=== PATIENT | female | born 1935 | race Caucasian/White ===

== ENCOUNTER 2016-12-09 10:52 | Emergency (ER) | payer MEDICARE, OTHER ==
[~2016-12-09] VITALS: Ht 157.5 cm; Wt 75.3 kg
[2016-12-09] MEDS ORDERED: ASPI81TA85 PO (11:13)
[2016-12-09] MEDS ORDERED: CINA30TA PO (11:13)
[2016-12-09] MEDS ORDERED: CHLO25TA PO (11:13)
[2016-12-09] MEDS ORDERED: INSULADS INJ (11:13)
[2016-12-09] MEDS ORDERED: AMLO10TA2 PO (11:13)
[2016-12-09] MEDS ORDERED: JANU100T PO (11:13)
[2016-12-09] MEDS ORDERED: METO25TAB PO (11:13)
[2016-12-09] MEDS ORDERED: GLIM4TAB PO (11:13)
[2016-12-09] MEDS ORDERED: PRIL20CA9 PO (11:13)
[2016-12-09 12:42] LABS: BASO # 0.1 K/mm3 (0.0-0.2); BASO % 1.2 % (0.0-1.0); EOS # 0.2 K/mm3 (0.0-0.50); EOS % 2.1 % (0.0-3.0); LARGE UNSTAINED CELL # 0.4 K/mm3 (0.0-0.4); LARGE UNSTAINED CELL % 3.5 % (0.0-4.0); LYMPH # 3.6 K/mm3 (1.5-4.5); LYMPH % 29.6 % (24.0-44.0); MEAN CORPUSCULAR HEMOGLOBIN 30.4 pg (27.0-33.0); MEAN CORPUSCULAR HGB CONC 32.2 g/dl (32.0-36.5); MEAN CORPUSCULAR VOLUME 94.5 fl (80.0-96.0); MONO # 0.8 K/mm3 (0.0-0.8); MONO % 7.2 % (0.0-5.0); NEUTROPHILS # 6.1 K/mm3 (1.8-7.7); NEUTROPHILS % 56.4 % (36.0-66.0); PLATELET COUNT, AUTOMATED 483 k/mm3 (150-450); RED CELL DISTRIBUTION WIDTH 13.7 % (11.5-14.5); WHITE BLOOD COUNT 10.9 K/mm3 (4.0-10.0)
[2016-12-09 12:57] LABS: ALBUMIN 3.6 GM/DL (3.2-5.2); ALBUMIN/GLOBULIN RATIO 0.8 (1.00-1.93); BILIRUBIN,DIRECT 0.1 MG/DL (0.0-0.2); BILIRUBIN,TOTAL 0.4 MG/DL (0.2-1.0); CALCIUM LEVEL 9.6 MG/DL (8.8-10.2); CREATININE FOR GFR 1.92 MG/DL (0.55-1.02); GLOMERULAR FILTRATION RATE 26.6 (>32); TOTAL PROTEIN 8.1 GM/DL (6.4-8.2)
[2016-12-09] MEDS ORDERED: NS 500 ML IV ONE ×2 (13:00→15:45)
--- NOTE | 2016-12-09 14:45 | REP ---
CT ABDOMEN AND PELVIS WITHOUT IV CONTRAST: 12/09/2016. Comparison: CT 01/09/2005. Clinical history: Right flank and hip pain. Radiating to the right lower quadrant. She has had prior appendectomy and hysterectomy. Prior uterine carcinoma. Technique: No oral or IV contrast with scanning through the abdomen and pelvis in both coronal and sagittal reconstructions. Findings:CT abdomen: Lung bases show minor dependent atelectatic change without infiltrate or effusion. No nodular mass. The heart shows dense calcification of the mitral annulus. Coronary calcifications are noted. There is diffuse atherosclerotic calcifications of the abdominal aorta. No definite hiatal hernia. There is no focal hepatic mass, biliary dilatation or adjacent ascites. No abnormal calcifications. Spleen is absent. Since the previous study, there are no surgical clips at the tail of the spleen with resection of the cystic mass seen on the 2004 exam without recurrence visible on this study. Small bowel loops and colon in the upper abdomen grossly intact. There is atherosclerotic calcifications of the aorta without aneurysm. No periaortic or other retroperitoneal pathologic sized lymphadenopathy. The gallbladder is without calcified stone or mass. There is no ascites or free air. Lung window review of all CT slice levels in the abdomen and pelvis show no perforation or free air. In the upper pole of both kidneys, there are a few small cysts which are exophytic, largest on the right is posterior at the apex about 17 mm on the left, medial at the apex at 17 mm. Other smaller subcentimeter exophytic cysts including one hyperdense cyst in the posterior lower pole of the right noted. No stones, hydronephrosis or hydroureter. CT pelvis: I do not see ureteral dilatation or stone with the ureters followed all the way to the bladder in the ureter on either side. No ureteral dilatation. No bladder stone, mass or wall thickening. There has been surgical repair of the abdominal wall hernia in the midline infraumbilical region since the previous CT. This has not recurred. Small bowel loops grossly intact. There are atherosclerotic calcifications of the iliac and femoral vessels. Bone windows show degenerative disc changes at lumbar spine particularly at L5-S1. There is facet arthritis with grade 1 anterolisthesis and severe degenerative disc change with vacuum phenomenon and near [id number] appearance at L5-S1. I cannot clearly define spondylolysis. Lesser degenerative changes elsewhere in the upper lumbar and lower thoracic spine. Visualized ribs intact. The hips and SI joints with minimal degenerative change but no fractures. Pelvic ring, iliac bones, hips and acetabuli unremarkable. Pelvic phleboliths are noted along with vascular calcifications in iliac and femoral vessels. Distal left colon and sigmoid without colitis or diverticulitis. There is stool and gas in the cecum and redundant sigmoid. Small bowel loops unremarkable. Impression: 1. There are multiple small exophytic renal cysts the largest 17 mm upper pole on each side without hydronephrosis, renal stone, hydroureter or ureteral stone. No bladder stone. 2. Atherosclerotic calcifications aorta without aneurysm. 3. Degenerative changes in the spine and prior surgical repair of ventral infraumbilical hernia which is maintained. There are other postsurgical changes in the left upper quadrant and the spleen is absent. No acute finding. Signed by Ranjeet Goodson MD 12/09/2016 07:34 P
[2016-12-09] MEDS ORDERED: ACETAMINOPHEN TAB 650MG DOSE (2X325MG) PO ONE (15:45)
[2016-12-09] MEDS ORDERED: ONDANSETRON 4MG/2ML VIAL (J2405) IV ONE (15:45)
[2016-12-09] MEDS ORDERED: NORCO 5/325MG TABLET (BULK FOR ED) PO ONE (17:00)
[2016-12-09 17:07] VITALS: BP 125/65
[2016-12-09] MEDS ORDERED: ZOFR4TAB3 PO (17:07)
--- NOTE | 2016-12-09 21:14 | ECGEPIP ---
Stationary ECG Study [facility] - ED Test Date: 2016-12-09 Pat Name: DAVI MITCHELL Department: Room: - Gender: F [employer]: JT : [id number] Requested By: DELFINA Encarnacion Order Number: [id number] Reading MD: Aisha Purcell Measurements Intervals [place] Rate: 63 P: 28 IN: 166 QRS: 17 QRSD: 102 T: 32 QT: 476 QTc: 487 Interpretive Statements SINUS RHYTHM NONSPECIFIC ST & T-WAVE ABNORMALITY PROLONGED QT INTERVAL NO PRIOR FOR COMPARISON Electronically Signed On 12-09-2016 21:14:20 EDT by Aisha Purcell
== END 2016-12-09 17:24 | disposition home or self-care (01) ==
LOC: M ED 12:32
DX: M54.9 Dorsalgia, unspecified (principal); R10.9 Unspecified abdominal pain; R06.02 Shortness of breath; K59.00 Constipation, unspecified; I10 Essential (primary) hypertension; E11.9 Type 2 diabetes mellitus without complications; R01.1 Cardiac murmur, unspecified; Z95.5 Presence of coronary angioplasty implant and graft
CPT/HCPCS: 36415; 74176; 80048; 80076; 81001; 83605; 83690; 85025; 87086; 93005; 93041; 96374; 99285; J2405

== ENCOUNTER 2018-08-13 11:10 | Inpatient (IN) | payer MEDICARE, OTHER ==
[2018-08-13 11:50] LABS: BASO # 0.1 10^3/uL (0.0-0.2); EOS # 0.2 10^3/uL (0.0-0.50); EOS % 2.9 % (0.0-3.0); HEMOGLOBIN 12.1 g/dl (12.0-15.5); IMMATURE GRANULOCYTE % 0.2 % (0-3.0); LYMPH # 2.3 10^3/uL (1.5-4.5); LYMPH % 28.8 % (24.0-44.0); MEAN CORPUSCULAR HEMOGLOBIN 28.5 pg (27.0-33.0); MEAN CORPUSCULAR HGB CONC 33.6 g/dl (32.0-36.5); MEAN CORPUSCULAR VOLUME 84.9 fl (80.0-96.0); MONO # 0.9 10^3/uL (0.0-0.8); MONO % 10.5 % (0.0-5.0); NEUTROPHILS # 4.6 10^3/uL (1.8-7.7); NEUTROPHILS % 56.6 % (36.0-66.0); PLATELET COUNT, AUTOMATED 400 10^3/uL (150-450); RED BLOOD COUNT 4.24 10^6/uL (4.00-5.40); RED CELL DISTRIBUTION WIDTH 16.2 % (11.5-14.5); WHITE BLOOD COUNT 8.1 10^3/uL (4.0-10.0)
[2018-08-13 12:09] LABS: INR 0.95; PARTIAL THROMBOPLASTIN TIME 27.3 SECONDS (25.4-37.6); PROTHROMBIN TIME 12.8 SECONDS (12.1-14.4)
[2018-08-13 12:36] LABS: ALBUMIN 3.4 GM/DL (3.2-5.2); ALBUMIN/GLOBULIN RATIO 0.72 (1.00-1.93); ALKALINE PHOSPHATASE 74 U/L (45-117); ALT/SGPT 23 U/L (12-78); ANION GAP 10 MEQ/L (8-16); AST/SGOT 17 U/L (7-37); BILIRUBIN,DIRECT < 0.1 MG/DL (0.0-0.2); BILIRUBIN,TOTAL 0.3 MG/DL (0.2-1.0); BLOOD UREA NITROGEN 76 MG/DL (7-18); CARBON DIOXIDE LEVEL 31 MEQ/L (21-32); CHLORIDE LEVEL 96 MEQ/L (98-107); CK-MB VALUE MASS < 1.0 NG/ML (<3.6); CPK CREATINE PHOSPHOKINASE 69 U/L (26-192); CREATININE FOR GFR 2.65 MG/DL (0.55-1.30); FREE T4 1.45 NG/DL (0.76-1.46); GLOMERULAR FILTRATION RATE 18.3 (>32); GLUCOSE, FASTING 187 MG/DL (70-100); MB/CK RELATIVE INDEX 1.45 (< OR =4); NT-PRO BNP 2294 PG/ML (<450); SODIUM LEVEL 137 MEQ/L (136-145); TOTAL PROTEIN 8.1 GM/DL (6.4-8.2); TROPONIN I 0.02 NG/ML (< 0.10)
[2018-08-13] MEDS ORDERED: GLUCOSE 4 GM CHEW TABLET PO (15:00)
[2018-08-13] MEDS ORDERED: DEXTROSE 50% 50 ML SYRINGE IV (15:00)
[2018-08-13] MEDS ORDERED: GLUCAGON FOR INJ 1 MG VIAL (J1610) SC (15:00)
[2018-08-13] MEDS ORDERED: POTASSIUM CHLORIDE 10 MEQ SR TABLET PO ×2 (15:00)
[2018-08-13 15:19] LABS: MAGNESIUM LEVEL 2.4 MG/DL (1.8-2.4)
[2018-08-13] MEDS: HEPARIN SOD (PORCINE) 5000 UNITS/ML VIAL SC ×2 (16:19→21:48)
[2018-08-13] MEDS: POTASSIUM CHLORIDE 10 MEQ SR TABLET PO (16:20)
[2018-08-13 16:28] LABS: ESTIMATED AVERAGE GLUCOSE 180 MG/DL (60-110); HEMOGLOBIN A1c 7.9 %
[2018-08-13 16:32] LABS: BEDSIDE GLUCOSE 123 MG/DL (83-110)
[2018-08-13] MEDS: HumaLOG INSULIN (NovoLOG) PER UNIT SC ×2 (18:03→21:00)
[2018-08-13 18:30] LABS: ANION GAP 9 MEQ/L (8-16); BLOOD UREA NITROGEN 69 MG/DL (7-18); CARBON DIOXIDE LEVEL 33 MEQ/L (21-32); CHLORIDE LEVEL 98 MEQ/L (98-107); CK-MB VALUE MASS < 1.0 NG/ML (<3.6); CPK CREATINE PHOSPHOKINASE 66 U/L (26-192); CREATININE FOR GFR 2.58 MG/DL (0.55-1.30); GLOMERULAR FILTRATION RATE 18.8 (>32); GLUCOSE, FASTING 128 MG/DL (70-100); MB/CK RELATIVE INDEX 1.52 (< OR =4); SODIUM LEVEL 140 MEQ/L (136-145); TROPONIN I 0.02 NG/ML (< 0.10)
[2018-08-13 20:00] LABS: BEDSIDE GLUCOSE 210 MG/DL (83-110)
[2018-08-13] MEDS: METOPROLOL TART 25 MG TABLET PO (20:45)
[2018-08-13] MEDS: ASPIRIN 81 MG ENTERIC TAB PO (20:45)
[2018-08-13] MEDS ORDERED: LEVEMIR (INSULIN DETEMIR) 1 UNITS/0.01ML SC (21:00)
[2018-08-14 02:52] LABS: CK-MB VALUE MASS < 1.0 NG/ML (<3.6); CPK CREATINE PHOSPHOKINASE 62 U/L (26-192); MB/CK RELATIVE INDEX 1.61 (< OR =4); TROPONIN I 0.03 NG/ML (< 0.10)
[2018-08-14] MEDS: HEPARIN SOD (PORCINE) 5000 UNITS/ML VIAL SC ×3 (05:14→21:35)
[2018-08-14 05:43] LABS: BASO # 0.1 10^3/uL (0.0-0.2); BASO % 1.1 % (0.0-1.0); EOS % 11.5 % (0.0-3.0); HEMATOCRIT 34.4 % (36.0-47.0); HEMOGLOBIN 11.2 g/dl (12.0-15.5); IMMATURE GRANULOCYTE % 0.2 % (0-3.0); LYMPH # 3.2 10^3/uL (1.5-4.5); LYMPH % 38.8 % (24.0-44.0); MEAN CORPUSCULAR HEMOGLOBIN 28.4 pg (27.0-33.0); MEAN CORPUSCULAR HGB CONC 32.6 g/dl (32.0-36.5); MEAN CORPUSCULAR VOLUME 87.3 fl (80.0-96.0); MONO # 1.1 10^3/uL (0.0-0.8); MONO % 13.4 % (0.0-5.0); NEUTROPHILS # 2.9 10^3/uL (1.8-7.7); PLATELET COUNT, AUTOMATED 380 10^3/uL (150-450); RED BLOOD COUNT 3.94 10^6/uL (4.00-5.40); RED CELL DISTRIBUTION WIDTH 16.4 % (11.5-14.5); WHITE BLOOD COUNT 8.2 10^3/uL (4.0-10.0)
[2018-08-14 06:08] LABS: ALBUMIN 3.1 GM/DL (3.2-5.2); ALBUMIN/GLOBULIN RATIO 0.72 (1.00-1.93); ALKALINE PHOSPHATASE 66 U/L (45-117); ALT/SGPT 24 U/L (12-78); ANION GAP 8 MEQ/L (8-16); AST/SGOT 14 U/L (7-37); BILIRUBIN,TOTAL 0.3 MG/DL (0.2-1.0); BLOOD UREA NITROGEN 72 MG/DL (7-18); CALCIUM LEVEL 8.7 MG/DL (8.8-10.2); CARBON DIOXIDE LEVEL 34 MEQ/L (21-32); CHLORIDE LEVEL 98 MEQ/L (98-107); CREATININE FOR GFR 2.87 MG/DL (0.55-1.30); GLOMERULAR FILTRATION RATE 16.7 (>32); GLUCOSE, FASTING 126 MG/DL (70-100); MAGNESIUM LEVEL 2.4 MG/DL (1.8-2.4); POTASSIUM SERUM 3.2 MEQ/L (3.5-5.1); SODIUM LEVEL 140 MEQ/L (136-145); TOTAL PROTEIN 7.4 GM/DL (6.4-8.2)
[2018-08-14] MEDS ORDERED: amLODIPine 5 MG TAB PO (09:00)
[2018-08-14] MEDS: METOPROLOL TART 25 MG TABLET PO ×2 (09:00→21:00)
[2018-08-14] MEDS: PANTOPRAZOLE 40MG TAB (PROTONIX) PO (09:05)
[2018-08-14] MEDS: POTASSIUM CHLORIDE 10 MEQ SR TABLET PO ×2 (09:05→13:30)
[2018-08-14] MEDS: VITAMIN D 1,000 INTERNATIONAL UNITS TABLET PO (09:05)
[2018-08-14] MEDS: CLOPIDOGREL 75 MG TAB PO (09:05)
[2018-08-14] MEDS: LEVEMIR (INSULIN DETEMIR) 1 UNITS/0.01ML SC (09:06)
[2018-08-14] MEDS: HumaLOG INSULIN (NovoLOG) PER UNIT SC ×4 (09:07→20:18)
[2018-08-14 10:47] LABS: CK-MB VALUE MASS < 1.0 NG/ML (<3.6); CPK CREATINE PHOSPHOKINASE 62 U/L (26-192); MB/CK RELATIVE INDEX 1.61 (< OR =4); TROPONIN I 0.02 NG/ML (< 0.10)
[2018-08-14 11:22] LABS: APPEARANCE, URINE CLEAR (CLEAR); BACTERIA, URINE AUTO 1+ (NEGATIVE); BILIRUBIN, URINE AUTO NEGATIVE (NEGATIVE); BLOOD, URINE BLOOD NEGATIVE (NEGATIVE); COLOR, URINE YELLOW (YELLOW); GLUCOSE, URINE (UA) AUTO NEGATIVE (NEGATIVE); KETONE, URINE AUTO NEGATIVE (NEGATIVE); LEUKOCYTE ESTERASE, URINE AUTO TRACE (NEGATIVE); NITRITE, URINE AUTO NEGATIVE (NEGATIVE); PROTEIN, URINE AUTO NEGATIVE (NEGATIVE); RBC, URINE AUTO 0 /HPF (0-3); SPECIFIC GRAVITY URINE AUTO 1.013 (1.002-1.035); SQUAMOUS EPITHELIAL CELL UR AU 1 /HPF (0-6); UROBILINOGEN, URINE AUTO 0.2 mg/dL (0.0-2.0); WBC, URINE AUTO 1 /HPF (0-3)
[2018-08-14 11:51] LABS: BEDSIDE GLUCOSE 144 MG/DL (83-110)
[2018-08-14 12:02] LABS: SODIUM,RANDOM URINE 43 MEQ/L
[2018-08-14 12:37] LABS: OSMOLALITY URINE 482 MOSM/KG (500-800)
[2018-08-14] MEDS: SODIUM BICARBONATE 75 MEQ in NS 0.45% 1,000 ML IV (14:57)
[2018-08-14 16:32] LABS: ALBUMIN 3.3 GM/DL (3.2-5.2); ANION GAP 9 MEQ/L (8-16); BLOOD UREA NITROGEN 68 MG/DL (7-18); CALCIUM LEVEL 8.8 MG/DL (8.8-10.2); CARBON DIOXIDE LEVEL 31 MEQ/L (21-32); CHLORIDE LEVEL 100 MEQ/L (98-107); CREATININE FOR GFR 2.85 MG/DL (0.55-1.30); GLOMERULAR FILTRATION RATE 16.8 (>32); GLUCOSE, FASTING 110 MG/DL (70-100); PHOSPHORUS LEVEL 3.3 MG/DL (2.5-4.9); POTASSIUM SERUM 3.8 MEQ/L (3.5-5.1); SODIUM LEVEL 140 MEQ/L (136-145)
[2018-08-14 16:34] LABS: BEDSIDE GLUCOSE 103 MG/DL (83-110)
[2018-08-14] MEDS: ASPIRIN 81 MG ENTERIC TAB PO (20:15)
[2018-08-14 20:16] LABS: BEDSIDE GLUCOSE 277 MG/DL (83-110)
[2018-08-15] MEDS: SODIUM BICARBONATE 75 MEQ in NS 0.45% 1,000 ML IV ×2 (04:08→18:22)
[2018-08-15 06:12] LABS: BASO # 0.1 10^3/uL (0.0-0.2); BASO % 1.4 % (0.0-1.0); EOS # 1.1 10^3/uL (0.0-0.50); EOS % 13.8 % (0.0-3.0); HEMATOCRIT 33.2 % (36.0-47.0); HEMOGLOBIN 10.7 g/dl (12.0-15.5); IMMATURE GRANULOCYTE % 0.1 % (0-3.0); LYMPH # 2.4 10^3/uL (1.5-4.5); LYMPH % 30.4 % (24.0-44.0); MEAN CORPUSCULAR HEMOGLOBIN 28.2 pg (27.0-33.0); MEAN CORPUSCULAR HGB CONC 32.2 g/dl (32.0-36.5); MEAN CORPUSCULAR VOLUME 87.6 fl (80.0-96.0); MONO % 12.8 % (0.0-5.0); NEUTROPHILS # 3.3 10^3/uL (1.8-7.7); NEUTROPHILS % 41.5 % (36.0-66.0); PLATELET COUNT, AUTOMATED 351 10^3/uL (150-450); RED BLOOD COUNT 3.79 10^6/uL (4.00-5.40); RED CELL DISTRIBUTION WIDTH 16.5 % (11.5-14.5)
[2018-08-15] MEDS: HEPARIN SOD (PORCINE) 5000 UNITS/ML VIAL SC ×3 (06:32→23:39)
[2018-08-15 06:39] LABS: ALBUMIN 2.9 GM/DL (3.2-5.2); ALBUMIN/GLOBULIN RATIO 0.76 (1.00-1.93); ALKALINE PHOSPHATASE 65 U/L (45-117); ALT/SGPT 22 U/L (12-78); ANION GAP 9 MEQ/L (8-16); AST/SGOT 17 U/L (7-37); BILIRUBIN,TOTAL 0.3 MG/DL (0.2-1.0); BLOOD UREA NITROGEN 66 MG/DL (7-18); CALCIUM LEVEL 8.8 MG/DL (8.8-10.2); CARBON DIOXIDE LEVEL 29 MEQ/L (21-32); CHLORIDE LEVEL 101 MEQ/L (98-107); CREATININE FOR GFR 2.42 MG/DL (0.55-1.30); GLOMERULAR FILTRATION RATE 20.3 (>32); GLUCOSE, FASTING 162 MG/DL (70-100); MAGNESIUM LEVEL 2.1 MG/DL (1.8-2.4); POTASSIUM SERUM 3.7 MEQ/L (3.5-5.1); SODIUM LEVEL 139 MEQ/L (136-145); TOTAL PROTEIN 6.7 GM/DL (6.4-8.2)
[2018-08-15] MEDS: CLOPIDOGREL 75 MG TAB PO (08:56)
[2018-08-15] MEDS: VITAMIN D 1,000 INTERNATIONAL UNITS TABLET PO (08:56)
[2018-08-15] MEDS: PANTOPRAZOLE 40MG TAB (PROTONIX) PO (08:58)
[2018-08-15] MEDS: METOPROLOL TART 25 MG TABLET PO ×2 (09:05→23:39)
[2018-08-15] MEDS: HumaLOG INSULIN (NovoLOG) PER UNIT SC ×4 (09:10→21:00)
[2018-08-15] MEDS: LEVEMIR (INSULIN DETEMIR) 1 UNITS/0.01ML SC (09:26)
[2018-08-15] MEDS ORDERED: ISOVUE-370 76% 100ML VIAL (Q9967) As Ordered (10:15)
[2018-08-15 12:01] LABS: BEDSIDE GLUCOSE 127 MG/DL (83-110)
[2018-08-15 17:31] LABS: BEDSIDE GLUCOSE 121 MG/DL (83-110)
[2018-08-15 20:14] LABS: BEDSIDE GLUCOSE 197 MG/DL (83-110)
[2018-08-15] MEDS: ASPIRIN 81 MG ENTERIC TAB PO (23:39)
[2018-08-16] MEDS: SODIUM BICARBONATE 75 MEQ in NS 0.45% 1,000 ML IV (05:12)
[2018-08-16] MEDS: HEPARIN SOD (PORCINE) 5000 UNITS/ML VIAL SC ×3 (05:20→21:29)
[2018-08-16 06:04] LABS: BASO # 0.1 10^3/uL (0.0-0.2); BASO % 1.1 % (0.0-1.0); EOS # 1.1 10^3/uL (0.0-0.50); EOS % 12.1 % (0.0-3.0); HEMATOCRIT 31.2 % (36.0-47.0); HEMOGLOBIN 10.2 g/dl (12.0-15.5); IMMATURE GRANULOCYTE % 0.3 % (0-3.0); LYMPH % 33.2 % (24.0-44.0); MEAN CORPUSCULAR HEMOGLOBIN 27.9 pg (27.0-33.0); MEAN CORPUSCULAR HGB CONC 32.7 g/dl (32.0-36.5); MEAN CORPUSCULAR VOLUME 85.5 fl (80.0-96.0); MONO % 11.3 % (0.0-5.0); NEUTROPHILS # 3.8 10^3/uL (1.8-7.7); PLATELET COUNT, AUTOMATED 360 10^3/uL (150-450); RED BLOOD COUNT 3.65 10^6/uL (4.00-5.40); RED CELL DISTRIBUTION WIDTH 16.6 % (11.5-14.5)
[2018-08-16 06:25] LABS: ALBUMIN 2.9 GM/DL (3.2-5.2); ALBUMIN/GLOBULIN RATIO 0.76 (1.00-1.93); ALKALINE PHOSPHATASE 62 U/L (45-117); ALT/SGPT 22 U/L (12-78); ANION GAP 7 MEQ/L (8-16); AST/SGOT 14 U/L (7-37); BILIRUBIN,TOTAL 0.3 MG/DL (0.2-1.0); BLOOD UREA NITROGEN 49 MG/DL (7-18); CALCIUM LEVEL 8.9 MG/DL (8.8-10.2); CARBON DIOXIDE LEVEL 32 MEQ/L (21-32); CHLORIDE LEVEL 99 MEQ/L (98-107); CREATININE FOR GFR 1.99 MG/DL (0.55-1.30); GLOMERULAR FILTRATION RATE 25.4 (>32); GLUCOSE, FASTING 161 MG/DL (70-100); POTASSIUM SERUM 3.5 MEQ/L (3.5-5.1); SODIUM LEVEL 138 MEQ/L (136-145); TOTAL PROTEIN 6.7 GM/DL (6.4-8.2)
[2018-08-16] MEDS: HumaLOG INSULIN (NovoLOG) PER UNIT SC ×4 (07:32→21:00)
[2018-08-16] MEDS: VITAMIN D 1,000 INTERNATIONAL UNITS TABLET PO (07:33)
[2018-08-16] MEDS: LEVEMIR (INSULIN DETEMIR) 1 UNITS/0.01ML SC (07:33)
[2018-08-16] MEDS: CLOPIDOGREL 75 MG TAB PO (07:34)
[2018-08-16] MEDS: PANTOPRAZOLE 40MG TAB (PROTONIX) PO (07:34)
[2018-08-16] MEDS: METOPROLOL TART 25 MG TABLET PO ×2 (07:34→21:29)
[2018-08-16] MEDS: POTASSIUM CHLORIDE 10 MEQ SR TABLET PO (10:19)
[2018-08-16 11:29] LABS: BEDSIDE GLUCOSE 115 MG/DL (83-110)
[2018-08-16 12:08] LABS: HEMATOCRIT 34.2 % (36.0-47.0); HEMOGLOBIN 11.2 g/dl (12.0-15.5); MEAN CORPUSCULAR HEMOGLOBIN 28.4 pg (27.0-33.0); MEAN CORPUSCULAR HGB CONC 32.7 g/dl (32.0-36.5); MEAN CORPUSCULAR VOLUME 86.8 fl (80.0-96.0); PLATELET COUNT, AUTOMATED 386 10^3/uL (150-450); RED BLOOD COUNT 3.94 10^6/uL (4.00-5.40); RED CELL DISTRIBUTION WIDTH 16.5 % (11.5-14.5); WHITE BLOOD COUNT 9.5 10^3/uL (4.0-10.0)
[2018-08-16 16:58] LABS: BEDSIDE GLUCOSE 210 MG/DL (83-110)
[2018-08-16 20:13] LABS: BEDSIDE GLUCOSE 167 MG/DL (83-110)
[2018-08-16] MEDS: ASPIRIN 81 MG ENTERIC TAB PO (21:28)
[2018-08-17] MEDS: HEPARIN SOD (PORCINE) 5000 UNITS/ML VIAL SC (05:27)
[2018-08-17 05:58] LABS: BASO # 0.1 10^3/uL (0.0-0.2); BASO % 1.2 % (0.0-1.0); EOS % 15.1 % (0.0-3.0); HEMATOCRIT 34.3 % (36.0-47.0); HEMOGLOBIN 10.9 g/dl (12.0-15.5); IMMATURE GRANULOCYTE % 0.3 % (0-3.0); LYMPH # 2.1 10^3/uL (1.5-4.5); LYMPH % 31.2 % (24.0-44.0); MEAN CORPUSCULAR HEMOGLOBIN 27.9 pg (27.0-33.0); MEAN CORPUSCULAR HGB CONC 31.8 g/dl (32.0-36.5); MEAN CORPUSCULAR VOLUME 87.7 fl (80.0-96.0); MONO # 0.8 10^3/uL (0.0-0.8); MONO % 12.1 % (0.0-5.0); NEUTROPHILS # 2.7 10^3/uL (1.8-7.7); NEUTROPHILS % 40.1 % (36.0-66.0); PLATELET COUNT, AUTOMATED 376 10^3/uL (150-450); RED BLOOD COUNT 3.91 10^6/uL (4.00-5.40); RED CELL DISTRIBUTION WIDTH 16.6 % (11.5-14.5); WHITE BLOOD COUNT 6.8 10^3/uL (4.0-10.0)
[2018-08-17 06:35] LABS: ALBUMIN 2.9 GM/DL (3.2-5.2); ALBUMIN/GLOBULIN RATIO 0.73 (1.00-1.93); ALKALINE PHOSPHATASE 65 U/L (45-117); ALT/SGPT 21 U/L (12-78); ANION GAP 9 MEQ/L (8-16); AST/SGOT 16 U/L (7-37); BILIRUBIN,TOTAL 0.4 MG/DL (0.2-1.0); BLOOD UREA NITROGEN 43 MG/DL (7-18); CALCIUM LEVEL 9.1 MG/DL (8.8-10.2); CARBON DIOXIDE LEVEL 27 MEQ/L (21-32); CHLORIDE LEVEL 103 MEQ/L (98-107); CREATININE FOR GFR 1.94 MG/DL (0.55-1.30); GLOMERULAR FILTRATION RATE 26.2 (>32); GLUCOSE, FASTING 206 MG/DL (70-100); MAGNESIUM LEVEL 1.8 MG/DL (1.8-2.4); POTASSIUM SERUM 3.7 MEQ/L (3.5-5.1); SODIUM LEVEL 139 MEQ/L (136-145); TOTAL PROTEIN 6.9 GM/DL (6.4-8.2)
[2018-08-17] MEDS: METOPROLOL TART 25 MG TABLET PO (07:30)
[2018-08-17] MEDS: CLOPIDOGREL 75 MG TAB PO (07:34)
[2018-08-17] MEDS: PANTOPRAZOLE 40MG TAB (PROTONIX) PO (07:34)
[2018-08-17] MEDS: VITAMIN D 1,000 INTERNATIONAL UNITS TABLET PO (07:35)
[2018-08-17] MEDS: HumaLOG INSULIN (NovoLOG) PER UNIT SC ×2 (07:35→11:54)
[2018-08-17] MEDS: LEVEMIR (INSULIN DETEMIR) 1 UNITS/0.01ML SC (07:36)
[2018-08-17 11:49] LABS: BEDSIDE GLUCOSE 134 MG/DL (83-110)
== END 2018-08-17 13:58 | disposition home or self-care (01) | DRG 436 ==
LOC: M ED 11:10 → M ED INP 14:51 → M MSPAV 16:07
PROVIDERS: Internal Medicine
DX: C25.9 Malignant neoplasm of pancreas, unspecified (principal); N17.9 Acute kidney failure, unspecified; N18.4 Chronic kidney disease, stage 4 (severe); I13.0 Hypertensive heart and chronic kidney disease with heart failure and stage 1 through stage 4 chronic kidney disease, or unspecified chronic kidney disease; R07.9 Chest pain, unspecified; I25.10 Atherosclerotic heart disease of native coronary artery without angina pectoris; I50.9 Heart failure, unspecified; I35.0 Nonrheumatic aortic (valve) stenosis; Z95.2 Presence of prosthetic heart valve; E78.49 Other hyperlipidemia; E11.9 Type 2 diabetes mellitus without complications; K21.9 Gastro-esophageal reflux disease without esophagitis; Z79.82 Long term (current) use of aspirin; Z79.899 Other long term (current) drug therapy; Z88.0 Allergy status to penicillin; Z88.8 Allergy status to other drugs, medicaments and biological substances; Z85.42 Personal history of malignant neoplasm of other parts of uterus; E87.6 Hypokalemia; R19.7 Diarrhea, unspecified

== ENCOUNTER 2020-10-24 13:20 | Emergency (ER) | payer MEDICARE, OTHER ==
[~2020-10-24] VITALS: Ht 154.9 cm; Wt 80.9 kg
[~2020-10-24 13:20] MED LIST: AMLO1TAB25 PO; ASPI81TA86 PO; CHLO25TA PO; CINA30TA4 PO; CLOP75TA2 PO; EZET10TA21 PO; FURO40TA2 PO; GLIM2TAB4 PO; GLIM4TAB5 PO; INSULADS INJ; JANU100T PO; MAGN400C2 PO; METO25TA4 PO; OMEP1CAP73 PO; PANT40TA29 PO; POTA10CA32 PO; PRIL20CA9 PO; SITA50TAB PO; VITA2000 PO; VITA500C24 PO; VITA50TA43 PO; ZOFR4TAB14 PO
--- OUTSIDE RECORDS SUMMARY | 2020-10-24 13:27 | CCD | Continuity of Care Document ---
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 Callie Hewitt DPM-pc Onset: 01/27/2020 Peripheral vascular disease NILESH DominiqueM-pc Onset: Tailor's bunion Callie Hewitt DPM-pc Onset: 06/22/2019 Hammer toe NILESH DominiqueM-pc Onset: 02/02/2019 Plantar callosity Callie Hewitt DPM-pc Onset: 02/03/2018 Peripheral circulatory disorder associated with diabet es mellitus Jf Dominique Onset: 02/03/2018 Pain in limb NILESH DominiqueM-pc Onset: 02/03/2018 Onychomycosis Callie Hewitt DPM-pc Onset: 02/03/2018 Social History Type Date Description Comments Sex Unknown ETOH Use Denies alcohol use Tobacco Use Start: Unknown End: Unknown Patient is a former smoker Smoking Status Reviewed: 05/11/20 Patient is a former smoker Allergies, Adverse Reactions, Alerts Active Allergies Reaction Severity Comments Date Penicillin Urticaria 02/03/2018 Cipro Nausea and Vomiting 02/04/20 18 Medications Active Medications SIG Qnty Indications Ordering Provide r Date Onetouch Verio Strips Use To Test Two Times A Day Unknown Onetouch Delica Lancets Extra Fine 33G Misc Use To Test Two Times A Day Unknown Sensipar 30mg Tablets Take One Tablet By Mouth Every Morning 5 Days A Week Unknown Lantus Solostar 100U nit/ML Solution Pen-Inject Unknown Furosemide 40mg Tablets Take One Tablet By Mouth Every Day Unknown Potassium Chloride ER 10Meq Capsul es ER Take One Capsule By Mouth Every Day Unknown Cinacalcet HCL 30mg Tablets Take One Tablet By Mouth Three Days A Week Unknown Amlodipine Besylate 10mg Tablets Take One Tablet By Mouth Every Day Unknown Febuxostat 40mg Tablets Take One Tablet By Mouth Every Day Unknown Ezetimibe 10mg Tablets Take One Tablet By Mouth Every Day Unknown Pantoprazole Sodium 40mg Tablets D R 1 by mouth every day Unknown Aspirin [address] 1 by mouth every day Unknown Magnesium 400mg Tablets 1 tabs by mouth every day Unknown Lutein 6mg Capsules Unknown Vitamin C 500mg Tablets Unknown Immunizations Description No Information Available Vital Signs Date Vital Result Comment 02/02/2019 1:25pm Weight 176.00 lb Weight 79.834 kg Height 63 inches 5'3" BMI (Body Mass Index) 31.2 kg/m2 BSA (Body Surface Area) 1.83 m2 02/03/2018 1:08pm Weight 173.00 lb Weight 78.473 kg Height 63 inches 5'3" BMI (Body Mass Index) 30.6 kg/m2 BSA (Body Surface Area) 1.82 m2 Results Description No Information Available Procedures Date Code Description Status 05/11/2020 86817 Debridement Nails Any Method 6 O r More Completed 05/11/2020 07494 Pare Hyperkeratotic Lesion, 2-4 Completed Medical Devices Description No Information Available Encounters Description No Information Available Assessments Date Code Description Provider 05/11/2020 E10.51 Type 1 diabetes mellitus with di abetic peripheral angiopathy Jf Dominique 05/11/2020 L84 Corns and callosities Jf Martin 05/11/2020 B35.1 Tinea unguium Jf Dominique 05/11/2020 M20.40 Other hammer toe(s) (acquired), unspecified foot Jf Dominique 05/11/2020 M21.629 Bunionette of unspecified foot D Jf Larson 05/11/2020 M79.671 Pain in right foot Jf Cheema Plan of Treatment Future Appointment(s):* 11/09/2020 11:00 am - Jf Dominique at [facility] Podiatry Functional Status Description No Information Available Mental Status Description No Information Available Referrals Description No Information Available
--- OUTSIDE RECORDS SUMMARY | 2020-10-24 13:30 | CCD ---
Author Author [facility] Organization [facility] Address Unknown Phone Unavailable Care Team Providers Care Rodent Exterminator Name Role Phone Amara Martinez PA Unavailable Unavailable Amara Martinez PA Unavailable Unavailable Amara Martineza PA Unavailable Unavailable Amara Martinez [place] PA Unavailable Unavailable Amara Martinez [place] PA Unavailable Unavailable Amara Martinez [place] PA Unavailable Unavailable Amara Martinez [place] PA Unavailable Unavailable Amara Martinez [place] PA Unavailable Unavailable Amara Martinez [place] PA Unavailable Unavailable Amara Martinez [place] PA Unavailable Unavailable Amara Martinez [place] PA Unavailable Unavailable Amara Martinez [place] PA Unavailable Unavailable Amara Martinez [place] PA Unavailable Unavailable Michelle, Amara Alexandria PA Unavailable Unavailable Michelle, Amara Alexandria PA Unavailable Unavailable Michelle, Amara Alexandria PA Unavailable Unavailable Michelle, Amara Alexandria PA Unavailable Unavailable Michelle, Amara Alexandria PA Unavailable Unavailable Michelle, Amara Alexandria PA Unavailable Unavailable Michelle, Amara Alexandria PA Unavailable Unavailable Michelle, Amara Alexandria PA Unavailable Unavailable Michelle, Amara Alexandria PA Unavailable Unavailable Michelle, Amara Alexandria PA Unavailable Unavailable Michelle, Amara Alexandria PA Unavailable Unavailable Michelle, Amara Alexandria PA Unavailable Unavailable Michelle, Amara Alexandria PA Unavailable Unavailable Michelle, Amara Alexandria PA Unavailable Unavailable Michelle, Amara Alexandria PA Unavailable Unavailable Michelle, Amara Alexandria PA Unavailable Unavailable Michelle, Amara Alexandria PA Unavailable Unavailable Michelle, Amara Alexandria PA Unavailable Unavailable Michelle, Amara Alexandria PA Unavailable Unavailable MARCELINA, J DORA [facility] Unavailable Unavailable MARCELINA, J [facility]A [facility] Unavailable Unavailable MARCELINA, J D[facility]A [facility] Unavailable Unavailable MARCELINA, J DORA [facility] Unavailable Unavailable MARCELINA, J DORA [facility] Unavailable Unavailable MARCELINA, J DORA [facility] Unavailable Unavailable MARCELINA, J DORA [facility] Unavailable Unavailable MARCELINA, J DOAR [facility] Unavailable Unavailable MARCELINA, J D[facility]A [facility] Unavailable Unavailable MARCELINA, J D[facility]A [facility] Unavailable Unavailable MARCELINA, J D[facility]A [facility] Unavailable Unavailable MARCELINA, J D[facility]A [facility] Unavailable Unavailable MARCELINA, J DORA [facility] Unavailable Unavailable MARCELINA, J DORA [facility] Unavailable Unavailable MARCELINA, J DORA [facility] Unavailable Unavailable MARCELINA, J DORA [facility] Unavailable Unavailable MARCELINA, J DORA [facility] Unavailable Unavailable MARCELINA, J DORA [facility] Unavailable Unavailable MARCELINA, J DORA [facility] Unavailable Unavailable MARCELINA, J D[facility]A [facility] Unavailable Unavailable MARCELINA, J DORA [facility] Unavailable Unavailable MARCELINA, J D[facility]A [facility] Unavailable Unavailable MARCELINA, J D[facility]A [facility] Unavailable Unavailable MARCELINA, J D[facility]A [facility] Unavailable Unavailable MARCELINA, J D[facility]A [facility] Unavailable Unavailable MARCELINA, J DORA [facility] Unavailable Unavailable PHYSICIAN, PHYSICIAN ER Unavailable Unavailable Clayton CALDERA MD Unavailable Unavailable Clayton CALDERA MD Unavailable Unavailable Clayton CALDERA MD Unavailable Unavailable Clayton CALDERA MD Unavailable Unavailable Clayton CALDERA MD Unavailable Unavailable Clayton CALDERA MD Unavailable Unavailable MANTA, D GONSALO MD Unavailable Unavailable MANTA, D GONSALO MD Unavailable Unavailable MANTA, D GONSALO MD Unavailable Unavailable MANTA, D GONSALO MD Unavailable Unavailable MANTA, D GONSALO MD Unavailable Unavailable MANTA, D GONSALO MD Unavailable Unavailable MANTA, D GONSALO MD Unavailable Unavailable MANTA, D GONSALO MD Unavailable Unavailable MANTA, D GONASLO MD Unavailable Unavailable MANTA, D GONSALO MD Unavailable Unavailable MANTA, D GONSALO MD Unavailable Unavailable MANTA, D GONSALO MD Unavailable Unavailable MANTA, D GONSALO MD Unavailable Unavailable Lilliam, P Khalid MD Unavailable Unavailable Lilliam, P Khalid MD Unavailable Unavailable Lilliam, P Khaliclayton MD Unavailable Unavailable Lilliam, P Khalid MD Unavailable Unavailable Lilliam, P Khaliclayton MD Unavailable Unavailable Lilliam, P Khalid MD Unavailable Unavailable Lilliam, P Philaliclayton MD Unavailable Unavailable Lilliam, P Philaliclayton MD Unavailable Unavailable Lilliam, P Khalid MD Unavailable Unavailable Lilliam, P Khaliclayton MD Unavailable Unavailable Lilliam, P Khalid MD Unavailable Unavailable Lilliam, P Khaliclayton MD Unavailable Unavailable Lilliam, P Khaliclayton MD Unavailable Unavailable Lilliam, P Khaliclayton MD Unavailable Unavailable Lilliam, P Khalid MD Unavailable Unavailable Lilliam, P Philaliclayton MD Unavailable Unavailable Lilliam, P Philaliclayton MD Unavailable Unavailable Lilliam, P Philaliclayton MD Unavailable Unavailable Lilliam, P Philaliclayton MD Unavailable Unavailable Lilliam, P Khaliclayton MD Unavailable Unavailable Lilliam, P Khalid MD Unavailable Unavailable Lilliam, P Khaliclayton MD Unavailable Unavailable Lilliam, P Khalid MD Unavailable Unavailable Lilliam, P Khaliclayton MD Unavailable Unavailable Lilliam, P Khaliclayton MD Unavailable Unavailable Lilliam, P Khaliclayton MD Unavailable Unavailable Lilliam, P Khalid MD Unavailable Unavailable Lilliam, P Khaliclayton MD Unavailable Unavailable Lilliam, P Khaliclayton MD Unavailable Unavailable Lilliam, P Khaliclayton MD Unavailable Unavailable Lilliam, P Khalid MD Unavailable Unavailable Lilliam, P Khaliclayton MD Unavailable Unavailable Lilliam, P Khalid MD Unavailable Unavailable Lilliam, P Khaliclayton MD Unavailable Unavailable Lilliam, P Khalid MD Unavailable Unavailable Lilliam, P Khalid MD Unavailable Unavailable Lilliam, Sarkis Ramirez MD Unavailable Unavailable Lilliam, P Ashley LONDON Unavailable Unavailable Lilliam, P Ashley LONDON Unavailable Unavailable Lilliam, P Ashley LONDON Unavailable Unavailable Lilliam, P Ashley LONDON Unavailable Unavailable Lilliam, P Ashley LONDON Unavailable Unavailable Lilliam, P Ashley LONDON Unavailable Unavailable Lilliam, P Ashley LONDON Unavailable Unavailable Lilliam, P Ashley LONDON Unavailable Unavailable Lilliam, P Ashley LONDON Unavailable Unavailable Lilliam, P Ashley LONDON Unavailable Unavailable Lilliam, P Ashley LONDON Unavailable Unavailable Lilliam, P Ashley LONDON Unavailable Unavailable Lilliam, P Ashley LONDON Unavailable Unavailable Lilliam, Sarkis Ramirez MD Unavailable Unavailable Oscar Rodriguez Jr Unavailable Unavailable Shambo, Marcos Peterson MD Unavailable Unavailable Shambo, Marcos Peterson MD Unavailable Unavailable Shambo, Marcos Peterson MD Unavailable Unavailable Shambo, Marcos Peterson MD Unavailable Unavailable Shambo, Marcos Peterson MD Unavailable Unavailable Shambo, Marcos Peterson MD Unavailable Unavailable Shambo, Marcos Peterson MD Unavailable Unavailable Shambo, Marcos Peterson MD Unavailable Unavailable Shambo, Marcos Peterson MD Unavailable Unavailable Shambo, Marcos Peterson MD Unavailable Unavailable Shambo, Marcos Peterson MD Unavailable Unavailable Shambo, Marcos Peetrson MD Unavailable Unavailable Shambo, Marcos Peterson MD Unavailable Unavailable Shambo, Marcos Peterson MD Unavailable Unavailable Shambo, Marcos Peterson MD Unavailable Unavailable Shambo, Marcos Peterson MD Unavailable Unavailable Shambo, Marcos Peterson MD Unavailable Unavailable Shambo, Marcos Peterson MD Unavailable Unavailable Shambo, Marcos Peterson MD Unavailable Unavailable Shambo, Marcos Peterson MD Unavailable Unavailable Shambo, Marcos Peterson MD Unavailable Unavailable Shambo, Marcos Peterson MD Unavailable Unavailable Shambo, Marcos Peterson MD Unavailable Unavailable Shambo, Marcos Peterson MD Unavailable Unavailable Shambo, Marcos Peterson MD Unavailable Unavailable Shambo, Marcos Peterson MD Unavailable Unavailable Shambo, Marcos Peterson MD Unavailable Unavailable Shambo, Marcos Peterson MD Unavailable Unavailable Shambo, Marcos Peterson MD Unavailable Unavailable Shambo, Marcos Peterson MD Unavailable Unavailable Shambo, Marcos Peterson MD Unavailable Unavailable Shambo, Marcos Peterson MD Unavailable Unavailable Shambo, Marcos Peterson MD Unavailable Unavailable Shambo, Marcos Peterson MD Unavailable Unavailable Shambo, Marcos Peterson MD Unavailable Unavailable Shambo, Marcos Peterson MD Unavailable Unavailable Shambo, Marcos Peterson MD Unavailable Unavailable Shambo, Marcso Peterson MD Unavailable Unavailable Shambo, Marcos Peterson MD Unavailable Unavailable Shambo, Marcos Peterson MD Unavailable Unavailable Shambo, Marcos Peterson MD Unavailable Unavailable Shambo, Marcos Peterson MD Unavailable Unavailable Shambo, Marcos Peterson MD Unavailable Unavailable Shambo, Marcos Peterson MD Unavailable Unavailable Shambo, Marcos Peterson MD Unavailable Unavailable Shambo, Marcos Peterson MD Unavailable Unavailable Shambo, Marcos Peterson MD Unavailable Unavailable Shambo, Marcos Peterson MD Unavailable Unavailable Shambo, Marcos Peterson MD Unavailable Unavailable Shambo, Marcos Peterson MD Unavailable Unavailable Shambo, Marcos Peterson MD Unavailable Unavailable Shambo, Marcos Peterson MD Unavailable Unavailable Shambo, Marcos Peterson MD Unavailable Unavailable Shambo, Marcos Peterson MD Unavailable Unavailable Shambo, Marcos Peterson MD Unavailable Unavailable Shambo, Marcos Peterson MD Unavailable Unavailable Shambo, Marcos Peterson MD Unavailable Unavailable Shambo, Marcos Peterson MD Unavailable Unavailable Shambo, Marcos Peterson MD Unavailable Unavailable Shambo, Marcos Peterson MD Unavailable Unavailable Shambo, Marcos Peterson MD Unavailable Unavailable Shambo, Marcos Peterson MD Unavailable Unavailable Shambo, Marcos Peterson MD Unavailable Unavailable Shambo, Marcos Peterson MD Unavailable Unavailable NOT, SPECIFIED Unavailable Unavailable Rylee Goldman MD Unavailable Unavailable JagdishRylee cloud MD Unavailable Unavailable JagdishRylee cloud MD Unavailable Unavailable JagdishRylee cloud MD Unavailable Unavailable JagdishRylee cloud MD Unavailable Unavailable JagdishRylee cloud MD Unavailable Unavailable JagdishRylee gonzalez MD Unavailable Unavailable JagdishRylee gonzalez MD Unavailable Unavailable JagdishRylee gonzalez MD Unavailable Unavailable JagdishRylee gonzalez MD Unavailable Unavailable JagdishRylee gonzalez MD Unavailable Unavailable JagdishRylee gonzalez MD Unavailable Unavailable JagdishRylee cloud MD Unavailable Unavailable JagdishRylee gonzalez MD Unavailable Unavailable JagdishRylee gonzalez MD Unavailable Unavailable JagdishRylee cloud MD Unavailable Unavailable JagdishRylee cloud MD Unavailable Unavailable JagdishRylee cloud MD Unavailable Unavailable Jagdish, Rylee Barber MD Unavailable Unavailable Jagdish, Rylee Barber MD Unavailable Unavailable Jagdish, Rylee Barber MD Unavailable Unavailable Jagdish, Rylee aBrber MD Unavailable Unavailable Jagdish, Rylee Barber MD Unavailable Unavailable Jagdish, Rylee Barber MD Unavailable Unavailable Jagdish, Rylee Barber MD Unavailable Unavailable Jagdish, Rylee Barber MD Unavailable Unavailable Jagdish, Rylee Barber MD Unavailable Unavailable Jagdish, Rylee Barber MD Unavailable Unavailable Jagdish, Rylee Barber MD Unavailable Unavailable Jagdish, Rylee Barber MD Unavailable Unavailable Jagdish, Rylee Barber MD Unavailable Unavailable Jagdish, Rylee Barber MD Unavailable Unavailable Jagdish, Rylee Barber MD Unavailable Unavailable Jagdish, Rylee Barber MD Unavailable Unavailable Jagdish, Rylee Barber MD Unavailable Unavailable Jagdish, Rylee Barber MD Unavailable Unavailable Jagdish, Rylee Barber MD Unavailable Unavailable Jagdish, Rylee Barber MD Unavailable Unavailable Jagdish, Rylee Barber MD Unavailable Unavailable Jagdish, Rylee Barber MD Unavailable Unavailable Jagdish, Rylee Barber MD Unavailable Unavailable Jagdish, Rylee Barber MD Unavailable Unavailable Jagdish, Rylee Barber MD Unavailable Unavailable Jagdish, Rylee Barber MD Unavailable Unavailable Jagdish, Rylee Barber MD Unavailable Unavailable Jagdish, Rylee Barber MD Unavailable Unavailable Jagdish, Rylee Barber MD Unavailable Unavailable Jagdish, Rylee Barber MD Unavailable Unavailable Jagdish, Rylee Barber MD Unavailable Unavailable Jagdish, Rylee Barber MD Unavailable Unavailable Jagdish, Rylee Barber MD Unavailable Unavailable Jagdish, Rylee Barber MD Unavailable Unavailable Jagdish, Rylee Barber MD Unavailable Unavailable Jagdish, Rylee Barber MD Unavailable Unavailable Jagdish, Rylee Barber MD Unavailable Unavailable Jagdish, Rylee Barber MD Unavailable Unavailable Jagdish, Rylee Barber MD Unavailable Unavailable Jagdish, Rylee Barber MD Unavailable Unavailable Jagdish, Rylee Barber MD Unavailable Unavailable Jagdish, Rylee Barber MD Unavailable Unavailable Jagdish, Rylee Barber MD Unavailable Unavailable Jagdish, Rylee Barber MD Unavailable Unavailable Jagdish, Rylee Barber MD Unavailable Unavailable Jagdish, Rylee Barber MD Unavailable Unavailable Jagdish, Rylee Barber MD Unavailable Unavailable Jagdish, Rylee Barber MD Unavailable Unavailable Jagdish, Rylee Barber MD Unavailable Unavailable Jagdish, Rylee Barber MD Unavailable Unavailable Jagdish, Rylee Barber MD Unavailable Unavailable Jagdish, Rylee Barber MD Unavailable Unavailable Jagdish, Rylee Barber MD Unavailable Unavailable Jagdish, Rylee Barber MD Unavailable Unavailable Jagdish, Rylee Barber MD Unavailable Unavailable Jagdish, Rylee Barber MD Unavailable Unavailable Jagdish, Rylee Barber MD Unavailable Unavailable Jagdish, Rylee Barber MD Unavailable Unavailable Jagdish, Rylee Barber MD Unavailable Unavailable Jagdish, Rylee Barber MD Unavailable Unavailable Jagdish, Rylee Barber MD Unavailable Unavailable Jagdish, Rylee Barber MD Unavailable Unavailable Jagdish, Rylee Barber MD Unavailable Unavailable Jagdish, Rylee Barber MD Unavailable Unavailable Jagdish, Rylee Barber MD Unavailable Unavailable Jagdish, Rylee Barber MD Unavailable Unavailable Jagdish, Rylee Barber MD Unavailable Unavailable Jagdish, Rylee Barber MD Unavailable Unavailable Jagdish, Rylee Barber MD Unavailable Unavailable Jagdish, Rylee Barber MD Unavailable Unavailable Jagdish, Rylee Barber MD Unavailable Unavailable Jagdish, Rylee Barber MD Unavailable Unavailable Jagdish, Rylee Barber MD Unavailable Unavailable Jagdish, Rylee Barber MD Unavailable Unavailable Jagdish, Rylee Barber MD Unavailable Unavailable Jagdish, Rylee Barber MD Unavailable Unavailable Jagdish, Rylee Barber MD Unavailable Unavailable Jagdish, Rylee Barber MD Unavailable Unavailable Jagdish, Rylee Barber MD Unavailable Unavailable Profetto, A Joey JOB CHANGE CREW MEMBER Unavailable Unavailable Profetto, A Joey JOB CHANGE CREW MEMBER Unavailable Unavailable Profetto, A Joey JOB CHANGE CREW MEMBER Unavailable Unavailable Profetto, A Joey JOB CHANGE CREW MEMBER Unavailable Unavailable Profetto, A Joey JOB CHANGE CREW MEMBER Unavailable Unavailable Profetto, A Joey JOB CHANGE CREW MEMBER Unavailable Unavailable Profetto, A Joey JOB CHANGE CREW MEMBER Unavailable Unavailable Profetto, A Joey JOB CHANGE CREW MEMBER Unavailable Unavailable Profetto, A Joey JOB CHANGE CREW MEMBER Unavailable Unavailable Profetto, A Joey JOB CHANGE CREW MEMBER Unavailable Unavailable Profetto, A Joey JOB CHANGE CREW MEMBER Unavailable Unavailable Profetto, A Joey JOB CHANGE CREW MEMBER Unavailable Unavailable Profetto, A Joey JOB CHANGE CREW MEMBER Unavailable Unavailable Profetto, A Joey JOB CHANGE CREW MEMBER Unavailable Unavailable Profetto, A Joey JOB CHANGE CREW MEMBER Unavailable Unavailable Profetto, A Joey JOB CHANGE CREW MEMBER Unavailable Unavailable Profetto, A Joey JOB CHANGE CREW MEMBER Unavailable Unavailable Profetto, A Joey JOB CHANGE CREW MEMBER Unavailable Unavailable Profetto, A Joey JOB CHANGE CREW MEMBER Unavailable Unavailable Profetto, A Joey JOB CHANGE CREW MEMBER Unavailable Unavailable Profetto, A Joey JOB CHANGE CREW MEMBER Unavailable Unavailable Profetto, A Joey JOB CHANGE CREW MEMBER Unavailable Unavailable Profetto, A Joey JOB CHANGE CREW MEMBER Unavailable Unavailable Profetto, A Joey JOB CHANGE CREW MEMBER Unavailable Unavailable Profetto, A Joey JOB CHANGE CREW MEMBER Unavailable Unavailable Profetto, A Joey JOB CHANGE CREW MEMBER Unavailable Unavailable Profetto, A Joey JOB CHANGE CREW MEMBER Unavailable Unavailable Profetto, A Joey JOB CHANGE CREW MEMBER Unavailable Unavailable Profetto, A Joey JOB CHANGE CREW MEMBER Unavailable Unavailable IVIS (INA), Berta POE MD Unavailable Unavailab le IVIS (INA), Berta POE MD Unavailable Unavailab le IVIS (INA), Berta POE MD Unavailable Unavailab le IVIS (INA), Berta POE MD Unavailable Unavailab le IVIS (INA), Berta POE MD Unavailable Unavailab le IVIS (INA), Berta POE MD Unavailable Unavailab le IVIS (INA), Berta POE MD Unavailable Unavailab le IVIS (INA), Berta POE MD Unavailable Unavailab le IVIS (INA), Berta POE MD Unavailable Unavailab le IVIS (INA), Berta POE MD Unavailable Unavailab le IVIS (INA), Berta POE MD Unavailable Unavailab le IVIS (INA), Berta POE MD Unavailable Unavailab le IVIS (INA), Berta POE MD Unavailable Unavailab le IVIS (INA), Berta POE MD Unavailable Unavailab le IVIS (INA), Berta POE MD Unavailable Unavailab le IVIS (INA), Berta POE MD Unavailable Unavailab le IVIS (INA), Berta POE MD Unavailable Unavailab le IVIS (INA), Berta POE MD Unavailable Unavailab le IVIS (INA), Berta POE MD Unavailable Unavailab le IVIS (INA), Berta POE MD Unavailable Unavailab le IVIS (INA), Berta POE MD Unavailable Unavailab le IVIS (INA), Berta POE MD Unavailable Unavailab le IVIS (INA), Berta POE MD Unavailable Unavailab le IVIS (INA), Berta POE MD Unavailable Unavailab le IVIS (INA), Berta POE MD Unavailable Unavailab le IVIS (INA), Berta POE MD Unavailable Unavailab le IVIS (INA), Berta POE MD Unavailable Unavailab le IVIS (INA), Berta POE MD Unavailable Unavailab le IVIS (INA), Berta POE MD Unavailable Unavailab le IVIS (INA), Berta POE MD Unavailable Unavailab le IVIS (INA), Berta POE MD Unavailable Unavailab le IVIS (INA), Berta POE MD Unavailable Unavailab le IVIS (INA), Berta POE MD Unavailable Unavailab le IVIS (INA), Berta POE MD Unavailable Unavailab le IVIS (INA), Berta POE MD Unavailable Unavailab le IVIS (INA), Berta POE MD Unavailable Unavailab le IVIS (INA), Berta POE MD Unavailable Unavailab le IVIS (INA), Berta POE MD Unavailable Unavailab le IVIS (INA), Berta POE MD Unavailable Unavailab le IVIS (INA), Berta POE MD Unavailable Unavailab le IVIS (INA), Berta POE MD Unavailable Unavailab le IVIS (INA), Berta POE MD Unavailable Unavailab le IVIS (INA), Berta POE MD Unavailable Unavailab le IVIS (INA), Berta POE MD Unavailable Unavailab le IVIS (INA), Berta POE MD Unavailable Unavailab le IVIS (INA), Berta POE MD Unavailable Unavailab le IVIS (INA), Berta POE MD Unavailable Unavailab le IVIS (INA), Berta POE MD Unavailable Unavailab le IVIS (INA), Berta POE MD Unavailable Unavailab le IVIS (INA), Berta POE MD Unavailable Unavailab le IVIS (INA), Berta POE MD Unavailable Unavailab le IVIS (INA), Berta POE MD Unavailable Unavailab le IVIS (INA), Berta POE MD Unavailable Unavailab le IVIS (INA), Berta POE MD Unavailable Unavailab le IVIS (INA), Berta POE MD Unavailable Unavailab le IVIS (INA), Berta POE MD Unavailable Unavailab le IVIS (INA), Berta POE MD Unavailable Unavailab le IVIS (INA), Berta POE MD Unavailable Unavailab le IVIS (INA), Berta POE MD Unavailable Unavailab le IVIS (INA), Berta POE MD Unavailable Unavailab le IVIS (INA), Berta POE MD Unavailable Unavailab le IVIS (INA), Berta POE MD Unavailable Unavailab le IVIS (INA), Berta POE MD Unavailable Unavailab le IVIS (INA), Berta POE MD Unavailable Unavailab le IVIS (INA), Berta POE MD Unavailable Unavailab le IVIS (INA), Berta POE MD Unavailable Unavailab le IVIS (INA), Berta POE MD Unavailable Unavailab le IVIS (INA), Berta POE MD Unavailable Unavailab le IVIS (INA), Berta POE MD Unavailable Unavailab le IVIS (INA), Berta POE MD Unavailable Unavailab le IVIS (INA), Berta POE MD Unavailable Unavailab le IVIS (INA), Berta POE MD Unavailable Unavailab le IVIS (INA), Berta POE MD Unavailable Unavailab le IVIS (INA), Berta POE MD Unavailable Unavailab le IVIS (INA), Berta POE MD Unavailable Unavailab le IVIS (INA), Berta POE MD Unavailable Unavailab le IVIS (INA), Berta POE MD Unavailable Unavailab le IVIS (INA), Berta POE MD Unavailable Unavailab le IVIS (INA), Berta POE MD Unavailable Unavailab le IVIS (INA), Berta POE MD Unavailable Unavailab le IVIS (INA), Berta POE MD Unavailable Unavailab le IVIS (INA), Betra POE MD Unavailable Unavailab le IVIS (INA), Berta POE MD Unavailable Unavailab le IVIS (INA), Berta POE MD Unavailable Unavailab le IVIS (INA), Berta POE MD Unavailable Unavailab le IVIS (INA), Berta POE MD Unavailable Unavailab le IVIS (INA), Berta POE MD Unavailable Unavailab le IVIS (INA), Berta POE MD Unavailable Unavailab le IVIS (INA), Berta POE MD Unavailable Unavailab le IVIS (INA), Berta POE MD Unavailable Unavailab le IVIS (INA), Berta POE MD Unavailable Unavailab le IVIS (INA), Berta POE MD Unavailable Unavailab le IVIS (INA), Berta POE MD Unavailable Unavailab jailene TRAVIS MD, JOCELIN Unavailable Unavailable Baranello, (Howard) Anabel LONDON Unavailable Unavailable JagdishRylee MD Unavailable Unavailable JagdishRylee MD Unavailable Unavailable JagdishRylee MD Unavailable Unavailable JagdishRylee MD Unavailable Unavailable JagdishRylee MD Unavailable Unavailable JagdishRylee MD Unavailable Unavailable JagdishRylee cloud MD Unavailable Unavailable JagdishRylee MD Unavailable Unavailable JagdishRylee MD Unavailable Unavailable JagdishRylee MD Unavailable Unavailable Jagdish, Rylee Barber MD Unavailable Unavailable Jagdish, Rylee Barber MD Unavailable Unavailable Jagdish, Rylee Barber MD Unavailable Unavailable Jagdish, Rylee Barber MD Unavailable Unavailable Jagdish, Rylee Barber MD Unavailable Unavailable Jagdish, Rylee Barber MD Unavailable Unavailable Jagdish, Rylee Barber MD Unavailable Unavailable Jagdish, Rylee Barber MD Unavailable Unavailable Jagdish, Rylee Barber MD Unavailable Unavailable Jagdish, Rylee Barber MD Unavailable Unavailable Jagdish, Rylee Barber MD Unavailable Unavailable Jagdish, Rylee Barber MD Unavailable Unavailable Jagdish, Rylee Barber MD Unavailable Unavailable Jagdish, Rlyee Barber MD Unavailable Unavailable Jagdish, Rylee Barber MD Unavailable Unavailable Jagdish, Rylee Barber MD Unavailable Unavailable Jagdish, Rylee Barber MD Unavailable Unavailable Jagdish, Rylee Barber MD Unavailable Unavailable Jagdish, Rylee Barber MD Unavailable Unavailable Jagdish, Rylee Barber MD Unavailable Unavailable Jagdish, Rylee Barber MD Unavailable Unavailable Jagdish, Rylee Barber MD Unavailable Unavailable Jagdish, Rylee Barber MD Unavailable Unavailable Jagdish, Rylee Barber MD Unavailable Unavailable Jagdish, Rylee Barber MD Unavailable Unavailable Jagdish, Rylee Barber MD Unavailable Unavailable Jagdish, Rylee Barber MD Unavailable Unavailable Jagdish, Rylee Barber MD Unavailable Unavailable Jagdish, Rylee Barber MD Unavailable Unavailable Jagdish, Rylee Barber MD Unavailable Unavailable Jagdish, Rylee Barber MD Unavailable Unavailable Jagdish, Rylee Barber MD Unavailable Unavailable Jagdish, Rylee Barber MD Unavailable Unavailable Jagdish, Rylee Barber MD Unavailable Unavailable Jagdish, Rylee Barber MD Unavailable Unavailable Jagdish, Rylee Barber MD Unavailable Unavailable Jagdish, Rylee Barber MD Unavailable Unavailable Jagdish, Rylee Barber MD Unavailable Unavailable Jagdish, Rylee Barber MD Unavailable Unavailable Jagdish, Rylee Barber MD Unavailable Unavailable Jagdish, yRlee Barber MD Unavailable Unavailable Jagdish, Rylee Barber MD Unavailable Unavailable Jagdish, Rylee Barber MD Unavailable Unavailable Jagdish, Rylee Barber MD Unavailable Unavailable Jagdish, Rylee Barber MD Unavailable Unavailable Jagdish, Rylee Barber MD Unavailable Unavailable Jagdish, Rylee Barber MD Unavailable Unavailable Jagdish, Rylee Barber MD Unavailable Unavailable Jagdish, Rylee Barber MD Unavailable Unavailable Jagdish, Rylee Barber MD Unavailable Unavailable Jagdish, Rylee Barber MD Unavailable Unavailable Jagdish, Rylee Barber MD Unavailable Unavailable Jagdish, Rylee Barber MD Unavailable Unavailable Jagdish, Rylee Barber MD Unavailable Unavailable Jagdish, Rylee Barber MD Unavailable Unavailable Jagdish, Rylee Barber MD Unavailable Unavailable Jagdish, Rylee Barber MD Unavailable Unavailable Jagdish, Rylee Barber MD Unavailable Unavailable Jagdish, Rylee Barber MD Unavailable Unavailable Jagdish, Rylee Barber MD Unavailable Unavailable Jagdish, Rylee Barber MD Unavailable Unavailable Jagdish, Rylee Barber MD Unavailable Unavailable Jagdish, Rylee Barber MD Unavailable Unavailable Jagdish, Rylee Barber MD Unavailable Unavailable Jagdish, Rylee Barber MD Unavailable Unavailable Jagdish, Rylee Barber MD Unavailable Unavailable Jagdish, Rylee Barber MD Unavailable Unavailable Jagdish, Rylee Barber MD Unavailable Unavailable Jagdish, Rylee Barber MD Unavailable Unavailable Jagdish, Rylee Barber MD Unavailable Unavailable Jagdish, Rylee Barber MD Unavailable Unavailable Jagdish, Rylee Barber MD Unavailable Unavailable Jagdish, Rylee Barber MD Unavailable Unavailable Jagdish, Rylee Barber MD Unavailable Unavailable Jagdish, Rylee Barber MD Unavailable Unavailable Jagdish, Rylee Barber MD Unavailable Unavailable Jagdish, Rylee Barber MD Unavailable Unavailable Jagdish, Rylee Barber MD Unavailable Unavailable Jagdish, Rylee Barber MD Unavailable Unavailable Jagdish, Rylee Barber MD Unavailable Unavailable Jagdish, Rylee Barber MD Unavailable Unavailable Jagdish, Rylee Barber MD Unavailable Unavailable Jagdish, Rylee Barber MD Unavailable Unavailable Jagdish, Rylee Barber MD Unavailable Unavailable Jagdish, Rylee Barber MD Unavailable Unavailable Jagdish, Rylee Barber MD Unavailable Unavailable Jagdish, Rylee Barber MD Unavailable Unavailable Jagdish, Rylee Barber MD Unavailable Unavailable Jagdish, Rylee Barber MD Unavailable Unavailable Jagdish, Rylee Barber MD Unavailable Unavailable Jagdish, Rylee Barber MD Unavailable Unavailable Jagdish, Rylee Barber MD Unavailable Unavailable Jagdish, Rylee Barber MD Unavailable Unavailable Jagdish, Rylee Barber MD Unavailable Unavailable Jagdish, Rylee Barber MD Unavailable Unavailable Jagdish, Rylee Barber MD Unavailable Unavailable Jagdish, Rylee Barber MD Unavailable Unavailable Jagdish, Rylee Barber MD Unavailable Unavailable Jagdish, Rylee Barber MD Unavailable Unavailable Jagdish, Rylee Barber MD Unavailable Unavailable Jagdish, Rylee Barber MD Unavailable Unavailable Jagdish, Rylee Barber MD Unavailable Unavailable Jagdish, Rylee Barber MD Unavailable Unavailable Jagdish, Rylee Barber MD Unavailable Unavailable Jagdish, Rylee Barber MD Unavailable Unavailable Jagdish, Rylee Barber MD Unavailable Unavailable Jagdish, Rylee Barber MD Unavailable Unavailable Jagdish, Rylee Barber MD Unavailable Unavailable Jagdish, Rylee Barber MD Unavailable Unavailable Jagdish, Rylee Barber MD Unavailable Unavailable Jagdish, Rylee Barber MD Unavailable Unavailable Jagidsh, Rylee Barber MD Unavailable Unavailable Jagdish, Rylee Barber MD Unavailable Unavailable Jagdish, Rylee Barber MD Unavailable Unavailable Jagdish, Rylee Barber MD Unavailable Unavailable Jagdish, Rylee Barber MD Unavailable Unavailable Jagdish, Rylee Barber MD Unavailable Unavailable Jagdish, Rylee Barber MD Unavailable Unavailable Jagdish, Rylee Barber MD Unavailable Unavailable Jagdish, Rylee Barber MD Unavailable Unavailable Jagdish, Rylee Barber MD Unavailable Unavailable Jagdish, Rylee Barber MD Unavailable Unavailable Jagdish, Rylee Barber MD Unavailable Unavailable Jagdish, Rylee Barber MD Unavailable Unavailable Jagdish, Rylee Barber MD Unavailable Unavailable Jagdish, Rylee Barber MD Unavailable Unavailable Jagdish, Rylee Barber MD Unavailable Unavailable Jagdish, Rylee Barber MD Unavailable Unavailable Jagdish, Rylee Barber MD Unavailable Unavailable Jagdish, Rylee Barber MD Unavailable Unavailable Jagdish, Rylee Barber MD Unavailable Unavailable Jagdish, Rylee Barber MD Unavailable Unavailable Jagdish, Rylee Barber MD Unavailable Unavailable Jagdish, Rylee Barber MD Unavailable Unavailable Jagdish, Rylee Barber MD Unavailable Unavailable Jagdish, Rylee Barber MD Unavailable Unavailable Jagdish, Rylee Barber MD Unavailable Unavailable Jagdish, Rylee Barber MD Unavailable Unavailable Jagdish, Rylee Barber MD Unavailable Unavailable Jagdish, Rylee Barber MD Unavailable Unavailable Jagdish, Rylee Barber MD Unavailable Unavailable Jagdish, Rylee Barber MD Unavailable Unavailable Jagdish, Rylee Barber MD Unavailable Unavailable Jagdish, yRlee Barber MD Unavailable Unavailable Jagdish, Rylee Barber MD Unavailable Unavailable Jagdish, Rylee Barber MD Unavailable Unavailable Jagdish, Rylee Barber MD Unavailable Unavailable Jagdish, Rylee Barber MD Unavailable Unavailable Jagdish, Rylee Barber MD Unavailable Unavailable Jagdish, Rylee Barber MD Unavailable Unavailable Jagdish, Rylee Barebr MD Unavailable Unavailable Jagdish, Rylee Barber MD Unavailable Unavailable Jagdish, Rylee Barber MD Unavailable Unavailable Jagdish, Rylee Barber MD Unavailable Unavailable Jagdish, Rylee Barber MD Unavailable Unavailable Jagdish, Rylee Barber MD Unavailable Unavailable Jagdish, Rylee Barber MD Unavailable Unavailable Jagdish, Rylee Barber MD Unavailable Unavailable Jagdish, Rylee Barber MD Unavailable Unavailable Jagdish, Rylee Barber MD Unavailable Unavailable Jagdish, Rylee Barber MD Unavailable Unavailable Jagdish, Rylee Barber MD Unavailable Unavailable Jagdish, Rylee Barber MD Unavailable Unavailable Jagdish, Rylee Barber MD Unavailable Unavailable Jagdish, Rylee Barber MD Unavailable Unavailable Jagdish, Rylee Barber MD Unavailable Unavailable Jagdish, Rylee Barber MD Unavailable Unavailable Jagdish, Rylee Barber MD Unavailable Unavailable Jagdish, Rylee Barber MD Unavailable Unavailable Jagdish, Rylee Barber MD Unavailable Unavailable Jagdish, Rylee Barber MD Unavailable Unavailable Jagdish, Rylee Barber MD Unavailable Unavailable Jagdish, Rylee Barber MD Unavailable Unavailable Jagdish, Rylee Barber MD Unavailable Unavailable Jagdish, Rylee Barber MD Unavailable Unavailable Jagdish, Rylee Barber MD Unavailable Unavailable Jagdish, Rylee Barber MD Unavailable Unavailable Jagdish, Rylee Barber MD Unavailable Unavailable Jagdish, Rylee Barber MD Unavailable Unavailable Jagdish, Rylee Barber MD Unavailable Unavailable Jagdish, Rylee Barber MD Unavailable Unavailable Jagdish, Rylee Barber MD Unavailable Unavailable Jagdish, Rylee Barber MD Unavailable Unavailable Jagdish, Rylee Barber MD Unavailable Unavailable BARRACO, JOCELIN Unavailable Unavailable BARRACO, JOCELIN Unavailable Unavailable DRE, A JAHANGIR Unavailable Unavailable DRE, A JAHANGIR Unavailable Unavailable DRE, A JAHANGIR Unavailable Unavailable DRE, A JAHANGIR Unavailable Unavailable DRE, A JAHANGIR Unavailable Unavailable DRE, A JAHANGIR Unavailable Unavailable DRE, A JAHANGIR Unavailable Unavailable DRE, A JAHANGIR Unavailable Unavailable DRE, A JAHANGIR Unavailable Unavailable DRE, A JAHANGIR Unavailable Unavailable DRE, A JAHANGIR Unavailable Unavailable DRE, A JAHANGIR Unavailable Unavailable DRE, A JAHANGIR Unavailable Unavailable DRE, A JAHANGIR Unavailable Unavailable DRE, A JAHANGIR Unavailable Unavailable DRE, A JAHANGIR Unavailable Unavailable DRE, A JAHANGIR Unavailable Unavailable DRE, A JAHANGIR Unavailable Unavailable DRE, A JAHANGIR Unavailable Unavailable DRE, A JAHANGIR Unavailable Unavailable DRE, A JAHANGIR Unavailable Unavailable DRE, A JAHANGIR Unavailable Unavailable DRE, A JAHANGIR Unavailable Unavailable DRE, A JAHANGIR Unavailable Unavailable DRE, A JAHANGIR Unavailable Unavailable DRE, A JAHANGIR Unavailable Unavailable DRE, A JAHANGIR Unavailable Unavailable DRE, A JAHANGIR Unavailable Unavailable DRE, A JAHANGIR Unavailable Unavailable DRE, A JAHANGIR Unavailable Unavailable Amber Costello MD Unavailable Unavailable Amber Costello MD Unavailable Unavailable SYSTEM, NOT IN PROVIDER Unavailable Unavailable MANTClayton Mccartney GONSALO Unavailable Unavailable MANTAClayton GONSALO MD Unavailable Unavailable MANTA D GONSALO MD Unavailable Unavailable MANTAClayton GONSALO MD Unavailable Unavailable MANTA D GONSALO MD Unavailable Unavailable MANTA D GONSALO MD Unavailable Unavailable MANTA, D GONSALO MD Unavailable Unavailable MANTA, D GONSALO MD Unavailable Unavailable MANTA, D GONSALO MD Unavailable Unavailable MANTA D GONSALO MD Unavailable Unavailable MANTA D GONSALO MD Unavailable Unavailable MANTA, D GONSALO MD Unavailable Unavailable MANTA, D GONSALO MD Unavailable Unavailable MANTA, D GONSALO MD Unavailable Unavailable MANTA, D GONSALO MD Unavailable Unavailable MANTA, D GONSALO MD Unavailable Unavailable MANTA, D GONSALO MD Unavailable Unavailable MANTA, D GONSALO MD Unavailable Unavailable MANTA, D GONSALO MD Unavailable Unavailable PHYSICIAN, ER Unavailable Unavailable Marcos Scanlon MD Unavailable Unavailable Marcos Scanlon MD Unavailable Unavailable Marcos Scanlon MD Unavailable Unavailable Marcos Scanlon MD Unavailable Unavailable Marcos Scanlon MD Unavailable Unavailable Marcos Scanlon MD Unavailable Unavailable Marcos Scanlon MD Unavailable Unavailable Marcos Scanlon MD Unavailable Unavailable Marcos Scanlon MD Unavailable Unavailable Marcos Scanlon MD Unavailable Unavailable Marcos Scanlon MD Unavailable Unavailable Shambo, Marcos Peterson MD Unavailable Unavailable Shambo, Marcos Peterson MD Unavailable Unavailable Shambo, Marcos Peterson MD Unavailable Unavailable Shambo, Marcos Peterson MD Unavailable Unavailable Shambo, Marcos Peterson MD Unavailable Unavailable Shambo, Marcos Peterson MD Unavailable Unavailable Shambo, Marcos Peterson MD Unavailable Unavailable Shambo, Marcos Peterson MD Unavailable Unavailable Shambo, Marcos Peterson MD Unavailable Unavailable Shambo, Marcos Peterson MD Unavailable Unavailable Shambo, Marcos Peterson MD Unavailable Unavailable Shambo, Marcos Peterson MD Unavailable Unavailable Shambo, Marcos Peterson MD Unavailable Unavailable Shambo, Marcos Peterson MD Unavailable Unavailable Shambo, Marcos Peterson MD Unavailable Unavailable Shambo, Marcos Peterson MD Unavailable Unavailable Shambo, Marcos Peterson MD Unavailable Unavailable Shambo, Marcos Peterson MD Unavailable Unavailable Shambo, Marcos Peterson MD Unavailable Unavailable Shambo, Marcos Peterson MD Unavailable Unavailable Shambo, Marcos Peterson MD Unavailable Unavailable Shambo, Marcos Peterson MD Unavailable Unavailable Shambo, Marcos Peterson MD Unavailable Unavailable Shambo, Marcos Peterson MD Unavailable Unavailable Shambo, Marcos Peterson MD Unavailable Unavailable Shambo, Marcos Peterson MD Unavailable Unavailable Shambo, Marcos Peterson MD Unavailable Unavailable Shambo, Marcos Peterson MD Unavailable Unavailable Shambo, Marcos Peterson MD Unavailable Unavailable Shambo, Marcos Peterson MD Unavailable Unavailable Shambo, Marcos Peterson MD Unavailable Unavailable Shambo, Marcos Peterson MD Unavailable Unavailable Shambo, Marcos Peterson MD Unavailable Unavailable Shambo, Marcos Peterson MD Unavailable Unavailable Shambo, Marcos Peterson MD Unavailable Unavailable Shambo, Marcos Peterson MD Unavailable Unavailable Shambo, Marcos Peterson MD Unavailable Unavailable Shambo, Marcos Peterson MD Unavailable Unavailable Shambo, Marcos Peterson MD Unavailable Unavailable Shambo, Marcos Peterson MD Unavailable Unavailable Shambo, Marocs Peterson MD Unavailable Unavailable Shambo, Marcos Peterson MD Unavailable Unavailable Shambo, Marcos Peterson MD Unavailable Unavailable Shambo, Marcos Peterson MD Unavailable Unavailable Shambo, Marcos Peterson MD Unavailable Unavailable Shambo, Marcos Peterson MD Unavailable Unavailable Shambo, Marcos Peterson MD Unavailable Unavailable Shambo, Marcos Peterson MD Unavailable Unavailable Shambo, Marcos Peterson MD Unavailable Unavailable Shambo, Marcos Peterson MD Unavailable Unavailable Shambo, Marcos Peterson MD Unavailable Unavailable Shambo, Marcos Peterson MD Unavailable Unavailable Shambo, Marcos Peterson MD Unavailable Unavailable Wells, Aisha JOB CHANGE CREW MEMBER Unavailable Unavailable Wells, Aisha JOB CHANGE CREW MEMBER Unavailable Unavailable Wells, Aisha JOB CHANGE CREW MEMBER Unavailable Unavailable Wells, Aisha JOB CHANGE CREW MEMBER Unavailable Unavailable Wells, Aisha JOB CHANGE CREW MEMBER Unavailable Unavailable Wells, Aisha JOB CHANGE CREW MEMBER Unavailable Unavailable Wells, Aisha JOB CHANGE CREW MEMBER Unavailable Unavailable Wells, Aisha JOB CHANGE CREW MEMBER Unavailable Unavailable Wells, Aisha JOB CHANGE CREW MEMBER Unavailable Unavailable Wells, Aisha JOB CHANGE CREW MEMBER Unavailable Unavailable Wells, Aisha JOB CHANGE CREW MEMBER Unavailable Unavailable Wells, Aisha JOB CHANGE CREW MEMBER Unavailable Unavailable Wells, Aisha JOB CHANGE CREW MEMBER Unavailable Unavailable Wells, Aisha JOB CHANGE CREW MEMBER Unavailable Unavailable Wells, Aisha JOB CHANGE CREW MEMBER Unavailable Unavailable Wells, Aisha JOB CHANGE CREW MEMBER Unavailable Unavailable Wells, Aisha JOB CHANGE CREW MEMBER Unavailable Unavailable Wells, Aisha JOB CHANGE CREW MEMBER Unavailable Unavailable PIETRZAK, Gino XIEE M.S.N, R.N., N.P Unavailable Unav ailable PIETRZAK, Gino BALLESTEROS M.S.N, R.N., N.P Unavailable Unav ailable PIETRZAK, Gino BALLESTEROS M.S.N, R.N., N.P Unavailable Unav ailable PIETRZAK, Gino BALLESTEROS M.S.N, R.N., N.P Unavailable Unav ailable PIETRZAK, Gino BALLESTEROS M.S.N, R.N., N.P Unavailable Unav ailable PIETRZAK, Gino BALLESTEROS M.S.N, R.N., N.P Unavailable Unav ailable PIETRZAK, Gino BALLESTEROS M.S.N, R.N., N.P Unavailable Unav ailable PIETRZAK, Gino BALLESTEROS M.S.N, R.N., N.P Unavailable Unav ailable PIETRZAK, Gino BALLESTEROS M.S.N, R.N., N.P Unavailable Unav ailable PIETRZAK, Gino BALLESTEROS M.S.N, R.N., N.P Unavailable Unav ailable PIETRZAK, Gino BALLESTEROS M.S.N, R.N., N.P Unavailable Unav ailable PIETRZAK, Gino BALLESTEROS M.S.N, R.N., N.P Unavailable Unav ailable PIETRZAK, E ELSLI M.S.N, R.N., N.P Unavailable Unav ailable PIETRZAK, E LESLI M.S.N, R.N., N.P Unavailable Unav ailable PIETRZAK, E LESLI M.S.N, R.N., N.P Unavailable Unav ailable PIETRZAK, E LESLI M.S.N, R.N., N.P Unavailable Unav ailable PIETRZAK, E LESLI M.S.N, R.N., N.P Unavailable Unav ailable PIETRZAK, E LESLI M.S.N, R.N., N.P Unavailable Unav ailable PIETRZAK, E LESLI M.S.N, R.N., N.P Unavailable Unav ailable PIETRZAK, E LESLI M.S.N, R.N., N.P Unavailable Unav ailable PIETRZAK, E LESLI M.S.N, R.N., N.P Unavailable Unav ailable PIETRZAK, E LESLI M.S.N, R.N., N.P Unavailable Unav ailable PIETRZAK, E LESLI M.S.N, R.N., N.P Unavailable Unav ailable PIETRZAK, E LESLI M.S.N, R.N., N.P Unavailable Unav ailable PIETRZAK, E LESLI M.S.N, R.N., N.P Unavailable Unav ailable PIETRZAK, E LESLI M.S.N, R.N., N.P Unavailable Unav ailable PIETRZAK, E LESLI M.S.N, R.N., N.P Unavailable Unav ailable PIETRZAK, E LESLI M.S.N, R.N., N.P Unavailable Unav ailable PIETRZAK, E LESLI M.S.N, R.N., N.P Unavailable Unav ailable PIETRZAK, E LESLI M.S.N, R.N., N.P Unavailable Unav ailable PIETRZAK, Gino EncarnacionS.N, R.N., N.P Unavailable Unav ailable PIETRZAK, Gino EncarnacionS.N, R.N., N.P Unavailable Unav ailable IVIS (INA), Berta POE MD Unavailable Unavailab le IVIS (INA), Berta POE MD Unavailable Unavailab le IVIS (INA), Berta POE MD Unavailable Unavailab le IVIS (INA), Berta POE MD Unavailable Unavailab le IVIS (INA), Berta POE MD Unavailable Unavailab le IVIS (INA), Berta POE MD Unavailable Unavailab le IVIS (INA), Berta POE MD Unavailable Unavailab le IVIS (INA), Berta POE MD Unavailable Unavailab le IVIS (INA), Berta POE MD Unavailable Unavailab le IVIS (INA), Berta POE MD Unavailable Unavailab le IVIS (INA), Berta POE MD Unavailable Unavailab le IVIS (INA), Berta POE MD Unavailable Unavailab le IVIS (INA), Berta POE MD Unavailable Unavailab le IVIS (INA), Berta POE MD Unavailable Unavailab le IVIS (INA), Berta POE MD Unavailable Unavailab le IVIS (INA), Berta POE MD Unavailable Unavailab le IVIS (INA), Berta POE MD Unavailable Unavailab le IVIS (INA), Berta POE MD Unavailable Unavailab le IVIS (INA), Berta POE MD Unavailable Unavailab le IVIS (INA), Berta POE MD Unavailable Unavailab le IVIS (INA), Berta POE MD Unavailable Unavailab le IVIS (INA), Berta POE MD Unavailable Unavailab le IVIS (INA), Berta POE MD Unavailable Unavailab le IVIS (INA), Berta POE MD Unavailable Unavailab le IVIS (INA), Berta POE MD Unavailable Unavailab le IVIS (INA), Berta POE MD Unavailable Unavailab le IVIS (INA), Berta POE MD Unavailable Unavailab le IVIS (INA), Berta POE MD Unavailable Unavailab le IVIS (INA), Berta POE MD Unavailable Unavailab le IVIS (INA), Berta POE MD Unavailable Unavailab le IVIS (INA), Berta POE MD Unavailable Unavailab le IVIS (INA), Berta POE MD Unavailable Unavailab le IVIS (INA), Berta POE MD Unavailable Unavailab le IVIS (INA), Berta POE MD Unavailable Unavailab le IVIS (INA), Berta POE MD Unavailable Unavailab le IVIS (INA), Berta POE MD Unavailable Unavailab le IVIS (INA), Berta POE MD Unavailable Unavailab le IVIS (INA), Berta POE MD Unavailable Unavailab le IVIS (INA), Berta POE MD Unavailable Unavailab le IVIS (INA), Berta POE MD Unavailable Unavailab le IVIS (INA), Berta POE MD Unavailable Unavailab le IVIS (INA), Berta POE MD Unavailable Unavailab le IVIS (INA), Berta POE MD Unavailable Unavailab le IVIS (INA), Berta POE MD Unavailable Unavailab le IVIS (INA), Berta POE MD Unavailable Unavailab le IVIS (INA), Berta POE MD Unavailable Unavailab le IVIS (INA), Berta POE MD Unavailable Unavailab le IVIS (INA), Berta POE MD Unavailable Unavailab le IVIS (INA), Berta POE MD Unavailable Unavailab le IVIS (INA), Berta POE MD Unavailable Unavailab le IVIS (INA), Berta POE MD Unavailable Unavailab le IVIS (INA), Berta POE MD Unavailable Unavailab le IVIS (INA), Berta POE MD Unavailable Unavailab le IVIS (INA), Berta POE MD Unavailable Unavailab le IVIS (INA), Berta POE MD Unavailable Unavailab le IVIS (INA), Berta POE MD Unavailable Unavailab le IVIS (INA), Berta POE MD Unavailable Unavailab le IVIS (INA), Berta POE MD Unavailable Unavailab le IVIS (INA), Breta POE MD Unavailable Unavailab le IVIS (INA), Berta POE MD Unavailable Unavailab le IVIS (INA), Berta POE MD Unavailable Unavailab le IVIS (INA), Berta POE MD Unavailable Unavailab le IVIS (INA), Berta POE MD Unavailable Unavailab le IVIS (INA), Berta POE MD Unavailable Unavailab le IVIS (INA), Berta POE MD Unavailable Unavailab le IVIS (INA), Berta POE MD Unavailable Unavailab le IVIS (INA), Berta POE MD Unavailable Unavailab le IVIS (INA), Berta POE MD Unavailable Unavailab le IVIS (INA), Berta POE MD Unavailable Unavailab le IVIS (INA), Berta POE MD Unavailable Unavailab le IVIS (INA), Berta POE MD Unavailable Unavailab le IVIS (INA), Berta POE MD Unavailable Unavailab le IVIS (INA), Berta PEO MD Unavailable Unavailab le IVIS (INA), Berta POE MD Unavailable Unavailab le IVIS (INA), Berta POE MD Unavailable Unavailab le IVIS (INA), Berta POE MD Unavailable Unavailab le IVIS (INA), Berta POE MD Unavailable Unavailab le IVIS (INA), Berta POE MD Unavailable Unavailab le IVIS (INA), Berta POE MD Unavailable Unavailab le IVIS (INA), Berta POE MD Unavailable Unavailab le IVIS (INA), Berta POE MD Unavailable Unavailab le IVIS (INA), Berta POE MD Unavailable Unavailab le IVIS (INA), Berta POE MD Unavailable Unavailab le IVIS (INA), Berta POE MD Unavailable Unavailab le IVIS (INA), Berta POE MD Unavailable Unavailab le IVIS (INA), Berta POE MD Unavailable Unavailab le IVIS (INA), Berta POE MD Unavailable Unavailab le IVIS (INA), Berta POE MD Unavailable Unavailab le IVIS (INA), Berta POE MD Unavailable Unavailab le IVIS (INA), Berta POE MD Unavailable Unavailab le IVIS (INA), Berta POE MD Unavailable Unavailab le IVIS (INA), Berta POE MD Unavailable Unavailab le IVIS (INA), Berta POE MD Unavailable Unavailab le Shambo, Marcos Peterson MD Unavailable Unavailable Shambo, Marcos Peterson MD Unavailable Unavailable Shambo, Marcos Peterson MD Unavailable Unavailable Shambo, Marcos Peterson MD Unavailable Unavailable Shambo, Marcos Peterson MD Unavailable Unavailable Shambo, Marcos Peterson MD Unavailable Unavailable Shambo, Marcos Peterson MD Unavailable Unavailable Shambo, Marcos Peterson MD Unavailable Unavailable Shambo, Marcos Peterson MD Unavailable Unavailable Shambo, Marcos Peterson MD Unavailable Unavailable Shambo, Marcos Peterson MD Unavailable Unavailable Shambo, Marcos Peterson MD Unavailable Unavailable Shambo, Marcso Peterson MD Unavailable Unavailable Shambo, Marcos Peterson MD Unavailable Unavailable Shambo, Marcos Peterson MD Unavailable Unavailable Shambo, Marcos Peterson MD Unavailable Unavailable Shambo, Marcos Peterson MD Unavailable Unavailable Shambo, Marcos Peterson MD Unavailable Unavailable Shambo, Marcos Peterson MD Unavailable Unavailable Shambo, Marcos Peterson MD Unavailable Unavailable Shambo, Marcos Peterson MD Unavailable Unavailable Shambo, Marcos Peterson MD Unavailable Unavailable Shambo, Marcos Peterson MD Unavailable Unavailable Shambo, Marcos Peterson MD Unavailable Unavailable Shambo, Marcos Peterson MD Unavailable Unavailable Shambo, Marcos Peterson MD Unavailable Unavailable Shambo, Marcos Peterson MD Unavailable Unavailable Shambo, Marcos Peterson MD Unavailable Unavailable Shambo, Marcos Peterson MD Unavailable Unavailable Shambo, Marcos Peterson MD Unavailable Unavailable Shambo, Marcos Peterson MD Unavailable Unavailable Shambo, Marcos Peterson MD Unavailable Unavailable Shambo, Marcos Peterson MD Unavailable Unavailable Shambo, Marcos Peterson MD Unavailable Unavailable Shambo, Marcos Peterson MD Unavailable Unavailable Shambo, Marcos Peterson MD Unavailable Unavailable Shambo, Marcos Peterson MD Unavailable Unavailable Shambo, Marcos Peterson MD Unavailable Unavailable Shambo, Marcos Peterson MD Unavailable Unavailable Shambo, Marcos Peterson MD Unavailable Unavailable Shambo, Marcos Peterson MD Unavailable Unavailable Shambo, Marcos Peterson MD Unavailable Unavailable Shambo, Marcos Peterson MD Unavailable Unavailable Shambo, Marcos Peterson MD Unavailable Unavailable Shambo, Marcos Peterson MD Unavailable Unavailable Shambo, Marcos Peterson MD Unavailable Unavailable Shambo, Marcos Peterson MD Unavailable Unavailable Shambo, Marcos Peterson MD Unavailable Unavailable Shambo, Marcos Peterson MD Unavailable Unavailable Shambo, Marcos Peterson MD Unavailable Unavailable Shambo, Marcos Peterson MD Unavailable Unavailable Shambo, Marcos Peterson MD Unavailable Unavailable Shambo, Marcos Peterson MD Unavailable Unavailable Shambo, Marcos Peterson MD Unavailable Unavailable Shambo, Marcos Peterson MD Unavailable Unavailable Shambo, Marcos Peterson MD Unavailable Unavailable Shambo, Marcos Peterson MD Unavailable Unavailable Shambo, Marcos Peterson MD Unavailable Unavailable Shambo, Marcos Peterson MD Unavailable Unavailable Shambo, Marcos Peterson MD Unavailable Unavailable Shambo, Marcos Peterson MD Unavailable Unavailable Shambo, Marcos Peterson MD Unavailable Unavailable Shambo, Marcos Peterson MD Unavailable Unavailable Shambo, Marcos Peterson MD Unavailable Unavailable VAVALA, A LETI PA-C Unavailable Unavailable VAVALA, A LETI PA-C Unavailable Unavailable VAVALA, A LETI PA-C Unavailable Unavailable VAVALA, A LETI PA-C Unavailable Unavailable VAVALA, A LETI PA-C Unavailable Unavailable VAVALA, A LETI PA-C Unavailable Unavailable VAVALA, A LETI PA-C Unavailable Unavailable VAVALA, A LETI PA-C Unavailable Unavailable VAVALA, A LETI PA-C Unavailable Unavailable VAVALA, A LETI PA-C Unavailable Unavailable VAVALA, A LETI PA-C Unavailable Unavailable VAVALA, A LETI PA-C Unavailable Unavailable VAVALA, A LETI PA-C Unavailable Unavailable VAVALA, A LETI PA-C Unavailable Unavailable VAVALA, A LETI PA-C Unavailable Unavailable VAVALA, A LETI PA-C Unavailable Unavailable VAVALA, A LETI PA-C Unavailable Unavailable VAVALA, A LETI PA-C Unavailable Unavailable VAVALA, A LETI PA-C Unavailable Unavailable VAVALA, A LETI PA-C Unavailable Unavailable VAVALA, A LETI PA-C Unavailable Unavailable VAVALA, A LETI PA-C Unavailable Unavailable VAVALA, A LETI PA-C Unavailable Unavailable VAVALA, A LETI PA-C Unavailable Unavailable VAVALA, A LETI PA-C Unavailable Unavailable VAVALA, A LETI PA-C Unavailable Unavailable VAVALA, A LETI PA-C Unavailable Unavailable Re-disclosure Warning The records that you are about to access may contain information from federally-assisted alcohol or drug abuse programs. If such information is present, then the following federally mandated warning applies: This information has been disclosed to you from records protected by federal confidentiality rules (42 CFR part 2). The federal rules prohibit you from making any further disclosure of this information unless further disclosure is expressly permitted by the written consent of the person to whom it pertains or as otherwise permitted by 42 CFR part 2. A general authorization for the release of medical or other information is NOT sufficient for this purpose. The Federal rules restrict any use of the information to criminally investigate or prosecute any alcohol or drug abuse patient.The records that you are about to access may contain highly sensitive health information, the redisclosure of which is protected by Article 27-F of the [place] Public Health law. If you continue you may have access to information: Regarding HIV / AIDS; Provided by facilities licensed or operated by the [facility] Office of Mental Health; or Provided by the [facility] Office for People With Developmental Disabilities. If such information is present, then the following [facility] mandated warning applies: This information has been disclosed to you from confidential records which are protected by state law. State law prohibits you from making any further disclosure of this information without the specific written consent of the person to whom it pertains, or as otherwise permitted by law. Any unauthorized further disclosure in violation of state law may result in a fine or custodial sentence or both. A general authorization for the release of medical or other information is NOT sufficient authorization for further disc losure. Allergies and Adverse Reactions Type Description Substance Reaction Status Data Source(s ) Drug allergy gabapentin gabapentin confusion [facility] Drug allergy ciprofloxacin Ciprofloxacin Diarrhea [facility] Drug allergy sulfamethoxazole Sulfamethoxazole Anaphylaxis SV [facility] Drug allergy Penicillins Penicillin PASSED OUT AND WENT BLIND [facility] Encounters Encounter Providers Location Date Indications Data Source(s ) Outpatient Attender: DORA HEWITT DPM PCConsultant: SPECHui BECKHAM NOT 08/10/2020 10:59:00 AM [facility] - 08/10/2020 10:59:00 AM [facility] Outpatient Attender: ZOË ERICKSON 07/11/2020 12:44:00 PM EST N18.4 [facility] N18.4 Outpatient Attender: Nicholas Scanlon MDReferrer: Nicholas Scanlon MD 07/11/2020 11:00:00 AM EST - 07/11/2020 11:33:00 AM EST [facility] Outpatient Attender: LESLI Schafer, R.N., N .P CMP [facility] [place] 05/24/2020 03:00:00 PM EDT [facility] ([facility]) Outpatient Attender: DORA HEWITT DPM PC 05/11/2020 10:57:00 AM EDT - 05/11/2020 10:57:00 AM EDT [facility] Outpatient Attender: Aisha Rodriguez FNPAttender: Oscar Rodriguez Jr 05/05/2020 09:23:00 AM EDT ACUTE PANCREATITIS [facility] l ACUTE PANCREATITIS Outpatient Attender: Aisha Michael [employer] 04/29/2020 08:57:00 A M EDT K85.90 [facility] K85.90 Attender: LUI BROTHERS) MDReferrer: Anirudh Goldman MD 04/26/2020 08:20:08 PM EDT [facility] Attender: LUI BROTHERS) MDReferrer: Anirudh Goldman MD 04/26/2020 08:20:08 PM EDT [facility] Attender: LUI BROTHERS) MDReferrer: Anirudh Goldman MD 04/26/2020 08:20:08 PM EDT [facility] Attender: LUI LANGSTON ([place]) MDReferrer: Anirudh Goldman MD 04/26/2020 08:20:08 PM EDT [facility] Attender: LUI LANGSTON ([place]) MDReferrer: Anirudh Goldman MD 04/26/2020 08:20:08 PM EDT [facility] Attender: LUI LANGSTON ([place]) MDReferrer: Anirudh Goldman MD 02/19/2020 08:20:06 PM EDT [facility] Attender: LUI LANGSTON ([place]) MDReferrer: Anirudh Goldman MD 02/18/2020 08:20:06 PM EDT [facility] Attender: LUI LANGSTON ([place]) MDReferrer: Anirudh Goldman MD 02/18/2020 08:20:06 PM EDT [facility] Attender: LUI LANGSTON ([place]) MDReferrer: Anirudh Goldman MD 02/18/2020 08:20:06 PM EDT [facility] Attender: LUI BROTHERS) MDReferrer: Anirudh Goldman MD 02/18/2020 08:20:06 PM EDT [facility] Attender: LUI BROTHERS) MDReferrer: Anirudh Goldman MD 02/18/2020 08:20:06 PM EDT [facility] Attender: LUI LANGSTON ([place]) MDReferrer: Anirudh Goldman MD 02/18/2020 08:20:06 PM EDT [facility] Outpatient Referrer: LUI LANGSTON MD ([place]) 0 01:33:33 PM EDT [facility] ( in Healthcare facility) Attender: GAGAN TRAVISAttender: GONSALO CALDERA MDAdmitter: GONSALO CALDERA MDConsultant: Nicholas Scanlon MD 02/07/2020 02:39:00 PM EDT [facility] Inpatient Attender: GONSALO CALDERA MD 02/07/2020 02:39:00 PM EDT [facility] Inpatient Attender: JOCELIN TRAVIS MD Attender: GONSALO CALDERA MDAttender: ER PHYSICIANAdmitter: GONSALO CALDERA MD 02/07/2020 10:30:53 AM EDT [facility] Inpatient Attender: JOCELIN Mehta jethro: GONSALO CALDERA MDAttender: ER PHYSICIANAdmitter: GONSALO CALDERA MD 02/07/2020 09:11:00 A M EDT - 02/15/2020 03:25:00 PM EDT ACUTE KIDNEY INJURY [facility] ACUTE KIDNEY INJURY Patient discharged. Outpatient Referrer: PROVIDER SYSTEM [id number] 02/07/2020 02:5 1:00 AM EDT pancreatic mass, pancreatitis, chest pain [facility] pancreatic mass, pancreatitis, chest rachele n Emergency Attender: Anabel Robles MD 02/05 08:49:00 PM EDT - 02/07/2020 07:39:00 AM EDT CHEST PAIN, STOMACH PAIN [facility] l CHEST PAIN, STOMACH PAIN Patient discharged. Outpatient Attender: Nicholas Scanlon MDReferrer: Nicholas Scanlon MD 02/05/2020 10:53:00 AM EDT - 02/05/2020 11:18:00 AM EDT [facility] Outpatient Attender: Ashley Vyas MD 02/05/2020 12: 00:00 AM EDT N17.9,E11.22,M1A.30X0,N18.4,I50.32,N25.81,I15.0 [facility] N17.9,E11.22,M1A.30X0,N18.4,I50.32,N25.8 1,I15.0 Outpatient Attender: Nicholas Scanlon MD 02/02/2020 01:20:00 P M EDT SHOULDER PAIN [facility] SHOULDER PAIN Outpatient Attender: DORA HEWITT DPM PC 01/27/2020 10:41:00 AM EDT - 01/27/2020 10:41:00 AM EDT [facility] Outpatient Attender: Nicholas BANERJEEeferrer: Nicholas Scanlon MD 01/11/2020 10:39:00 AM EDT - 01/11/2020 11:26:00 AM EDT [facility] Outpatient Attender: Sunil Goldman MD 01/05/2020 08:00:00 AM EDT PT HAS THE ORDER [facility] PT HAS THE ORDER Outpatient Attender: Alexandria Loganerrcaridad: Nicholas lopez MD 11/02/2019 12:20:25 PM EST [facility] Outpatient Attender: Nicholas Turnererrcaridad: Nicholas Scanlon MD 10/12/2019 02:49:00 PM EST - 10/12/2019 03:55:00 PM EST [facility] Recurring Patient Attender: Joey Lopez FNPReferrer: Desean mckenzie MD 09/21/2019 12:43:52 PM EST [facility] Recurring Patient Attender: Joey Lopez FNPReferrer: Desean mckenzie MD 09/21/2019 12:43:37 PM EST [facility] Outpatient Attender: Sunil Goldman MD CMP Internal Med [facility] [place] 09/18/2019 09:15:00 AM EST [facility] Rec[facility]ring Patient Attender: Joey Lopez FNPReferrer: Desean mckenzie MD 2019 08:39:40 AM EST [facility] Outpatient Attender: LETI HAMMOND PA-CReferrer: Nicholas lopez MD 09/16/2019 04:09:11 PM EST [facility] Outpatient Attender: DORA HEWITT DPM PC 08/31/2019 08:56:00 AM EST - 08/31/2019 08:56:00 AM EST [facility] Medications Medication Brand Name Start Date Product Form Dose Route Admi nistrative Instructions Pharmacy Instructions Status Indications Reaction Description Data Source(s) BLOOD SUGAR DIAGNOSTIC 08/12/2020 12:00:00 AM EST strip 200 USE TO TEST TWICE A DAY USE TO TEST TWICE A DAY SOLD: 08/13/2020 [facility] Amlodipine 10 MG Oral Tablet Amlodipine 06/23/2020 07:56:50 AM EDT 10 MG active [facility] 10 mg 06/23/2020 12:00:00 AM EDT tablet 30 TAKE ONE TABLET BY MOUTH EVERY DAY TAKE ONE TABLET BY MOUTH EVERY DAY SOLD: 06/24/2020 [facility] 2.5 mg 06/08/2020 12:00:00 AM EDT tablet extended release 24hr 14 TAKE ONE TABLET BY MOUTH EVERY DAY TAKE ONE TABLET BY MOUTH EVERY DAY SOLD: 06/09/2020 [facility] 24 HR Glipizide 2.5 MG Extended Release Oral Tablet Glipizid e 06/07/2020 11:30:05 AM EDT 2.[address] [facility] 24 HR Glipizide 2.5 MG Extended Release Oral Tablet Glipizid e 06/07/2020 11:29:24 AM EDT 2.5 MG completed [facility] Metoprolol Tartrate 25 MG Oral Tablet Metoprolol Tartrate 09:51:37 AM EDT 25 MG active [facility] Metoprolol Tartrate 25 MG Oral Tablet Metoprolol Tartrate 09:51:01 AM EDT 25 MG completed [facility] 25 mg 05/26/2020 12:00:00 AM EDT tablet 20 TAKE ONE TABLET BY MOUTH TWO TIMES A DAY TAKE ONE TABLET BY MOUTH TWO TIMES A DAY SOLD: 05/26/2020 [facility] 40 mg 04/04/2020 12:00:00 AM EDT tablet 14 TAKE ONE TABLET BY MOUTH EVERY DAY TAKE ONE TABLET BY MOUTH EVERY DAY SOLD: 04/06/2020 [facility] 10 mEq 04/04/2020 12:00:00 AM EDT capsule, extended relea se 14 TAKE ONE CAPSULE BY MOUTH EVERY DAY TAKE ONE CAPSULE BY MOUTH EVERY DAY SOLD: 04/06/2020 [facility] Pen Needle, Diabetic (Droplet Pen Needle) 31 gauge x 5/16" n eedle 03/14/2020 10:43:48 AM EDT 1 00 active [facility] 24 HR Glipizide 2.5 MG Extended Release Oral Tablet Glipizid e 03/08/2020 01:25:08 PM EDT 2.[address] [facility] Blood Sugar Diagnostic (Assay[employer] Verio Test Strips) strip 02/29/2020 12:39:56 PM EDT 1 EACH active [facility] Febuxostat 02/18/2020 03:16:42 PM EDT 40 MG active [facility] ezetimibe 10 MG Oral Tablet Ezetimibe (Zetia) 10 mg ta blet Ezetimibe (Zetia) 10 mg tablet 02/18/2020 03:16:24 PM EDT 10 MG [facility] Amlodipine 10 MG Oral Tablet Amlodipine 02/18/2020 03:16:09 PM EDT 10 MG [facility] ezetimibe 10 MG Oral Tablet Ezetimibe (Zetia) 10 mg ta blet Ezetimibe (Zetia) 10 mg tablet 02/18/2020 03:15:26 PM EDT [address] [facility] Febuxostat 02/18/2020 03:15:05 PM EDT 40 MG comple [facility] Amlodipine 10 MG Oral Tablet Amlodipine 02/18/2020 03:14:53 PM EDT 10 MG [facility] Potassium Chloride 10 MEQ Extended Release Oral Capsule Pota ssium Chloride 02/02/2020 12:20:16 PM EDT 10 MEQ active [facility] Potassium Chloride 10 MEQ Extended Release Oral Capsule Pota ssium Chloride 02/02/2020 12:20:16 PM EDT 10 MEQ active [facility] Potassium Chloride 10 MEQ Extended Release Oral Capsule Pota ssium Chloride 02/02/2020 12:20:16 PM EDT 10 MEQ [facility] sitagliptin 50 MG Oral Tablet Sitagliptin Sitagliptin 02/02/2020 12:19:38 PM EDT 50 MG active [facility] sitagliptin 50 MG Oral Tablet Sitagliptin Sitagliptin 02/02/2020 12:19:38 PM EDT 50 MG active [facility] sitagliptin 50 MG Oral Tablet Sitagliptin Sitagliptin 02/02/2020 12:19:38 PM EDT 50 MG active [facility] Prednisone 20 MG Oral Tablet Prednisone 02/02/2020 12:15:58 PM EDT 20 MG active [facility] Prednisone 20 MG Oral Tablet Prednisone 02/02/2020 12:15:58 PM EDT 20 MG active [facility] Prednisone 20 MG Oral Tablet Prednisone 02/02/2020 12:15:58 PM EDT 20 MG active [facility] 20 mg 02/02/2020 12:00:00 AM EDT tablet 10 TAKE ONE TABLET BY MOUTH EVERY DAY TAKE ONE TABLET BY MOUTH EVERY DAY SOLD: 02/02/2020 [facility] Potassium Chloride 10 MEQ Extended Release Oral Capsule Pota ssium Chloride 01/11/2020 11:19:28 AM EDT [address] [facility] Potassium Chloride 10 MEQ Extended Release Oral Capsule Pota ssium Chloride 01/11/2020 11:19:28 AM EDT [address] [facility] Potassium Chloride 10 MEQ Extended Release Oral Capsule Pota ssium Chloride 01/11/2020 11:19:28 AM EDT 10 MEQ active [facility] Potassium Chloride 10 MEQ Extended Release Oral Capsule Pota ssium Chloride 01/11/2020 11:19:28 AM EDT [address] [facility] Potassium Chloride 10 MEQ Extended Release Oral Capsule Pota ssium Chloride 01/11/2020 11:19:28 AM EDT 10 MEQ active [facility] sitagliptin 50 MG Oral Tablet Sitagliptin Sitagliptin 01/11/2020 11:18:20 AM EDT 50 MG completed [facility] sitagliptin 50 MG Oral Tablet Sitagliptin Sitagliptin 01/11/2020 11:18:20 AM EDT 50 MG completed [facility] sitagliptin 50 MG Oral Tablet Sitagliptin Sitagliptin 01/11/2020 11:18:20 AM EDT 50 MG completed [facility] sitagliptin 50 MG Oral Tablet Sitagliptin Sitagliptin 01/11/2020 11:18:20 AM EDT 50 MG active [facility] sitagliptin 50 MG Oral Tablet Sitagliptin Sitagliptin 01/11/2020 11:18:20 AM EDT 50 MG active [facility] glimepiride 1 MG Oral Tablet Glimepiride Glimepiride 11:17:48 AM EDT 1 MG active [facility] glimepiride 1 MG Oral Tablet Glimepiride Glimepiride 11:17:48 AM EDT 1 MG completed [facility] glimepiride 1 MG Oral Tablet Glimepiride Glimepiride 11:17:48 AM EDT 1 MG active [facility] glimepiride 1 MG Oral Tablet Glimepiride Glimepiride 11:17:48 AM EDT 1 MG active [facility] glimepiride 1 MG Oral Tablet Glimepiride Glimepiride 11:17:48 AM EDT 1 MG active [facility] gabapentin 300 MG Oral Capsule Gabapentin Gabapentin 2019 11:16:59 AM EDT 300 MG completed [facility] gabapentin 300 MG Oral Capsule Gabapentin Gabapentin 2019 11:16:59 AM EDT 300 MG completed [facility] gabapentin 300 MG Oral Capsule Gabapentin Gabapentin 2019 11:16:59 AM EDT 300 MG active [facility] gabapentin 300 MG Oral Capsule Gabapentin Gabapentin 2019 11:16:59 AM EDT 300 MG completed [facility] gabapentin 300 MG Oral Capsule Gabapentin Gabapentin 2019 11:16:59 AM EDT 300 MG completed [facility] sitagliptin 50 MG Oral Tablet Sitagliptin Sitagliptin 12/30/2019 02:26:00 PM EDT 50 MG completed [facility] sitagliptin 50 MG Oral Tablet Sitagliptin Sitagliptin 12/30/2019 02:26:00 PM EDT 50 MG completed [facility] sitagliptin 50 MG Oral Tablet Sitagliptin Sitagliptin 12/30/2019 02:26:00 PM EDT 50 MG completed [facility] sitagliptin 50 MG Oral Tablet Sitagliptin Sitagliptin 12/30/2019 02:26:00 PM EDT 50 MG completed [facility] sitagliptin 50 MG Oral Tablet Sitagliptin Sitagliptin 12/30/2019 02:26:00 PM EDT 50 MG completed [facility] Blood Sugar Diagnostic 12/30/2019 02:25:23 PM EDT 1 EACH active [facility] Blood Sugar Diagnostic ([employer] Verio) strip 12/30/19 02:25:23 PM EDT 1 EACH completed [facility] Blood Sugar Diagnostic 12/30/2019 02:25:23 PM EDT 1 EACH active [facility] Blood Sugar Diagnostic 12/30/2019 02:25:23 PM EDT 1 EACH active [facility] Blood Sugar Diagnostic 12/30/2019 02:25:23 PM EDT 1 EACH active [facility] BLOOD SUGAR DIAGNOSTIC 12/30/2019 12:00:00 AM EDT strip 100 USE TO TEST TWO TIMES A DAY USE TO TEST TWO TIMES A DAY SOLD: 12/30/2019 [facility] 25 mg 12/25/2019 12:00:00 AM EDT tablet 60 TAKE ONE TABLET BY MOUTH TWICE A DAY TAKE ONE TABLET BY MOUTH TWICE A DAY SOLD: 12/25/2019 [facility] 10 mg 12/25/2019 12:00:00 AM EDT tablet 30 TAKE ONE TABLET BY MOUTH EVERY DAY TAKE ONE TABLET BY MOUTH EVERY DAY SOLD: 12/25/2019 [facility] sitagliptin 50 MG Oral Tablet Sitagliptin Sitagliptin 12/21/2019 12:06:07 PM EDT 50 MG completed [facility] sitagliptin 50 MG Oral Tablet Sitagliptin Sitagliptin 12/21/2019 12:06:07 PM EDT 50 MG completed [facility] sitagliptin 50 MG Oral Tablet Sitagliptin Sitagliptin 12/21/2019 12:06:07 PM EDT 50 MG completed [facility] sitagliptin 50 MG Oral Tablet Sitagliptin Sitagliptin 12/21/2019 12:06:07 PM EDT 50 MG completed [facility] sitagliptin 50 MG Oral Tablet Sitagliptin Sitagliptin 12/21/2019 12:06:07 PM EDT 50 MG completed [facility] 3 ML Insulin Glargine 100 UNT/ML Pen Injector Insulin Glargi ne 10/12/2019 03:44:45 PM EST 10 UNIT active [facility] 3 ML Insulin Glargine 100 UNT/ML Pen Injector Insulin Glargi ne 10/12/2019 03:44:45 PM EST 10 UNIT active [facility] 3 ML Insulin Glargine 100 UNT/ML Pen Injector Insulin Glargi ne 10/12/2019 03:44:45 PM EST 10 UNIT active [facility] 3 ML Insulin Glargine 100 UNT/ML Pen Inj chriss Insulin Glargine (Lantus Solostar U-100 Insulin) 100 unit/mL (3 mL) insulin pen Insulin Glargine (Lantus Solostar U-100 Insulin) 100 unit/mL (3 mL) insulin pen 10/12/2019 03:44:45 PM EST 10 UNIT active [facility] 3 ML Insulin Glargine 100 UNT/ML Pen Injector Insulin Glargi ne 10/12/2019 03:44:45 PM EST 10 UNIT active [facility] 3 ML Insulin Glargine 100 UNT/ML Pen Injector Insulin Glargi ne 10/12/2019 03:44:45 PM EST 10 UNIT active [facility] glimepiride 1 MG Oral Tablet Glimepiride Glimepiride 01:00:22 PM EST 1 MG completed [facility] glimepiride 1 MG Oral Tablet Glimepiride Glimepiride 01:00:22 PM EST 1 MG completed [facility] glimepiride 1 MG Oral Tablet Glimepiride Glimepiride 01:00:22 PM EST 1 MG completed [facility] glimepiride 1 MG Oral Tablet Glimepiride Glimepiride 01:00:22 PM EST 1 MG completed [facility] glimepiride 1 MG Oral Tablet Glimepiride Glimepiride 01:00:22 PM EST 1 MG active [facility] glimepiride 1 MG Oral Tablet Glimepiride Glimepiride 01:00:22 PM EST 1 MG completed [facility] glimepiride 1 MG Oral Tablet Glimepiride Glimepiride 12:59:22 PM EST 1 MG completed [facility] glimepiride 1 MG Oral Tablet Glimepiride Glimepiride 12:59:22 PM EST 1 MG completed [facility] glimepiride 1 MG Oral Tablet Glimepiride Glimepiride 12:59:22 PM EST 1 MG completed [facility] glimepiride 1 MG Oral Tablet Glimepiride Glimepiride 12:59:22 PM EST 1 MG completed [facility] glimepiride 1 MG Oral Tablet Glimepiride Glimepiride 12:59:22 PM EST 1 MG completed [facility] glimepiride 1 MG Oral Tablet Glimepiride Glimepiride 12:59:22 PM EST 1 MG completed [facility] glimepiride 1 MG Oral Tablet GLIMEPIRIDE 09/29/2019 12:00:00 AM EST ta blet 30 TAKE ONE TABLET BY MOUTH EVERY MORNING WITH BREAKFAST TAKE ONE TABLET BY MOUTH EVERY MORNING WITH BREAKFAST SOLD: 10/01/2019 [facility] sitagliptin 50 MG Oral Tablet Sitagliptin Sitagliptin 09/14/2019 08:29:14 AM EST 50 MG active [facility] sitagliptin 50 MG Oral Tablet Sitagliptin Sitagliptin 09/14/2019 08:29:14 AM EST 50 MG completed [facility] sitagliptin 50 MG Oral Tablet Sitagliptin Sitagliptin 09/14/2019 08:29:14 AM EST 50 MG completed [facility] sitagliptin 50 MG Oral Tablet Sitagliptin Sitagliptin 09/14/2019 08:29:14 AM EST 50 MG completed [facility] sitagliptin 50 MG Oral Tablet Sitagliptin Sitagliptin 09/14/2019 08:29:14 AM EST 50 MG completed [facility] sitagliptin 50 MG Oral Tablet Sitagliptin Sitagliptin 09/14/2019 08:29:14 AM EST 50 MG completed [facility] Pen Needle, Diabetic (Droplet Pen Needle) 31 gauge x 5/16" n eedle 06/08/2019 10:30:41 AM EDT 1 00 completed [facility] Insulin Glargine 100 UNT/ML Injectable Solution [Lantus] Ins ulin Glargine 06/08/2019 10:29:43 AM EDT 10 UNIT completed [facility] Insulin Glargine 100 UNT/ML Injectable S olution [Lantus] Insulin Glargine (Lantus U-100 Insulin) 100 unit/mL solution Insulin Glargine (Lantus U-100 Insulin) 100 unit/mL solution 06/08/2019 10:29:43 AM EDT 10 UNIT completed [facility] Insulin Glargine 100 UNT/ML Injectable Solution [Lantus] Ins ulin Glargine 06/08/2019 10:29:43 AM EDT 10 UNIT completed [facility] Insulin Glargine 100 UNT/ML Injectable Solution [Lantus] Ins ulin Glargine 06/08/2019 10:29:43 AM EDT 10 UNIT completed [facility] Insulin Glargine 100 UNT/ML Injectable Solution [Lantus] Ins ulin Glargine 06/08/2019 10:29:43 AM EDT 10 UNIT completed [facility] Insulin Glargine 100 UNT/ML Injectable Solution [Lantus] Ins ulin Glargine 06/08/2019 10:29:43 AM EDT 10 UNIT completed [facility] Febuxostat 05/21/2019 05:11:38 PM EDT 40 MG comple [facility] sitagliptin 50 MG Oral Tablet Sitagliptin Sitagliptin 05/21/2019 05:10:20 PM EDT 50 MG completed [facility] sitagliptin 50 MG Oral Tablet Sitagliptin Sitagliptin 05/21/2019 05:10:20 PM EDT 50 MG completed [facility] sitagliptin 50 MG Oral Tablet Sitagliptin Sitagliptin 05/21/2019 05:10:20 PM EDT 50 MG completed [facility] sitagliptin 50 MG Oral Tablet Sitagliptin Sitagliptin 05/21/2019 05:10:20 PM EDT 50 MG completed [facility] sitagliptin 50 MG Oral Tablet Sitagliptin Sitagliptin 05/21/2019 05:10:20 PM EDT 50 MG completed [facility] sitagliptin 50 MG Oral Tablet Sitagliptin Sitagliptin 05/21/2019 05:10:20 PM EDT 50 MG completed [facility] Amlodipine 10 MG Oral Tablet Amlodipine 02/20/2019 08:23:22 AM EDT 10 MG completed [facility] glimepiride 4 MG Oral Tablet Glimepiride Glimepiride 019 10:28:15 AM EDT 1 MG completed [facility] glimepiride 4 MG Oral Tablet Glimepiride Glimepiride 019 10:28:15 AM EDT 1 MG completed [facility] glimepiride 4 MG Oral Tablet Glimepiride Glimepiride 10:28:15 AM EDT 1 MG completed [facility] glimepiride 4 MG Oral Tablet Glimepiride Glimepiride 10:28:15 AM EDT 1 MG completed [facility] glimepiride 4 MG Oral Tablet Glimepiride Glimepiride 10:28:15 AM EDT 1 MG completed [facility] glimepiride 4 MG Oral Tablet Glimepiride Glimepiride 10:28:15 AM EDT [address] [facility] Metoprolol Tartrate 25 MG Oral Tablet Metoprolol Tartrate 11:01:00 AM EDT 25 MG completed [facility] Potassium Chloride 10 MEQ Extended Release Oral Capsule Pota ssium Chloride 12/29/2018 11:01:00 AM EDT [address] [facility] Potassium Chloride 10 MEQ Extended Release Oral Capsule Pota ssium Chloride 12/29/2018 11:01:00 AM EDT 10 MEQ completed [facility] Potassium Chloride 10 MEQ Extended Release Oral Capsule Pota ssium Chloride 12/29/2018 11:01:00 AM EDT 10 MEQ completed [facility] Potassium Chloride 10 MEQ Extended Release Oral Capsule Pota ssium Chloride 12/29/2018 11:01:00 AM EDT 10 MEQ completed [facility] Potassium Chloride 10 MEQ Extended Release Oral Capsule Pota ssium Chloride 12/29/2018 11:01:00 AM EDT [address] [facility] ezetimibe 10 MG Oral Tablet Ezetimibe (Zetia) 10 MG ta blet Ezetimibe (Zetia) 10 MG tablet 11/21/2018 10:12:00 AM EDT 10 MG completed [facility] Blood Sugar Diagnostic 10/10/2018 12:11:00 PM EST 1 EACH completed [facility] Blood Sugar Diagnostic 10/10/2018 12:11:00 PM EST 1 EACH completed [facility] l Blood Sugar Diagnostic (Onetouch Verio) 1 EACH strip 10/10/2018 12:11:00 PM EST 1 EACH completed [facility] Blood Sugar Diagnostic 10/10/2018 12:11:00 PM EST 1 EACH completed [facility] l Blood Sugar Diagnostic 10/10/2018 12:11:00 PM EST 1 EACH completed [facility] l BLOOD SUGAR DIAGNOSTIC 10/10/2018 12:00:00 AM EST strip 100 USE TO TEST TWO TIMES A DAY USE TO TEST TWO TIMES A DAY SOLD: 09/24/2019 [employer] Insurance Providers Payer name Policy type / Coverage type Policy ID Covered republican ID Covered republican's relationship to hill Policy [place] Plan Information MEDICARE [id number] SP [id number] [facility] SA[facility] [id number] SP [id number] MEDICARE PART A [facility] [id number] 18 [id number] [facility] [id number] [facility] [id number] Medicare Part B [facility] [id number] MEDICARE [facility] [id number] S [id number] J07 MEDICARE [facility] [id number] S [id number] J07 [facility] [id number] S [id number] Medicare C [id number] SELF [id number] J07 DME Jurisdiction A [facility] C [id number] SELF [id number] [facility] [id number] SELF [id number] MEDICARE [id number] Evonne [id number] J07 [facility] [phone] Evonne [id number] [facility] Other 0 Se lf 0 Medicare Part B of [facility] Other 0 Se lf 0 MEDICARE [id number] SP [id number] D Medicare Part B of [facility] Other 0 Se lf 0 MEDICARE PI PI Medicare Part B of [facility] Other 0 Se lf 0 Medicare Part B of [facility] Other 0 Se lf 0 Medicare Part B of [facility] Other 0 Se lf 0 [id number] Evonne [id number] MEDICARE [id number] Evonne [id number] J07 [facility] [id number] 0 [id number] Medicare Part B [facility] [id number] UNAVAILABLE [place]NA[place]A BLE MEDICARE MCA [id number] S [id number] D MEDICARE MCA [id number] S [id number] D Medicare C [id number] SELF [id number] D PI PI MEDICARE [id number] Evonne [id number] D MEDICARE PART A [facility] [id number] 18 [id number] Medicare Part B of [facility] Other 0 Se lf 0 Medicare Part B of [facility] 0 Se lf 0 Medigap Part B [id number] Self [id number] Medicare Medicare Primary [id number] Self [id number] Medicare Part B of [facility] 0 Se lf 0 Medicare Part B of [facility] 0 Se lf 0 Medicare Part B of [facility] 0 Se lf 0 Medicare Part B of [facility] 0 Se lf 0 MEDICARE [id number] Evonne [id number] D CENTER-O/P [id number] MEDICARE -O/P [id number] 18 [id number] UNAVAILABLE Evonne UNAVAILA BLE Problems, Conditions, and Diagnoses Code Display Name Description Problem Type Effective Dates Data Source(s) 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 complication 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 Problem 01/27/2020 12:00:00 AM EDT [facility] ([facility]) [id number] Peripheral vascular disease Peripheral vascular diseas e Problem 08/31/2019 12:00:00 AM EST [facility] ([facility]) [id number] Bunionette of right foot Bunionette of right foot Diag nosis 08/10/2020 10:59:00 AM EST [facility] M2040 Other hammer toe(s) (acquired), unspecif ied foot Other hammer toe(s) (acquired), unspecified foot Diagnosis 08/10/2020 10:59:00 AM [facility] B351 Tinea unguium Tinea unguium Diagnosis 08/10/2020 10:59:00 AM [facility] L84 Corns and callosities Corns and callosities Diagnosis 08/10/2020 10:59:00 AM [facility] E1051 Type 1 diabetes mellitus wit h diabetic peripheral angiopathy without gangrene Type 1 diabetes mellitus with diabetic p eripheral angiopathy without gangrene Diagnosis 08/10/2020 10:59:00 AM [facility] pancreatic mass, pancreatitis, chest rachele n pancreatic mass, pancreatitis, chest pain Diagnosis 02/07/2020 02:51:00 AM EDT [facility] O58100 Bunionette of unspecified foot Bunionette of unspecifi ed foot Diagnosis 01/27/2020 10:41:00 AM EDT [facility] C72995 Pain in right foot Pain in right foot Diagnosis 10:41:00 AM EDT [facility] I739 Peripheral vascular disease, unspecified Peripheral vascular disease, unspecified Diagnosis 08/31/2019 08:56:00 AM [facility] Surgeries/Procedures Procedure Description Date Indications Data Source(s) ECG Monitor/Recording W/Visual Superimposition Scanning 07/13/2020 12:00:00 AM EST [facility]) Doppler Echocardiography Color Flow Velocity Mapping 07/13/2020 12:00:00 AM EST [facility]) Pare Hyperkeratotic Lesion, 2-4 05/11/2020 12:00:00 AM EDT [facility] ([facility]) Debridement Nails Any Method 6 Or More 05/11/2020 12:0 0:00 AM EDT [facility] ([facility]) MRI Abdomen without contrast 05/05/2020 10:18:00 AM ED T [facility] CT Abd/pel w/o contrast 02/07/2020 01:02:00 AM EDT [facility] CT Abd/pel w/o contrast 02/07/2020 01:02:00 AM EDT [facility] Electrocardiogram Interpretation & Report Only 020 12:00:00 AM EDT [facility] ([facility]) Plain chest X-ray (procedure) 02/06/2020 09:18:00 PM E [facility] Plain chest X-ray (procedure) 02/06/2020 09:18:00 PM E [facility] Xray Shoulder complete RT 02/02/2020 01:41:00 PM EDT [facility] Xray Shoulder complete RT 02/02/2020 01:41:00 PM EDT [facility] Xray Shoulder complete RT 02/02/2020 01:41:00 PM EDT [facility] Pare Hyperkeratotic Lesion, 2-4 01/27/2020 12:00:00 AM EDT [facility] ([facility]) Debridement Nails Any Method 6 Or More 01/27/2020 12:0 0:00 AM EDT [facility] ([facility]) Electrocardiogram Complete 09/18/2019 12:00:00 AM EST [facility] ([facility]) Echocardiography, Tranthoracic Real-Time Image Documentation 09/18/2019 12:00:00 AM EST [facility]) Pare Hyperkeratotic Lesion, 2-4 08/31/2019 12:00:00 AM EST [facility] ([facility]) Debridement Nails Any Method 6 Or More 08/31/2019 12:0 0:00 AM EST [facility] ([facility]) Results ID Date Data Source [id number] 07/13/2020 04:19:00 PM EST [facility] ([facility]) Name Value Range Interpretation Code Description Data Yumkio rce(s) Supporting Document(s) Holter Monitor Application 24 hours Laboratory test result [facility] ([facility]) ID Date Data Source [id number] 07/11/2020 01:26:00 PM [facility] Method of Collection:: Voided Name Value Range Interpretation Code Description Data Yumiko rce(s) Supporting Document(s) Color of Urine [facility] Appearance of Urine CLEAR [facility] pH of Urine by Test strip 5.5 5-8 [facility] Specific gravity of Urine by Refractometry 1.009 1.005-1.030 [facility] Leukocyte esterase [Presence] in Urine by Test strip NEGAT LJ [facility] Nitrite [Presence] in Urine by Test strip NEGATIVE [facility] Protein [Presence] in Urine by Test strip NEGATIVE [facility] Glucose [Mass/volume] in Urine by Automated test strip NEGATIVE NEG ATIVE [facility] Ketones [Presence] in Urine by Test strip NEGATIVE [facility] Urobilinogen [Presence] in Urine 0.2-1 EU/dl [facility] Bilirubin.total [Presence] in Urine by Automated test strip NEGATIVE [facility] Erythrocytes [#/volume] in Urine by Test strip NEGATIVE NEGATIVE [facility] URINE MICROSCOPIC ADDED NO [facility] ID Date Data Source [id number] 07/11/2020 01:08:00 PM EST [facility] Method of Collection:: Voided Name Value Range Interpretation Code Description Data Yumiko rce(s) Supporting Document(s) Leukocytes [#/volume] in Blood by Automated count 7.4 10*3/uL 4.45-10 .71 N [facility] Erythrocytes [#/volume] in Blood by Automated count 4.07 10*6/uL 4.20-5.40 Below low normal [facility] Hemoglobin [Moles/volume] in Blood 12.8 g/dL 10.7-15.4 N [facility] Hematocrit [Volume Fraction] of Blood by Automated count 39.8 % 3 7-47 N [facility] Erythrocyte mean corpuscular volume [Ent itic volume] in Cord blood by Automated count 97.8 fL 80-96 Above high normal [facility] Erythrocyte mean corpuscular hemoglobin [Entitic mass] by Automated count 31.4 pg 27-31 Above high normal [facility] spital Erythrocyte mean corpuscular hemoglobin concentration [Mass/volume] in Cord blood 32.2 g/dL 33-37 Below low normal [facility] Erythrocyte distribution width [Entitic volume] by Automated count 14 % 11-15 N [facility] Platelets [#/volume] in Blood by Automated count 293 10*3/uL 130-472 N [facility] Platelet mean volume [Entitic volume] in Blood 11.7 fL 9.1-13.1 [facility] Neutrophils/100 leukocytes in Blood by Automated count 35.0 % 41-77 Below low normal [facility] Neutrophils [#/volume] in Blood by Automated count 2.6 U 1.7-7.6 N [facility] Lymphocytes/100 leukocytes in Blood by Automated count 46.1 % 14-46 Above high normal [facility] Lymphocytes [#/volume] in Blood by Automated count 3.4 U 0.6-4.6 N [facility] Monocytes/100 leukocytes in Blood by Automated count 10.3 % 4-12 N [facility] Monocytes [#/volume] in Blood by Automated count 0.8 U 0.2-1.2 N [facility] Eosinophils/100 leukocytes in Blood by Automated count 6.6 % 0-7 N [facility] Eosinophils [#/volume] in Blood by Automated count 0.5 U 0.0-0.5 N [facility] Basophils/100 leukocytes in Blood by Automated count 1.9 % 0.4-1.3 Above high normal [facility] Basophils [#/volume] in Blood by Automated count 0.1 U 0.0-0.2 N [facility] NUCLEATED RED BLOOD CELL 0 % [facility] NUCLEATED RED BLOOD CELL# 0 U [facility] Immature granulocytes [Presence] in Blood by Automated count 0-2 N [facility] Immature granulocytes [#/volume] in Blood by Automated count 0.0 U 0-0.1 N [facility] Manual Differential panel - Blood NO [facility] ID Date Data Source [id number] 07/11/2020 02:01:00 PM EST [facility] Method of Collection:: Voided Name Value Range Interpretation Code Description Data Yumiko rce(s) Supporting Document(s) Urea nitrogen [Mass/volume] in Serum or Plasma 58 mg/dL 9-23 Above high normal [facility] Sodium [Moles/volume] in Serum or Plasma 141 mmol/L 132-146 N [facility] Potassium [Moles/volume] in Serum or Plasma 5.1 mmol/L 3.5-5.5 N [facility] Chloride [Moles/volume] in Serum or Plasma 105 mmol/L 99-109 N [facility] Carbon dioxide, total [Moles/volume] in Serum or Plasma 30 mmol/L 20 -31 N [facility] Anion gap in Serum or Plasma 11 mmol/L 8-16 N [facility] Glucose [Mass/volume] in Serum or Plasma 96 mg/dL 74-106 N [facility] Creatinine 2.2 mg/dL 0.5-1.1 Above high normal [facility] Glomerular filtration rate/1.73 sq M.pre dicted [Volume Rate/Area] in Serum or Plasma 21 ml/min ABOVE 60 [facility] ital Calcium [Mass/volume] in Serum or Plasma 9.6 mg/dL 8.5-10.1 [facility] Albumin [Mass/volume] in Serum or Plasma by Bromocresol purple (BCP) dye binding method 3.8 g/dL 3.2-4.8 N [facility] ital Phosphate [Mass/volume] in Serum or Plasma 3.8 mg/dL 2.4-5.1 [facility] ID Date Data Source [id number] 07/12/2020 10:36:00 AM [facility] Method of Collection:: Voided Name Value Range Interpretation Code Description Data Yumiko rce(s) Supporting Document(s) Parathyrin.intact [Mass/volume] in Serum or Plasma 75 pg/mL 14-64 Above high normal [facility] Interpretive Guide Intact PTH Calcium -------Normal Parathyroid Normal NormalHypoparathyroidism Low or Low Normal LowHyperparathyroidism Primary Normal or High High Secondary High Normal or Low Tertiary High HighNon- Parathyroid Hypercalcemia Low or Low Normal HighTHIS TEST WAS PERFORMED AT:[address] [id number] MERATI,MD ID Date Data Source [id number] 07/11/2020 02:01:00 PM [facility] Method of Collection:: Voided Name Value Range Interpretation Code Description Data Yumiko rce(s) Supporting Document(s) Urate [Mass/volume] in Serum or Plasma 3.7 mg/dL 3.3-8.8 [facility] ID Date Data Source [id number] 07/11/2020 10:56:00 AM [facility] Patient Name: TISHA SESAY DO B: 1935 Sex: F Pt Unit #: [id number] Location:[facility] Provider: Visit Date/Time: 07/11/20 Primary Insurance: MEDICARE [employer] Secondary Insurance: Intake Vital Signs 07/11/20 10:57 Current Weight 174 lb 4 oz BP 164/80 Blood Pressure Location Lt brachial Position Sitting Respiration 20 Pulse 57 L Pulse Strength Normal Pulse Source Pulse Oximeter Pulse Oximetry (%) 99 Oxygen Delivery Method room air Intake Visit Reasons: diabetes Nurse Note: 84 year old here today for her Diabetes. She was offered a flu vaccine and declined. She stated she has had it 3 times and got sick every time she got it. She stated that she thinks her medications are causing problems. She stated that she will be sitting in a chair, her eyes don't focus and her heart will do flip flops. This has been happening since she started her new diabetes medication she stated it was generic. She was prescribed this post hospital visit. No other concerns for today. Is patient in pain?: No Allergies sulfamethoxazole [From Bactrim] Allergy (Severe, Verified 02/06/20 21:52) Anaphylaxis gabapentin Allergy (Verified 02/06/20 21:52) confusion ciprofloxacin [From Cipro] Adverse Reaction (Intermediate, Verified 02/06/20 21:52) Diarrhea Penicillins Adverse Reaction (Intermediate, Verified 02/06/20 21:52) PASSED OUT AND WENT BLIND Fall Risk History of falls: No Ambulatory Aid:: Crutches Cane or Walker Gait/Transferring:: Impaired HIV Testing Offer - ages 13-64 Requirement for HIV testing offer been met?: Not in age range SBIRT Annual Questionnaire Are you currently in recovery for alcohol or substance use?: No How many times in the past year have you had 4 or more drinks in a day?: None How many times in the past year have you used a recreational drug or used a prescription medication for nonmedical reasons?: None Coronavirus Screening Screening Have you traveled outside of [facility] or [facility] in the last 14 days.: No Has patient experienced coronavirus symptoms: No [facility] Medical History Asplenia Chronic low back pain Coronary artery disease Diabetes mellitus Elevated uric acid in blood Essential (primary) hypertension Gastroesophageal reflux disease History of gastric ulcer Mixed hyperlipidemia Osteoarthritis involving multiple joints on both sides of body Pancreatic cancer Surgical History (Updated 07/11/20 @ 11:29 by Nicholas Scanlon M.D.) Aortic valve replaced Social History Does the Patient have a Healthcare Proxy: Yes Does Patient have a DNR?: Yes Does Patient have a Living Will?: Yes Does the Patient have a MOLST?: No Advance Directives on File or in chart?: No Hx Recent Travel (where): No Smoking Status: Former smoker HPI Addit ional HPI HPI Details: as above. the bottle she has with her today is glipizide ER. i am not aware that that preparation was what she took before her recent hospitalization. her fbs has been 90-115 every day. Review of Systems Const Denies excessive sweating and Denies fatigue Card Reports palpitations Endo Denies excessive sweating, Denies fatigue, Denies flushing, Denies polyphagia, Denies polydipsia, Denies polyuria and Reports palpitations Exam Const General: cooperative, no acute distress and well groomed Orientation: alert, awake and oriented x3 Neck Neck: normal visual inspection, no lymphadenopathy, supple and no JVD present Neck mass: No Thyroid: thyroid normal Chest Chest: normal inspection of the chest Resp Effort Inspection: normal respiratory effort Auscultation: clear to auscultation bilaterally Cardio Jugular venous pressure: no JVD Rate: regular rate Rhythm: regular rhythm Heart Sounds: S1 normal, S2 normal, no click, no gallops and no murmurs Extrem General: no pedal edema Assessment Plan Assessment Plan (1) Palpitations: Status: Acute Code(s): R00.2 - Palpitations SNOMED Code(s): 42615906 Category: Medical Plan - Nicholas Scanlon M.D.: stop the glipizide, return next week for recheck. Orders Other Medications: Discontinued: glipizide ER Discontinued Reason: Order 2.5 mg PO QDAY 14 tabs 0RF <Electronically signed by Nicholas Scanlon MD> 07/11/20 1134 Name Value Range Interpretation Code Description Data Yumiko rce(s) Supporting Document(s) ID Date Data Source [id number] 05/05/2020 11:02:00 AM EDT [facility] [address] [place] [address] [phone] NAME SEX PT STATUS ACCOUNT NUMBER TISHA SESAY REG REF [id number] ORDERING PHYSICIAN LOCATION MEDICAL RECORD NO. Oscar Rodriguez Jr MRI [id number] ATTENDING PHYSICIAN DATE OF DATE OF EXAM/TIME Nicholas Scanlon MD 1935 05/05/201017 TYPE / EXAM MRI Abdomen without contrast REASON FOR EXAM ACUTE PANCREATITIS Clinical History/Indication for Exam: ACUTE PANCREATITISno contrast due to renal insufficiency-gfr 22.jdf MR ABDOMEN WITHOUT INTRAVENOUS CONTRAST INDICATION: ACUTE PANCREATITISno contrast due to renal insufficiency- gfr 22.jdf TECHNIQUE: Multiplanar magnetic resonance images of the abdomen without intravenous contrast. COMPARISON: CT abdomen pelvis dated February 07, 2020. FINDINGS: Lung bases: Unremarkable. No mass. No consolidation. Liver: Unremarkable. Gallbladder and bile ducts: Unremarkable. No calcified stones. No ductal dilation. Pancreas: Multiloculated 2.6 x 1.5 cm lesion is present in the region of the uncinate process of the pancreas with cystic signal characteristics. No distention of the pancreatic duct. Spleen: The spleen is absent. Adrenals: Unremarkable. No mass. Kidneys and ureters: Cystic lesions are seen in the RIGHT kidney measuring up to 2 cm in the superior pole. 1.5 cm hypodense lesion present in the interpolar posterior aspect of the RIGHT kidney is most likely complex cyst containing hemorrhagic material or proteinaceous material. Correlation with ultrasound is recommended. The LEFT kidney demonstrates multiple cystic lesions measuring up to 2 cm in the superior pole. No hydronephrosis. Stomach and bowel: Unremarkable. No obstruction. Intraperitoneal space: Unremarkable. No significant fluid collection. Soft tissues: Unremarkable. Vasculature: Unremarkable. No abdominal aortic aneurysm. Lymph nodes: Unremarkable. No enlarged lymph nodes. IMPRESSION: 1. Multiloculated 2.6 x 1.5 cm lesion is present in the region of the uncinate process of the pancreas with cystic signal characteristics. No distention of the pancreatic duct. Recommend further evaluation with pancreas-dedicated MRI with MRCP. 2. No convincing MRI evidence of acute pancreatitis is demonstrated. 3. Simple cysts are seen in both kidneys. 4. 1.5 cm hypodense lesion present in the interpolar posterior aspect of the RIGHT kidney is most likely complex cyst containing hemorrhagic material or proteinaceous material. Correlation with ultrasound is recommended. 5. The spleen is absent. REPORT SIGNATURE ON FILE 05/05/2020 (11:02 Eastern Time ) Signed by: Josie Cole M.D. Reported By Josie Cole MD on 05/05/201101 Signed By Josie Cole MD on 05/05/201101 Date Time CC: Nicholas Scanlon M.D.; Josie Cole MD Techn: ANTONI Trans Dt/Tm: Trans by: DT Prt Dt/Tm: 1: Total DLP = 0.00 mGy-cm : Total Radiation Dose = 0.0000 mSv Lifetime Dose: 9.1500 mSv Name Value Range Interpretation Code Description Data Yumiko rce(s) Supporting Document(s) ID Date Data Source [id number] 04/29/2020 10:28:00 AM EDT [facility] Name Value Range Interpretation Code Description Data Yumiko rce(s) Supporting Document(s) Urea nitrogen [Mass/volume] in Serum or Plasma 45 mg/dL 9-23 Above high normal [facility] Sodium [Moles/volume] in Serum or Plasma 141 mmol/L 132-146 [facility] Potassium [Moles/volume] in Serum or Plasma 4.6 mmol/L 3.5-5.5 [facility] Chloride [Moles/volume] in Serum or Plasma 106 mmol/L 99-109 N [facility] Carbon dioxide, total [Moles/volume] in Serum or Plasma 28 mmol/L 20 -31 N [facility] Anion gap in Serum or Plasma 12 mmol/L 8-16 N [facility] Glucose [Mass/volume] in Serum or Plasma 103 mg/dL 74-106 N [facility] Creatinine 2.1 mg/dL 0.5-1.1 Above high normal [facility] Glomerular filtration rate/1.73 sq M.pre dicted [Volume Rate/Area] in Serum or Plasma 22 ml/min ABOVE 60 [facility] ital Alanine aminotransferase [Enzymatic acti vity/volume] in Serum or Plasma by With P-5'-P 19 U/L 10-49 N [facility] ital Aspartate aminotransferase [Enzymatic ac tivity/volume] in Serum or Plasma by With P-5'-P 13 U/L 0-33 N [facility] Alkaline phosphatase [Enzymatic activity/volume] in Serum or Plasma 79 U/L 45-129 N [facility] Calcium [Mass/volume] in Serum or Plasma 9.6 mg/dL 8.5-10. 1 No range defined, or normal ranges don't apply [facility] Repeated by: China Monk 04/29/20 102 8.Result Confirmation: 9.4 mg/dL Bilirubin.total [Mass/volume] in Serum or Plasma 0.4 mg/dL 0.3-1.2 N [facility] Albumin [Mass/volume] in Serum or Plasma by Bromocresol purple (BCP) dye binding method 3.5 g/dL 3.2-4.8 N [facility] ital Protein [Mass/volume] in Serum or Plasma 6.9 g/dL 5.7-8.2 N [facility] ID Date Data Source [id number] 04/29/2020 10:28:00 AM EDT [facility] Name Value Range Interpretation Code Description Data Yumiko rce(s) Supporting Document(s) Lipase [Enzymatic activity/volume] in Serum or Plasma 178 U/L 73-3 93 N [facility] ID Date Data Source [id number] 04/26/2020 08:00:00 AM EDT [facility] Name Value Range Interpretation Code Description Data Yumiko rce(s) Supporting Document(s) Follow Up [facility] SRLPSg1dUsCMHtYwRTKkJvnFFShbIMjiWDEaW9M3ZJkpDx0FYMuuzvOsXGXvZu8+ASDfSI0ftz9jCEHo gMy [file] mBQhwW62RH2RHPFTqKyycfcYkf7A+demurrage clerk/d+vCtnlEdk8jpBwlZBsxo623ACGnzIRqjHCBAXSGk1w7c3t [file] CpHbfCC5FCOPJrtkLk7054+5C45rfQfmi5aDlbzNOfT/q6gqAp4jOazMniOrgB1QBUAZc4DBEAwn/Luis Alberto [file] 3n/gfN3X/qCya60m4PebvRBYbpNlgdG9Mlo7Xt+[place] mduazKnbU1Av2hZTVi+kYCP/QOGLOZFsqhxvLLUbUh6mkIvZLbtkDABPDC8vN7mpvPmSJUtvaUT/5K5L lukNzuBlpVBdA2KHKmowL9aCs5qgackOgANzQ09ZXeoBfZz8A1R5fMio+e6nt6k9Uc7inIfvxKRKBH/g ubwMqIXXNJMlGu70AKBKJCqUFWe49p/Ep4cITGOQqU [file] Shift Supervisor [employer]+lFKznQrmWpEmppQH76Bd1dPpa3hB4FHAVpKGhEg [file] JDmY8oCyFJX5p7RctVwwojLuBFXNFF1HcwDawHJZ19TPRBzi0zHY78N9pSCg+SwPbHyvUhDddUjq/Da Silva fBYUuXL+Dgh7OucCFBM3UgP5ztBrNOz+vrXbtuOFZL9ZtjNYTvYGAgTMgUv8deDnu13heFPy/tiDsWaV N18tTKL7EGI64IzO+GuT+jJ2O/QIJDg6PjuyR2AMSY ZXXwWDgIl1sOr1Ezjol4wT7Weon0JvnWj+/6v9VNA7UTPO6wnWtv9+rffAwHYx2dELkHd01YXF6QeU9G sCeWqeIfa2QFE5Csoq9QvYsEegDAE0n85KeHPTM2054eo0pc2GXcKO9Fdt6Maj+bxGEXEKtaVTW8KfJ1 xXE5crneqgdYHXwO5p1hAaD45ONrCqJakxIEDFm8/9 fEJ1gYi6FtUItNfzQ14tkHidoazb1srR0w5+lIVNWOYVKSqqZVaFcXjaq96Xw4cr8SWHzGJUMiA+ 4iFKL+qTBBchINyeAWwbq8jIV5qKA2eX/i9ulpHnOZ01zT/ej7T4b1NrbeWrmZKZ0nidpvzviAMvFb+k j7HjtxJATc7LhwWTVsWNmwb3+sG6b0FH8iUBhEz8M8 r2MpYfdwUq2zaRqSaQqO0GhQ1ymcMiV4Mdp8PrYGVT2unFm/Xd9Hh1Cw61Eyxeh8B6n3eraCDe7Y4gd0 i4SToeh5ftoZjtnp9Ncn6JP413nsCeAyzq+j94vuaRGE4ydG+SCylE4x2Gtuze7ro3QYj+M1H+ki9GyT pzRLgYy6HaMVcdOf24tPeG9Dk+juXep506+T85Lp+t c8K/JEpEkcCCtChzMOxkvVxkOsUnDgVoVpkq905DddinCwEQ7aCbDiqatBbsULGnpPIVbbO+hFgfVI29 /etFbPag59bYLA0z+Ifgv/vt7TpReXBSNkDS4snGG0VPjaLRaZHHOyttszdIpmmCm+J1GdsItRL9/Refugio [file] WY66LYYX4v+RNa1bAvX/PXOlzGkDz9mYxr/KJW+Elena rrY8vzMmDw4yI+FO0XJXhNTiVmW7kIYVM8z3JfqHnim4bMpmK9uZZD2jfvBfVW835wAvF+j8ELmSwsA2 49VocfPVVAV2Kie5kDb5cwbGVKCgHVvMznMZRoU6/6C9ZtW22SN3VawglHm2bPueBNAu8rHQChTfR/8a gzeD2R7iDobLhH6fdGR3924Nl3Hkj8qN/mA5dGqqNH +zSZWJEw/cywbC4+LIulmF1AW87khyc7A41P1JLgw6z9LQlPpA61xTGfNtIwQAWOuSCmUjQeoWMfVg28 CcNMJTauz8NXBTqQphPbVtEQSlSCVJfGmzXitRGFF/miiK3VYv4YVpEEihjh9wXcu++ZLhFH7jUFB0Ry /HgKNcOb64OjjapmQvNNE5STLpMYH5KhglTBh1fhEc 2KdGTG7kU3dEM2uNP/BYXBuOz9p+marketing co op/E6ANP5fxOOqupiyn5/kyj2M6OODqeQEYd/yMCCuoqFY+XXDZ [file] vjFFHFsvHmIzxq0m5BSLlqXEbzdrcyOAWYjwINmI26khvJp8775rKNl8ygk9MXTDID26PMnDrcGs/demurrage clerk [file] [facility]WbDAfknx8D0c30BeWyAp1h4d5pE/W5zO0B4PC+Fl5uC1eDOv/gaAagC720txE4VVz8UuzWo [file] r7kRQ6G1/VEGETABLE I FARMWORKER++se1wD9t+yHhwxdZc2bqscEcL+AyPH [file] Maria Teresa+uKi3w4rsFdDQd2eLG9S3P218fG5TdpLdTSNcF6wsrY/3dCFJTIFRp4HOlgMyGTyeqICQ/B+awfl/ [file] 1Emih28ojOjACk+Verónica+N5sjZDEvhu5uzqBSEx7AJBh2MEWRfPoCwoZ4gcz2Eha5nxql+wqNxb/uWg7XI [file] [employer] strategic partnerships+awwxDdQCbRahYLsOpXQOLm3hI7LngobS38O0pPO [file] 6TIpiT1f/hK+LJ/private mortgage banker safe+pX4+ZqONZf+fKD5/6WNLLO/ [file] 1LSQMYWm2sAc43u/l+ultrasound sonographer+clHvmZ0EtBLPUpq0wox4ZSVYr7sYxNX0SBRF75zPZPhachcY21PnUHR4gnx [file] CFd49cmIaLoUYTCMcvRH6rSSiMLWusFZ8W8l97p+Telecommunication Operator 0LIDZSJ4K/v+xm/D/5onEiC5EvIcZyDQ6d7LrzEOsvb7jlL3/RKVva89btbj/DYtx/V/J2Of3SL5zV+S 3PcDBtLsYTjcO+vH8lFdeuMF2unjWjfLdI2vxHsVGJzS5RIGglZI2Pa1vzudxzGo/sG3h/rIzrQuAh1l 9vF9dU3HOk9/ReCfKi99M63B17gFwXd4fsOu6HLBmH K48DRIa2hOtuY9X6COMSr178/ETXG2B4rnJBOx95dkXGY08PZuDZfZC8S4S0s3clNK2LdvowKIh8pLfI Ag/ZSICsQkz3R6ZtCFkYgo5mN3mzdS6T7Jg8QB8s5OFdD3gx+5N7EX+jRUgnO3XxGv0Ikw56Sp+LOSts s6Cw/tq+1C//cV2ffNcpekrQ0uV61O39q+j0xI28zm ZXCf6Ut3vp02E9ON79HIdDeNNzr91D7jl7Anafi9bE66LZo37XRIUwUrsqB2kH2/kqm9AmXvUPdMERa4 OjDfrjwqW4HqN3kpVVpfCf5K2v6lvCN1J727Ehd2tsjPyI0h8CcwyPa8MeN72WdFBOny7flm3itT9kdZ K4tQjQ9iLnOtAkPCEia4Dkz5jTK0oO3tDd17ebkiWq 7NmWP6IXVEMSbknMCvLyOCjIGKgmtlheAtKkdHnGvb8kLUgAfGNghTsUeg9s+y7DZkVUBPoWpc0sqWmx LZztJUyewUqAdYLjuhJScwGzsgsb08OH888JnQP74ku2vYMn5LhJLoxpc4LVokyW7w6rxMzMHP5SWsr+ Tony+nMlN5HPCw6RhqGAvAA5qEJTfwtFZ0WH/vNawPjm [file] 8em1DNucbcOgeFAmKB1AQbJgVB3sdk5MPhY8BFQ0hBNmVw5IHUYhAzClVh1RWTXMC3I= ID Date Data Source [id number] 03/24/2020 10:34:20 PM EDT [facility] Name Value Range Interpretation Code Description Data Yumiko rce(s) Supporting Document(s) HEMOGLOBIN A1C @ 7.0 % (4.0-6.0) H [facility] - CORE Performed using Siemens Rincon immunoassa y.Care must be taken when interpreting BcZ8qffggotz in patients with a hemoglobin variantor decreased erythrocyte lifespan. Values 5.7 - 6.4% suggest prediabetes.Values >=6.5% are diagnostic for diabetes.REFERENCE: DIABETES CARE 2018: 41(S13-S27). EST AVERAGE GLUCOSE 154 mg/dL [facility] ID Date Data Source [id number] 03/24/2020 05:43:23 PM EDT [facility] Name Value Range Interpretation Code Description Data Yumiko rce(s) Supporting Document(s) WBC 9.5 10*3/uL (4.1-11.0) [facility] RBC 3.78 10*6/uL (4.00-5.40) L [facility] HGB 12.1 g/dL (12.0-16.0) [facility] HCT 37.2 % (36.0-47.0) [facility] MCV 98.3 fL (80.0-95.0) H [facility] MCH 32.1 pg (27.0-32.0) H [facility] MCHC 32.6 g/dL (32.0-36.0) [facility] RDW 15.6 % (10.5-14.5) H [facility] PLT 280 10*3/uL (150-450) [facility] MPV 11.5 fL (7.1-10.7) H [facility] NEUT % 30.6 % (35.0-75.0) L [facility] LYMPH % 48.0 % (16.0-52.0) [facility] MONO % 11.1 % (0.0-8.0) H [facility] EOS % 9.0 % (0.0-5.0) H [facility] BASO % 1.3 % (0.0-4.0) [facility] NEUT # 2.9 10*3/uL (1.8-7.7) [facility] LYMPH # 4.5 10*3/uL (1.2-4.8) [facility] MONO # 1.0 10*3/uL (0.0-0.8) H [facility] Eosinophils [#/volume] in Blood by Automated count 0.9 10*3/uL (0.0-0 .5) H [facility] BASO # 0.1 10*3/uL (0.0-0.2) [facility] ID Date Data Source [id number] 03/24/2020 06:10:32 PM EDT [facility] Name Value Range Interpretation Code Description Data Yumiko rce(s) Supporting Document(s) PTH, INTACT @ 164.7 pg/mL (18.5-88.0) H [facility] ID Date Data Source [id number] 03/24/2020 06:20:42 PM EDT [facility] Name Value Range Interpretation Code Description Data Yumiko rce(s) Supporting Document(s) COLOR [facility] APPEARANCE [facility] SPEC GRAV URINE 1.024 (1.003-1.030) [facility] PH URINE 5.0 (5.0-7.5) [facility] LEUK ESTERASE (NEG) [facility] NITRITE URINE (NEG) [facility] PROTEIN URINE 1+ (NEG) A [facility] GLUCOSE URINE (NEG) [facility] KETONE URINE (NEG) [facility] UROBILINOGEN 0.2 mg/dL (0-1.0) [facility] BILIRUBIN URINE (NEG) [facility] BLOOD/HGB URINE (NEG) [facility] ID Date Data Source [id number] 03/24/2020 06:39:10 PM EDT [facility] Name Value Range Interpretation Code Description Data Yumiko rce(s) Supporting Document(s) URINE WBC (0-5) [facility] URINE RBC (0-2) [facility] EPITHELIAL CELLS 4+ [HPF] [facility] BACTERIA 2+ [HPF] [facility] HYALINE CASTS [facility] ID Date Data Source [id number] 03/24/2020 07:55:33 PM EDT [facility] Name Value Range Interpretation Code Description Data Yumiko rce(s) Supporting Document(s) MAGNESIUM 1.8 mg/dL (1.7-2.4) [facility] ID Date Data Source [id number] 03/24/2020 07:55:33 PM EDT [facility] Name Value Range Interpretation Code Description Data Yumiko rce(s) Supporting Document(s) SODIUM 141 mmol/L (136-145) [facility] POTASSIUM 4.6 mmol/L (3.6-5.2) [facility] CHLORIDE 105 mmol/L (100-108) [facility] CO2 27 mmol/L (22-31) [facility] ANION GAP 9 mmol/L (7-16) [facility] UREA NITROGEN 35 mg/dL (7-24) H [facility] CREATININE 1.81 mg/dL (0.60-1.00) H [facility] BUN/CREAT RATIO 19.3 RATIO (10.0-20.0) [facility] GLUCOSE 186 mg/dL (70-99) H [facility] CALCIUM 9.3 mg/dL (8.4-10.2) [facility] PHOSPHORUS 3.6 mg/dL (2.5-4.5) [facility] ALBUMIN 3.4 g/dL (3.2-4.5) [facility] GFR 27 ml/min/1.73m2 (>59) L [facility] GFR ( AMER) 32 ml/min/1.73m2 (>59) L [facility] GFR INTERPRETATION [facility] --NORMAL KIDNEY FUNCTION OR MILD DISEASE - GFR >OR= 60CHRONIC KIDNEY DISEASE - GFR 15 - 59RENAL FAILURE - GFR <15 Est. GFR calculation based on the MDRDstudy equation, which assumes a steadystate for creatinine. Est. GFR should notbe used for medication dosing. ID Date Data Source [id number] 03/24/2020 07:55:33 PM EDT [facility] Name Value Range Interpretation Code Description Data Yumiko rce(s) Supporting Document(s) URIC ACID 2.5 mg/dL (2.6-6.0) L [facility] ID Date Data Source [id number] 02/18/2020 01:00:00 PM EDT [facility] Name Value Range Interpretation Code Description Data Yumiko rce(s) Supporting Document(s) Follow Up [facility] KJWOQi7pWzSSTjMjBPFbDrzGENzcIEawOSPbV8R6HYqmDo5DQAkepyWbUNXuKz7+YXHmAN4hmo0cIRHq y 3aJXDpSnxvS3CrNTSqq68AXPHcWWrJNvXjPiIgFbL5QWI6ZlYpZYI5HtNcItlvAM5vLVI5IZHhVYytUD GwOHQqFOZpFITwXS9qJNzbOGzbHo5MKV3wk5RkUCRgKDZwAxbXNKyoMMniFAZiOMPoWCAwO836ezMlZU 8OoDJmKFb8GZIjElG3CSUjRgT3DBPjZaXwWrOmXJFg K7Dsq785zdScsmO9XN9IQ4CwSFW5IWc3I2ovYoJfIYYuNIPbAD4wNdU5CZHfNd7ThShwNIEaZPHpRs1J dDs8BEL1SCRaQh9+Pj4+Ll8szcCjWnaDYAFhYU1gpz20JH6OiSYlWO2TQDjcW87iXSuzBk34VRnaGUMp AnLsRJz1Ap3mXtWnt6LlJ2LqFDx9L4tJSyofJ6JrYJ kgZI9zXRQ1DTXvRp2+Dv7cVKZmZS86WJPpANKWZ9HkakGjjaPsPPb9CUFaKb7+Po1rxiNaGtdNVHRcOW 8crn29EA7HFG9uzIybWbH5MRTiF06fdFUzL0tqXiNlT4JerOpyRIFkNQ9yB8KoDLreVBGsWN2firWtwL 4YpGv1IUVpYn2MvXL0STFaU55iDCWcSEBSPHUrq6Ig HM4Ri6kxjwIgNRVhWG3FMVQcT3TCD9NwF7ydwXdmJLJwZV7MQGayyFTdZEq6RX3AuGHxVQHbC97zpY3r VN05VSo+KnQ4mqTxyZ0HhDjwz5NFED216a7F1+QcBz3GnUzYNHAXWBfnAFJP6Q9GdRaCIFBDy3Cxq9iw 7gwafAYd/OS/5456yV1dfxu0av4wgem28i8L20ep48 [file] aB60H56LhIf2uo/bq57PHHN7vxTYI1z+VEGETABLE I FARMWORKER/mcUWP8Ykwdk22p+kTNqR1l4BDIPxbSF9Pcb82qmXx1FCm [file] vTpK40WBxHp5C15GC2ltM5xi89Ca/+pk/uHOl+LA JOLLA+ [file] cgc2mIecxmi/human relations professor+KrwWbools1JJTd1ldSrqjdPaEEqKhswv7xtPY1UlJEJpBmZbf0oy5sZaSo+sO+oj ayxUHp1mJInu6hGQr6JDBsJ6sb8WNUNehWIJ6Mvo5F dmzLyQDDHsnMvKYW92PhBlJjipk79PnlTRphL1eLXl9nOZsI11sExTjNa7+Sa9TnAYuygXxZjqaIVkiU 7HOzfRPZVRuCIL/EZDj8AZdoFagvZONkux6XXm1OlKcG1mWrybuFqmh50bTNbsnn50FYBkjQNC+Hiral+E [file] VRWdZnC9ibhHYbcGYG+Isacc+pqw/Huq4OfsRT03f2rwRfrsyIBIXa1pzMOqBavM2ev9lOz43QNKpIipR9 uFuBEdUtF9swH++KF5Paoq8xQ7NxEykd3Z1CDjdJg+0FYUBZ0dvne7afsZ1tZko59GWnuo0Yvik+XkYE Yz2b9jFsG+CkTwHaLxrLgJ2eVOMQhz9HZEByvAEjIA BxnS924G6wwQX38IyZOD+E39uAxY6Ls2WePY4/2OIa23C0rB0KBW0dFSLG16vDpN5zQl/q22f6aEQbYT S2dzH7wQi4D3tqrZ2T0i8JvfRqR0emm/LPQ/+L1uDYVQYn5Ss17s5KqwsS+4Fj6PbqJVvDJiNmv72rGj 6dDfNwE6d8S+uLdiLwGBqdobrIO8Ka+KcTSGiMs1w3 ysMDuaiQ5JQnckFY2OstApVq1CN/uLJvSh39kbbWgI6zjL8gZ8Jg+YzadHAeqrZ7ae5UypYMeDI6qhkl z+2jNlIYCIHlFOZ6IuahNK3pPSQnI7HjM7+Khadijah/3jKhyax4ba7fAw8M2aoaChSZo4y1Mf9t43Ibf6Xfh XqLKc7e9wbX3T7WC6CrZx6B806e6wH+zZ1UiyAVvoo LP8A0VEMUaoqVWzcACrYpbMM/ED+FDA461BvllD5imevGbuNgz1KFQcMi3vzpDn4lRiOgogILqM/s2bo /w1S65k8AnOREYh90ih3HCEobg27f3Rc7C4BH61D6RjUK5RBk1wcca91vpoR7lCraTpA1byJKSmX1AsB JEcWThTvi+R7YIIsTNJPaTTdwx1TlgpwA2+woMGk/G 2l8Y6TKGI1KZHRT5pVhenLOEM5FUSTeUZ4KPp6kHFu0ahcENVMKWvRdkzIJFoxnaR2eFc0dju/uPSRKU Yv+//zlPn/b3Bh7g5AadMinabgbtg4Op9DSYo52aArJ6X4tOkVvnbETEYJb1eImbmr50RP4AcaBjzYIG +6yfOlHObuFUlB9qaLyuPvr8xXRpK1zBpQijAlJqsN 8PSRgvVe8upQCgOPa3GxKuJo5h5K0xfjmeIQdusduhiSXUg8JAn0V6zkdf9YdoiBQG+afsxPsVlz3GV5 0kKOfyz1ag4m4aH2qTkTlYJvAEQhnXcwb040OHA38sZcey/r8IBt0dL5b7qHbX3pzPqM8/2Xq1Qq2x55 I7CvIdQmpvtGGxOg/LuMW4ZhLLm9kBYVcPgH8xR/vp strategic partnerships [file] Qg98UbU/E2Iib7bUYCVSIWEky9gT0R7ZgblsFXs+Telecommunication Operator [file] q/nqq3E/vp strategic partnerships+wUPF1Z3pRqSGK7BaNlTWU4N0smhQgKk [file] VEGETABLE I FARMWORKER+g1S/MXH4xVmo6DtlhPA6CjJ3juOtADGoEHD+PJ5 [file] ultrasound sonographer/3oiwA//c0YB9YLynB7ypBWzlr91MNr4KLDELkJH [file] 7O07XEgNG9LLTcydpRyv6Amcf5eAFVISeX2qej0+6XRLijfULq7sRQzubJvUBKyTtUA7y/i6Lf95/LUIS M [file] 14cyOtTHTuODYDOuXVQjsd4P3iW0+4u4ZQICR/+5z7X8oqGVqTJsDSSTeCR9VuUSuLp9mAHphHdj/harp regulator [file] cr+ovyNGt+[place]/HyQqGFnhWFw1+PectcZai8y2dn6RUe0o+xevLVv854i/Or0KUXwoe7+sbk1zHizvX4 [file] TING/zXhaTDEO1glbZ8obRyeCc9hJyhVii5A9Vfw6aIp9GH+DCN20XSdpUaXIgp302veBjzyHDMX6smTl I+P3xmzRNIWtVLYV62gKC5rodeL4OL383QglXqf9WoE95MWKO9Fv92dfyTmbkj1X5t9HVWH3j0o6h75H N4cfxM0ljRGkOc799nzgwnUi4iIHZPUg58lVQtde4A director systems/tatLR2pbQGtrdufu4tYdrJv07v6vbqgMGxozngV9YuTynzVAYKxuBdwc0cwnWzOHx89+bnoE+BY/ V1+bmAyzE27s0CjMCJkRBFOGocH8aBWR1yjMAC6QUCV4BpV2DZ/Er+GviHvCNLXpZf1rKjrszFvvh+OE RM3e5+hWVWDAaPko/PjYwmRahdXik0+nadIKyo9co4 d1OpGc6hBkgG9w+EUlvPVdBqFUDkZeoL3VgwesDJpXftFPtlTBEGwVm/t8qLQWaJDZeFOV9VafbdwI3V NzIUHnolJ7iTeW3JgXu+uRgLqiAwnP7+Z0sUiFSJtTK2YS/AGam/oqH33bXXRT/ahkEp2CireyDLXxq4 BkDv7iqx/baRSg5pz4I1RQwyazy7z9KIBz9dbcBbdK tprNMWA0BntmSsdIoEYe8BeG8KG0/KA2U2opkX/9wMg+PZmay5arjTFuKPlYgJZ+EGSXNgdQG1fuPHAN AWek8KI9y2heSK811aPqgQg+HbSnuriWw2eZ/SQq9c/CARDENAS+F5rnuw31CTJa0ZSg6v/WbUU8QyUcI2ZLAj [file] WPgvS1K9YUHTcqWrnk+lGQQ9B2BV38xSZhHFG2ccKIeFy/PATIENT SERVICE [file] uvTJMKW1hp4eizFB0ArEZ4DLJY8guoY1h2/GHoLw+4io/rf+00AghCkjOB6eKsFchqEMwRotJeqb/Mary Ann [file] HJsxywCv5kmxl5T4yL/jE7prxf7siywuyb40zAvO0K 1VWcM0tew8GmoOtDzuKTLo2WPaVp0P9ID7AxQMK/Tilzj69uzF1dVmZaUEa9hjh3HR0guhmTlNiKQZG/ t3qzolM8Jx97XG18GCsF0v6WeaJ7ab9drOcGUPTNPo8oaV48jIHXCg9aytgYGU91qMhNmBf3+mi3670Q Vnmc3J2EKP/r9Z2DcIKfveHJSBIps0hrmFude+1IZP rHIy7XNgUMFMd05rrHqO9dJXv983Z3n7On37KTp/c2sdeMD3FqAihSBXyRYPFStLT9uXzdX4l2WvDMI+ jzLwQoU8TfPtf7x1P/fY90/cAWdCexRvAZgFEftwWcQVXBHVL1/FAJm6ePS1Dd3CZRR1IsDZjsqprwlg Y0QuojLpz7JyEWuBuCZf4+m7+tMe31wwxSjgGJ1SQP HfworlOkYapOpEIat1bh5K9ZnHTLHNGHTznQn+U3mg+UJ0MY/RmZKIofZodMgaCWa17PFflH/H6DuLvs szRDESHp3DfGjjwkJwXjX+oPeSaPtC5lJonlHxUR7AJVCBEs4p5dxwuFmbDrB/aeESLtGYD/RUcnd1sd qh/hrG4wXzsjc2J0N+W501HUVT1pt/NNR7TFmHjmrL ROQ5PPslEKEneVS/VoOqjo9kqjGoyBNORhQ2k9ODD9zWrqJUO9gIJOG3vyIsque+7fTyAdoC2jJV7yMe uDy1N1QWXFMz3OFBgsdnq98pj3+8CDgNvXyHn8szHXAAYJCgy5ewCX6XZbtUBRj3jx/lvEz8frOLvX/d JOSE CARLOS/GxokQ2Rt47r4fv4EKJ3vhN1ih2nq7xQVqAEsGU /M+CV5ekiDFUpGQpI34wYRflLgQdSpNelQmElPPwxDr2iZg5nzeF141JScais5HGyNnLxYkbqqWhE9vI VngASwk4L49OMvdZdAZHW1EjKhqM0UBbiJqotQG5iFLT79TUNZVNZiQZkzAoIQ/Bi1jBColIXSkO69UJ xRt/Gx4qNCPGn12ScqWLnKFlhTApFtZ6DoA2sJ02lR zBT9ruagd/cSN8ki8ZgqrbwYjRnIEqxfoAWkFAnMHmMjroZWQ6IlN33xDs5Q3/Tiffani//UHEeeCfbknCpy [file] 9on35cU0/kll7kHziPaYcFclL+pack room operator++HmlXLzf8Qpg1plrPR+rmv5IH+q36mxo6UeyyaoqyijQ0X4WWp [file] G6LdPPabWU3HVdgDfzlmQpJ61p+Tl9JMKfg5xFKZxLB+RbIM3tC9I9qRthxn2XRL2yHdCS+cH36AN/ultrasound sonographer [file] [employer]/rKhwpH/p9P8Ot+EpvqV8g09TFBhfOrxFLsi3aCAnTLTgmI4d9fpH9cyHsJEusBvO/mF3EjJMxRes9 [file] t5wyozXgyce24yh6xE+l0ArRlhbkQwVRS5qqixkko9 9WWq198+t29D4nfpd8K+eujzq5iiBLCe1qV7RKKhz5G+zmcTv68c5U/0gsPfJKIbHruqCOxiR7aHlhwx UGo9DHW+UKdSZb+w1uUyuJ7xaiUS+Nyr9FUhoE1cXDn06EoidqMjH1+2fAXtDAu+Vsp5ne4fiykk81Ot TWrpL/M7AWDjYlZFMT67lwiOjqrSDg8HYRrhg5KWpe fBzxM571duaTsVZkgRQxvC7qELzluH9Gxdw9GyPLvNI2LmDJl1FaOIIUeowG4YPWs7um1eYWE9+d4hP2 iYcpg7MQ6y08+ymlNm31knSN9ghazyN5DEL7bHWESavKPZP4RZJ+s1axmzs4YRHGEy9cLSJh4f84JuZZ rY6iBiXPK/BYfiY1CChlpY0OtON91eDByy+2bBsxLP 7Su5OwNjJrn8nN3oVpivcDu8Fx33DNNssMed2QHLSO7rTI9IcRhw9ikRBQHdw62nizgIIQqgPG4R0FXL 3Z1NiYzxFWlS54QLdHKqsc79AVTlxcv+9pkyPC82g3NJeqAL5YPoZofAEdd7rCZpCX3gwpuDVos0QYuR /kcLeQdjDFYD0iIuH4jJZY4q+xFLWc+8X0+PVXSt8Z tgRdSYlSxTkQmuIWa5lyr1vrP87pSCkBBNr7yv0yhHm0NrIbMndyMfdHgmOMY0Q9RvWE95mrFl7jWtn+ n7X/yL/6GDZGI9NuA6Y+PATIENT SERVICE SPECIALIST/k7DXrBE1Wda/LfdBj8SVM851taSLRDVCLc8J0a5Gj+PktZ6/3dkV4mjPA [file] hqtF3aPTbSt6rLStp3DMzqpT6v5nQ2qFOUQK5tiyp5sD7mEAzPZNkne7Cl84tkTY7OiknDBt9+Shift Supervisor [employer]/FVx [file] ERkhioBsCpgRQAqgkUKwaPdtBWHUBeAfRoE7THaXMsAsDL6J ID Date Data Source [id number] 02/15/2020 01:41:01 PM EDT [facility] Name Value Range Interpretation Code Description Data Yumiko rce(s) Supporting Document(s) POC GLUCOSE 265 mg/dL (70-99) H [facility] NOTIFIED NURSEPERFORMED BY CLINICAL S TAFF ID Date Data Source [id number] 02/15/2020 11:26:41 AM EDT [facility] Name Value Range Interpretation Code Description Data Yumiko rce(s) Supporting Document(s) POC GLUCOSE 322 mg/dL (70-99) H [facility] NOTIFIED NURSEPERFORMED BY CLINICAL S TAFF ID Date Data Source [id number] 02/15/2020 07:25:11 AM EDT [facility] Name Value Range Interpretation Code Description Data Yumiko rce(s) Supporting Document(s) POC GLUCOSE 150 mg/dL (70-99) H [facility] NOTIFIED NURSEPERFORMED BY CLINICAL S TAFF ID Date Data Source [id number] 02/15/2020 08:56:22 AM EDT [facility] Name Value Range Interpretation Code Description Data Yumiko rce(s) Supporting Document(s) SODIUM 135 mmol/L (136-145) L [facility] POTASSIUM 4.2 mmol/L (3.6-5.2) [facility] CHLORIDE 101 mmol/L (100-108) [facility] CO2 26 mmol/L (22-31) [facility] ANION GAP 8 mmol/L (7-16) [facility] UREA NITROGEN 25 mg/dL (7-24) H [facility] CREATININE 1.51 mg/dL (0.60-1.00) H [facility] BUN/CREAT RATIO 16.6 RATIO (10.0-20.0) [facility] GLUCOSE 133 mg/dL (70-99) H [facility] CALCIUM 8.6 mg/dL (8.4-10.2) [facility] GFR 33 ml/min/1.73m2 (>59) L [facility] GFR ( AMER) 40 ml/min/1.73m2 (>59) L [facility] GFR INTERPRETATION [facility] --NORMAL KIDNEY FUNCTION OR MILD DISEASE - GFR >OR= 60CHRONIC KIDNEY DISEASE - GFR 15 - 59RENAL FAILURE - GFR <15 Est. GFR calculation based on the MDRDstudy equation, which assumes a steadystate for creatinine. Est. GFR should notbe used for medication dosing. ID Date Data Source [id number] 02/15/2020 03:10:09 AM EDT [facility] Name Value Range Interpretation Code Description Data Yumiko rce(s) Supporting Document(s) POC GLUCOSE 159 mg/dL (70-99) H [facility] NOTIFIED NURSEPERFORMED BY CLINICAL S TAFF ID Date Data Source [id number] 02/14/2020 09:11:38 PM EDT [facility] Name Value Range Interpretation Code Description Data Yumiko rce(s) Supporting Document(s) POC GLUCOSE 188 mg/dL (70-99) H [facility] NOTIFIED NURSEPERFORMED BY CLINICAL S TAFF ID Date Data Source [id number] 02/14/2020 04:55:56 PM EDT [facility] Name Value Range Interpretation Code Description Data Yumiko rce(s) Supporting Document(s) POC GLUCOSE 121 mg/dL (70-99) H [facility] NOTIFIED NURSEPERFORMED BY CLINICAL S TAFF ID Date Data Source [id number] 02/14/2020 12:48:01 PM EDT [facility] Name Value Range Interpretation Code Description Data Yumiko rce(s) Supporting Document(s) POC GLUCOSE 218 mg/dL (70-99) H [facility] NOTIFIED NURSEPERFORMED BY CLINICAL S TAFF ID Date Data Source [id number] 02/14/2020 12:02:59 PM EDT [facility] Name Value Range Interpretation Code Description Data Yumiko rce(s) Supporting Document(s) POC GLUCOSE 218 mg/dL (70-99) H [facility] PERFORMED BY CLINICAL STAFF ID Date Data Source [id number] 02/14/2020 08:54:27 AM EDT [facility] Name Value Range Interpretation Code Description Data Yumiko rce(s) Supporting Document(s) POC GLUCOSE 148 mg/dL (70-99) H [facility] NOTIFIED NURSEPERFORMED BY CLINICAL S TAFF ID Date Data Source [id number] 02/14/2020 06:47:45 AM EDT [facility] Name Value Range Interpretation Code Description Data Yumiko rce(s) Supporting Document(s) SODIUM 134 mmol/L (136-145) L [facility] POTASSIUM 3.8 mmol/L (3.6-5.2) [facility] CHLORIDE 98 mmol/L (100-108) L [facility] CO2 32 mmol/L (22-31) H [facility] ANION GAP 4 mmol/L (7-16) L [facility] UREA NITROGEN 26 mg/dL (7-24) H [facility] CREATININE 1.51 mg/dL (0.60-1.00) H [facility] BUN/CREAT RATIO 17.2 RATIO (10.0-20.0) [facility] GLUCOSE 133 mg/dL (70-99) H [facility] CALCIUM 8.3 mg/dL (8.4-10.2) L [facility] GFR 33 ml/min/1.73m2 (>59) L [facility] GFR ( AMER) 40 ml/min/1.73m2 (>59) L [facility] GFR INTERPRETATION [facility] --NORMAL KIDNEY FUNCTION OR MILD DISEASE - GFR >OR= 60CHRONIC KIDNEY DISEASE - GFR 15 - 59RENAL FAILURE - GFR <15 Est. GFR calculation based on the MDRDstudy equation, which assumes a steadystate for creatinine. Est. GFR should notbe used for medication dosing. ID Date Data Source [id number] 02/14/2020 03:15:32 AM EDT [facility] Name Value Range Interpretation Code Description Data Yumiko rce(s) Supporting Document(s) POC GLUCOSE 114 mg/dL (70-99) H [facility] NOTIFIED NURSEPERFORMED BY CLINICAL S TAFF ID Date Data Source [id number] 02/13/2020 10:24:23 PM EDT [facility] Name Value Range Interpretation Code Description Data Yumiko rce(s) Supporting Document(s) POC GLUCOSE 252 mg/dL (70-99) H [facility] NOTIFIED NURSEPERFORMED BY CLINICAL S TAFF ID Date Data Source [id number] 02/13/2020 06:59:51 PM EDT [facility] Name Value Range Interpretation Code Description Data Yumiko rce(s) Supporting Document(s) POC GLUCOSE 303 mg/dL (70-99) H [facility] NOTIFIED NURSEPERFORMED BY CLINICAL S TAFF ID Date Data Source [id number] 02/13/2020 04:32:58 PM EDT [facility] Name Value Range Interpretation Code Description Data Yumiko rce(s) Supporting Document(s) POC GLUCOSE 111 mg/dL (70-99) H [facility] NOTIFIED NURSEPERFORMED BY CLINICAL S TAFF ID Date Data Source [id number] 02/13/2020 04:03:54 PM EDT [facility] Name Value Range Interpretation Code Description Data Yumiko rce(s) Supporting Document(s) POC GLUCOSE 86 mg/dL (70-99) [facility] NOTIFIED NURSEPERFORMED BY CLINICAL S TAFF ID Date Data Source [id number] 02/13/2020 03:56:53 PM EDT [facility] Name Value Range Interpretation Code Description Data Yumiko rce(s) Supporting Document(s) POC GLUCOSE 50 mg/dL (70-99) L [facility] NOTIFIED NURSEPERFORMED BY CLINICAL S TAFF ID Date Data Source [id number] 02/13/2020 11:58:54 AM EDT [facility] Name Value Range Interpretation Code Description Data Yumiko rce(s) Supporting Document(s) POC GLUCOSE 229 mg/dL (70-99) H [facility] NOTIFIED NURSEPERFORMED BY CLINICAL S TAFF ID Date Data Source [id number] 02/13/2020 08:53:27 AM EDT [facility] Name Value Range Interpretation Code Description Data Yumiko rce(s) Supporting Document(s) POC GLUCOSE 155 mg/dL (70-99) H [facility] NOTIFIED NURSEPERFORMED BY CLINICAL S TAFF ID Date Data Source [id number] 02/13/2020 07:30:24 AM EDT [facility] Name Value Range Interpretation Code Description Data Yumiko rce(s) Supporting Document(s) LIPASE 412 U/L (65-230) H [facility] ID Date Data Source [id number] 02/13/2020 07:30:24 AM EDT [facility] Name Value Range Interpretation Code Description Data Yumiko rce(s) Supporting Document(s) SODIUM 134 mmol/L (136-145) L [facility] POTASSIUM 3.7 mmol/L (3.6-5.2) [facility] CHLORIDE 97 mmol/L (100-108) L [facility] CO2 31 mmol/L (22-31) [facility] ANION GAP 6 mmol/L (7-16) L [facility] UREA NITROGEN 24 mg/dL (7-24) [facility] CREATININE 1.32 mg/dL (0.60-1.00) H [facility] BUN/CREAT RATIO 18.2 RATIO (10.0-20.0) [facility] GLUCOSE 152 mg/dL (70-99) H [facility] CALCIUM 8.4 mg/dL (8.4-10.2) [facility] TOTAL PROTEIN 5.3 g/dL (6.4-8.2) L [facility] ALBUMIN 2.0 g/dL (3.2-4.5) L [facility] GLOBULIN 3.3 g/dL (2.7-4.3) [facility] ALB/GLOB RATIO 0.6 RATIO [facility] ALKALINE PHOSPHATASE 72 U/L (45-117) [facility] BILIRUBIN,TOTAL 0.5 mg/dL (0.0-1.0) [facility] PLEASE NOTE:Total bilirubin results may be falselyelevated in patients taking Eltrombopag. AST (SGOT) 18 U/L (11-39) [facility] ALT (SGPT) 22 U/L (12-78) [facility] GFR 38 ml/min/1.73m2 (>59) L [facility] GFR ( AMER) 46 ml/min/1.73m2 (>59) L [facility] GFR INTERPRETATION [facility] --NORMAL KIDNEY FUNCTION OR MILD DISEASE - GFR >OR= 60CHRONIC KIDNEY DISEASE - GFR 15 - 59RENAL FAILURE - GFR <15 Est. GFR calculation based on the MDRDstudy equation, which assumes a steadystate for creatinine. Est. GFR should notbe used for medication dosing. ID Date Data Source [id number] 02/13/2020 06:57:41 AM EDT [facility] Name Value Range Interpretation Code Description Data Yumiko rce(s) Supporting Document(s) WBC 13.5 10*3/uL (4.1-11.0) H [facility] RBC 3.91 10*6/uL (4.00-5.40) L [facility] HGB 12.2 g/dL (12.0-16.0) [facility] HCT 37.4 % (36.0-47.0) [facility] MCV 95.6 fL (80.0-95.0) H [facility] MCH 31.2 pg (27.0-32.0) [facility] MCHC 32.6 g/dL (32.0-36.0) [facility] RDW 13.9 % (10.5-14.5) [facility] PLT 292 10*3/uL (150-450) [facility] MPV 11.3 fL (7.1-10.7) [facility] NEUT % 62.6 % (35.0-75.0) [facility] LYMPH % 21.7 % (16.0-52.0) [facility] MONO % 10.6 % (0.0-8.0) H [facility] EOS % 4.1 % (0.0-5.0) [facility] BASO % 1.0 % (0.0-4.0) [facility] NEUT # 8.4 10*3/uL (1.8-7.7) H [facility] LYMPH # 2.9 10*3/uL (1.2-4.8) [facility] MONO # 1.4 10*3/uL (0.0-0.8) H [facility] Eosinophils [#/volume] in Blood by Automated count 0.5 10*3/uL (0.0-0 .5) [facility] BASO # 0.1 10*3/uL (0.0-0.2) [facility] ID Date Data Source [id number] 02/13/2020 02:54:59 AM EDT [facility] Name Value Range Interpretation Code Description Data Yumiko rce(s) Supporting Document(s) POC GLUCOSE 152 mg/dL (70-99) H [facility] NOTIFIED NURSEPERFORMED BY CLINICAL S TAFF ID Date Data Source [id number] 02/12/2020 09:43:18 PM EDT [facility] Name Value Range Interpretation Code Description Data Yumiko rce(s) Supporting Document(s) POC GLUCOSE 276 mg/dL (70-99) H [facility] PERFORMED BY CLINICAL STAFF ID Date Data Source [id number] 02/14/2020 08:54:00 AM EDT [facility] [place] [address]POCCQDY NAME: CSEAR SESAY OF : 4REPORT: DISCHARGE SUMMARYPATIENT NUMBER: [id number] STATUS: OF ADMISSION:DATE OF DISCHARGE:ROOM:INTERIM DISCHARGE SUMMARY1. Acute pancreatitis. The patient came reporting that she was diagnosed with pancreatic cancer in 08/2018 in [place] at [facility]. She decided against any biopsy or treatment. Upon admission, she had severe left upper quadrant epigastric abdominal pain, nausea and vomiting. Her lipase was elevated. Clearly, had acute pancreatitis on the CT scan that was done at [facility] and the MRCP that was done here. Her CA19-9 though is only 19 in the settings of acute pancreatitis. The MRCP done here and the CT scan that was done at [facility] did not show mass, but did show acute pancreatitis. There is significant inflammati on in the pancreatic head and no discernible mass. The patient does have a GI doctor, Dr. Lui Langston. She will follow up with the patient and do an MRCP in 3 months once the inflammation resolves. I tried to advance her diet; however, she developed recurrent abdominal pain with low-fat diet. Her lipase also trended up. I put her back on full liquids. She feels better. The patient also had a paralytic ileus that probably contributed to her discomfort which is also improving.2. Type 2 diabetes mellitus. The patient is on Lantus and sliding scale insulin.3. Elevated troponin secondary to demand ischemia. She does not have any significant chest pain.4. Acute kidney injury on stage IV chronic kidney disease that improved with IV fluids.5. Hypokalemia on admission secondary to poor oral intake, vomiting and also chlorthalidone. We replaced it and I took her off chlorthalidone.6. Paralytic ileus. The patient was started on Colace and Eve Lax with good response.Upon discharge the patient will go to her daughter's, [facility]ela[facility], [facility].DICTATED BY: HESHAM Coteictated: 02/12/2020 19:35DT: 02/12/2020 19:46Job #: [id number]: MD Lui Timmons MdNOTE: [facility] computer generated reports are notconfirmed or authenticated unless they are signed by the providerElectronically Authenticated and Edited by:GONSALO CALDERA MD On 02/14/2020 08:54 AM EDT Name Value Range Interpretation Code Description Data Yumiko rce(s) Supporting Document(s) ID Date Data Source [id number] 02/12/2020 06:01:28 PM EDT [facility] Name Value Range Interpretation Code Description Data Yumiko rce(s) Supporting Document(s) POC GLUCOSE 159 mg/dL (70-99) H [facility] PERFORMED BY CLINICAL STAFF ID Date Data Source [id number] 02/12/2020 12:19:50 PM EDT [facility] Name Value Range Interpretation Code Description Data Yumiko rce(s) Supporting Document(s) POC GLUCOSE 299 mg/dL (70-99) H [facility] NOTIFIED NURSEPERFORMED BY CLINICAL S TAFF ID Date Data Source [id number] 02/12/2020 09:19:00 AM EDT [facility] Name Value Range Interpretation Code Description Data Yumiko rce(s) Supporting Document(s) POC GLUCOSE 144 mg/dL (70-99) H [facility] NOTIFIED NURSEPERFORMED BY CLINICAL S TAFF ID Date Data Source [id number] 02/12/2020 08:08:53 AM EDT [facility] Name Value Range Interpretation Code Description Data Yumiko rce(s) Supporting Document(s) LIPASE 199 U/L (65-230) [facility] ID Date Data Source [id number] 02/12/2020 08:08:53 AM EDT [facility] Name Value Range Interpretation Code Description Data Yumiko rce(s) Supporting Document(s) SODIUM 136 mmol/L (136-145) [facility] POTASSIUM 4.1 mmol/L (3.6-5.2) [facility] CHLORIDE 98 mmol/L (100-108) L [facility] CO2 32 mmol/L (22-31) H [facility] ANION GAP 6 mmol/L (7-16) L [facility] UREA NITROGEN 24 mg/dL (7-24) [facility] CREATININE 1.21 mg/dL (0.60-1.00) H [facility] BUN/CREAT RATIO 19.8 RATIO (10.0-20.0) [facility] GLUCOSE 124 mg/dL (70-99) H [facility] CALCIUM 8.7 mg/dL (8.4-10.2) [facility] TOTAL PROTEIN 5.5 g/dL (6.4-8.2) L [facility] ALBUMIN 2.1 g/dL (3.2-4.5) L [facility] GLOBULIN 3.4 g/dL (2.7-4.3) [facility] ALB/GLOB RATIO 0.6 RATIO [facility] ALKALINE PHOSPHATASE 72 U/L (45-117) [facility] BILIRUBIN,TOTAL 0.5 mg/dL (0.0-1.0) [facility] PLEASE NOTE:Total bilirubin results may be falselyelevated in patients taking Eltrombopag. AST (SGOT) 23 U/L (11-39) [facility] ALT (SGPT) 20 U/L (12-78) [facility] GFR 42 ml/min/1.73m2 (>59) L [facility] GFR ( AMER) 51 ml/min/1.73m2 (>59) L [facility] GFR INTERPRETATION [facility] --NORMAL KIDNEY FUNCTION OR MILD DISEASE - GFR >OR= 60CHRONIC KIDNEY DISEASE - GFR 15 - 59RENAL FAILURE - GFR <15 Est. GFR calculation based on the MDRDstudy equation, which assumes a steadystate for creatinine. Est. GFR should notbe used for medication dosing. ID Date Data Source [id number] 02/12/2020 07:24:45 AM EDT [facility] Name Value Range Interpretation Code Description Data Yumiko rce(s) Supporting Document(s) WBC 13.7 10*3/uL (4.1-11.0) H [facility] RBC 3.97 10*6/uL (4.00-5.40) L [facility] HGB 12.7 g/dL (12.0-16.0) [facility] HCT 38.3 % (36.0-47.0) [facility] MCV 96.5 fL (80.0-95.0) H [facility] MCH 32.0 pg (27.0-32.0) [facility] MCHC 33.1 g/dL (32.0-36.0) [facility] RDW 13.9 % (10.5-14.5) [facility] PLT 272 10*3/uL (150-450) [facility] MPV 11.3 fL (7.1-10.7) H [facility] NEUT % 74.1 % (35.0-75.0) [facility] LYMPH % 14.0 % (16.0-52.0) L [facility] MONO % 8.9 % (0.0-8.0) H [facility] EOS % 2.4 % (0.0-5.0) [facility] BASO % 0.6 % (0.0-4.0) [facility] NEUT # 10.2 10*3/uL (1.8-7.7) [facility] [place] LYMPH # 1.9 10*3/uL (1.2-4.8) [facility] MONO # 1.2 10*3/uL (0.0-0.8) H [facility] Eosinophils [#/volume] in Blood by Automated count 0.3 10*3/uL (0.0-0 .5) [facility] BASO # 0.1 10*3/uL (0.0-0.2) [facility] ID Date Data Source [id number] 02/12/2020 03:18:18 AM EDT [facility] Name Value Range Interpretation Code Description Data Yumiko rce(s) Supporting Document(s) POC GLUCOSE 140 mg/dL (70-99) H [facility] PERFORMED BY CLINICAL STAFF ID Date Data Source [id number] 02/11/2020 10:05:45 PM EDT [facility] Name Value Range Interpretation Code Description Data Yumiko rce(s) Supporting Document(s) POC GLUCOSE 211 mg/dL (70-99) H [facility] NOTIFIED NURSEPERFORMED BY CLINICAL S TAFF ID Date Data Source [id number] 02/12/2020 12:21:00 AM EDT [facility] DATE OF EXAM: 02/11/2020Abdomen 2V INDIC ATION: EVALUATE FOR ILEUS COMPARISON: None TECHNIQUE: AP supine and upright views of the abdomen. FINDINGS: Moderate stool burden. A few air fluid levels are present in the mid jejunum and measure up to 4.0 cm and suggests a mild ileus. Air is present in the large bowel. IMPRESSION: Mild bowel distention of the small bowel. Air is present in the large bowel. Consistent with ileus. No free air. Professional interpretation performed at [facility] .End of diagnostic report for accession: [id number] Interpreted: Chasidy Kelly MD Transcribed: 02/12/2020 12:19 AMSigned: 02/12/2020 12:21 AM Chasidy Kelly MD [facility] # [id number] BILL # [id number] Name Value Range Interpretation Code Description Data Yumiko rce(s) Supporting Document(s) ID Date Data Source [id number] 02/11/2020 05:07:13 PM EDT [facility] Name Value Range Interpretation Code Description Data Yumiko rce(s) Supporting Document(s) POC GLUCOSE 222 mg/dL (70-99) H [facility] NOTIFIED NURSEPERFORMED BY CLINICAL S TAFF ID Date Data Source [id number] 02/11/2020 12:32:35 PM EDT [facility] Name Value Range Interpretation Code Description Data Yumiko rce(s) Supporting Document(s) POC GLUCOSE 142 mg/dL (70-99) H [facility] PERFORMED BY CLINICAL STAFF ID Date Data Source [id number] 02/11/2020 09:12:08 AM EDT [facility] Name Value Range Interpretation Code Description Data Yumiko rce(s) Supporting Document(s) POC GLUCOSE 78 mg/dL (70-99) [facility] NOTIFIED NURSEPERFORMED BY CLINICAL S TAFF ID Date Data Source [id number] 02/11/2020 07:31:12 AM EDT [facility] Name Value Range Interpretation Code Description Data Yumiko rce(s) Supporting Document(s) TRIGLYCERIDE 120 mg/dL (30-200) [facility] [place] ID Date Data Source [id number] 02/11/2020 07:31:12 AM EDT [facility] Name Value Range Interpretation Code Description Data Yumiko rce(s) Supporting Document(s) LIPASE 262 U/L (65-230) H [facility] ID Date Data Source [id number] 02/11/2020 07:31:12 AM EDT [facility] Name Value Range Interpretation Code Description Data Yumiko rce(s) Supporting Document(s) TROPONIN I 0.18 ng/mL (<0.05) H [facility] Less than 0.05: Myocardial injury unlike lyGreater than or equal to 0.05: Highly suggestive of myocardial injuryCorrelation with rise and/or fall ofserial troponins, clinical symptomsand ECG changes is necessary. ID Date Data Source [id number] 02/11/2020 07:31:12 AM EDT [facility] Name Value Range Interpretation Code Description Data Yumiko rce(s) Supporting Document(s) SODIUM 137 mmol/L (136-145) [facility] POTASSIUM 2.9 mmol/L (3.6-5.2) LL [facility] RESULT(S) CALLED TO AND READ BACK BYJEN 4S ON 02/11/20 [place] 0730 [place] [id number] CHLORIDE 97 mmol/L (100-108) L [facility] CO2 31 mmol/L (22-31) [facility] ANION GAP 9 mmol/L (7-16) [facility] UREA NITROGEN 33 mg/dL (7-24) H [facility] CREATININE 1.35 mg/dL (0.60-1.00) H [facility] BUN/CREAT RATIO 24.4 RATIO (10.0-20.0) H [facility] GLUCOSE 82 mg/dL (70-99) [facility] CALCIUM 8.3 mg/dL (8.4-10.2) L [facility] TOTAL PROTEIN 5.4 g/dL (6.4-8.2) L [facility] ALBUMIN 2.2 g/dL (3.2-4.5) L [facility] GLOBULIN 3.2 g/dL (2.7-4.3) [facility] ALB/GLOB RATIO 0.7 RATIO [facility] ALKALINE PHOSPHATASE 69 U/L (45-117) [facility] BILIRUBIN,TOTAL 0.6 mg/dL (0.0-1.0) [facility] PLEASE NOTE:Total bilirubin results may be falselyelevated in patients taking Eltrombopag. AST (SGOT) 20 U/L (11-39) [facility] ALT (SGPT) 17 U/L (12-78) [facility] GFR 37 ml/min/1.73m2 (>59) L [facility] GFR ( AMER) 45 ml/min/1.73m2 (>59) L [facility] GFR INTERPRETATION [facility] --NORMAL KIDNEY FUNCTION OR MILD DISEASE - GFR >OR= 60CHRONIC KIDNEY DISEASE - GFR 15 - 59RENAL FAILURE - GFR <15 Est. GFR calculation based on the MDRDstudy equation, which assumes a steadystate for creatinine. Est. GFR should notbe used for medication dosing. ID Date Data Source [id number] 02/11/2020 06:56:07 AM EDT [facility] Name Value Range Interpretation Code Description Data Yumiko rce(s) Supporting Document(s) WBC 12.6 10*3/uL (4.1-11.0) H [facility] RBC 4.17 10*6/uL (4.00-5.40) [facility] HGB 13.4 g/dL (12.0-16.0) [facility] HCT 39.6 % (36.0-47.0) [facility] MCV 95.1 fL (80.0-95.0) H [facility] MCH 32.1 pg (27.0-32.0) H [facility] MCHC 33.7 g/dL (32.0-36.0) [facility] RDW 13.5 % (10.5-14.5) [facility] PLT 318 10*3/uL (150-450) [facility] MPV 11.0 fL (7.1-10.7) H [facility] NEUT % 70.6 % (35.0-75.0) [facility] LYMPH % 17.3 % (16.0-52.0) [facility] MONO % 9.9 % (0.0-8.0) H [facility] EOS % 1.6 % (0.0-5.0) [facility] BASO % 0.6 % (0.0-4.0) [facility] NEUT # 8.9 10*3/uL (1.8-7.7) H [facility] LYMPH # 2.2 10*3/uL (1.2-4.8) [facility] MONO # 1.2 10*3/uL (0.0-0.8) H [facility] Eosinophils [#/volume] in Blood by Automated count 0.2 10*3/uL (0.0-0 .5) [facility] BASO # 0.1 10*3/uL (0.0-0.2) [facility] ID Date Data Source [id number] 02/10/2020 09:49:41 PM EDT [facility] Name Value Range Interpretation Code Description Data Yumiko rce(s) Supporting Document(s) POC GLUCOSE 99 mg/dL (70-99) [facility] NOTIFIED NURSEPERFORMED BY CLINICAL S TAFF ID Date Data Source [id number] 02/10/2020 05:51:44 PM EDT [facility] Name Value Range Interpretation Code Description Data Yumiko rce(s) Supporting Document(s) POC GLUCOSE 122 mg/dL (70-99) H [facility] NOTIFIED NURSEPERFORMED BY CLINICAL S TAFF ID Date Data Source [id number] 02/10/2020 04:48:48 PM EDT [facility] Name Value Range Interpretation Code Description Data Yumiko rce(s) Supporting Document(s) POC GLUCOSE 147 mg/dL (70-99) H [facility] NOTIFIED NURSEPERFORMED BY CLINICAL S TAFF ID Date Data Source [id number] 02/10/2020 11:50:02 AM EDT [facility] Name Value Range Interpretation Code Description Data Yumiko rce(s) Supporting Document(s) POC GLUCOSE 234 mg/dL (70-99) H [facility] NOTIFIED NURSEPERFORMED BY CLINICAL S TAFF ID Date Data Source [id number] 02/10/2020 08:45:18 AM EDT [facility] Name Value Range Interpretation Code Description Data Yumiko rce(s) Supporting Document(s) POC GLUCOSE 136 mg/dL (70-99) H [facility] NOTIFIED NURSEPERFORMED BY CLINICAL S TAFF ID Date Data Source [id number] 02/10/2020 07:53:26 AM EDT [facility] Name Value Range Interpretation Code Description Data Yumiko rce(s) Supporting Document(s) SODIUM 136 mmol/L (136-145) [facility] POTASSIUM 3.9 mmol/L (3.6-5.2) [facility] SLIGHT HEMOLYSIS CHLORIDE 99 mmol/L (100-108) L [facility] CO2 29 mmol/L (22-31) [facility] ANION GAP 8 mmol/L (7-16) [facility] UREA NITROGEN 34 mg/dL (7-24) H [facility] CREATININE 1.47 mg/dL (0.60-1.00) H [facility] BUN/CREAT RATIO 23.1 RATIO (10.0-20.0) H [facility] GLUCOSE 145 mg/dL (70-99) H [facility] CALCIUM 8.5 mg/dL (8.4-10.2) [facility] TOTAL PROTEIN 5.9 g/dL (6.4-8.2) L [facility] ALBUMIN 2.2 g/dL (3.2-4.5) L [facility] GLOBULIN 3.7 g/dL (2.7-4.3) [facility] ALB/GLOB RATIO 0.6 RATIO [facility] ALKALINE PHOSPHATASE 76 U/L (45-117) [facility] BILIRUBIN,TOTAL 0.7 mg/dL (0.0-1.0) [facility] PLEASE NOTE:Total bilirubin results may be falselyelevated in patients taking Eltrombopag. AST (SGOT) 38 U/L (11-39) [facility] ALT (SGPT) 23 U/L (12-78) [facility] GFR 34 ml/min/1.73m2 (>59) L [facility] GFR ( AMER) 41 ml/min/1.73m2 (>59) L [facility] GFR INTERPRETATION [facility] --NORMAL KIDNEY FUNCTION OR MILD DISEASE - GFR >OR= 60CHRONIC KIDNEY DISEASE - GFR 15 - 59RENAL FAILURE - GFR <15 Est. GFR calculation based on the MDRDstudy equation, which assumes a steadystate for creatinine. Est. GFR should notbe used for medication dosing. ID Date Data Source [id number] 02/10/2020 07:52:06 AM EDT [facility] Name Value Range Interpretation Code Description Data Yumiko rce(s) Supporting Document(s) LIPASE 124 U/L (65-230) [facility] ID Date Data Source [id number] 02/10/2020 07:27:47 AM EDT [facility] Name Value Range Interpretation Code Description Data Yumiko rce(s) Supporting Document(s) WBC 12.0 10*3/uL (4.1-11.0) H [facility] RBC 4.32 10*6/uL (4.00-5.40) [facility] HGB 13.8 g/dL (12.0-16.0) [facility] HCT 41.5 % (36.0-47.0) [facility] MCV 96.0 fL (80.0-95.0) H [facility] MCH 31.9 pg (27.0-32.0) [facility] MCHC 33.2 g/dL (32.0-36.0) [facility] RDW 14.3 % (10.5-14.5) [facility] PLT 261 10*3/uL (150-450) [facility] MPV 11.5 fL (7.1-10.7) H [facility] NEUT % 81.3 % (35.0-75.0) H [facility] DIFFERENTIAL CONFIRMED MANUALLY LYMPH % 10.2 % (16.0-52.0) L [facility] MONO % 7.5 % (0.0-8.0) [facility] EOS % 0.5 % (0.0-5.0) [facility] BASO % 0.5 % (0.0-4.0) [facility] NEUT # 9.8 10*3/uL (1.8-7.7) H [facility] Corrected on 02/09 AT 0727: Previously r eported as 9.7 LYMPH # 1.2 10*3/uL (1.2-4.8) [facility] MONO # 0.9 10*3/uL (0.0-0.8) H [facility] Eosinophils [#/volume] in Blood by Automated count 0.1 10*3/uL (0.0-0 .5) [facility] BASO # 0.1 10*3/uL (0.0-0.2) [facility] HJ BODIES 1+ [facility] LARGE PLT 1+ [facility] ID Date Data Source [id number] 02/10/2020 05:26:31 AM EDT [facility] Name Value Range Interpretation Code Description Data Yumiko rce(s) Supporting Document(s) POC GLUCOSE 162 mg/dL (70-99) H [facility] NOTIFIED NURSEPERFORMED BY CLINICAL S TAFF ID Date Data Source [id number] 02/09/2020 09:53:01 PM EDT [facility] Name Value Range Interpretation Code Description Data Yumiko rce(s) Supporting Document(s) POC GLUCOSE 250 mg/dL (70-99) H [facility] NOTIFIED NURSEPERFORMED BY CLINICAL S TAFF ID Date Data Source [id number] 02/09/2020 05:51:20 PM EDT [facility] Name Value Range Interpretation Code Description Data Yumiko rce(s) Supporting Document(s) POC GLUCOSE 355 mg/dL (70-99) H [facility] PERFORMED BY CLINICAL STAFF ID Date Data Source [id number] 02/09/2020 12:00:57 PM EDT [facility] Name Value Range Interpretation Code Description Data Yumiko rce(s) Supporting Document(s) POC GLUCOSE 168 mg/dL (70-99) H [facility] NOTIFIED NURSEPERFORMED BY CLINICAL S TAFF ID Date Data Source [id number] 02/09/2020 07:56:34 AM EDT [facility] Name Value Range Interpretation Code Description Data Yumiko rce(s) Supporting Document(s) POC GLUCOSE 172 mg/dL (70-99) H [facility] NOTIFIED NURSEPERFORMED BY CLINICAL S TAFF ID Date Data Source [id number] 02/10/2020 06:09:44 PM EDT [facility] Name Value Range Interpretation Code Description Data Yumiko rce(s) Supporting Document(s) CANCER AG GI 19 9 19 [facility] Reference range: 0 to 37Unit: U/mL INTER PRETIVE INFORMATION: Cancer Antigen-GI (CA 19-9) This test uses [place] CA 19-9 electrochemiluminescent immunoassay. Results obtained with different test methods or kits cannot be used interchangeably. CA 19-9 value is useful in monitoring pancreatic, hepatobiliary, gastric, hepatocellular, and colorectal cancer. CA 19-9 value, regardless of level, should not be interpreted as absolute evidence of the presence or absence of malignant disease. Performed by [employer], [address] [place] [id number] [email or web address], Michael Yang MD, Lab. Director ID Date Data Source [id number] 02/09/2020 08:57:03 AM EDT [facility] Name Value Range Interpretation Code Description Data Yumiko rce(s) Supporting Document(s) WBC 17.9 10*3/uL (4.1-11.0) H [facility] RBC 4.48 10*6/uL (4.00-5.40) [facility] HGB 14.4 g/dL (12.0-16.0) [facility] HCT 43.4 % (36.0-47.0) [facility] MCV 96.9 fL (80.0-95.0) H [facility] MCH 32.1 pg (27.0-32.0) H [facility] MCHC 33.1 g/dL (32.0-36.0) [facility] RDW 14.6 % (10.5-14.5) H [facility] PLT 313 10*3/uL (150-450) [facility] PLATELET COUNT VERIFIED BY TECH MPV 11.4 fL (7.1-10.7) H [facility] NEUT % 83.0 % (35.0-75.0) H [facility] LYMPH % 8.0 % (16.0-52.0) L [facility] MONO % 8.0 % (0.0-8.0) [facility] BASO % 1.0 % (0.0-4.0) [facility] NEUT # 14.9 10*3/uL (1.8-7.7) H [facility] [place] LYMPH # 1.4 10*3/uL (1.2-4.8) [facility] MONO # 1.4 10*3/uL (0.0-0.8) H [facility] BASO # 0.2 10*3/uL (0.0-0.2) [facility] POIK 2+ [facility] POLY 1+ [facility] TARGET 1+ [facility] OVALO 1+ [facility] ACANTHO 1+ [facility] DEVIKA 1+ [facility] LARGE PLT 1+ [facility] GIANT PLT 1+ [facility] DIFF COMMENT [facility] [place] ARCE[place] BODY ID Date Data Source [id number] 02/09/2020 08:19:38 AM EDT [facility] Name Value Range Interpretation Code Description Data Yumiko rce(s) Supporting Document(s) SODIUM 139 mmol/L (136-145) [facility] POTASSIUM 3.5 mmol/L (3.6-5.2) L [facility] CHLORIDE 99 mmol/L (100-108) L [facility] CO2 30 mmol/L (22-31) [facility] ANION GAP 10 mmol/L (7-16) [facility] UREA NITROGEN 48 mg/dL (7-24) H [facility] CREATININE 1.70 mg/dL (0.60-1.00) [facility] BUN/CREAT RATIO 28.2 RATIO (10.0-20.0) [facility] GLUCOSE 148 mg/dL (70-99) [facility] CALCIUM 9.0 mg/dL (8.4-10.2) [facility] TOTAL PROTEIN 6.4 g/dL (6.4-8.2) [facility] ALBUMIN 2.6 g/dL (3.2-4.5) L [facility] GLOBULIN 3.8 g/dL (2.7-4.3) [facility] ALB/GLOB RATIO 0.7 RATIO [facility] ALKALINE PHOSPHATASE 80 U/L (45-117) [facility] BILIRUBIN,TOTAL 0.6 mg/dL (0.0-1.0) [facility] PLEASE NOTE:Total bilirubin results may be falselyelevated in patients taking Eltrombopag. AST (SGOT) 20 U/L (11-39) [facility] ALT (SGPT) 20 U/L (12-78) [facility] GFR 28 ml/min/1.73m2 (>59) L [facility] GFR ( AMER) 34 ml/min/1.73m2 (>59) L [facility] GFR INTERPRETATION [facility] --NORMAL KIDNEY FUNCTION OR MILD DISEASE - GFR >OR= 60CHRONIC KIDNEY DISEASE - GFR 15 - 59RENAL FAILURE - GFR <15 Est. GFR calculation based on the MDRDstudy equation, which assumes a steadystate for creatinine. Est. GFR should notbe used for medication dosing. ID Date Data Source [id number] 02/09/2020 08:19:38 AM EDT [facility] Name Value Range Interpretation Code Description Data Yumiko rce(s) Supporting Document(s) MAGNESIUM 2.2 mg/dL (1.7-2.4) [facility] ID Date Data Source [id number] 02/09/2020 08:19:38 AM EDT [facility] Name Value Range Interpretation Code Description Data Yumiko rce(s) Supporting Document(s) LIPASE 178 U/L (65-230) [facility] ID Date Data Source [id number] 02/09/2020 02:59:27 AM EDT [facility] Name Value Range Interpretation Code Description Data Yumiko rce(s) Supporting Document(s) POC GLUCOSE 130 mg/dL (70-99) H [facility] A[facility]choa NOTIFIED NURSEPERFORMED BY PAO S TAFF ID Date Data Source [id number] 02/08/2020 09:32:53 PM EDT [facility] Name Value Range Interpretation Code Description Data Uymiko rce(s) Supporting Document(s) POC GLUCOSE 143 mg/dL (70-99) H [facility] NOTIFIED NURSEPERFORMED BY CLINICAL S TAFF ID Date Data Source [id number] 02/08/2020 05:42:59 PM EDT [facility] RANDOLPH Name Value Range Interpretation Code Description Data Yumiko rce(s) Supporting Document(s) POC GLUCOSE 252 mg/dL (70-99) [facility] Ammy Ochoa NOTIFIED NURSEPERFORMED BY CLINICAL S TAFF ID Date Data Source [id number] 02/08/2020 03:16:00 PM EDT [facility] DATE OF EXAM: 02/08/2020 MRI ABDOMEN WIT HOUT IV CONTRAST/MRCP CLINICAL HISTORY: PANCREATIC CANCER COMPARISON: CT dated 02/11/2020. TECHNIQUE: Multisequence, multiplanar MRI images were obtained of the abdomen without contrast. T2- weighted 3D images of the biliary tree were made. Intravenous contrast was not administered due to impaired renal function. FINDINGS: Lung bases: Grossly clear. There are trace bilateral pleural effusions. Liver: Grossly unremarkable. There is a small amount of perihepatic free fluid. Bile ducts: There is no biliary ductal dilatation. There is smooth narrowed tapering of the common bile duct at the level of the pancreatic head. No filling defect is visualized within the common bile duct. Gallbladder: No gallstones are seen. 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 There is edema of the remaining pancreatic tissue with peripancreatic edema. There is diffuse prominence of the main pancreatic duct measuring up to 5 mm. A discrete transition point is not seen. A focal pancreatic lesion is not seen, though evaluation is limited due to noncontrast technique and the presence of pancreatic edema. Adrenals: There are bilateral adrenal nodules that do not definitely demonstrate loss of signal intensity on out of phase imaging. The right adrenal nodule measures 1.6 cm. The left adrenal nodule measures 1.4 cm. Kidneys/ureters: Bilateral renal cystic lesions. Some of these demonstrate increased T1 signal intensity and decreased T2 signal intensity, likely representing hemorrhagic or proteinaceous cysts. There is no hydronephrosis. Bowel: There are no dilated loops of bowel. There is a duodenal diverticulum projecting medially off the second portion of the duodenum. There is mesenteric edema and a small amount of intra-abdominal ascites. Vessels: The aorta is normal in caliber. Bones: There are multilevel degenerative changes. IMPRESSION: 1.The patient is status post distal pancreatectomy and splenect trev. There is diffuse pancreatic edema, compatible with acute pancreatitis. There is mild diffuse pancreatic ductal dilatation without a transition point. A definite pancreatic lesion is not seen, though evaluation is limited due to lack of intravenous contrast and diffuse pancreatic edema. Continued follow-up is recommended. Repeat MRI is recommended after disease resolution.2.Mild intra-abdominal ascites. Trace bilateral pleural effusions.3.Bilateral adrenal nodules do not definitely meet criteria for adenomas. Continued follow-up is recommended. Professional interpretation performed at [facility] .End of diagnostic report for accession: [id number] Interpreted: Anirudh Martinezscribed: 02/08/2020 03:01 PMSigned: 02/08/2020 03:16 PM Anirudh Martinez DO [facility] # [id number] BILL # [id number] Name Value Range Interpretation Code Description Data Yumiko rce(s) Supporting Document(s) ID Date Data Source [id number] 02/08/2020 12:47:18 PM EDT [facility] isabel RANDOLPH Name Value Range Interpretation Code Description Data Yumiko rce(s) Supporting Document(s) POC GLUCOSE 194 mg/dL (70-99) [facility] BRODIE Ochoa PERFORMED BY CLINICAL STAFF ID Date Data Source [id number] 02/08/2020 08:51:04 AM EDT [facility] isabel RANDOLPH Name Value Range Interpretation Code Description Data Yumiko rce(s) Supporting Document(s) POC GLUCOSE 255 mg/dL (70-99) [facility] BRODIE Ochoa NOTIFIED NURSEPERFORMED BY CLINICAL S TAFF ID Date Data Source [id number] 02/08/2020 08:41:46 AM EDT [facility] isabel RANDOLPH Name Value Range Interpretation Code Description Data Yumiko rce(s) Supporting Document(s) HEMOGLOBIN A1C @ 7.2 % (4.0-6.0) [facility] Performed using Siemens Rincon immunoassa y.Care must be taken when interpreting [id number] in patients with a hemoglobin variantor decreased erythrocyte lifespan. Values 5.7 - 6.4% suggest prediabetes.Values >=6.5% are diagnostic for diabetes.REFERENCE: DIABETES CARE 2018: 41(S13-S27).PERFORMED AT [address] [facility] [address] EST [place] GLUCOSE 160 mg/dL [facility] ID Date Data Source [id number] 02/08/2020 07:24:29 AM EDT [facility] Name Value Range Interpretation Code Description Data Yumiko rce(s) Supporting Document(s) PHOSPHORUS 3.2 mg/dL (2.5-4.5) [facility] ID Date Data Source [id number] 02/08/2020 07:24:29 AM EDT [facility] Name Value Range Interpretation Code Description Data Yumiko rce(s) Supporting Document(s) LIPASE 1415 U/L (65-230) [facility] ID Date Data Source [id number] 02/08/2020 07:24:29 AM EDT [facility] Name Value Range Interpretation Code Description Data Yumiko rce(s) Supporting Document(s) SODIUM 140 mmol/L (136-145) [facility] POTASSIUM 3.2 mmol/L (3.6-5.2) L [facility] CHLORIDE 101 mmol/L (100-108) [facility] CO2 31 mmol/L (22-31) [facility] ANION GAP 8 mmol/L (7-16) [facility] UREA NITROGEN 68 mg/dL (7-24) [facility] CREATININE 2.09 mg/dL (0.60-1.00) [facility] BUN/CREAT RATIO 32.5 RATIO (10.0-20.0) [facility] GLUCOSE 219 mg/dL (70-99) [facility] CALCIUM 8.3 mg/dL (8.4-10.2) [facility] TOTAL PROTEIN 6.6 g/dL (6.4-8.2) [facility] ALBUMIN 2.9 g/dL (3.2-4.5) L [facility] GLOBULIN 3.7 g/dL (2.7-4.3) [facility] ALB/GLOB RATIO 0.8 RATIO [facility] ALKALINE PHOSPHATASE 72 U/L (45-117) [facility] BILIRUBIN,TOTAL 0.6 mg/dL (0.0-1.0) [facility] PLEASE NOTE:Total bilirubin results may be falselyelevated in patients taking Eltrombopag. AST (SGOT) 17 U/L (11-39) [facility] ALT (SGPT) 21 U/L (12-78) [facility] GFR 22 ml/min/1.73m2 (>59) L [facility] GFR ( AMER) 27 ml/min/1.73m2 (>59) [facility] GFR INTERPRETATION [facility] --NORMAL KIDNEY FUNCTION OR MILD DISEASE - GFR >OR= 60CHRONIC KIDNEY DISEASE - GFR 15 - 59RENAL FAILURE - GFR <15 Est. GFR calculation based on the MDRDstudy equation, which assumes a steadystate for creatinine. Est. GFR should notbe used for medication dosing. ID Date Data Source [id number] 02/08/2020 07:24:29 AM EDT [facility] [place] Name Value Range Interpretation Code Description Data Yumiko rce(s) Supporting Document(s) TROPONIN I 0.22 ng/mL (<0.05) [facility] Less than 0.05: Myocardial injury unlike lyGreater than or equal to 0.05: Highly suggestive of myocardial injuryCorrelation with rise and/or fall ofserial troponins, clinical symptomsand ECG changes is necessary. ID Date Data Source [id number] 02/08/2020 06:31:05 AM EDT [facility] [place] Name Value Range Interpretation Code Description Data Yumiko rce(s) Supporting Document(s) WBC 18.2 10*3/uL (4.1-11.0) [facility] RBC 4.50 10*6/uL (4.00-5.40) [facility] HGB 14.5 g/dL (12.0-16.0) [facility] HCT 43.2 % (36.0-47.0) [facility] MCV 96.2 fL (80.0-95.0) [facility] MCH 32.2 pg (27.0-32.0) [facility] MCHC 33.5 g/dL (32.0-36.0) [facility] RDW 14.4 % (10.5-14.5) [facility] PLT 311 10*3/uL (150-450) [facility] MPV 10.9 fL (7.1-10.7) [facility] ID Date Data Source [id number] 02/08/2020 01:37:23 AM EDT [facility] Name Value Range Interpretation Code Description Data Yumiko rce(s) Supporting Document(s) POC GLUCOSE 173 mg/dL (70-99) [facility] NOTIFIED NURSEPERFORMED BY CLINICAL S TAFF ID Date Data Source [id number] 02/07/2020 09:25:48 PM EDT [facility] Name Value Range Interpretation Code Description Data Yumiko rce(s) Supporting Document(s) POC GLUCOSE 275 mg/dL (70-99) [facility] NOTIFIED NURSEPERFORMED BY CLINICAL S TAFF ID Date Data Source [id number] 02/07/2020 06:46:38 PM EDT [facility] Name Value Range Interpretation Code Description Data Yumiko rce(s) Supporting Document(s) POC GLUCOSE 427 mg/dL (70-99) [facility] NOTIFIED NURSEPERFORMED BY CLINICAL S TAFF ID Date Data Source [id number] 02/07/2020 05:17:31 PM EDT [facility] Name Value Range Interpretation Code Description Data Yumiko rce(s) Supporting Document(s) POC GLUCOSE 480 mg/dL (70-99) [facility] PERFORMED BY CLINICAL STAFF ID Date Data Source [id number] 02/07/2020 05:29:42 PM EDT [facility] Name Value Range Interpretation Code Description Data Yumiko rce(s) Supporting Document(s) RANDOM URINE SODIUM 60 mmol/L [facility] ID Date Data Source [id number] 02/07/2020 05:26:32 PM EDT [facility] Name Value Range Interpretation Code Description Data Yumiko rce(s) Supporting Document(s) RANDOM URINE CREAT 27.10 mg/dL [facility] ID Date Data Source [id number] 02/07/2020 05:25:37 PM EDT [facility] Name Value Range Interpretation Code Description Data Yumiko rce(s) Supporting Document(s) COLOR [facility] APPEARANCE [facility] SPEC GRAV URINE 1.015 (1.003-1.030) [facility] PH URINE 6.0 (5.0-7.5) [facility] LEUK ESTERASE (NEG) [facility] NITRITE URINE (NEG) [facility] PROTEIN URINE 1+ (NEG) A [facility] GLUCOSE URINE 3+ (NEG) [facility] KETONE URINE (NEG) [facility] [place] UROBILINOGEN 0.2 mg/dL (0-1.0) [facility] [place] BILIRUBIN URINE (NEG) [facility] BLOOD/HGB URINE (NEG) [facility] URINE WBC (0-5) [facility] URINE RBC (0-2) [facility] EPITHELIAL CELLS 1+ [HPF] [facility] ID Date Data Source [id number] 02/07/2020 05:18:00 PM EDT [facility] [place] [id number] NAME: CESAR SESAY OF : 4REPORT: ADMISSION NOTEPATIENT NUMBER: [id number] STATUS: ERMEDICAL RECORD NUMBER: [id number] OF ADMISSION: 02/07/2020ROOM: 01CHIEF COMPLAINT: Nausea, vomiting, severe abdominal pain.HISTORY OF PRESENT ILLNESS: Patient is an 84 years old lady whowas diagnosed with pancreatic cancer 1 year ago. Around year 1999, patienthad a pancreatic tail lesion for which she had a partial pancreatectomy andalso splenectomy. She was told at that time she did not have cancer. Oneyear ago, when she went to [facility] for a transcutaneous aortic valvereplacement for severe aortic stenosis, she was also found to have apancreatic mass, likely cancer. She never had a biopsy since she optedagainst having any treatment.She did reasonably well; quite functional at home; taking care of herhousehold until yesterday when she started having nausea, vomiting, andsevere epigastric pain. Prior to that, she would have intermittentsymptoms but yesterday the symptoms were severe and she could not keepanything down. She is passing gas, her last bowel movement was yesterdayand it was normal. She feels incredibly bad and that made her to go [facility] emergency room and from there, [facility].Patient still does not want to have any treatment or biopsy for herpancreatic cancer.She does have multiple comorbidities also. Her functional status is quitegood for her age and comorbidities.MEDICAL HISTORY:1. Pancreatic cancer, probable since she never had biopsy.2. 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 Type 2 diabetes mellitus, insulin dependent.4. Coronary artery disease. Dr. Goldman placed a stent on LAD in 2018.5. Hyperlipidemia.6. Hypertension.7. Rheumatoid arthritis, on no treatment.8. Osteoarthritis.PAST SURGICAL HISTORY:1. Appendectomy and hysterectomy.2. Colonoscopy and EGD.3. Hernia repair on the left side.4. She had her spleen removed and the pancreatic tail removed in 1999 for a pancreatic mass that was not cancer and she also had a transcutaneous aortic valve replacement at [facility] in 09/2018.ALLERGIES: Penicillin, sulfa, Cipro, and gabapentin.MEDICATIONS: She is currently on,1. Lasix 20 mg daily.2. Amlodipine 10 mg daily.3. Vitamin C 500 mg daily.4. Aspirin 81 mg daily.5. Chlorthalidone 25 mg daily.6. Vitamin D3 2000 units daily.7. Sensipar 30 mg Saturday, Saturday, and Saturday.8. Zetia 10 mg daily.9. Uloric 40 mg daily.10. Iron sulfate 325 mg daily.11. Amaryl 1 mg daily.12. Lantus 10 units at bedtime.13. Lutein 6 mg daily.14. Metoprolol 25 mg p.o. b.i.d.15. Protonix 40 mg daily.16. Potassium chloride 10 mEq daily.17. Januvia 50 mg daily.18. Vitamin B complex 1 tablet daily.SOCIAL HISTORY: She lives alone. Her daughter lives in [place]. Shelives in [place], [place]. She quit smoking a long time ago. No alcohol.No drugs.FAMILY HISTORY: Positive for coronary artery disease, diabetes.REVIEW OF SYSTEMS: No fever, no chills. No change in her vision, nochange in her hearing. She did have a retrosternal chest pain, likelyreflux better with antacids. No palpitations. No shortness of breath orcough. She did have nausea, vomiting, epigastric discomfort. No change inbowel habits. No skin cancers, skin rashes or unusual moles. She hashistory of pancreatic cancer. No hematology malignancies. No anemia. Noseizures, no strokes in the past. No depression or any other majorpsychiatric disturbances. The rest of the review of systems is negative.PHYSICAL EXAMINATION: On physical examination, her temperature is 37,heart rate 77, blood pressure 160/70, respiratory rate 18, pulse ox is 94percent on 2 liters. Patient is lying in bed, definitely miserable,complaining of constant nausea. ENT Exam: Dry mucosa. No oral ulcer. Nothroat erythema. Eyes: Her pupils are reactive to light. No scleralicterus. No conjunctival erythema. Neck is supple. No JVD, nothyromegaly. No carotid bruits. Heart: Regular rhythm. I could notappreciate any gallop. Lungs: Poor inspiratory efforts. I could notappreciate any adventitious sounds. Abdomen: Patient does have left upperquadrant epigastric tenderness. No peritoneal signs. I could notappreciate any organomegaly. Extremities: No clubbing or cyanosis. Traceankle edema. Peripheral pulses are palpable. No pain on back palpation.No CV angle tenderness. Neurologic Exam: Patient is alert, oriented x3.No focal neurologic deficit.DIAGNOSTIC DATA: Her white count is 15,000 with left shift, hemoglobin 14,platelets 313,000. LFTs are normal. Creatinine is 2.5, potassium is 2.9,sodium is 134, glucose is 435.ASSESSMENT AND PLAN:1. Pancreatic cancer with possible acute pancreatitis, severe epigastric pain, nausea, and vomiting. I did order an MRI of the abdomen for tomorrow morning to hopefully get more information about her pancreatic pathology. I ordered another lipase tomorrow and patient will be on bowel rest, IV fluids, morphine for pain, Zofran for nausea, and we will closely monitor her symptoms.2. Acute kidney injury on stage III chronic kidney disease. Patient will be on IV fluids and we will monitor her creatinine. If it does not get any better, we will get a renal ultrasound. On the CAT scan, she had [facility], she did not have any hydronephrosis. I will also check the urinalysis with microscopy and the fractional excretion of sodium. She definitely looks dry.3. Hypokalemia secondary to dehydration, nausea, vomiting, chlorthalidone and Lasix. We will gradually replace the potassium and recheck her electrolytes.4. History of coronary artery disease. She has a stent on LAD placed in 2018. Dr. Goldman is her mortuary beautician. Her troponin is mildly elevated, can be definitely supply demand mismatch. We will recheck another one tomorrow, but my suspicion for acute coronary event is fairly low.5. Diabetes mellitus, insulin dependent with severe hyperglycemia. We will give her Lantus and sliding scale and monitor her blood sugars.6. Leukocytosis, definitely her baseline would probably be higher since she is status post splenectomy. I do not see any acute infection or need for antibiotics at this point. We will rule out a UTI and monitor her white blood cell count. Patient likely has pancreatic cancer plus/minus acute pancreatitis with significant symptoms. I consulted Palliative Care for goals of care since she does not want any treatment. Her symptoms might get worse and comfort care would make sense. Patient is agreeable with that. Her code status is DNR/DNI and that has been discussed at [facility] and I also confirmed this with the patient. She is very high risk for DVT. She will be on subcu heparin for DVT prophylaxis. Her overall prognosis remains poor.DICTATED BY: HESHAM Coteictated: 02/07/2020 14:57DT: 02/07/2020 15:02Job #: [id number]: MD Howard NunezNOTE: [facility] computer generated reports are notconfirmed or authenticated unless they are signed by the providerElectronically Authenticated and Edited by:GONSALO CALDERA MD On 02/07/2020 05:18 PM EDT Name Value Range Interpretation Code Description Data Yumiko rce(s) Supporting Document(s) ID Date Data Source [id number] 02/07/2020 02:21:53 PM EDT [facility] Name Value Range Interpretation Code Description Data Yumiko rce(s) Supporting Document(s) POC GLUCOSE 469 mg/dL (70-99) [facility] NOTIFIED NURSEPERFORMED BY CLINICAL S TAFF ID Date Data Source [id number] 02/07/2020 01:57:14 PM EDT [facility] Name Value Range Interpretation Code Description Data Yumiko rce(s) Supporting Document(s) URINE WBC (0-5) [facility] URINE RBC (0-2) [facility] EPITHELIAL CELLS 1+ [HPF] [facility] BACTERIA 1+ [HPF] [facility] ID Date Data Source [id number] 02/07/2020 12:50:54 PM EDT [facility] Name Value Range Interpretation Code Description Data Yumiko rce(s) Supporting Document(s) COLOR [facility] PERFORMED AT [address] [facility] [place] [address] APPEARANCE [facility] SPEC GRAV URINE 1.014 (1.003-1.030) [facility] PH URINE 6.0 (5.0-7.5) [facility] LEUK ESTERASE (NEG) [facility] CRITERIA FOR CULTURE NOT MET.CULTURE CAN BE ADDED WITHIN 36 HOURS OFCOLLECTION. NITRITE URINE (NEG) [facility] PROTEIN URINE (NEG) A [facility] GLUCOSE URINE 3+ (NEG) A [facility] KETONE URINE (NEG) A [facility] [place] UROBILINOGEN 0.2 mg/dL (0-1.0) [facility] [place] BILIRUBIN URINE (NEG) [facility] BLOOD/HGB URINE (NEG) A [facility] ID Date Data Source [id number] 02/07/2020 10:53:07 AM EDT [facility] Name Value Range Interpretation Code Description Data Yumiko rce(s) Supporting Document(s) SODIUM 134 mmol/L (136-145) L [facility] POTASSIUM 2.9 mmol/L (3.6-5.2) LL [facility] RESULT(S) CALLED TO AND READ BACK BYMAGE N IN ER AT 1051 ON 02/07/20.08545 CHLORIDE 96 mmol/L (100-108) L [facility] CO2 30 mmol/L (22-31) [facility] ANION GAP 8 mmol/L (7-16) [facility] UREA NITROGEN 87 mg/dL (7-24) [facility] RESULT(S) CALLED TO AND READ BACK BYMAGE N IN ER AT 1051 ON 02/07/20.13674 CREATININE 2.53 mg/dL (0.60-1.00) H [facility] BUN/CREAT RATIO 34.4 RATIO (10.0-20.0) H [facility] GLUCOSE 435 mg/dL (70-99) [facility] RESULT(S) CALLED TO AND READ BACK BYMAGE N IN ER AT 1051 ON 02/07/20.19254 CALCIUM 8.0 mg/dL (8.4-10.2) L [facility] GFR 18 ml/min/1.73m2 (>59) L [facility] GFR ( AMER) 22 ml/min/1.73m2 (>59) L [facility] GFR INTERPRETATION [facility] --NORMAL KIDNEY FUNCTION OR MILD DISEASE - GFR >OR= 60CHRONIC KIDNEY DISEASE - GFR 15 - 59RENAL FAILURE - GFR <15 Est. GFR calculation based on the MDRDstudy equation, which assumes a steadystate for creatinine. Est. GFR should notbe used for medication dosing. ID Date Data Source [id number] 02/07/2020 10:53:07 AM EDT [facility] Name Value Range Interpretation Code Description Data Yumiko rce(s) Supporting Document(s) TROPONIN I 0.10 ng/mL (<0.05) [facility] Less than 0.05: Myocardial injury unlike lyGreater than or equal to 0.05: Highly suggestive of myocardial injuryCorrelation with rise and/or fall ofserial troponins, clinical symptomsand ECG changes is necessary. ID Date Data Source [id number] 02/07/2020 10:53:07 AM EDT [facility] Name Value Range Interpretation Code Description Data Yumiko rce(s) Supporting Document(s) LIPASE 8918 U/L (65-230) H [facility] ID Date Data Source [id number] 02/07/2020 10:53:07 AM EDT [facility] Name Value Range Interpretation Code Description Data Yumiko rce(s) Supporting Document(s) TOTAL PROTEIN 8.1 g/dL (6.4-8.2) [facility] ALBUMIN 3.4 g/dL (3.2-4.5) [facility] GLOBULIN 4.7 g/dL (2.7-4.3) H [facility] ALB/GLOB RATIO 0.7 RATIO [facility] BILIRUBIN,TOTAL 0.5 mg/dL (0.0-1.0) [facility] PLEASE NOTE:Total bilirubin results may be falselyelevated in patients taking Eltrombopag. BILIRUBIN,CONJUGATED 0.2 mg/dL (0.0-0.3) [facility] BILIRUBIN,UNCONJ. 0.3 mg/dL (0.0-0.7) [facility] ALKALINE PHOSPHATASE 71 U/L (45-117) [facility] AST (SGOT) 19 U/L (11-39) [facility] ALT (SGPT) 32 U/L (12-78) [facility] ID Date Data Source [id number] 02/07/2020 10:53:07 AM EDT [facility] Name Value Range Interpretation Code Description Data Yumiko rce(s) Supporting Document(s) MAGNESIUM 2.2 mg/dL (1.7-2.4) [facility] ID Date Data Source [id number] 02/07/2020 10:49:41 AM EDT [facility] Name Value Range Interpretation Code Description Data Yumiko rce(s) Supporting Document(s) PT 10.6 s (9.2-11.9) [facility] PERFORMED AT [address] [facility] [address] INR 1.01 [facility] SUGGESTED THERAPEUTIC RANGES USING INR F ORSTABILIZED ANTICOAGULATED PATIENTS:STANDARD DOSE THERAPY INR 2.0-3.0 DVT, PE, PREVENT DVT OR EMBOLISMHIGH DOSE THERAPY INR 2.5-3.5 PREVENT EMBOLISM FROM MECHANICAL HEART VALVE ID Date Data Source [id number] 02/07/2020 10:42:11 AM EDT [facility] Name Value Range Interpretation Code Description Data Yumiko rce(s) Supporting Document(s) WBC 14.6 10*3/uL (4.1-11.0) H [facility] RBC 4.24 10*6/uL (4.00-5.40) [facility] HGB 13.6 g/dL (12.0-16.0) [facility] HCT 40.5 % (36.0-47.0) [facility] MCV 95.4 fL (80.0-95.0) H [facility] MCH 32.0 pg (27.0-32.0) [facility] MCHC 33.5 g/dL (32.0-36.0) [facility] RDW 14.0 % (10.5-14.5) [facility] PLT 313 10*3/uL (150-450) [facility] MPV 11.1 fL (7.1-10.7) H [facility] NEUT % 85.1 % (35.0-75.0) [facility] LYMPH % 8.6 % (16.0-52.0) L [facility] MONO % 5.9 % (0.0-8.0) [facility] EOS % 0.1 % (0.0-5.0) [facility] BASO % 0.3 % (0.0-4.0) [facility] NEUT # 12.4 10*3/uL (1.8-7.7) [facility] [place] LYMPH # 1.3 10*3/uL (1.2-4.8) [facility] MONO # 0.9 10*3/uL (0.0-0.8) [facility] Eosinophils [#/volume] in Blood by Automated count 0.0 10*3/uL (0.0-0 .5) [facility] BASO # 0.0 10*3/uL (0.0-0.2) [facility] ID Date Data Source [id number] 02/07/2020 10:30:53 AM EDT [facility] Name Value Range Interpretation Code Description Data Yumiko rce(s) Supporting Document(s) SOURCE [facility] FIO2 [facility] VENOUS PH 7.38 (7.33-7.43) [facility] VENOUS PCO2 48 mm[Hg] (38-50) [facility] VENOUS PO2 134 mm[Hg] (30-50) H [facility] VENOUS O2 SAT 98.2 % (60-85) H [facility] GULSHAN BASE EXCESS 1.9 mmol/L (0.0-2.0) [facility] VENOUS HCO3 27.7 mmol/L (23-27) H [facility] VENOUS TOTAL CO2 29.1 mmol/L (24-28) [facility] BODY TEMPERATURE 98.6 [degF] [facility] ID Date Data Source [id number] 02/07/2020 10:12:39 AM EDT [facility] Name Value Range Interpretation Code Description Data Yumiko rce(s) Supporting Document(s) MUSE EKG PDF encoded [facility] spital DGMVWu0eCiAYYuVll3HcLwNcYDSjKF4btfv2K7K7kUAlM4ZwyMRoi1maW0RvR7PvJEEfZUWDIX3HhURc jb2 [file] i32fGtbhE69UY+OA1FDM0PQ+xek456wOV132DY9g56 1zM6/XnPX0UOikKvihs5I09kd6ZnMtYRPv/q0zeteaJ6BrZP+T75vyQKV7J43q2or4Vgm0j8f3/jytv/ yz2ebknNpPp2e0u7+vnj31yvLupPP8SPerI/yP6iUpfxsZdSR06Yl/zct219JpS4M5h6M6Z2TK3KkXsx X5u7A+L6xXq/zOjb03A97B7/kuB+6RF4dW40NlLioS F8w5nRo2B5c/MNMCHPPX+/07vd+/0/v9O3N/MOd17g/etPVvFn6/tEsoEm9T0O2g3d+shl7iugkala4W 49vz77VxtsnabpdTV6+Ju6ws68ZdCws01ugOyD8J/fpuZ/t2y2UhfzX396c/9rqV4+HBo6KGTl+9bnr+ /qUT0mi92fjDxvFxZ9HxNIjldrV6dgooTZd/HDzbtf H73fm8+tMCT4a0a+Nuua9+tSwSf+2TXr9/5PGcSub885hNoX0WqA2e2Zlyqg34mu707CH0+tXIth/9Si kHI64Sj/r26Fdq+fv3+b6L65s+8/eUHX12sPnNTqxo2jAt/a5mSaGt46f5T74B+4OG/UGDfmVPv3/t6f FsT+cT2cB1oRX+ivvBzD3fauj9c89608zqS5MkhGol aEtj906zkLP/4/rEWT44xfT9OWUbd8kmM6hz2r+XkhrA6FjKiV0ujF4R7Tk3TA/r69DOyh/amMjfgBvw LSyQQ1dEAx/gAXwDb/ukYX/VlO2s1S280X+rBIIOpdJM8yk6d9ly/sH+rZW1WgsF6Dybhy/KMSNtrzPs Z0w3hcWBp5p4Gv3iR/1hsuWR9LU4MDqyRmcKKuvpMM 6J9K1bwRezNe9L9s4f7e8Boq5+He66cCm/j2z2+1xvB2nQk/mvIpgXZ6JOYdJJ6YmltM/gC7gDb/3KoF 0Y6RmBmuRO56S9qTZz0pqx7MqT5SjpXT5kBo9cCl5wZs8iSx7tSa5dHz0bUz9gEuoHdahu+4cUwC2qtR /NxM/6fNPAN/IfiFvJJf46OQ/ABbgAT/ivhzAko8xr /UoSP+1xaLZ61Rl2Qw46UAur01m7brO5Cyjf7GeJnayjjiyoiH/gA/gFugnqiS6yw4ufnK+Cbnu7KpHG 8BFh2BYkfrawBelt0Wb79K4dQac3G7bwRzz+U7/uvoXuya3wCl882X9eHXJZwuLN+AQ+tRxbH237IqTk rlt/Y0w0AP80eRyuzEr5vgUsB+e1tYgjFAKShTCU9o 17m9O6W+1kmY5Eu6zsYjk9ua17U2pxMTaRd+M7s8NwPr/MQnGpb8xO5knsq+xLC/De/048g4Zr/mrBfr Erp2oiJz9QnpnmOpp2rqP42ZE1eeU+tWC/WrU/wEwvKw6bbQ+dd9lK/arSA/f30d1t0nmvFz0HIjuWZu EbcAO+gC/gDtyBB/BA/Tfq3/pZYGgq2plQ8Phwnw2a QwtboaJ6Ep//Lml7+5L+3l/S+7Gl1Ig5LSiQ2+/9Jb2/hEIC04Z2kseswhe1p/EIqwbwBLx1KE/ABbh0 v8F+tVSBT+DDdPNa79YraZ5xeM9ssVY48ZNi6WR+jyEmvcauI2ae90R6+7zZmr0+q5tn75yHcH7wCYw/ KiJMm1RO+gP0rxQTdc0ZVMmr2zvxhd+27js82j67NY JUTl2c6bt6i/r7aFl/Nhnc62ViLyvSl4h9g4TBE6+30gbcgC/gC7gDd+MjGWeZx498d29p0vaUZxgauw /QoMYTA7IpMAtq9iglnCd/Orch50t942Z33hWecPD/mey++v27Vu+AzaK9fGUM6MS5N+/37/KYF0u4wp LlvR+6Sr/K37R+taBfLehXq/SrTE/bU4154EB5fxlV tX6rWD8lSbpt72lM9A3jS69egJAyL/l9aQZRmCOM+hwCXIDj+ITWt5JznYDY8g/4Ajg3M6uj/Rt4/wbe p1waYEwfBTxbQQvb41h8t/f379r9/bo9GSf6n+P9uxW/7/4Zsgz9e50M4by4Uq9wpE1ORrA5o1O5S9c/ 6clen15gDnv/5U2YedfBmyTfVZ/71mv3DU/2s85LL2 wc2983R/K117kk/trr1pO/f+97ZOg65a6Fklx3Q4/5rmFs9175Gtp4+nyuzdBf/arOK/tsZ5Zs5F/96v fSzt+18hf4qw93DrxQ3+3IX/5c8deBG/6dV/RXvypbor/91T9yJw7bcZYkyY1dE1cX33Tut20EsgEuaZ 6vH/4qPPTI1v678l4+Jaf//tzTaG8Sh02UtlAD+4PZ szZyJ2e2/CNB8mp3wU4mc/wEyTF9IIk+oI9+//if6myzVcFc+vHshwBUVHx5iWdokk74BkSc81HGsqMx MhnfGj93wfC+5Wm/qrQBN+ALeNvrXNpe5+HSJ9qY37TrKeim9eamF+DPxDftKUXbYDeN5IZATqE5PWIX HO3VPk/o8S496G128roi+4OO/UHH/pJf148g8P792f eVHsDxfLE/6LU/mLg+FNZTgvagD2RdkeHQ2AF/p1pnzg6R+aAxYG7Wq88V+oaXfpXp/b6vjU24m0n8X+ drbwzKZXSv83Tei3/c+tgZgz9wdGD+PdtAvr9CpgQ+t1t/L7gF8t+oT38v+Fo71draR/7IaR397OvSWp 40Nr1Q4bE2Qe/QV5/P8dX7+051tg91anxgx/TV9g1f vZ/iq+83ucm8fr++D+upX83y+UHocG36o46w4/N71i9n70Hx1c/2afIJr9OmK664d3clkp/IZyH/hfo4 yYdbfOL5Zj21/2V0q89ThxO6Q32AIIDQwRV1WFeUAaOjxII0Gdri3umw13k6uPs8OoV/7ZXEo9+Dab+6 2n908uZBdtyfIRi1fhF216+m6juaI6zOd/ru/X3f/T 6ryJ480RjH+2VZwhV1Lav34d7mjKecYL9wGK6282K1ji+L5wE+qIl9bru5fGHjz7gpeW+Wg8smAK651+ ziniX2atE42c9jc2Z+C/u6ooAFy87/A/4ZAvcHA/yugI3zGF+Y3awLIX8/H7g/GLg/GLg/GLg/GDh/Fa PPI8Xo+84x+ns/xgK+lGkaI976naV+gfd+Skjv/0bq Z4e93Y5Rmn0M3l+WuT7ASkdDNx7mrB9I2FaKZz2z1I8P8X+H7A2VgB7qTtLlC+V1nT6hRFVvgCX38ltR PF/g604k9ezQROWE6b8A6dxX+4OB/Dorie/nIsoxNwDsyAZtc92T91sIchyMgdAywpiolM+4Mxe38/Zp83 iwqALC5vGikLUgxnGpy5AvX2h6N5ikL+AKa0K5ep07 /A/Dorie/mBMzF/SkdQ5I2X2jLxb/mDg/mAYnq+1/HuBw0iKdICubIdhZ10CTF1rZYrbXP/C70EOPjwDdd Xi7izrDbtyC/2eGeo87S8S1qw5/lGs/i9DRYJxnJC+gC/gDtyBB/DWnyPPX+Mwplqcts3s2odPGneXbj 7qfEdHnr+PwL58Xq5TUagKL+AT+ET+aZ+a4UdDKv73 v4/CMX9x/ioczzfPX+Lbwnlh1Baqx4qdL1NdZt23D/YHI/D+rd9nRrM0ysr0z9EUR+XVhLMoe95Y9+si +v5ChKM+/g4R7F0S2ju5FOc/bn1JQR0mG+Z5S46bKA2p8me9x3U4CvrwV901U001X612F844V736h9qj 3RjPG+F2EfczNH7Vz/15P/09uJ8H+AA+aBe0vA34y/ [employer]+1F22awNDZ51Y3eQmL19FK/f/Nq5P+iJ+zfuej6KXr77hw74FBm/+xsn++sRgOkmi52r9s/vH1BLX7 9wvrgY2vn5ErjRexHweK8Zz65A5ihocM1m/k1lt1IREY/432LS006+iLE80Mo/EcIv223HdpH1nw9h3o frs/vtkecJM/9znnDlbwK/D+SzT/7Zxtdel+Nzv/rV RqcM6k09Osxs/erW/7Wh6d9ek/Uj84eDeBrkb7okr2+UfGCYp7MmQaGYumZ5jxbAr5Fzh/h52aoFzbmO YHq8r0gA6hSusE0n7F/c0vtlW/R9aL1qsTkYNq+2Yb/aqV/l+NS+/7u17/9uFeAK/VrzSQUoP3B9Pe/K YBn42C7OC3KileH/xekn8xW/1lzur3V0+m11G7nW+9 ZthF3R69qa/uJ8+00UrlEpmw4+4fzp4Im/7X1f/idt/aisvkevT4UDljweugfV+cOqM9oC46W513txCD 6Dc3gP7/1b6e7/1K+yb1O/ynYZnm/dW0i4r2qB+zC22rIO3tXJ/rvdjkF9Fd5h0ek0FtyNt87u31K64N jDgHOwG8cmr+iP1JrD05MktPRvcepciTvp9aeuEhkX b/glTb4bsmw+IbkKGvP38AGEyo/zk9v7+8piaGp7/a6F5j9O9iF9Ru/vhV3+bwNnyI8IsctXG/rV9oV6 LhLH4aD39Ogx6ybpL/KsEs2gW8//bvi/2rg/uKP9m+1hkmE8WEozK8xF+/s7+i2gzq3sdtVp5Nj8pz5d F7yL42998I3RJJU2iX/gbZ/cu/9C9X7MQ2GG3JNSjb /XPk+7p13g6MxAR+1b25363l/qR3gMhb1ub09maA7u104tmoX+fE9g2w23c8743khPS6/Olh1v4b24VL [file] Rg== ID Date Data Source [id number] 02/07/2020 04:13:00 AM EDT [facility] Name Value Range Interpretation Code Description Data Yumiko rce(s) Supporting Document(s) Troponin I.cardiac [Mass/volume] in Serum or Plasma 0.056 ng/mL 0.00- 0.09 N [facility] Less than 0.09 NG/ML Negative0.10 - 0.77 NG/ML High Risk0.78 NG/ML or Greater PositiveThe WHO defined the cutoff (definition for diagnosis of [place])for this method as 0.78 ng/ml. ID Date Data Source [id number] 02/07/2020 03:01:48 AM EDT [facility] Name Value Range Interpretation Code Description Data Yumiko rce(s) Supporting Document(s) Progress Note [facility] YWGACs8eYkXPSkVk14/SNLmcFNPgp3MwDQtiKEy5TRfdTJGwT1XzMQO4zQ4gTKY9JZsPFwHeZoRnPbE1 lbm [file] NDM+OM1eFTh+Oh3Ru0FzceL8pgWrIOp5DYCeMGioEQSFUm5W ID Date Data Source [id number] 02/07/2020 02:02:00 AM EDT [facility] [address] [id number] [phone] NAME SEX PT STATUS ACCOUNT NUMBER TISHA SESAY [facility] [id number] ORDERING PHYSICIAN LOCATION MEDICAL RECORD NO. Howardbari Robles MD ER [id number] ATTENDING PHYSICIAN DATE OF DATE OF EXAM/TIME Nicholas Scanlon MD 1935 02/07/20101 TYPE / EXAM CT Abd/pel w/o contrast REASON FOR EXAM chest + epigastric pain. PMH pancreatic cancer. TISHA SESAY [id number] 1935 ADDENDUM Clinical History/Indication for Exam: chest + epigastric pain. PMH pancreatic cancer. Patient is unable to have IV contrast due to poor lab values. Addendum: CT Abdomen and Pelvis without Contrast HISTORY: Chest + epigastric pain. PMH pancreatic cancer. Patient is unable to have IV contrast due to poor lab values. TECHNIQUE: Helical axial images were obtained from the domes of the diaphragm to the level of the pubic symphysis without the use of intravenous contrast. Sagittal and coronal reformatted images were submitted for review. Automatic exposure control was used as a dose lowering technique. No prior study is available for comparison. FINDINGS: The evaluation of the lung bases reveals bibasilar atelectasis. Mitral annular calcifications are noted. The liver is unremarkable. There is a 1.3 cm right adrenal nodule. There is a 1.4 cm left adrenal nodule. Poorly defined pancreas and adjacent inflammatory changes or fatty infiltration. The spleen is absent. Both kidneys demonstrate no evidence of hydronephrosis or calculi. Bilateral renal hypodense lesions which are not fully characterized. Dense calcifications are seen of the aorta and its branches. The aorta is normal in caliber. The inferior vena cava is unremarkable. There is no evidence of bowel obstruction or free air. The appendix is not visualized. There is no evidence of diverticulitis. The urinary bladder is unremarkable. There are multiple pelvic calcifications likely phleboliths. The patient is status post hysterectomy. The visualized osseous structures demonstrate degenerative changes with multilevel vacuum disc phenomena and grade 1 anterolisthesis of L5 and S1. IMPRESSION: Evaluation of the pancreas is limited secondary to the lack of intravenous contrast. Poorly defined pancreas and adjacent inflammatory changes or fatty infiltration. Diagnostic considerations include pancreatic cancer and pancreatitis. Correlate clinically and with the prior studies. Bilateral adrenal nodules, indeterminate. No evidence of hydronephrosis or calculi. Automatic exposure control was used as a dose lowering technique. REPORT SIGNATURE ON FILE 02/07/2020 (02:02 Eastern Time ) Signed by: Aubree Ferrera M.D. Addendum Reported By Aubree Ferrera MD on 02/07/20201 Signed By Aubree Ferrera MD on 02/07/20201 Trans Dt/Tm: Trans by: MEDQ [p pg] Clinical History/Indication for Exam: chest + epigastric pain. PMH pancreatic cancer. Patient is unable to have IV contrast due to poor lab values. CT Abdomen and Pelvis without Contrast HISTORY: Chest + epigastric pain. PMH pancreatic cancer. Patient is unable to have IV contrast due to poor lab values. TECHNIQUE: Helical axial images were obtained from the domes of the diaphragm to the level of the pubic symphysis without the use of intravenous contrast. Sagittal and coronal reformatted images were submitted for review. Automatic exposure control was used as a dose lowering technique. No prior study is available for comparison. FINDINGS: The evaluation of the lung bases reveals bibasilar atelectasis. Mitral annular calcifications are noted. The liver is unremarkable. There is a 1.3 cm right adrenal nodule. There is a 1.4 cm left adrenal nodule. Poorly defined pancreas and adjacent inflammatory changes or fatty infiltration. The spleen is absent. Both kidneys demonstrate no evidence of hydronephrosis or calculi. Bilateral renal hypodense lesions which are not fully characterized. Dense calcifications are seen of the aorta and its branches. The aorta is normal in caliber. The inferior vena cava is unremarkable. There is no evidence of bowel obstruction or free air. The appendix is not visualized. There is no evidence of diverticulitis. The urinary bladder is unremarkable. There are multiple pelvic calcifications likely phleboliths. The patient is status post hyster ectomy. The visualized osseous structures demonstrate degenerative changes with multilevel vacuum disc phenomena and grade 1 anterolisthesis of L4 and L5. IMPRESSION: Evaluation of the pancreas is limited secondary to the lack of intravenous contrast. Poorly defined pancreas and adjacent inflammatory changes or fatty infiltration. Diagnostic considerations include pancreatic cancer and pancreatitis. Correlate clinically and with the prior studies. Bilateral adrenal nodules, indeterminate. No evidence of hydronephrosis or calculi. Automatic exposure control was used as a dose lowering technique. REPORT SIGNATURE ON FILE 02/07/2020 (02:02 Eastern Time ) Signed by: Aubree Ferrera M.D. Reported By Aubree Ferrera MD on 02/07/20201 Signed By Aubree Ferrera MD on 02/07/20201 Date Time CC: Nicholas Scanlon M.D.; Aubree Ferrera MD Techn: EBEBR Trans Dt/Tm: Trans by: DT Prt Dt/Tm: : Total DLP = 610.00 mGy-cm : Total Radiation Dose = 9.1500 mSv Lifetime Dose: 9.1500 mSv Name Value Range Interpretation Code Description Data Yumiko rce(s) Supporting Document(s) ID Date Data Source [id number] 02/06/2020 10:54:00 PM EDT [facility] @02/06/20 2234: MANUAL DIFF added. RFLXG = DIFF. @02/06/202233: MANUAL DIFF added. RFLXG = DIFF. Name Value Range Interpretation Code Description Data Yumiko rce(s) Supporting Document(s) Leukocytes [#/volume] in Blood by Automated count 15.2 10*3/uL 4.45-10.71 Above high normal [facility] Erythrocytes [#/volume] in Blood by Automated count 4.36 10*6/uL 4.20 -5.40 [facility] Hemoglobin [Moles/volume] in Blood 13.9 g/dL 10.7-15.4 [facility] Hematocrit [Volume Fraction] of Blood by Automated count 42.9 % 3 7-47 [facility] Erythrocyte mean corpuscular volume [Ent itic volume] in Cord blood by Automated count 98.4 fL 80-96 Above high normal [facility] Erythrocyte mean corpuscular hemoglobin [Entitic mass] by Automated count 31.9 pg 27-31 Above high normal [facility] spital Erythrocyte mean corpuscular hemoglobin concentration [Mass/volume] in Cord blood 32.4 g/dL 33-37 Below low normal [facility] Erythrocyte distribution width [Entitic volume] by Automated count 14 % 11-15 N [facility] Platelets [#/volume] in Blood by Automated count 331 10*3/uL 130-472 [facility] Platelet mean volume [Entitic volume] in Blood 12.2 fL 9.1-13.1 [facility] Neutrophils/100 leukocytes in Blood by Automated count 79.1 % 41-77 Above high normal [facility] Neutrophils [#/volume] in Blood by Automated count 12.1 U 1.7-7.6 Above high normal [facility] Lymphocytes/100 leukocytes in Blood by Automated count 14.1 % 14- 46 N [facility] Lymphocytes [#/volume] in Blood by Automated count 2.1 U 0.6-4.6 N [facility] Monocytes/100 leukocytes in Blood by Automated count 6.0 % 4-12 N [facility] Monocytes [#/volume] in Blood by Automated count 0.9 U 0.2-1.2 N [facility] Eosinophils/100 leukocytes in Blood by Automated count 0.1 % 0-7 N [facility] Eosinophils [#/volume] in Blood by Automated count 0.0 U 0.0-0.5 N [facility] Basophils/100 leukocytes in Blood by Automated count 0.1 % 0.4-1.3 Below low normal [facility] Basophils [#/volume] in Blood by Automated count 0.0 U 0.0-0.2 N [facility] NUCLEATED RED BLOOD CELL 0 % [facility] NUCLEATED RED BLOOD CELL# 0 U [facility] Immature granulocytes [Presence] in Blood by Automated count 0-2 N [facility] Immature granulocytes [#/volume] in Blood by Automated count 0.1 U 0-0.1 N [facility] Manual Differential panel - Blood Manual Diff Added [facility] ID Date Data Source [id number] 02/06/2020 11:37:00 PM EDT [facility] @02/06/20 2234: MANUAL DIFF added. RFLXG = DIFF. @02/06/20 2234: MANUAL DIFF added. RFLXG = DIFF. Name Value Range Interpretation Code Description Data Yumiko rce(s) Supporting Document(s) Urea nitrogen [Mass/volume] in Serum or Plasma 108 mg/dL No range defined, or normal ranges don't apply [facility] @Review test & document. PREV RESULT ON 02/04 101Called to KI @ 5184 by Shannon Davila. Results read back. Sodium [Moles/volume] in Serum or Plasma 133 mmol/L 132-146 [facility] Potassium [Moles/volume] in Serum or Plasma 4.3 mmol/L 3.5-5.5 N [facility] Chloride [Moles/volume] in Serum or Plasma 96 mmol/L 99-109 Belo w low normal [facility] Carbon dioxide, total [Moles/volume] in Serum or Plasma 23 mmol/ L 20-31 No range defined, or normal ranges don't apply [facility] Anion gap in Serum or Plasma 18 mmol/L 8-16 Above high normal [facility] Glucose [Mass/volume] in Serum or Plasma 357 mg/dL 74-106 Above high normal [facility] Creatinine 2.9 mg/dL 0.5-1.1 Above high normal [facility] Glomerular filtration rate/1.73 sq M.pre dicted [Volume Rate/Area] in Serum or Plasma 15 ml/min ABOVE 60 [facility] ital Alanine aminotransferase [Enzymatic acti vity/volume] in Serum or Plasma by With P-5'-P 28 U/L 10-49 N [facility] ital Aspartate aminotransferase [Enzymatic ac tivity/volume] in Serum or Plasma by With P-5'-P 38 U/L 0-33 Above high normal [facility] Alkaline phosphatase [Enzymatic activity/volume] in Serum or Plasma 69 U/L 45-129 N [facility] Calcium [Mass/volume] in Serum or Plasma 8.1 mg/dL 8.5-10.1 DL [facility] Repeated by: Shannon Davila 02/06/202326.Re elyssat Confirmation: 8.1mg/dL Bilirubin.total [Mass/volume] in Serum or Plasma 0.4 mg/dL 0.3-1.2 N [facility] Albumin [Mass/volume] in Serum or Plasma by Bromocresol purple (BCP) dye binding method 3.3 g/dL 3.2-4.8 N [facility] ital Protein [Mass/volume] in Serum or Plasma 7.4 g/dL 5.7-8.2 N [facility] ID Date Data Source [id number] 02/06/2020 10:54:00 PM EDT [facility] @02/06/20 223: MANUAL DIFF added. RFLXG = DIFF. @02/06/202233: MANUAL DIFF added. RFLXG = DIFF. Name Value Range Interpretation Code Description Data Yumiko rce(s) Supporting Document(s) Cells counted [#] 100 [facility] Neutrophils [#/volume] in Blood by Manual count 80 % 41-77 Above high normal [facility] Band form neutrophils [#/volume] in Blood by Manual count 1 % 0-5 N [facility] Lymphocytes [#/volume] in Blood by Manual count 14 % 14-46 N [facility] Monocytes [#/volume] in Blood by Manual count 5 % 4-12 N [facility] Platelets [#/volume] in Blood by Estimate APPEARS NORMAL NORMAL [facility] Morphology [Interpretation] in Blood Narrative APPEARS NORMAL NORMAL [facility] ID Date Data Source [id number] 02/06/2020 11:37:00 PM EDT [facility] @02/06/20 2234: MANUAL DIFF added. RFLXG = DIFF. @02/06/202233: MANUAL DIFF added. RFLXG = DIFF. Name Value Range Interpretation Code Description Data Yumiko rce(s) Supporting Document(s) Amylase [Enzymatic activity/volume] in Serum or Plasma 2545 U/L 30-118 Above high normal [facility] @> linearity. Manually dilute and rerun. @Review and document.Result obtained by DILUTING X4 DilutionCalled to KI @ 2324 by Shannon Davila. Results read back. ID Date Data Source [id number] 02/06/2020 11:37:00 PM EDT [facility] @02/06/202233: MANUAL DIFF added. RFLXG = DIFF. @02/06/202233: MANUAL DIFF added. RFLXG = DIFF. Name Value Range Interpretation Code Description Data Yumiko rce(s) Supporting Document(s) Lipase [Enzymatic activity/volume] in Serum or Plasma Greater Th an 6000 73-393 Above high normal [facility] @Instrument will autodilute RAN DILUTE x8 STILL NO ENDPOINT@review test & document. (F5 - H,I,D,E) ID Date Data Source [id number] 02/06/2020 11:37:00 PM EDT [facility] @02/06/202233: MANUAL DIFF added. RFLXG = DIFF. @02/06/202233: MANUAL DIFF added. RFLXG = DIFF. Name Value Range Interpretation Code Description Data Yumiko rce(s) Supporting Document(s) Troponin I.cardiac [Mass/volume] in Serum or Plasma 0.046 ng/mL 0.00- 0.09 N [facility] Less than 0.09 NG/ML Negative0.10 - 0.77 NG/ML High Risk0.78 NG/ML or Greater PositiveThe WHO defined the cutoff (definition for diagnosis of [place])for this method as 0.78 ng/ml. ID Date Data Source [id number] 02/06/2020 10:01:00 PM EDT [facility] [address] [place] [address] [phone] NAME SEX PT STATUS ACCOUNT NUMBER TISHA SESAY REG ER [id number] ORDERING PHYSICIAN LOCATION MEDICAL RECORD NO. Howard Robles MD ER [id number] ATTENDING PHYSICIAN DATE OF DATE OF EXAM/TIME Nicholas Scanlon MD 1935 02/06/202117 TYPE / EXAM Xray Chest One View REASON FOR EXAM pain ant chest Clinical History/Indication for Exam: pain ant chest RADIOGRAPH OF THE CHEST 1 VIEW INDICATION: Pain anterior chest. COMPARISON: 02/04/2018 FINDINGS: Lungs: The lungs are clear. No focal consolidation or atelectasis seen. Pleural space: No pleural effusions. No pneumothorax. Heart: Aortic valve stent graft procedure performed. Stable cardiac contour allowing for differences in technique and positioning compared with the prior study. Mediastinum: Stable mediastinal contours compared with the prior examination. Bones/joints: Stable appearance of the bony thorax compared with the prior study. Vasculature: Vascular calcifications of the aorta. IMPRESSION: No evidence of consolidation or significant congestion. No significant changes compared with the prior study. REPORT SIGNATURE ON FILE 02/06/2020 (22:01 Eastern Time ) Signed by: Bernard Coleman M.D. Reported By Benrard Coleman MD on 02/06/202200 Signed By Bernard Coleman MD on 02/06/202200 Date Time CC: Nicholas Scanlon M.D.; Bernard Coleman MD Techn: EBEBR Trans Dt/Tm: Trans by: DT Prt Dt/Tm: 7748-6870: Total DLP = 0.00 mGy-cm Fluoroscopy Time (in secs): Name Value Range Interpretation Code Description Data Yumiko rce(s) Supporting Document(s) ID Date Data Source [id number] 02/06/2020 09:24:00 PM EDT [facility] ED Physician Documentation NAME: TISHA SESAY : 1935 AGE: 84 MR#: [id number] SERVICE DATE: 02/06/[address]: Hwoard Robles MD PRIMARY CARE DR: Nicholas Scanlon M.D. ROOM#: [facility] (Adult, General) General Chief Complaint: Cardiovascular Stated Complaint: CHEST PAIN, STOMACH PAIN Time Seen by Provider: 02/06/20 21:01 History of Present Illness Narrative: 9:00PM: C : Chest pain x 1 day. Patient is an 84-year-old female w H pancreatic cancer (2019) for which patient has elected to receive no treatment. Patient states 02/05/2020 she developed insidious onset of mild chest "burning". She slept well last night. Today during the course of the morning she developed pain in the anterior chest and epigastric region. Today she vomited once. She then took unk OTC antacid med without relief. EMS was called and patient was transported ED by ambulance. En route Rx ASA. Allergies/Home Meds Allergies Allergy/AdvReac Type Severity Reaction Status Date / Time sulfamethoxazole Allergy Severe Anaphylaxis Verified 02/06/20 21:52 [From Bactrim] gabapentin Allergy confusion Verified 02/06/20 21:52 ciprofloxacin [From Cipro] AdvReac Intermediate Diarrhea Verified 02/06/20 21:52 Penicillins AdvReac Intermediate PASSED OUT Verified 02/06/20 21:52 AND WENT BLIND Home Medications Medication Instructions Recorded Confirmed Last Taken Type aspirin [Aspirin Low-Strength] 81 mg PO DAILY 06/16/15 04/19/19 04/19/19 History cinacalcet [Sensipar] 30 mg PO WEEKLY 06/16/15 04/19/19 04/19/19 History chlorthalidone 25 mg PO DAILY 10/16/16 04/19/19 04/19/19 History ascorbic acid (vitamin C) [Vitamin 1,000 mg PO 1XW tab 11/21/18 04/19/19 04/19/19 History C] cholecalciferol (vitamin D3) 2,000 unit PO DAILY 11/21/18 04/19/19 04/19/19 History [Vitamin D3] ezetimibe [Zetia] 10 mg PO DAILY #30 tab 11/21/18 04/19/19 04/19/19 History furosemide 20 mg PO DAILY #30 tab 11/21/18 04/19/19 04/19/19 History lutein 6 mg PO DAILY 11/21/18 04/19/19 04/19/19 History pantoprazole 1 tab PO DAILY #30 tab 11/21/18 04/19/19 04/19/19 History vitamin B complex 1 ea PO DAILY 11/21/18 04/19/19 04/19/19 History metoprolol tartrate 25 mg PO BID #180 tab 12/29/18 04/19/19 04/19/19 Rx amlodipine 10 mg tablet 10 mg PO DAILY #90 tab 02/20/19 04/19/19 04/19/19 Rx febuxostat 40 mg tablet 40 mg PO DAILY #90 tab 05/21/19 05/21/19 Unknown Rx lancets 33 gauge #100 each 05/21/19 05/21/19 Unknown Rx pen needle, diabetic 31 gauge x #90 00 06/08/19 06/08/19 Unknown Rx /" insulin glargine 100 unit/mL (3 10 unit SQ QDAY #9 ml 10/12/19 10/12/19 Unknown Rx mL) subcutaneous pen blood sugar diagnostic #120 00 12/30/19 Unknown Rx glimepiride 1 mg tablet 1 mg PO QAM #90 tab 01/11/20 01/11/20 Unknown Rx potassium chloride 10 mEq 10 meq PO QDAY #90 cap 02/02/20 02/02/20 Unknown Rx capsule,extended release prednisone 20 mg tablet 20 mg PO QDAY #10 tab 02/02/20 02/02/20 Unknown Rx sitagliptin 50 mg tablet 50 mg PO QDAY #90 tab 02/02/20 02/02/20 Unknown Rx PMH (from Triage) Patient Medical History PMH Reviewed/Updated as Needed: Yes Pertinent Medical HX: DIABETIC, HIGH CHOLESTEROL, RHEUMATOID ARTHRITIS, OSTEOARTHRITIS. HTN, GERD, CAD Pertinent Surgical HX: CARDIAC STENT, BOTH KNEES REPLACED, APPENDectomy, HYSTERECTOMY, PART OF THE PANCREAS removed, SPLEEN REMOVED, hernia repair left side. COLONOSCOPY, UPPER GI SCOPE Hx Drug Resistant Infections Hx MRSA: (Methicillin-resistant Staphylococcus aureus): No Hx VRE (Vancomycin-resistant enterococci): No Hx C.Diff: No Hx CRKP: No Hx Other Resistant Infection?: No Isolation: Standard precautions Hx Recent Tr tressa Out of the country within 10 days (where): No Hx Fever: No Hx Fever with a rash?: No Social History Does patient have suicidal/homicidal thoughts or ideation?: No Are you in a relationship with/Does anyone hit you, yell/swear at you, steal from you?: No Substance Use Hx Alcohol Use: No Hx Substance Use: No Hx Substance Use Treatment: No Second Hand Smoke Exposure: No Smoking Status: Never smoker Tobacco Use Years smoked:: 7 Vaccination History Hx/Date of Influenza Vaccination: No Hx/Date of Pneumococcal Vaccination: Yes ROS Review of Systems Constitutional: Reports malaise; Denies fever, chills and weakness Eyes: Denies vision change, eye discharge/drng, redness and eye pain ENT: Denies nasal pain, nasal discharge, nasal congestion, post nasal drip, epistaxis and throat pain Respiratory: Denies cough and SOB Cardiovascular: Reports chest pain; Denies hypertension, light headedness, dyspnea on exertion and syncope Gastrointestinal: Reports nausea, vomiting and abdominal pain; Denies diarrhea, constipation, black tarry stools and hematochezia Genitourinary-Female: Denies dysuria and hematuria Musculoskeletal: Reports shoulder pain (+ R shoulder pain Rx prednisone; pt states she thinks chest pain may be secondary to prednisone. ) and joint pain (PMH osteoarthritis and rheumatoid arthritis.) Neurologic: Denies weakness, headache, incoordination, change in speech, confusion, dizziness, vertigo, lightheadedness and loss of consciousness Endocrine: Denies Polydipsia and Polyuria Physical Exam General General appearance: other (WDWN elderly white female c/o "medium" intensity pain ant chest. Chest pain >epigastric pain. No pallor, cyanosis, icterus, or diaphoresis. Alert. Oriented x3.) Head Head exam: Present atraumatic and normocephalic Eye Eye exam: Absent scleral icterus and conjunctival injection ENT ENT exam: Present normal orophraynx Neck Neck exam: Present supple; Absent tenderness, meningismus, lymphadenopathy and thyromegaly Respiratory Respiratory exam: Present normal lung sounds bilaterally; Absent respiratory distress, wheezes, rales and rhonchi Cardiovascular Cardiovascular Exam: Present regular rate and other (There is a 1/6 systolic murmur 2nd ICS RSB. ); Absent rubs, gallop and JVD GI/Abdominal GI/Abdominal exam: Present Abd soft, bowel sounds present all quadrents and other (Flat. Old scars. There is mild epigastric tenderness.); Absent rebound, organomegaly and mass Extremities Exam Extremities exam: Present other (DJD DIPs, PIP, knees); Absent tenderness and pedal edema Back Exam Back exam: Absent CVA tenderness (R), CVA tenderness (L), paraspinal tenderness and vertebral tenderness Neurological Exam Neurological exam: Present alert and oriented X3 Vital Signs Vital Signs: Vital Signs 02/06/20 20:50 02/06/20 22:46 02/07/20 02:42 Temperature 98 F Pulse Rate 59 L Respiratory Rate 20 16 16 Blood Pressure 146/75 O2 Sat by Pulse Oximetry 98 98 98 02/07/20 03:47 Temperature Pulse Rate Respiratory Rate 16 Blood Pressure O2 Sat by Pulse Oximetry 98 MDM (comprehensive) Lab Data Result diagrams: 02/06/20 22:15 02/06/20 22:15 Lab Results 02/06/20 02/06/20 Range/Units 22:15 22:15 WBC 15.2 H (4.45-10.71) 10e3/uL RBC 4.36 (4.20- 5.40) 10e6/uL Hgb 13.9 (10.7-15.4) g/dL Hct 42.9 (37-47) % MCV 98.4 H (80-96) fl MCH 31.9 H (27-31) pg MCHC 32.4 L (33-3 7) g/dl RDW 14 (11-15) % Plt Count 331 (130-472) 10e3/ul MPV 12.2 (9.1-13.1) fl Immature Gran % (Auto) 0.6 (0-2) % Neut % (Auto) 79.1 H (41-77) % Lymph % (Auto) 14.1 (14-46) % [place] % (Auto) 6.0 (4-12) % Eos % (Auto) 0.1 (0-7) % Baso % (Auto) 0.1 L (0.4-1.3) % Lymph # (Auto) 2.1 (0.6-4.6) # Abs Immat Gran (auto) 0.1 (0-0.1) # Add Manual Diff Manual diff added Total Counted 100 Neutrophils (Manual) 80 H (41-77) % Absolute Neutrophils 12.1 H (1.7-7.6) # Band Neutrophils 1 (0-5) % Lymphocytes (Manual) 14 (14-46) % Monocytes (Manual) 5 (4-12) % Monocytes # 0.9 (0.2-1.2) # Absolute Eosinophils 0.0 (0.0-0.5) # Absolute Basophils 0.0 (0.0-0.2) # Platelet Estimate Appears normal (NORMAL) RBC Morphology Appears normal (NORMAL) Sodium 133 (132-146) mmol/L Potassium 4.3 (3.5-5.5) mmol/L Chloride 96 L (9 9-109) mmol/l Carbon Dioxide 23 D (20-31) mmol/l Anion Gap 18 H (8-16) mmol/l BUN 108 H* (9-23) mg/dL Creatinine 2.9 H (0.5- 1.1) mg/dL GFR Calculation 15 (ABOVE 60) ml/min Glucose 357 H (74-106) mg/dL Calcium 8.1 L D (8.5-10.1) mg/dL Total Bilirubin 0.4 (0.3-1.2) mg/dL AST 38 H (0-33) U/L ALT 28 (10-49) U/L Alkaline Phosphatase 69 (45-129) U/L Troponin I 0.046 (0.00-0.09) ng/mL Serum Total Protein 7.4 (5.7-8.2) g/dL Albumin 3.3 (3.2- 4.8) g/dL Amylase 2545 H (30-118) U/L Lipase Greater than 6000 H (73-393) U/L Medical Decision Making 9:25 PM: EKG: Sinus rhythm. Cannot exclude old septal [place]. Initial ED management consisted of gentle IV hydration. Morphine 2 mg IV. Pepcid 20 mg IV. Pantoprazole 40 mg IV. 12:38 AM: Sodium 133. Potassium 4.3. Chloride 96. CO2 23. BUN 108. Creatinine 2.9. eGFR= 15. Glucose 357. Calcium 8.1. AST 38. ALT 28. Bilirubin 1.4. CTnI= 0.046. Amylase 2545(normal 30-118). Lipase >6000 (normal 73-393). WBC 15,200. Hemoglobin 13.9. Chest x-ray (radiologist): Compared with 02/04/2018, no significant change. Lungs clear. Aortic valve stent graft. My working diagnosis: Chest pain. Pancreatic cancer. Rx: Pt c/o chest pain > epigastric pain. Diff dx: Most likely pancreatitis superimposed on pancreatic cancer. Diff dx also includes acute coronary syndrome/acute myocardial ischemia, esophagitis, gastritis, PUD. 12:50 AM: Above notes, further options, risk, benefits, alternatives discussed with patient. Patient wants to discuss options, alternatives with family members and then will decide what she wants to do. CT abd pelvis without IV contrast. 2:12 AM: Noncontrast CT abdomen and pelvis (radiologist): Evaluation of pancreas is limited secondary to lack of IV contrast. Poorly defined pancreas and adjacent inflammatory changes or fatty infiltration. Diagnostic considerations include pancreatic cancer and pancreatitis. 2:15 AM: At patient's request, I discussed with patient, son, and [id number] options, risk, benefits, and alternatives. Options include admission to [facility] for pain control and IV fluids. Options include transfer to higher level of care such as [facility] to consider additional diagnostic studies, palliative treatment for pancreatic cancer, palliative treatments not available @ [facility]. Going home from this ED visit is a poor option because patient will be in a lot of pain she will suffer, and this pain and suffering is best treated initially in the hospital. Patient understands. Patient requested DNR and DNI. Patient understands. Patient requests transfer to higher level of care f or consideration of additional treatment, palliative treatment pancreatic cancer. Patient requests additional analgesia for chest, epigastric pain. Patient request med for nausea. Rx: Increase IV to 150 mL/h. Morphine 2 mg IV. Ondansetron 4 mg IV. 2:30 AM: I phoned [facility] Transfer Center spoke savage Vo who will get back to us. 2:48 AM: Received phone call from Gilda who states no inpatient bed available. 2:50 AM: I phoned [facility] Transfer Center and spoke with Monalisa who will get back to us. 3:44 AM: Recd phone call from Monalisa who put me in phone contact w Dr Haywood ([place] ED MD) who accepts transfer to [facility] in [place]. My transfer diagnosis: Chest pain. Pancreatic cancer. Renal failure. Diabetes mellitus. Rx: While in ED patient was given additional morphine IV. Patient was given Dilaudid IV. Patient was given ondansetron IV without relief from nausea; pt was then given Phenergan 6.25 mg IV. IV was increased to 500 mL NS over 1 hour. Condition: Serious. Stable for transfer. Discharge Plan Admission/Discharge Dx Primary DC Diagnosis: Chest pain. ED Provider: Anabel Robles ED Status: Physician Time Seen by Provider: 02/06/20 21:01 Triaged At: 02/06/20 20:50 Discharge Detail Disposition: Transfer - [facility] Med Rec New Prescriptions: No Action febuxostat 40 mg tablet 40 mg PO DAILY Qty: 90 RF: 0 (DME) lancets [OneTouch Delica Lancets] 33 gauge misc See Dose Instructions .ROUTE .MEDSUPPLY Qty: 100 RF: 3 (DME) pen needle, diabetic [Droplet Pen Needle] 31 gauge x 5/16" needle 1 00 miscellaneous DAILY Qty: 90 RF: 3 Lantus Solostar U-100 Insulin 100 unit/mL (3 mL) insulin pen 10 unit SQ QDAY Qty: 9 RF: 3 glimepiride 1 mg tablet 1 mg PO QAM Qty: 90 RF: 3 prednisone 20 mg tablet 20 mg PO QDAY Qty: 10 RF: 0 sitagliptin 50 mg tablet 50 mg PO QDAY Qty: 90 RF: 3 potassium chloride 10 mEq capsule, extended release 10 meq PO QDAY Qty: 90 RF: 3 aspirin [Aspirin Low-Strength] 81 MG tablet,chewable 81 mg PO DAILY RF: 0 cinacalcet [Sensipar] 30 MG tablet 30 mg PO WEEKLY RF: 0 chlorthalidone 25 MG tablet 25 mg PO DAILY RF: 0 ascorbic acid (vitamin C) [Vitamin C] 1,000 MG tablet 1,000 mg PO 1XW RF: 0 lutein 6 MG capsule 6 mg PO DAILY RF: 0 pantoprazole 40 MG tablet,delayed release (DR/EC) 1 tab PO DAILY Q ty: 30 RF: 11 furosemide 20 MG tablet 20 mg PO DAILY Qty: 30 RF: 11 ezetimibe [Zetia] 10 MG tablet 10 mg PO DAILY Qty: 30 RF: 11 cholecalciferol (vitamin D3) [Vitamin D3] 2,000 UNIT capsule 2,000 unit PO DAILY RF: 0 vitamin B complex 1 EACH capsule 1 ea PO DAILY RF: 0 metoprolol tartrate 25 MG tablet 25 mg PO BID Qty: 180 RF: 3 amlodipine 10 mg tablet 10 mg PO DAILY Qty: 90 RF: 3 (DME) blood sugar diagnostic [OneTouch Verio test strips] Strip 1 ea miscellaneous BID 90 Days Qty: 120 RF: 9 Discharge Problem: Pancreatic cancer, Diabetes mellitus, Renal failure Interventions Interventions: ED Cardiac Assessment Last Done: 02/06/20 21:20 Report Signers: <Electronically signed by Anabel Robles MD> Anabel Robles MD 02/07/20 0402 Anabel Robles MD SIGNATURE DA Report Cosigners: D: MOLLY 02/06/202123 T: MOLLY 02/06/202123 CC: Nicholas Scanlon M.D. Name Value Range Interpretation Code Description Data [facility](s) Supporting Document(s) ID Date Data Source [id number] 02/05/2020 05:41:00 PM EDT [facility] @02/05/20 1749: UA W/ MICRO added. RFLXG = UMIC.Method of Collection:: Voided @02/05/20 1749: UA W/ MICRO added. RFLXG = UMIC.Method of Collection:: Voided Name Value Range Interpretation Code Description Data [facility]) Leukocytes [#/volume] in Blood by Automated count 9.4 10*3/uL 4.45-10 .71 N [facility] Erythrocytes [#/volume] in Blood by Automated count 4.22 10*6/uL 4.20 -5.40 N [facility] Hemoglobin [Moles/volume] in Blood 13.4 g/dL 10.7-15.4 N [facility] Hematocrit [Volume Fraction] of Blood by Automated count 40.1 % 3 7-47 N [facility] Erythrocyte mean corpuscular volume [Ent itic volume] in Cord blood by Automated count 95.0 fL 80-96 N [facility] ital Erythrocyte mean corpuscular hemoglobin [Entitic mass] by Automated count 31.8 pg 27-31 Above high normal [facility] spital Erythrocyte mean corpuscular hemoglobin concentration [Mass/volume] in Cord blood 33.4 g/dL 33-37 N [facility] ital Erythrocyte distribution width [Entitic volume] by Automated count 14 % 11-15 N [facility] Platelets [#/volume] in Blood by Automated count 341 10*3/uL 130-472 N [facility] Platelet mean volume [Entitic volume] in Blood 12.4 fL 9.1-13.1 N [facility] Neutrophils/100 leukocytes in Blood by Automated count 57.8 % 41- 77 N [facility] Neutrophils [#/volume] in Blood by Automated count 5.4 U 1.7-7.6 N [facility] Lymphocytes/100 leukocytes in Blood by Automated count 29.0 % 14- 46 N [facility] Lymphocytes [#/volume] in Blood by Automated count 2.7 U 0.6-4.6 N [facility] Monocytes/100 leukocytes in Blood by Automated count 9.3 % 4-12 N [facility] Monocytes [#/volume] in Blood by Automated count 0.9 U 0.2-1.2 N [facility] Eosinophils/100 leukocytes in Blood by Automated count 2.7 % 0-7 N [facility] Eosinophils [#/volume] in Blood by Automated count 0.3 U 0.0-0.5 N [facility] Basophils/100 leukocytes in Blood by Automated count 0.9 % 0.4-1 .3 N [facility] Basophils [#/volume] in Blood by Automated count 0.1 U 0.0-0.2 N [facility] NUCLEATED RED BLOOD CELL 0 % [facility] NUCLEATED RED BLOOD CELL# 0 U [facility] Immature granulocytes [Presence] in Blood by Automated count 0-2 N [facility] Immature granulocytes [#/volume] in Blood by Automated count 0.0 U 0-0.1 N [facility] Manual Differential panel - Blood NO [facility] ID Date Data Source [id number] 02/05/2020 06:02:00 PM EDT [facility] @02/05/20 1749: UA W/ MICRO added. RFLXG = UMIC.Method of Collection:: Voided @02/05/20 1749: UA W/ MICRO added. RFLXG = UMIC.Method of Collection:: Voided Name Value Range Interpretation Code Description Data [facility](s) Supporting Document(s) Urea nitrogen [Mass/volume] in Serum or Plasma 101 mg/dL 9 -23 No range defined, or normal ranges don't apply [facility] @A repeat was not needed due to historic al results.@Reviewtest & document. []Called to DR. RAMIREZ @ 2150 by Jazzy Lindsay. Results readback. Sodium [Moles/volume] in Serum or Plasma 139 mmol/L 132-146 N [facility] Potassium [Moles/volume] in Serum or Plasma 3.4 mmol/L 3.5-5.5 Below low normal [facility] Chloride [Moles/volume] in Serum or Plasma 94 mmol/L 99-109 Belo w low normal [facility] Carbon dioxide, total [Moles/volume] in Serum or Plasma 33 mmol/ L 20-31 Above high normal [facility] Anion gap in Serum or Plasma 15 mmol[facility]L 8-16 [facility] Glucose [Mass/volume] in Serum or Plasma 84 mg/dL 74-106 N [facility] Creatinine 2.9 mg/dL 0.5-1.1 Above high normal [facility] Glomerular filtration rate/1.73 sq M.pre dicted [Volume Rate/Area] in Serum or Plasma 15 ml/min ABOVE 60 [facility] ital Calcium [Mass/volume] in Serum or Plasma 9.5 mg/dL 8.5-10.1 N [facility] Albumin [Mass/volume] in Serum or Plasma by Bromocresol purple (BCP) dye binding method 3.8 g/dL 3.2-4.8 N [facility] ital Phosphate [Mass/volume] in Serum or Plasma 4.5 mg/dL 2.4-5.1 N [facility] ID Date Data Source [id number] 02/05/2020 06:12:00 PM EDT [facility] @02/05/20 1749: UA W/ MICRO added. RFLXG = UMIC.Method of Collection:: Voided @02/05/20 174: UA W/ MICRO added. RFLXG = UMIC.Method of Collection:: Voided Name Value Range Interpretation Code Description Data [facility](s) Supporting Document(s) Color of Urine [facility] Appearance of Urine CLEAR [facility] pH of Urine by Test strip 5.5 5-8 [facility] Specific gravity of Urine by Refractometry 1.009 1.005-1.030 [facility] Leukocyte esterase [Presence] in Urine by Test strip NEGATIVE Above high normal [facility] @DO MICRO!!!! Nitrite [Presence] in Urine by Test strip NEGATIVE [facility] Protein [Presence] in Urine by Test strip NEGATIVE [facility] Glucose [Mass/volume] in Urine by Automated test strip NEGATIVE NEG ATIVE [facility] Ketones [Presence] in Urine by Test strip NEGATIVE [facility] Urobilinogen [Presence] in Urine 0.2-1 EU/dl [facility] Bilirubin.total [Presence] in Urine by Automated test strip NEGATIVE [facility] Erythrocytes [#/volume] in Urine by Test strip NEGATIVE NEGATIVE [facility] URINE MICROSCOPIC ADDED Microscopic Added [facility] ID Date Data Source [id number] 02/05/2020 06:16:00 PM EDT [facility] @02/05/20 1749: UA W/ MICRO added. RFLXG = UMIC.Method of Collection:: Voided @02/05/20 174: UA W/ MICRO added. RFLXG = UMIC.Method of Collection:: Voided Name Value Range Interpretation Code Description Data [facility](s) Supporting Document(s) Hemoglobin A1c % 7.6 % 4.0-6.0 Above high normal [facility] The following ranges may be u sed for interpretation of results: HGBA1C degree of glucose control: Greater than 8%: Action Suggested * Less than 7%: Goal of Diabetic Therapy Less than 6%: NormalFactors such as duration of diabetes, adherence to therapyand the age of the patient should also be considered inassessing the degree of blood glucose control.* High risk of developing long term care pharmacist complications such asretinopathy, nephropathy, neuropathy, cardiopathy, etc. Some danger of hypoglycemic reaction in Type I diabetics.Some glucose intolerant individuals and "Sub Clinical"diabetics may demonstrate HGBA1C levels in this area. Glucose mean value [Moles/volume] in Blood Estimated f rom glycated hemoglobin 171 mg/dL [facility] l An A1C of 7% - the goal of diabetic ther apy - is equivalentto an EAG of 154 mg/dl. ID Date Data Source [id number] 02/06/2020 02:08:00 PM EDT [facility] @02/05/20 174: UA W/ MICRO added. RFLXG = UMIC.Method of Collection:: Voided @02/05/201748: UA W/ MICRO added. RFLXG = UMIC.Method of Collection:: Voided Name Value Range Interpretation Code Description Data [facility](s) Supporting Document(s) Parathyrin.intact [Mass/volume] in Serum or Plasma 83 pg/mL 15-65 Above high normal [facility] Performed at: RN - [facility] [place] [id number] Director: Joan Bahena MD, Phone: [phone] ID Date Data Source [id number] 02/05/2020 06:02:00 PM EDT [facility] @02/05/20 1749: UA W/ MICRO added. RFLXG = UMIC.Method of Collection:: Voided @02/05/20 174: UA W/ MICRO added. RFLXG = UMIC.Method of Collection:: Voided Name Value Range Interpretation Code Description Data [facility](s) Supporting Document(s) Urate [Mass/volume] in Serum or Plasma 6.5 mg/dL 3.3-8.8 N [facility] ID Date Data Source [id number] 02/05/2020 06:12:00 PM EDT [facility] @02/05/20 1749: UA W/ MICRO added. RFLXG = UMIC.Method of Collection:: Voided @02/05/20 1749: UA W/ MICRO added. RFLXG = UMIC.Method of Collection:: Voided Name Value Range Interpretation Code Description Data [facility](s) Supporting Document(s) Leukocytes [#/volume] in Urine by Manual count 1-2 /hpf 0-5 [facility] Cells [Type] in Urine sediment by Light microscopy [facility] Bacteria [Presence] in Urine sediment by Light microscopy NEGATIVE Above high normal [facility] Fungi.yeastlike [Presence] in Urine sediment by Light microscopy [facility] ID Date Data Source [id number] 02/05/2020 06:02:00 PM EDT [facility] @02/05/20 1749: UA W/ MICRO added. RFLXG = UMIC.Method of Collection:: Voided @02/05/20 1749: UA W/ MICRO added. RFLXG = UMIC.Method of Collection:: Voided Name Value Range Interpretation Code Description Data [facility] rce(s) Supporting Document(s) Magnesium [Mass/volume] in Serum or Plasma 2.5 mg/dL 1.3-2.7 N [facility] ID Date Data Source [id number] 02/05/2020 10:59:00 AM EDT [facility] Patient Name: TISHA SESAY : 1935 Sex: F Pt Unit #: [id number] Location:[facility] Provider: Visit Date/Time: 02/05/20 Primary Insurance: MEDICARE [employer] Secondary Insurance: Intake Vital Signs 02/05/20 11:02 BP 138/52 Blood Pressure Location Lt brachial Position Sitting Respiration 18 Pulse 51 L Pulse Strength Normal Temp 97.5 F L Temp Source Tympanic Pulse Oximetry (%) 95 Oxygen Delivery Method room air Intake Visit Reasons: Shoulder pain/injury Nurse Note: Here today to go over labs and shoulder x-ray Allergies sulfamethoxazole [From Bactrim] Allergy (Severe, Verified 04/19/19 20:55) Anaphylaxis gabapentin Allergy (Unverified 02/02/20 11:57) confusion ciprofloxacin [From Cipro] Adverse Reaction (Intermediate, Verified 04/19/19 20:55) Diarrhea Penicillins Adverse Reaction (Intermediate, Unverified 10/12/19 15:30) PASSED OUT AND WENT BLIND HIV Testing Offer - ages 13-64 Requirement for HIV testing offer been met?: Not in age range [facility] Surgical History (Updated 06/08/19 @ 12:44 by Nicholas Scanlon M.D.) Aortic valve replaced (Acute) Social History Does the Patient have a Healthcare Proxy: Yes Does Patient have a DNR?: Yes Does Patient have a Living Will?: Yes Does the Patient have a MOLST?: No Advance Directives on File or in chart?: No Hx Recent Travel (where): No HPI Additional HPI HPI Details: as above. she states that the pain has decreased markedly and her range of motion has increased some. Exam Const General: cooperative, no acute distress and well groomed Orientation: alert, awake and oriented x3 Musc Other: she can abduct the right shoulder to 110 degrees and touch her other shoulder Assessment Plan Assessment Plan (1) Shoulder pain: Status: Acute Comment: calcific tendonitis of supraspinatus, 2019 Code(s): M25.519 - Pain in unspecified shoulder SNOMED Code(s): 52291970 Category: Medical Plan - Nicholas Scanlon M.D.: xray showed calcific supraspinatus tendonitis. as long as the prednisone is helping, will continue it. she will call with an update in 4 days. will refer to ortho if it does not resolve. Electronically Signed By: <Electronically signed by Nicholas Scanlon MD> Date/Time Signed: 02/05/20 1123 Name Value Range Interpretation Code Description Data [facility] r[facility](s) Supporting Document(s) ID Date Data Source [id number] 02/02/2020 01:49:00 PM EDT [facility] [address] [place] [address] [phone] NAME SEX PT STATUS ACCOUNT NUMBER TISHA SESAY REG REF [id number] ORDERING PHYSICIAN LOCATION MEDICAL RECORD NO. Nicholas Scanlon M.D. RAD [id number] ATTENDING PHYSICIAN DATE OF DATE OF EXAM/TIME Nicholas Scanlon MD 1935 02/02/20 / 1341 TYPE / EXAM Xray Shoulder complete RT REASON FOR EXAM shoulder pain COMPARISON: None FINDINGS: There is no fracture or dislocation. The glenohumeral interface and the acromioclavicular joint aredemonstrated normally. However, note is made of calcification in the expected location of the supraspinatus tendon. IMPRESSION: Calcific tendinitis. No fracture or dislocation. Reported By Chris Harvey MD on 02/02/201348 Signed By Chris Harvey MD on 02/02/20 1352 Date Time CC: Nicholas Scanlon M.D.; Chris Harvey MD Techn: BAKLE Trans Dt/Tm: Trans by: DT Prt Dt/Tm: 8084-2022: Total DLP = 0.00 mGy-cm Fluoroscopy Time (in secs): Name Value Range Interpretation Code Description Data [facility] r[facility](s) Supporting Document(s) ID Date Data Source [id number] 02/02/2020 02:47:00 PM EDT [facility] Name Value Range Interpretation Code Description Data [facility] r[facility](s) Supporting Document(s) Leukocytes [#/volume] in Blood by Automated count 9.2 10*3/uL 4.45-10 .71 N [facility] Erythrocytes [#/volume] in Blood by Automated count 4.28 10*6/uL 4.20 -5.40 N [facility] Hemoglobin [Moles/volume] in Blood 13.5 g/dL 10.7-15.4 N [facility] Hematocrit [Volume Fraction] of Blood by Automated count 40.8 % 3 7-47 N [facility] Erythrocyte mean corpuscular volume [Ent itic volume] in Cord blood by Automated count 95.3 fL 80-96 N [facility] ital Erythrocyte mean corpuscular hemoglobin [Entitic mass] by Automated count 31.5 pg 27-31 Above high normal [facility] spital Erythrocyte mean corpuscular hemoglobin concentration [Mass/volume] in Cord blood 33.1 g/dL 33-37 N [facility] ital Erythrocyte distribution width [Entitic volume] by Automated count 14 % 11-15 N [facility] Platelets [#/volume] in Blood by Automated count 354 10*3/uL 130-472 N [facility] Platelet mean volume [Entitic volume] in Blood 12.2 fL 9.1-13.1 N [facility] Neutrophils/100 leukocytes in Blood by Automated count 46.5 % 41- 77 N [facility] Neutrophils [#/volume] in Blood by Automated count 4.3 U 1.7-7.6 N [facility] Lymphocytes/100 leukocytes in Blood by Automated count 36.0 % 14- 46 N [facility] Lymphocytes [#/volume] in Blood by Automated count 3.3 U 0.6-4.6 N [facility] Monocytes/100 leukocytes in Blood by Automated count 10.9 % 4-12 N [facility] Monocytes [#/volume] in Blood by Automated count 1.0 U 0.2-1.2 N [facility] Eosinophils/100 leukocytes in Blood by Automated count 5.1 % 0-7 N [facility] Eosinophils [#/volume] in Blood by Automated count 0.5 U 0.0-0.5 N [facility] Basophils/100 leukocytes in Blood by Automated count 1.3 % 0.4-1 .3 N [facility] Basophils [#/volume] in Blood by Automated count 0.1 U 0.0-0.2 N [facility] NUCLEATED RED BLOOD CELL 0 % [facility] NUCLEATED RED BLOOD CELL# 0 U [facility] Immature granulocytes [Presence] in Blood by Automated count 0-2 N [facility] Immature granulocytes [#/volume] in Blood by Automated count 0.0 U 0-0.1 N [facility] Manual Differential panel - Blood NO [facility] ID Date Data Source [id number] 02/02/2020 03:20:00 PM EDT [facility] Name Value Range Interpretation Code Description Data Yumiko rce(s) Supporting Document(s) Hemoglobin A1c % 7.5 % 4.0-6.0 Above high normal [facility] The following ranges may be u sed for interpretation of results: HGBA1C degree of glucose control: Greater than 8%: Action Suggested * Less than 7%: Goal of Diabetic Therapy Less than 6%: NormalFactors such as duration of diabetes, adherence to therapyand the age of the patient should also be considered inassessing the degree of blood glucose control.* High risk of developing residential complications such asretinopathy, nephropathy, neuropathy, cardiopathy, etc. Some danger of hypoglycemic reaction in Type I diabetics.Some glucose intolerant individuals and "Sub Clinical"diabetics may demonstrate HGBA1C levels in this area. Glucose mean value [Moles/volume] in Blood Estimated f rom glycated hemoglobin 169 mg/dL [facility] l An A1C of 7% - the goal of diabetic ther apy - is equivalentto an EAG of 154 mg/dl. ID Date Data Source [id number] 02/02/2020 03:23:00 PM EDT [facility] Name Value Range Interpretation Code Description Data Yumiko rce(s) Supporting Document(s) Urea nitrogen [Mass/volume] in Serum or Plasma 82 mg/dL 9 No range defined, or normal ranges don't apply [facility] @Review test & document. []Called to [facility] @ [phone] by Starr Villeda. Results read back.Repeated by: Starr Villeda 02/02/20 [id number].Result Confirmation: 82 mg/dL Sodium [Moles/volume] in Serum or Plasma 137 mmol/L 132-146 N [facility] Potassium [Moles/volume] in Serum or Plasma 3.7 mmol/L 3.5-5.5 N [facility] Chloride [Moles/volume] in Serum or Plasma 95 mmol/L 99-109 Belo w low normal [facility] Carbon dioxide, total [Moles/volume] in Serum or Plasma 34 mmol/ L 20-31 Above high normal [facility] Anion gap in Serum or Plasma 12 mmol/L 8-16 N [facility] Glucose [Mass/volume] in Serum or Plasma 141 mg/dL 74-106 Above high normal [facility] Creatinine 2.7 mg/dL 0.5-1.1 Above high normal [facility] Glomerular filtration rate/1.73 sq M.pre dicted [Volume Rate/Area] in Serum or Plasma 17 ml/min ABOVE 60 [facility] Calcium [Mass/volume] in Serum or Plasma 8.9 mg/dL 8.5-10.1 N [facility] ID Date Data Source [id number] 02/02/2020 03:23:00 PM EDT [facility] Name Value Range Interpretation Code Description Data Yumiko rce(s) Supporting Document(s) Thyrotropin [Units/volume] in Serum or Plasma by Detec tion limit <= 0.005 mIU/L 3.38 u[iU]/mL 0.35[facility]5.50 [facility] Data Source [id number] 01/11/2020 10:52:00 AM EDT [facility] Patient Name: TISHA SESAY : 1935 Sex: F Pt Unit #: [id number] Location:[facility] Provider: Visit Date/Time: 01/11/20 Primary Insurance: MEDICARE [employer] Secondary Insurance: [facility] Intake Vital Signs 01/11/20 10:59 BP 134/62 Blood Pressure Location Lt brachial Position Sitting Respiration 16 Pulse 62 Pulse Strength Normal Temp 96.7 F L Temp Source Tympanic Pulse Oximetry (%) 96 Oxygen Delivery Method room air Intake Visit Reasons: Office visit Nurse Note: Her for recheck on DM . Does check BS at home has her logs with her today ranging 80-110. Last vision exam was in September and has another coming up in January. Asking for RF on PotassiumChloride 10 MEQ , Glimepiride 1mg and sitagliptin 50mg sent to [facility]. Front Office Director Required: No Accompanied by: self Allergies sulfamethoxazole [From Bactrim] Allergy (Severe, Verified 04/19/19 20:55) Anaphylaxis ciprofloxacin [From Cipro] Adverse Reaction (Intermediate, Verified 04/19/19 20:55) Diarrhea Penicillins Adverse Reaction (Intermediate, Unverified 10/12/19 15:30) PASSED OUT AND WENT BLIND HIV Testing Offer - ages 13-64 Requirement for HIV testing offer been met?: Not in age range [facility] Surgical History (Updated 06/08/19 @ 12:44 by Nicholas Scanlon M.D.) Aortic valve replaced (Acute) Social History Does the Patient have a Healthcare Proxy: Yes Does Patient have a DNR?: Yes Does Patient have a Living Will?: Yes Does the Patient have a MOLST?: No Advance Directives on File or in chart?: No Hx Recent Travel (where): No HPI Additional HPI HPI Details: as above. she wonders about something that might help her hs neuropathy pain. she has been getting weaker and wonders if it may be her cancer. she still refuses any treatment for it. Review of Systems Card Denies chest pain, Denies pedal edema, Reports irregular heart rhythm (intermittent), Denies lightheadedness, Denies palpitations and Denies dyspnea Resp Denies dyspnea Neuro Reports paresthesias (feet, hs) Endo Denies palpitations Exam Const General: cooperative, healthy appearing, no acute distress and well groomed Nutritional Appearance: obese Orientation: alert, awake and oriented x3 Neck Neck: normal visual inspection, no lymphadenopathy, supple and no JVD present Neck mass: No Thyroid: thyroid normal Chest Chest: normal inspection of the chest Resp Effort Inspection: normal respiratory effort Auscultation: clear to auscultation bilaterally Cardio Jugular venous pressure: no JVD Rate: regular rate Rhythm: regular rhythm Heart Sounds: S1 normal, S2 normal, no click, no gallops and no murmurs Extrem General: no pedal edema Other: strong dorsalis pedis pulses, healthy skin Assessment Plan Assessment Plan (1) 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 will add a1c to upcoming labs. discussed adding gabapentin for neuropathy and she would like to try it. will start with 300 mg and recheck in one month. Orders: Orders: HGBA1C + EAG Today Orders Other Medications: New: gabape ntin 300 mg PO HS 90 caps 0RF potassium chloride ER 10 mEq PO QDAY 90 caps 3RF Refilled: glimepiride administer with breakfast 1 mg PO QAM 90 tabs 3RF sitagliptin 50 mg PO QDAY 90 tabs 3RF Discontinued: [Potassium Chloride] Discontinued Reason: None 10 mEq PO DAILY 90 caps 3RF Electronically Signed By: <Electronically signed by Nicholas Scanlon MD> Date/Time Signed: 01/11/20 8746 Name Value Range Interpretation Code Description Data Yumiko rce(s) Supporting Document(s) ID Date Data Source [id number] [facility] Value Range Interpretation Code Description Data Yumiko rce(s) Supporting Document(s) Alanine aminotransferase [Enzymatic acti vity/volume] in Serum or Plasma by With P-5'-P 29 U/L 10-49 N [facility] ital Aspartate aminotransferase [Enzymatic ac tivity/volume] in Serum or Plasma by With P-5'-P 16 U/L 0-33 N [facility] Alkaline phosphatase [Enzymatic activity/volume] in Serum or Plasma 78 U/L 45-129 N [facility] Bilirubin.total [Mass/volume] in Serum or Plasma 0.4 mg/dL 0.3-1.2 N [facility] Bilirubin.direct [Mass/volume] in Serum or Plasma 0.1 mg/dL 0.0-0.2 N [facility] Albumin [Mass/volume] in Serum or Plasma by Bromocresol purple (BCP) dye binding method 3.7 g/dL 3.2-4.8 N [facility] ital Protein [Mass/volume] in Serum or Plasma 7.3 g/dL 5.7-8.2 N [facility] ID Date Data Source [id number] 01/05/2020 09:33:00 AM [facility] Name Value Range Interpretation Code Description Data Yumiko rce(s) Supporting Document(s) Lactate dehydrogenase [Enzymatic activity/volume] in Serum o r Plasma 234 U/L 120-246 N [facility] ID Date Data Source [id number] 01/05/2020 09:33:00 AM [facility] Name Value Range Interpretation Code Description Data Yumiko rce(s) Supporting Document(s) Triglycerides 116 mg/dL 0-150 N [facility] Cholesterol 244 mg/dL 120-200 Above high normal [facility] HDL Cholesterol 66 mg/dL [facility] HDL Less than 40 mg/dL: Major risk for CHDHDL Greater than 59 mg/dL: Low risk for CHD LDL Cholesterol, Calc 155 mg/dL 0-100 Above high normal [facility] ID Date Data Source [id number] 01/05/2020 08:16:00 AM EDT [facility] ([facility]) Name Value Range Interpretation Code Description Data Yumiko rce(s) Supporting Document(s) Cholesterol [Mass/volume] in Serum or Plasma 244 mg/dL 120 -200 Above high normal [facility] ([facility]) PT HAS THE ORDER Triglyceride [Mass/volume] in Serum or Plasma 116 mg/dL 0- 150 Normal (applies to non-numeric results) [facility] ([facility]) PT HAS THE ORDER Cholesterol in LDL [Mass/volume] in Serum or Plasma by calcu lation 155 mg/dL 0-100 Above high normal [facility] PT HAS THE ORDER Cholesterol in HDL [Mass/volume] in Serum or Plasma 66 mg/dL [facility] ([facility]) PT HAS THE ORDER ID Date Data Source [id number] 01/05/2020 08:16:00 AM EDT [facility] ([facility]) Name Value Range Interpretation Code Description Data Yumiko rce(s) Supporting Document(s) Lactate dehydrogenase [Enzymatic activit y/volume] in Serum or Plasma by Lactate to pyruvate reaction 234 U/L 120-246 Normal (applies to non-numeric re sults) [facility] ([facility]) PT HAS THE ORDER ID Date Data Source [id number] 01/05/2020 08:16:00 AM EDT [facility] ([facility]) Name Value Range Interpretation Code Description Data Yumiko rce(s) Supporting Document(s) Aspartate aminotransferase [Enzymatic ac tivity/volume] in Serum or Plasma by With P-5'-P 16 U/L 0-33 Normal (applies to non-numeric results) [facility] ([facility]) PT HAS THE ORDER Alanine aminotransferase [Enzymatic acti vity/volume] in Serum or Plasma by With P-5'-P 29 U/L 10-49 Normal (applies to non-numeric results) [facility] ([facility]) PT HAS THE ORDER Alkaline phosphatase [Enzymatic activity/volume] in Serum or Plasma 78 U/L 45-129 Normal (applies to non-numeric results) [facility] ([facility]) PT HAS THE ORDER Bilirubin.direct [Mass/volume] in Serum or Plasma 0.1 mg/dL 0.0-0.2 Normal (applies to non-numeric results) [facility] ([facility]) PT HAS THE ORDER Albumin [Mass/volume] in Serum or Plasma by Bromocresol purple (BCP) dye binding method 3.7 g/dL 3.2-4.8 Normal (applies to non-numeric results) [facility]) PT HAS THE ORDER Bilirubin.total [Mass/volume] in Serum or Plasma 0.4 mg/dL 0.3-1.2 Normal (applies to non-numeric results) [facility] ([facility]) PT HAS THE ORDER Protein [Mass/volume] in Serum or Plasma 7.3 g/dL 5.7-8.2 Normal (applies to non-numeric results) [facility] ([facility]) PT HAS THE ORDER ID Date Data Source [id number] 11/02/2019 12:20:25 PM [facility], PCName: Ana SesayDOB: 4Provider: Chuy Martinez: 11/02/2019 Chief ComplaintChronic low back pain Chief Complaint 2NYSW VAS PAIN 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 Patient was asked and denies being seen by any Physicians since their last visit. 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 The patient is being seen for a follow-up > 6 mths (last appt date: 09/16/2019) Pain Quality: none. Timing: constant Palliation: exercises and non-opioid analgesics Exacerbating: position Pain Score: a current pain level of 4/10, a minimum pain level of 2/10 and a maximum pain level of 8/10. Condition type: The patient is being seen for a chronic condition. PAIN LOCATION: the pain is located in the low back and and there is no radiation. REVIEW OF PAST DIAGNOSTICS: have included: diagnostic selective nerve block. PAST TREATMENT has included: MANIPULATION/CHIROPRACTIC treatment (effective). INTERVAL EVENTS: include . Patient tells me that about a few weeks ago she had an exacerbation of pain in her low back. She says it was terrible to walk and try to get up out of a chair. She tells me that there was no injury, she just woke up one morning and it was there. She was taking Tylenol and using heat, and it has improved a great deal. She is nervous that it will happen again. The pain is worse in the morning. ASSOCIATED SYMPTOMS: include not radiating, no fecal incontinence and no urinary incontinence. FUNCTIONAL LIMITATIONS: The patient's functional status is limited as follows: ability to ambulate without assisted devices (use of ) walker. Review of SystemsROS was reviewed with patient; documented on established patient questionnaire dated 11/02/2019. I feel the ROS to be negative/normal other than back and joint pain. Patient maintains at today's visit there has been no change in his/her hematologic history. Active Problems 1. Chronic pain (338.29) (G89.29) 2. Low back pain (724.2) (M54.5) 3. Lumbar radiculopathy (724.4) (M54.16) 4. Lumbar spondylosis (721.3) (M47.816) 5. 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 dr goldman Cod Liver Oil CAPS;Therapy: (Recorded:19Dec2016) to Recorded Glimepiride TABS;Therapy: (Recorded:19Dec2016) to Recorded Januvia 50 MG Oral Tablet;Therapy: (Recorded:19Dec2016) to Recorded Lantus SOLN;Therapy: (Recorded:19Dec2016) to Recorded Magnesium TABS;Therapy: (Recorded:19Dec2016) to Recorded Metoprolol Tartrate TABS;Therapy: (Recorded:19Dec2016) to Recorded Pantoprazole Sodium TBEC;Therapy: (Recorded:20Jun2018) to Recorded Potassium TBCR;Therapy: (Recorded:20Jun2018) to Recorded Sensipar 30 MG Oral Tablet;Therapy: (Recorded:21Nci9926) to Recorded Vitamin B Complex TABS;Therapy: (Recorded:19Dec2016) to Recorded Vitamin C TABS;Therapy: (Recorded:19Dec2016) to Recorded Vitamin D CAPS;Therapy: (Recorded:19Dec2016) to Recorded Zetia 10 MG Oral Tablet;Therapy: (Recorded:20Jun2018) to Recorded Past Medical History History of anticoagulant therapy (V87.49) (Z92.29) History of arthritis (V13.4) (Z87.39) Denied: History of blood coagulation disorder History of cardiac murmur (V12.59) (Z86.79) History of diabetes mellitus (V12.29) (Z86.39) History of esophageal reflux (V12.79) (Z87.19) History of hypertension (V12.59) (Z86.79) History of kidney disease (V13.09) (Z87.448) only has 23% kidney function 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 History of Not currently (V49.89) (Z78.9) Surgical History History of Appendectomy History of Cath Placement Of Stent 05/2018 History of Hernia Repair History Of Prior Surgery tail of pancreas/ spleen removed History of Hysterectomy Denied: History of Implantable Cardioverter-Defibrillator History of Knee Replacement History of Neuroplasty Decompression Median Nerve At Carpal Tunnel History of Oophorectomy Denied: History of Pacemaker Placement Family History Family history of arthritis (V17.7) (Z82.61) Family history of malignant neoplasm (V16.9) (Z80.9) Family history of cardiac disorder (V17.49) (Z82.49) Family history of diabetes mellitus (V18.0) (Z83.3) Family history of hypertension (V17.49) (Z82.49) Social History Current non-drinker of alcohol (V49.89) (Z78.9) Denied: History of Drug use Former smoker (V15.82) (Z87.891) 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 Eyes: Lids are atraumatic, no lesions, sclerae are anicteric. Ears, Nose, Mouth, Throat: external ears and nose without trauma. Gait and Station: Gait was antalgic. Respiratory: Normal chest expansion and respiratory effort. Skin: Warm, dry, acyanotic. Psychological: Alert and oriented to person, place and time. Mood and affect are pleasant and appropriate. Judgement intact. Insight normal without delusions or hallucinations. Denies suicidal/homicidal ideation. Assessment 1. Low back pain (724.2) (M54.5) 2. Lumbar spondylosis (721.3) (M47.816) Plan 1. Follow-up in 1 month Follow Up Follow-up Status: Hold For - Scheduling Requested for: [id number] Appointment for 15 or 30 minutes : Schedule 15 minute appointment In my opinion based on subjective and objective findings from today's visit the patient is status quo. Medication:. The patient does not receive any medication prescriptions from this office. Treatment includes: PROCEDURE(S): the patient defers blocks/procedures at this time FOLLOW UP: The patient should have a follow up visit in 1 month. CONTINUE TREATMENT: Tisha will continue with the following: Chiropractic. - FALL PRECAUTIONS: Tisha is encouraged to use necessary assistive devices including walker. - TYPIST: The patient was counseled on the following: treatment plan. Discussion/SummaryPatient here today with her daughter for chronic low back pain follow up. She is doing fine right now, but had a recent exacerbation of pain. We discussed a diagnostic lumbar facet trial, as I feel she is a good candidate for this. She would like to try going back to the chiropractor first. We will follow up in 1 month to reassess. Signatures Electronically signed by : KRISTY Huston; Nov 02 2019 9:19AM EST (Author) Electronically signed by : Ruben Perez MD; Nov 02 2019 12:20PM EST Name Value Range Interpretation Code Description Data Yumiko rce(s) Supporting Document(s) ID Date Data Source [id number] 10/12/2019 03:09:00 PM EST [facility] Patient Name: TISHA SESAY : 1935 Sex: F Pt Unit #: [id number] Location:[facility] Provider: Visit Date/Time: 10/12/19 Primary Insurance: MEDICARE [employer] Secondary Insurance: [facility] ADDENDUM Office Procedure Documentation entered by Vicki Gonzalez 10/12/19 16:14: Results Urinalysis (DipStick) Urine Specific [place] 1.010 Last Edit by Vicki Gonzalez on 10/12/19 16:14 Urine PH 5 Last Edit by Vicki Gonzalez on 10/12/19 16:14 Urine Leukocytes TRACE Last Edit by Vicki Gonzalez on 10/12/19 16:14 Urine Nitrates NEGATIVE Last Edit by Vicki Gonzalez on 10/12/19 16:14 Urine Protein NEGATIVE Last Edit by iVcki Gonzalez on 10/12/19 16:14 Urine Ketones NEG mg/dl Last Edit by Vicki Gonzalez on 10/12/19 16:14 Urine Urobilinogen NORMAL Last Edit by Vicki Gonzalez on 10/12/19 16:14 Urine Blood NEGATIVE Last Edit by Vicki Gonzalez on 10/12/19 16:14 Urine Hemoglobin NEGATIVE Last Edit by Vicki Gonzalez on 10/12/19 16:14 Urine Glucose NORMAL Last Edit by Vicki Gonzalez on 10/12/19 16:14 Urine Bilirubin NORMAL Last Edit by Vicki Gonzalez on 10/12/19 16:14 <Electronically signed by Vicki Gonzalez > Addendum Signed By: Date/Time: 10/12/19 1614 Intake Vital Signs 10/12/19 15:18 Current Weight 177 lb BP 140/68 Blood Pressure Location Lt brachial Position Sitting Respiration 16 Pulse 59 L Pulse Strength Normal Temp 98.0 F Pulse Oximetry (%) 96 Oxygen Delivery Method room air Intake Visit Reasons: Back pain Nurse Note: 84 year old female here today c/o right side back pain x 6 days . Unaware of any injuryto this area. Pt asking for RF on Lantus , Febuxostat, Furosemide, and Ezetimibe Front Office Director Required: No Accompanied by: self Is patient in pain?: Yes (right side back pain ) Pain scale (1-10): 5 Allergies sulfamethoxazole [From Bactrim] Allergy (Severe, Verified 04/19/19 20:55) Anaphylaxis ciprofloxacin [From Cipro] Adverse Reaction (Intermediate, Verified 04/19/19 20:55) Diarrhea Penicillins Adverse Reaction (Intermediate, Unverified 10/12/19 15:30) PASSED OUT AND WENT BLIND HIV Testing Offer - ages 13- 64 Requirement for HIV testing offer been met?: Not in age range [facility] Medical History Asplenia Chronic low back pain (Acute) Coronary artery disease (Acute) Diabetes mellitus Elevated uric acid in blood (Acute) Essential (primary) hypertension (Acute) Gastroesophageal reflux disease History of gastric ulcer (Acute) Mixed hyperlipidemia (Acute) Osteoarthritis involving multiple joints on both sides of body (Acute) Pancreatic cancer Surgical History (Updated 06/08/19 @ 12:44 by Nicholas Scanlon M.D.) Aortic valve replaced (Acute) Social History Does the Patient have a Healthcare Proxy: Yes Does Patient have a DNR?: Yes Does Patient have a Living Will?: Yes Does the Patient have a MOLST?: No Advance Directives on File or in chart?: No Hx Recent Travel (where): No HPI Additional HPI HPI Details: as above. the pain is achy and intense at times, worse with motion. it has gotten a lot better over the past 24 hours. she has no prior history of similar pain, though has had left lower back pain in the past requiring treatment at the [facility]. Back Pain Associated symptoms: Denies abdominal pain, dysuria, nausea or vomiting Review of Systems GI Denies abdominal pain, Denies diarrhea, Denies nausea and Denies vomiting Denies hematuria, Denies urinary frequency, Denies difficulty v oiding, Denies nocturia, Denies dysuria and Denies urinary urgency Exam Const General: cooperative, no acute distress and well groomed Nutritional Appearance: well nourished Orientation: alert, awake and oriented x3 Musc Other: ambulates with a walker, there is no deformity, skin changes or tenderness in the lower back or posterior pelvis Assessment Plan Assessment Plan (1) Acute low back pain: Status: Acute Code(s): M54.5 - Low back pain SNOMED Code(s): 356071143 Category: Medical Plan - Nicholas Scnalon M.D.: ua dip is negative. since the pain radiated to the right inguinal area, ureteral colic was considered. since it is a lot better today, we elected to hold off on any further testing unless thepain returns. if so, she will call and we will arrange a kidney stone ct. as to her requested refills, we spent considerable time discussing my opinion that specialists who prescribe medications, should also refill them. unfortunately, her previous physician refilled everything. i explained that i will fill the lantus today and will never let her run out of meds, but want her to make the request first the the original prescriber. recheck prn and in december. Orders Other Medications: New: insulin glargine (Lantus Solostar U-100 Insulin) 10 units (0.1 mL) subcut QDAY 9 mL 3RF Discontinued: insulin glargine (Lantus U-100 Insulin) Discontinued Reason: Order 10 units (0.1 mL) subcut HS 3 mL 3RF Electronically Signed By: <Electronically signed by Nicholas Scanlon MD> Date/Time Signed: 10/12/19 1554 Name Value Range Interpretation Code Description Data Yumiko rce(s) Supporting Document(s) ID Date Data Source [id number] 09/16/2019 04:09:11 PM EST [facility], PCName: Ana guajardo HawkB: 4Provider: Stephany Melchor: 09/16/2019 Chief ComplaintPatient is here with chronic low back pain Chief Complaint 2NYSW VAS PAIN Established: MA completing section: Amber Yeboah CNA History of Present IllnessRecent test/procedures: Patient was asked and denies having any tests since their last visit. Patient was asked and denies being seen by any Physicians since their last visit. At today's visit patient presents with their Daughter Patient is retired. The patient is being seen for a follow-up. Pain Quality: (Nociceptive) aching Timing: intermittent. Palliation: No relieving factors are noted Exacerbating: No exacerbating factors are noted Pain Score: a current pain level of 0/10. Condition type: The patient is being seen for a chronic condition. PAIN LOCATION: the pain is located in the low back and and there is no radiation. REVIEW OF PAST DIAGNOSTICS: have included: MRI and diagnostic selective nerve block. PAST TREATMENT has included: MANIPULATION/CHIROPRACTIC treatment (effective). INTERVAL EVENTS: include . Patient comes in with her daughter today. She states her low back can become uncomfortable at times but is not bad enough to do any nerve blocks. She does take Tylenol 325 mg once a day a few times a week and that does seem to help. If her legs feel like they are in a give out she does sit down on her Rollator and once that passes she is able to get back up. ASSOCIATED SYMPTOMS: include not radiating, no fecal incontinence and no urinary incontinence. FUNCTIONAL LIMITATIONS: The patient's functional status is limited as follows: ability to ambulate without assisted devices (use of ) walker. Review of SystemsROS was reviewed with patient; documented on established patient questionnaire dated 09/16/2019. I feel the ROS to be negative/normal. Patient maintains at today's visit there has been no change in his/her hematologic history. Active Problems 1. Chronic pain (338.29) (G89.29) 2. Low back pain (724.2) (M54.5) 3. Lumbar radiculopathy (724.4) (M54.16) 4. Lumbar spondylosis (721.3) (M47.816) 5. 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 dr goldman Cod Liver Oil CAPS;Therapy: (Recorded:19Dec2016) to Recorded Glimepiride TABS;Therapy: (Recorded:19Dec2016) to Recorded Januvia 50 MG Oral Tablet;Therapy: (Recorded:61Jeo1395) to Recorded Lantus SOLN;Therapy: (Recorded:14Bun3017) to Recorded Magnesium TABS;Therapy: (Recorded:78Mei9418) to Recorded Metoprolol Tartrate TABS;Therapy: (Recorded:13Fie7546) to Recorded Pantoprazole Sodium TBEC;Therapy: (Recorded:57Yqq2914) to Recorded Potassium TBCR;Therapy: (Recorded:30Wvf0317) to Recorded Sensipar 30 MG Oral Tablet;Therapy: (Recorded:75Jie4656) to Recorded Vitamin B Complex TABS;Therapy: (Recorded:28Hyr8317) to Recorded Vitamin C TABS;Therapy: (Recorded:17Kfv4079) to Recorded Vitamin D CAPS;Therapy: (Recorded:04Fqz8692) to Recorded Zetia 10 MG Oral Tablet;Therapy: (Recorded:26Mjq4996) to Recorded Past Medical History History of anticoagulant therapy (V87.49) (Z92.29) History of arthritis (V13.4) (Z87.39) Denied: History of blood coagulation disorder History of cardiac murmur (V12.59) (Z86.79) History of diabetes mellitus (V12.29) (Z86.39) History of esophageal reflux (V12.79) (Z87.19) History of hypertension (V12.59) (Z86.79) History of kidney disease (V13.09) (Z87.448) only has 23% kidney function 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 History of Not currently (V49.89) (Z78.9) Surgical History History of Appendectomy History of Cath Placement Of Stent 1 05/2018 History of Hernia Repair History Of Prior Surgery tail of pancreas/ spleen removed History of Hysterectomy Denied: History of Implantable Cardioverter-Defibrillator History of Knee Replacement History of Neuroplasty Decompression Median Nerve At Carpal Tunnel History of Oophorectomy Denied: History of Pacemaker Placement Family History Family history of arthritis (V17.7) (Z82.61) Family history of malignant neoplasm (V16.9) (Z80.9) Family history of cardiac disorder (V17.49) (Z82.49) Family history of diabetes mellitus (V18.0) (Z83.3) Family history of hypertension (V17.49) (Z82.49) Social History Current non-drinker of alcohol (V49.89) (Z78.9) Denied: History of Drug use Former smoker (V15.82) (Z87.891) 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 Eyes: Lids are atraumatic, no lesions, sclerae are anicteric. currently wearing eyeglasses. Ears, Nose, Mouth, Throat: external ears and nose without trauma. Gait and Station: Gait was antalgic. The patient can get on/off the table without assistance. Respiratory: Normal chest expansion and respiratory effort. Lumbosacral Spine: Spinal alignment exhibits a loss of normal lordosis. - Palpation/Tenderness: Tenderness on palpation of the LEFT: negative left paraspinal, negative left sciatic notch and negative left sacroiliac joint. - Palpation/Tenderness: Tenderness on palpation of the RIGHT: negative right paraspinal, negative right sciatic notch and negative right sacroiliac joint. Palpatory Findings include no bilateral muscle spasms and no trigger points were noted. - ROM Flexion: was not restricted, was painless. - ROM Extension: was not restricted, was painless.Right Lower Extremity Motor:Left Lower Extremity Motor:Neurological:. Skin: Warm, dry, acyanotic. Psychological: Alert and oriented to person, place and time. Mood and affect are pleasant and appropriate. Judgement intact. Insight normal without delusions or hallucinations. Assessment 1. Chronic pain (338.29) (G89.29) 2. Low back pain (724.2) (M54.5) 3. Lumbar spondylosis (721.3) (M47.816) Plan 1. Follow-up in 6 months Follow Up Follow-up Status: Hold For - Scheduling Requested for: [id number] 6 month as a FUP for: : FUP for 15 minutes In my opinion based on subjective and objective findings from today's visit the patient is status quo. Medication:. The patient does not receive any medication prescriptions from this office. Treatment includes: PROCEDURE(S): the patient defers blocks/procedures at this time FOLLOW UP: The patient should have a follow up visit in 6 months. - FALL PRECAUTIONS: Tisha is encouraged to use necessary assistive devices including walker. - TYPIST: The patient was counseled on the following: treatment plan. Discussion/SummaryPatient comes in with her daughter today. She states her low back can become uncomfortable at times but is not bad enough to do any nerve blocks. She does take Tylenol 325 mg once a day a few times a week and that does seem to help. If her legs feel like they are in a give out she does sit down on her Rollator and once that passes she is able to get back up. No medications prescribed. Patient understands that she can take up to 3000 mg of Tylenol in a 24-hour period. She will follow-up back in 6 months or sooner if needed. Patient and her daughter are in agreement with treatment plan. Vilma DisclaimerNYSWC ishBowl Disclaimer: This document was dictated and electronically signed using trend.ly software. A reasonable attempt at proof reading has been made to minimize errors. Please call with any questions. Signatures Electronically signed by : Leti Hammond PA-C; Sep 16 2019 1:47PM EST (Author) Electronically signed by : Amalia Markham MD; Sep 16 2019 4:09PM EST Name Value Range Interpretation Code Description Data Yumiko rce(s) Supporting Document(s) Procedure Social History Code Duration Value Status Description Data Source(s ) 07/11/2020 11:28:00 AM EST Former smoker completed Former smoker [facility] Smoking 07/11/2020 11:28:00 AM EST Former smoker completed Former smoker [facility] Smoking 05/24/2020 12:00:00 AM EDT Patient is a former smoker completed Patient is a former smoker [facility] Smoking 05/11/2020 12:00:00 AM EDT Patient is a former smoker completed Patient is a former smoker [facility] ([facility]) Smoking 02/11/2020 01:20:00 PM EDT Former Smoker completed Former Smoker [facility] 02/06/2020 09:35:00 PM EDT No completed No [facility] 02/06/2020 09:35:00 PM EDT No completed No [facility] 02/06/2020 09:35:00 PM EDT No completed No [facility] 02/06/2020 09:35:00 PM EDT No completed No [facility] 02/06/2020 09:35:00 PM EDT Never smoker completed Never s [facility] Smoking 02/06/2020 09:35:00 PM EDT Never smoker completed Never s [facility] 02/02/2020 09:18:00 AM EDT 32 years ago completed 32 year s ago [facility] 02/02/2020 09:18:00 AM EDT No completed No [facility] 02/02/2020 09:18:00 AM EDT 32 years ago completed 32 year s ago [facility] 02/02/2020 09:18:00 AM EDT No completed No [facility] 02/02/2020 09:18:00 AM EDT 32 years ago completed 32 year s ago [facility] 02/02/2020 09:18:00 AM EDT No completed No [facility] 02/02/2020 09:18:00 AM EDT No completed No [facility] 02/02/2020 09:18:00 AM EDT No completed No [facility] 02/02/2020 09:18:00 AM EDT 32 years ago completed 32 year s ago [facility] 02/02/2020 09:18:00 AM EDT No completed No [facility] 02/02/2020 09:18:00 AM EDT No completed No [facility] 02/02/2020 09:18:00 AM EDT No completed No [facility] 01/11/2020 11:18:00 AM EDT 32 years ago completed 32 year s ago [facility] 01/11/2020 11:18:00 AM EDT No completed No [facility] 01/11/2020 11:18:00 AM EDT No completed No [facility] 01/11/2020 11:18:00 AM EDT No completed No [facility] Vital Signs ID Date Data Source UNK Name Value Range Interpretation Code Description Data Source(s) Oxygen saturation in Arterial blood by Pulse oximetry 96 % 96 % [facility] ([facility]) Room Air Heart rate 59 /min 59 /min [facility] ([facility]) Regular Diastolic blood pressure 66 mm[Hg] 66 mm[Hg] [facility] ([facility]) Right Arm, Sitting, Manual Systolic blood pressure 128 mm[Hg] 128 mm[Hg] [facility] Right Arm, Sitting, Manual Body mass index (BMI) [Ratio] 31.2 kg/m2 31.2 k g/m2 [facility] ([facility]) Body weight 176.00 [lb_av] 176.00 [lb_av] [facility] ([facility]) Body height 63 [in_i] 63 [in_i] [facility]) 5'3" Body temperature 36.7 choco Normal (applies to non-numeric results) 36.7 choco [facility] Respiratory rate 18 min Normal (applies to non-numeric results) 18 min [facility] Heart rate 77 min Normal (applies to non-numeric resul ts) 77 min [facility] Diastolic blood pressure 80 mm[Hg] Normal (applies to non-numeric results) 80 mm[Hg] [facility] Systolic blood pressure 151 mm[Hg] Normal (applies t o non-numeric results) 151 mm[Hg] [facility] Deprecated Oxygen saturation in Capillary blood by Oximetry 97 % Normal (applies to non-numeric results) 97 % [facility] Body height 159.7152 cm Normal (applies to non-numeric res ults) 159.7152 cm [facility] Body weight Measured 167 [lb_av] Normal (applies to n on-numeric results) 167 [lb_av] [facility] Body mass index (BMI) [Ratio] 29.58 kg/m2 No rmal (applies to non-numeric results) 29.58 kg/m2 [facility] Heart rate 54 /min 54 /min [facility] ([facility]) Reg Diastolic blood pressure 70 mm[Hg] 70 mm[Hg] [facility] ([facility]) Systolic blood pressure 130 mm[Hg] 130 mm[Hg] M [facility] ([facility]) Body mass index (BMI) [Ratio] 32.2 kg/m2 32.2 k g/m2 [facility] ([facility]) Body weight 182.00 [lb_av] 182.00 [lb_av] [facility] ([facility]) Heart rate 54 /min 54 /min [facility] ([facility]) Reg Diastolic blood pressure 70 mm[Hg] 70 mm[Hg] [facility] ([facility]) Systolic blood pressure 130 mm[Hg] 130 mm[Hg] M [facility] ([facility]) Body mass index (BMI) [Ratio] 32.2 kg/m2 32.2 k g/m2 [facility] ([facility]) Body weight 182.00 [lb_av] 182.00 [lb_av] [facility] ([facility]) Body height 63 [in_i] 63 [in_i] [facility] ([facility]) 5'3"
--- NOTE | 2020-10-24 13:53 | REP ---
INDICATION: CHEST PAIN. COMPARISON: Comparison chest x-ray August 13, 2018. TECHNIQUE: Portable upright AP chest radiograph. FINDINGS: In the interval since the previous study, the patient has undergone aortic valve replacement. Heart is mildly enlarged unchanged. There is no evidence of pleural effusion. Pulmonary vasculature is cephalized. No focal infiltrate is seen. Mild linear fibrosis is seen along the left heart border.. IMPRESSION: Cardiomegaly status post aortic valve replacement. Linear fibrosis left base. Vascular cephalization. No pleural effusion or pulmonary edema seen.. <Electronically signed by Viet Villasenor > 10/24/20 4521
[2020-10-24] MEDS ORDERED: ASPIRIN 81 MG CHEW TABLET PO ONE (14:00)
[2020-10-24 14:26] LABS: BASO # 0.2 10^3/uL (0.0-0.2); EOS # 0.4 10^3/uL (0.0-0.5); EOS % 4.6 % (0.0-3.0); HEMATOCRIT 38.2 % (36.0-47.0); HEMOGLOBIN 12.7 g/dl (12.0-15.5); LYMPH % 32.1 % (24.0-44.0); MEAN CORPUSCULAR HEMOGLOBIN 31.5 pg (27.0-33.0); MEAN CORPUSCULAR HGB CONC 33.2 g/dl (32.0-36.5); MEAN CORPUSCULAR VOLUME 94.8 fl (80.0-96.0); MONO # 1.1 10^3/uL (0.0-0.8); MONO % 11.7 % (2.0-8.0); NEUTROPHILS # 4.6 10^3/uL (1.5-8.5); NEUTROPHILS % 49.3 % (36.0-66.0); PLATELET COUNT, AUTOMATED 266 10^3/uL (150-450); RED BLOOD COUNT 4.03 10^6/uL (4.00-5.40); WHITE BLOOD COUNT 9.4 10^3/uL (4.0-10.0)
--- OUTSIDE RECORDS SUMMARY | 2020-10-24 14:31 | CCD ---
Author Author [facility] Organization [facility] Address Unknown Phone Unavailable Care Team Providers Care Field Handyman Name Role Phone Amara Martinez PA Unavailable [...] Jagdish, Rylee Barber MD Unavailable Unavailable Jagdish, Ryele Barber MD Unavailable Unavailable Jagdish, Rylee Barber [...] Barber MD Unavailable Unavailable Profetto, A Joey LACE PINNER Unavailable Unavailable Profetto, A Joey LACE PINNER Unavailable Unavailable Profetto, A Joey LACE PINNER Unavailable Unavailable Profetto, A Joey LACE PINNER Unavailable Unavailable Profetto, A Joey LACE PINNER Unavailable Unavailable Profetto, A Joey LACE PINNER Unavailable Unavailable Profetto, A Joey LACE PINNER Unavailable Unavailable Profetto, A Joey LACE PINNER Unavailable Unavailable Profetto, A Joey LACE PINNER Unavailable Unavailable Profetto, A Joey LACE PINNER Unavailable Unavailable Profetto, A Joey LACE PINNER Unavailable Unavailable Profetto, A Joey LACE PINNER Unavailable Unavailable Profetto, A Joey LACE PINNER Unavailable Unavailable Profetto, A Joey LACE PINNER Unavailable Unavailable Profetto, A Joey LACE PINNER Unavailable Unavailable Profetto, A Joey LACE PINNER Unavailable Unavailable Profetto, A Joey LACE PINNER Unavailable Unavailable Profetto, A Joey LACE PINNER Unavailable Unavailable Profetto, A Joey LACE PINNER Unavailable Unavailable Profetto, A Joey LACE PINNER Unavailable Unavailable Profetto, A Joey LACE PINNER Unavailable Unavailable Profetto, A Joey LACE PINNER Unavailable Unavailable Profetto, A Joey LACE PINNER Unavailable Unavailable Profetto, A Joey LACE PINNER Unavailable Unavailable Profetto, A Joey LACE PINNER Unavailable Unavailable Profetto, A Joey LACE PINNER Unavailable Unavailable Profetto, A Joey LACE PINNER Unavailable Unavailable Profetto, A Joey LACE PINNER Unavailable Unavailable Profetto, A Joey LACE PINNER Unavailable Unavailable IVIS (INA), Berta POE MD [...] MD Unavailable Unavailab le IVIS (INA), Berta OPE MD Unavailable Unavailab le IVIS (INA), Berta POE MD Unavailable Unavailab le IVIS (INA), Breta POE MD Unavailable Unavailab le IVSI (INA), Berta POE MD Unavailable Unavailab le [...] Rylee Barber MD Unavailable Unavailable Jagdish, Rylee Babrer MD Unavailable Unavailable Jagdish, Rylee Barber MD [...] Marcos Peterson MD Unavailable Unavailable Shambo, Marcos ePterson MD Unavailable Unavailable Shambo, Marcos Peterson MD [...] Marcos Peterson MD Unavailable Unavailable Wells, Aisha LACE PINNER Unavailable Unavailable Wells, Aisha LACE PINNER Unavailable Unavailable Wells, Aisha LACE PINNER Unavailable Unavailable Wells, Aisha LACE PINNER Unavailable Unavailable Wells, Aisha LACE PINNER Unavailable Unavailable Wells, Aisha LACE PINNER Unavailable Unavailable Wells, Aisha LACE PINNER Unavailable Unavailable Wells, Aisha LACE PINNER Unavailable Unavailable Wells, Aisha LACE PINNER Unavailable Unavailable Wells, Aisha LACE PINNER Unavailable Unavailable Wells, Aisha LACE PINNER Unavailable Unavailable Wells, Aisha LACE PINNER Unavailable Unavailable Wells, Aisha LACE PINNER Unavailable Unavailable Wells, Aisha LACE PINNER Unavailable Unavailable Wells, Aisha LACE PINNER Unavailable Unavailable Wells, Aisha LACE PINNER Unavailable Unavailable Wells, Aisha LACE PINNER Unavailable Unavailable Wells, Aisha LACE PINNER Unavailable Unavailable PIETRZAK, Gino XIEE M.S.N, R.N., [...] Shambo, Marcos Peterson MD Unavailable Unavailable Shambo, aMrcos Peterson MD Unavailable Unavailable Shambo, Marcos Peterson [...] Marcos Peterson MD Unavailable Unavailable Shambo, Marcos Peterosn MD Unavailable Unavailable Shambo, Marcos Peterson MD [...] is protected by Article 27-F of the [place] Public Health law. If you continue you may have access to information: Regarding HIV / AIDS; Provided by facilities licensed or operated by the [facility] Office of Mental Health; or Provided by the [facility] Office for People With Developmental Disabilities. If such information is present, then the following [facility] mandated warning applies: This information has [...] law may result in a fine or half-way sentence or both. A general authorization for the release of medical or other information is NOT sufficient authorization for further disc losure. Allergies and Adverse Reactions Type Description Substance Reaction Status Data Source(s ) Drug allergy gabapentin gabapentin confusion [facility] Drug allergy ciprofloxacin Ciprofloxacin Diarrhea [facility] Drug allergy sulfamethoxazole Sulfamethoxazole Anaphylaxis SV [facility] Drug allergy Penicillins Penicillin PASSED OUT AND WENT BLIND [facility] Encounters Encounter Providers Location Date Indications Data Source(s ) Outpatient Attender: DORA HEWITT DPM PCConsultant: SPECHui BECKHAM NOT 08/10/2020 10:59:00 AM [facility] - 08/10/2020 10:59:00 AM [facility] Outpatient Attender: ZOË ERICKSON 07/11/2020 12:44:00 PM EST N18.4 [facility] N18.4 Outpatient Attender: Nicholas Scanlon MDReferrer: iNcholas Scanlon MD 07/11/2020 11:00:00 AM EST - 07/11/2020 11:33:00 AM EST [facility] Outpatient Attender: LESLI Schafer, R.N., N .P CMP [facility] [place] 05/24/2020 03:00:00 PM EDT [facility] ([facility]) Outpatient Attender: DORA HEWITT DPM [facility] 05/11/2020 10:57:00 AM EDT - 05/11/2020 10:57:00 AM EDT [facility] Outpatient Attender: Aisha Rodriguez FNPAttender: Oscar Rodriguez Jr 05/05/2020 09:23:00 AM EDT ACUTE PANCREATITIS [facility] ACUTE PANCREATITIS Outpatient Attender: Aisha Michael LACE PINNER 04/29/2020 08:57:00 A M EDT K85.90 [facility] K85.90 Attender: LUI BROTHERS) MDReferrer: Anirudh Goldman [...] [facility] Attender: ULI LANGSTON ([place]) MDReferrer: Anirudh Goldman MD 02/18/2020 08:20:06 PM EDT [facility] Outpatient Referrer: LUI LANGSTON MD ([place]) 0 01:33:33 PM EDT [facility] ( in Healthcare facility) Attender: GAGAN TRAVISAttender: GONSALO CALDERA MDAdmitter: GONSALO CALDERA MDConsultant: Nicholas Scanlon MD 02/07/2020 02:39:00 PM EDT [facility] Inpatient Attender: GONSALO CALDERA MD 02/07/2020 02:39:00 PM EDT [facility] Inpatient Attender: JOCELIN TRAVIS MD Attender: GONSALO CALDERA MDAttender: ER PHYSICIANAdmitter: GONSALO CALDERA MD 02/07/2020 10:30:53 AM EDT [facility] Inpatient Attender: JOCELIN Mehta jethro: GONSALO CALDERA MDAttender: ER PHYSICIANAdmitter: GONSALO CALDERA MD 02/07/2020 09:11:00 A M EDT - 02/15/2020 03:25:00 PM EDT ACUTE KIDNEY INJURY [facility] ACUTE KIDNEY INJURY Patient discharged. Outpatient Referrer: PROVIDER SYSTEM [id number] 02/07/2020 02:5 1:00 AM EDT pancreatic mass, pancreatitis, chest pain [facility] pancreatic mass, pancreatitis, chest rachele n Emergency Attender: Anabel Robles MD 02/05 08:49:00 PM EDT - 02/07/2020 07:39:00 AM EDT CHEST PAIN, STOMACH PAIN [facility] CHEST PAIN, STOMACH PAIN Patient discharged. Outpatient Attender: Nicholas Scanlon MDReferrer: Nicholas Scanlon MD 02/05/2020 10:53:00 AM EDT - 02/05/2020 11:18:00 AM EDT [facility] Outpatient Attender: Ashley Vyas MD 02/05/2020 12: 00:00 AM EDT N17.9,E11.22,M1A.30X0,N18.4,I50.32,N25.81,I15.0 [facility] N17.9,E11.22,M1A.30X0,N18.4,I50.32,N25.8 1,I15.0 Outpatient Attender: Nicholas Scanlon MD 02/02/2020 01:20:00 P M EDT SHOULDER PAIN [facility] SHOULDER PAIN Outpatient Attender: DORA HEWITT DPM PC 01/27/2020 10:41:00 AM EDT - 01/27/2020 10:41:00 AM EDT [facility] Outpatient Attender: Nicholas BANERJEEeferrer: Nicholas Scanlon MD 01/11/2020 10:39:00 AM EDT - 01/11/2020 11:26:00 AM EDT [facility] Outpatient Attender: Sunil Goldman MD 01/05/2020 08:00:00 AM EDT PT HAS THE ORDER [facility] PT HAS THE ORDER Outpatient Attender: Alexandria Loganerrcaridad: Nicholas lopez MD 11/02/2019 12:20:25 PM EST [facility] Outpatient Attender: Nicholas Turnererrcaridad: Nicholas Scanlon MD 10/12/2019 02:49:00 PM EST - 10/12/2019 03:55:00 PM EST [facility] Recurring Patient Attender: Joey Lopez FNPReferrer: Desean mckenzie MD 09/21/2019 12:43:52 PM EST [facility] Recurring Patient Attender: Joey Lopez FNPReferrer: Desean mckenzie MD 09/21/2019 12:43:37 PM EST [facility] Outpatient Attender: Sunil Goldman MD CMP Internal Med [facility] [place] 09/18/2019 09:15:00 AM EST [facility] Recurring Patient Attender: Joey Lopez FNPReferrer: Desean mckenzie MD 2019 08:39:40 AM EST [facility] Outpatient Attender: LETI HAMMOND PA-CReferrer: Nicholas lopez MD 09/16/2019 04:09:11 PM EST [facility] Outpatient Attender: DORA HEWITT DPM PC 08/31/2019 08:56:00 AM EST - 08/31/2019 08:56:00 AM EST [facility] Medications Medication Brand Name Start Date Product Form Dose Route Admi nistrative Instructions Pharmacy Instructions Status Indications Reaction Description Data Source(s) BLOOD SUGAR DIAGNOSTIC 08/12/2020 12:00:00 AM EST strip 200 USE TO TEST TWICE A DAY USE TO TEST TWICE A DAY SOLD: 08/13/2020 [facility] Amlodipine 10 MG Oral Tablet Amlodipine 06/23/2020 07:56:50 AM EDT 10 MG active [facility] 10 mg 06/23/2020 12:00:00 AM EDT [...] e 06/07/2020 11:30:05 AM EDT 2.5 MG [facility] 24 HR Glipizide 2.5 MG Extended Release Oral Tablet Glipizid e 06/07/2020 11:29:24 AM EDT 2.5 MG completed [facility] Metoprolol Tartrate 25 MG Oral Tablet Metoprolol Tartrate 09:51:37 AM EDT 25 MG active [facility] Metoprolol Tartrate 25 MG Oral Tablet Metoprolol Tartrate 09:51:01 AM EDT 25 MG completed [facility] 25 mg 05/26/2020 12:00:00 AM EDT tablet [...] 03/14/2020 10:43:48 AM EDT 1 00 active [facility] 24 HR Glipizide 2.5 MG Extended Release Oral Tablet Glipizid e 03/08/2020 01:25:08 PM EDT 2.5 MG [facility] Blood Sugar Diagnostic (RethinkDBuch Verio Test Strips) strip 02/29/2020 12:39:56 PM EDT 1 EACH active [facility] Febuxostat 02/18/2020 03:16:42 PM EDT 40 MG active [facility] ezetimibe 10 MG Oral Tablet Ezetimibe (Zetia) 10 mg ta blet Ezetimibe (Zetia) 10 mg tablet 02/18/2020 03:16:24 PM EDT 10 MG [facility] Amlodipine 10 MG Oral Tablet Amlodipine 02/18/2020 03:16:09 PM EDT 10 MG [facility] ezetimibe 10 MG Oral Tablet Ezetimibe (Zetia) 10 mg ta blet Ezetimibe (Zetia) 10 mg tablet 02/18/2020 03:15:26 PM EDT 10 MG [facility] Febuxostat 02/18/2020 03:15:05 PM EDT 40 MG comple [facility] Amlodipine 10 MG Oral Tablet Amlodipine 02/18/2020 03:14:53 PM EDT 10 MG [facility] Potassium Chloride 10 MEQ Extended Release Oral Capsule Pota ssium Chloride 02/02/2020 12:20:16 PM EDT 10 MEQ active [facility] Potassium Chloride 10 MEQ Extended Release Oral Capsule Pota ssium Chloride 02/02/2020 12:20:16 PM EDT 10 MEQ active [facility] Potassium Chloride 10 MEQ Extended Release Oral Capsule Pota ssium Chloride 02/02/2020 12:20:16 PM EDT 10 MEQ [facility] sitagliptin 50 MG Oral Tablet Sitagliptin Sitagliptin 02/02/2020 12:19:38 PM EDT 50 MG active [facility] sitagliptin 50 MG Oral Tablet Sitagliptin Sitagliptin 02/02/2020 12:19:38 PM EDT 50 MG active [facility] sitagliptin 50 MG Oral Tablet Sitagliptin Sitagliptin 02/02/2020 12:19:38 PM EDT 50 MG active [facility] Prednisone 20 MG Oral Tablet Prednisone 02/02/2020 12:15:58 PM EDT 20 MG active [facility] Prednisone 20 MG Oral Tablet Prednisone 02/02/2020 12:15:58 PM EDT 20 MG active [facility] Prednisone 20 MG Oral Tablet Prednisone 02/02/2020 12:15:58 PM EDT 20 MG active [facility] 20 mg 02/02/2020 12:00:00 AM EDT tablet 10 TAKE ONE TABLET BY MOUTH EVERY DAY TAKE ONE TABLET BY MOUTH EVERY DAY SOLD: 02/02/2020 [facility] Potassium Chloride 10 MEQ Extended Release Oral Capsule Pota ssium Chloride 01/11/2020 11:19:28 AM EDT 10 MEQ [facility] Potassium Chloride 10 MEQ Extended Release Oral Capsule Pota ssium Chloride 01/11/2020 11:19:28 AM EDT 10 MEQ [facility] Potassium Chloride 10 MEQ Extended Release Oral Capsule Pota ssium Chloride 01/11/2020 11:19:28 AM EDT 10 MEQ active [facility] Potassium Chloride 10 MEQ Extended Release Oral Capsule Pota ssium Chloride 01/11/2020 11:19:28 AM EDT 10 MEQ [facility] Potassium Chloride 10 MEQ Extended Release Oral Capsule Pota ssium Chloride 01/11/2020 11:19:28 AM EDT 10 MEQ active [facility] sitagliptin 50 MG Oral Tablet Sitagliptin Sitagliptin 01/11/2020 11:18:20 AM EDT 50 MG completed [facility] sitagliptin 50 MG Oral Tablet Sitagliptin Sitagliptin 01/11/2020 11:18:20 AM EDT 50 MG completed [facility] sitagliptin 50 MG Oral Tablet Sitagliptin Sitagliptin 01/11/2020 11:18:20 AM EDT 50 MG completed [facility] sitagliptin 50 MG Oral Tablet Sitagliptin Sitagliptin 01/11/2020 11:18:20 AM EDT 50 MG active [facility] sitagliptin 50 MG Oral Tablet Sitagliptin Sitagliptin 01/11/2020 11:18:20 AM EDT 50 MG active [facility] glimepiride 1 MG Oral Tablet Glimepiride Glimepiride 11:17:48 AM EDT 1 MG active [facility] glimepiride 1 MG Oral Tablet Glimepiride Glimepiride 11:17:48 AM EDT 1 MG completed [facility] glimepiride 1 MG Oral Tablet Glimepiride Glimepiride 11:17:48 AM EDT 1 MG active [facility] glimepiride 1 MG Oral Tablet Glimepiride Glimepiride 11:17:48 AM EDT 1 MG active [facility] glimepiride 1 MG Oral Tablet Glimepiride Glimepiride 11:17:48 AM EDT 1 MG active [facility] gabapentin 300 MG Oral Capsule Gabapentin Gabapentin 2019 11:16:59 AM EDT 300 MG completed [facility] gabapentin 300 MG Oral Capsule Gabapentin Gabapentin 2019 11:16:59 AM EDT 300 MG completed [facility] gabapentin 300 MG Oral Capsule Gabapentin Gabapentin 2019 11:16:59 AM EDT 300 MG active [facility] gabapentin 300 MG Oral Capsule Gabapentin Gabapentin 2019 11:16:59 AM EDT 300 MG completed [facility] gabapentin 300 MG Oral Capsule Gabapentin Gabapentin 2019 11:16:59 AM EDT 300 MG completed [facility] sitagliptin 50 MG Oral Tablet Sitagliptin Sitagliptin 12/30/2019 02:26:00 PM EDT 50 MG completed [facility] sitagliptin 50 MG Oral Tablet Sitagliptin Sitagliptin 12/30/2019 02:26:00 PM EDT 50 MG completed [facility] sitagliptin 50 MG Oral Tablet Sitagliptin Sitagliptin 12/30/2019 02:26:00 PM EDT 50 MG completed [facility] sitagliptin 50 MG Oral Tablet Sitagliptin Sitagliptin 12/30/2019 02:26:00 PM EDT 50 MG completed [facility] sitagliptin 50 MG Oral Tablet Sitagliptin Sitagliptin 12/30/2019 02:26:00 PM EDT 50 MG completed [facility] Blood Sugar Diagnostic 12/30/2019 02:25:23 PM EDT 1 EACH active [facility] Blood Sugar Diagnostic (Fabianatouch Verio) strip 12/30/19 02:25:23 PM EDT [address] [facility] Blood Sugar Diagnostic 12/30/2019 02:25:23 PM EDT 1 EACH active [facility] Blood Sugar Diagnostic 12/30/2019 02:25:23 PM EDT 1 EACH active [facility] Blood Sugar Diagnostic 12/30/2019 02:25:23 PM EDT 1 EACH active [facility] BLOOD SUGAR DIAGNOSTIC 12/30/2019 12:00:00 AM EDT [...] 12/21/2019 12:06:07 PM EDT 50 MG completed [facility] sitagliptin 50 MG Oral Tablet Sitagliptin Sitagliptin 12/21/2019 12:06:07 PM EDT 50 MG completed [facility] sitagliptin 50 MG Oral Tablet Sitagliptin Sitagliptin 12/21/2019 12:06:07 PM EDT 50 MG completed [facility] sitagliptin 50 MG Oral Tablet Sitagliptin Sitagliptin 12/21/2019 12:06:07 PM EDT 50 MG completed [facility] sitagliptin 50 MG Oral Tablet Sitagliptin Sitagliptin 12/21/2019 12:06:07 PM EDT 50 MG completed [facility] 3 ML Insulin Glargine 100 UNT/ML Pen Injector Insulin Glargi ne 10/12/2019 03:44:45 PM EST 10 UNIT active [facility] 3 ML Insulin Glargine 100 UNT/ML Pen Injector Insulin Glargi ne 10/12/2019 03:44:45 PM EST 10 UNIT active [facility] 3 ML Insulin Glargine 100 UNT/ML Pen Injector Insulin Glargi ne 10/12/2019 03:44:45 PM EST 10 UNIT active [facility] 3 ML Insulin Glargine 100 UNT/ML Pen Inj chriss Insulin Glargine (Lantus Solostar U-100 Insulin) 100 unit/mL (3 mL) insulin pen Insulin Glargine (Lantus Solostar U-100 Insulin) 100 unit/mL (3 mL) insulin pen 10/12/2019 03:44:45 PM EST 10 UNIT active [facility] 3 ML Insulin Glargine 100 UNT/ML Pen Injector Insulin Glargi ne 10/12/2019 03:44:45 PM EST 10 UNIT active [facility] 3 ML Insulin Glargine 100 UNT/ML Pen Injector Insulin Glargi ne 10/12/2019 03:44:45 PM EST 10 UNIT active [facility] glimepiride 1 MG Oral Tablet Glimepiride Glimepiride 01:00:22 PM EST 1 MG completed [facility] glimepiride 1 MG Oral Tablet Glimepiride Glimepiride 01:00:22 PM EST 1 MG completed [facility] glimepiride 1 MG Oral Tablet Glimepiride Glimepiride 01:00:22 PM EST 1 MG completed [facility] glimepiride 1 MG Oral Tablet Glimepiride Glimepiride 01:00:22 PM EST 1 MG completed [facility] glimepiride 1 MG Oral Tablet Glimepiride Glimepiride 01:00:22 PM EST 1 MG active [facility] glimepiride 1 MG Oral Tablet Glimepiride Glimepiride 01:00:22 PM EST 1 MG completed [facility] glimepiride 1 MG Oral Tablet Glimepiride Glimepiride 12:59:22 PM EST 1 MG completed [facility] glimepiride 1 MG Oral Tablet Glimepiride Glimepiride 12:59:22 PM EST 1 MG completed [facility] glimepiride 1 MG Oral Tablet Glimepiride Glimepiride 12:59:22 PM EST 1 MG completed [facility] glimepiride 1 MG Oral Tablet Glimepiride Glimepiride 12:59:22 PM EST 1 MG completed [facility] glimepiride 1 MG Oral Tablet Glimepiride Glimepiride 12:59:22 PM EST 1 MG completed [facility] glimepiride 1 MG Oral Tablet Glimepiride Glimepiride 12:59:22 PM EST 1 MG completed [facility] glimepiride 1 MG Oral Tablet GLIMEPIRIDE 09/29/2019 12:00:00 AM EST ta blet 30 TAKE ONE TABLET BY MOUTH EVERY MORNING WITH BREAKFAST TAKE ONE TABLET BY MOUTH EVERY MORNING WITH BREAKFAST SOLD: 10/01/2019 [facility] sitagliptin 50 MG Oral Tablet Sitagliptin Sitagliptin 09/14/2019 08:29:14 AM EST 50 MG active [facility] sitagliptin 50 MG Oral Tablet Sitagliptin Sitagliptin 09/14/2019 08:29:14 AM EST 50 MG completed [facility] sitagliptin 50 MG Oral Tablet Sitagliptin Sitagliptin 09/14/2019 08:29:14 AM EST 50 MG completed [facility] sitagliptin 50 MG Oral Tablet Sitagliptin Sitagliptin 09/14/2019 08:29:14 AM EST 50 MG completed [facility] sitagliptin 50 MG Oral Tablet Sitagliptin Sitagliptin 09/14/2019 08:29:14 AM EST 50 MG completed [facility] sitagliptin 50 MG Oral Tablet Sitagliptin Sitagliptin 09/14/2019 08:29:14 AM EST 50 MG completed [facility] Pen Needle, Diabetic (Droplet Pen Needle) 31 gauge x 5/16" n eedle 06/08/2019 10:30:41 AM EDT 1 00 completed [facility] Insulin Glargine 100 UNT/ML Injectable Solution [Lantus] Ins ulin Glargine 06/08/2019 10:29:43 AM EDT 10 UNIT completed [facility] Insulin Glargine 100 UNT/ML Injectable S olution [Lantus] Insulin Glargine (Lantus U-100 Insulin) 100 unit/mL solution Insulin Glargine (Lantus U-100 Insulin) 100 unit/mL solution 06/08/2019 10:29:43 AM EDT 10 UNIT completed [facility] Insulin Glargine 100 UNT/ML Injectable Solution [Lantus] Ins ulin Glargine 06/08/2019 10:29:43 AM EDT 10 UNIT completed [facility] Insulin Glargine 100 UNT/ML Injectable Solution [Lantus] Ins ulin Glargine 06/08/2019 10:29:43 AM EDT 10 UNIT completed [facility] Insulin Glargine 100 UNT/ML Injectable Solution [Lantus] Ins ulin Glargine 06/08/2019 10:29:43 AM EDT 10 UNIT completed [facility] Insulin Glargine 100 UNT/ML Injectable Solution [Lantus] Ins ulin Glargine 06/08/2019 10:29:43 AM EDT 10 UNIT completed [facility] Febuxostat 05/21/2019 05:11:38 PM EDT 40 MG comple [facility] sitagliptin 50 MG Oral Tablet Sitagliptin Sitagliptin 05/21/2019 05:10:20 PM EDT 50 MG completed [facility] sitagliptin 50 MG Oral Tablet Sitagliptin Sitagliptin 05/21/2019 05:10:20 PM EDT 50 MG completed [facility] sitagliptin 50 MG Oral Tablet Sitagliptin Sitagliptin 05/21/2019 05:10:20 PM EDT 50 MG completed [facility] sitagliptin 50 MG Oral Tablet Sitagliptin Sitagliptin 05/21/2019 05:10:20 PM EDT 50 MG completed [facility] sitagliptin 50 MG Oral Tablet Sitagliptin Sitagliptin 05/21/2019 05:10:20 PM EDT 50 MG completed [facility] sitagliptin 50 MG Oral Tablet Sitagliptin Sitagliptin 05/21/2019 05:10:20 PM EDT 50 MG completed [facility] Amlodipine 10 MG Oral Tablet Amlodipine 02/20/2019 08:23:22 AM EDT 10 MG completed [facility] glimepiride 4 MG Oral Tablet Glimepiride Glimepiride 019 10:28:15 AM EDT 1 MG completed [facility] glimepiride 4 MG Oral Tablet Glimepiride Glimepiride 019 10:28:15 AM EDT 1 MG completed [facility] glimepiride 4 MG Oral Tablet Glimepiride Glimepiride 10:28:15 AM EDT 1 MG completed [facility] glimepiride 4 MG Oral Tablet Glimepiride Glimepiride 10:28:15 AM EDT 1 MG completed [facility] glimepiride 4 MG Oral Tablet Glimepiride Glimepiride 10:28:15 AM EDT 1 MG completed [facility] glimepiride 4 MG Oral Tablet Glimepiride Glimepiride 10:28:15 AM EDT 1 MG [facility] Metoprolol Tartrate 25 MG Oral Tablet Metoprolol Tartrate 11:01:00 AM EDT 25 MG completed [facility] Potassium Chloride 10 MEQ Extended Release Oral Capsule Pota ssium Chloride 12/29/2018 11:01:00 AM EDT 10 MEQ [facility] Potassium Chloride 10 MEQ Extended Release Oral Capsule Pota ssium Chloride 12/29/2018 11:01:00 AM EDT 10 MEQ completed [facility] Potassium Chloride 10 MEQ Extended Release Oral Capsule Pota ssium Chloride 12/29/2018 11:01:00 AM EDT 10 MEQ completed [facility] Potassium Chloride 10 MEQ Extended Release Oral Capsule Pota ssium Chloride 12/29/2018 11:01:00 AM EDT 10 MEQ completed [facility] Potassium Chloride 10 MEQ Extended Release Oral Capsule Pota ssium Chloride 12/29/2018 11:01:00 AM EDT 10 MEQ [facility] ezetimibe 10 MG Oral Tablet Ezetimibe (Zetia) 10 MG ta blet Ezetimibe (Zetia) 10 MG tablet 11/21/2018 10:12:00 AM EDT 10 MG completed [facility] Blood Sugar Diagnostic 10/10/2018 12:11:00 PM EST 1 EACH completed [place] [facility] 10/10/2018 12:11:00 PM EST 1 EACH completed [facility] Blood Sugar Diagnostic (Onetouch Verio) 1 EACH strip 10/10/2018 12:11:00 PM EST 1 EACH completed [facility] Blood Sugar Diagnostic 10/10/2018 12:11:00 PM EST 1 EACH completed [facility] Blood Sugar Diagnostic 10/10/2018 12:11:00 PM EST 1 EACH completed [facility] BLOOD SUGAR DIAGNOSTIC 10/10/2018 12:00:00 AM EST strip 100 USE TO TEST TWO TIMES A DAY USE TO TEST TWO TIMES A DAY SOLD: 09/24/2019 [facility] Insurance Providers Payer name Policy type / Coverage type Policy ID Covered democrat ID Covered democrat's relationship to hill Policy [place] Plan Information MEDICARE [id number] SP [id number] [facility] [id number] SP [id number] MEDICARE PART A [facility] [id number] 18 [id number] [facility] [id number] 18 [id number] [facility] [id number] Medicare Part B [facility] [id number] 0 [id number] MEDICARE [facility] [id number] S [id number] [id number] MEDICARE [facility] [id number] S [id number] J07 [facility] [id number] S [id number] Medicare C [id number] SELF [id number] J07 DME Jurisdiction A [facility] C [id number] SELF [id number] [facility] [id number] SELF [id number] MEDICARE [id number] Evonne [id number] J07 [facility] [phone] Evonne [id number] Medicare Part B [facility] Other 0 Se lf 0 Medicare Part B of [facility] Other 0 Se lf 0 MEDICARE [id number] SP [id number] D Medicare Part B of [facility] Other 0 Se lf 0 MEDICARE PI PI Medicare Part B of [facility] Other 0 Se lf 0 Medicare Part B of [facility] Other 0 Se lf 0 Medicare Part B of [facility] Other 0 Se lf 0 [id number] Evonne [id number] MEDICARE [id number] Evonne [id number] J07 [facility] [id number] 0 [id number] Medicare Part B [facility] [id number] UNAVAILABLE [place] BLE MEDICARE MCA [id number] S [id number] D MEDICARE MCA [id number] S [id number] D Medicare C [id number] SELF [id number] D PI PI MEDICARE [id number] Evonne [id number] D MEDICARE PART A [facility] [id number] 18 [id number] Medicare Part B of [facility] Other 0 Se lf 0 Medicare Part B of [facility] 0 Se lf 0 Medigap Part B [id number] Self [id number] Medicare Medicare Primary [id number] Self [id number] Medicare Part B of [facility] 0 Se lf 0 Medicare Part B of [facility] 0 Se lf 0 Medicare Part B of [facility] 0 Se lf 0 Medicare Part B of [facility] 0 Se lf 0 MEDICARE [id number] Evonne [id number] D CENTER-O/P [id number] 18 [id number] MEDICARE -O/P [id number] 18 [id number] UNAVAILABLE Evonne UNAVAILA BLE Problems, Conditions, and Diagnoses Code Display Name Description Problem Type Effective Dates Data Source(s) 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 B351 Tinea unguium Tinea unguium Diagnosis 08/10/2020 10:59:00 AM [facility] L84 Corns and callosities Corns and callosities Diagnosis 08/10/2020 10:59:00 AM [facility] E1051 Type 1 diabetes mellitus wit h diabetic peripheral angiopathy without gangrene Type 1 diabetes mellitus with diabetic p eripheral angiopathy without gangrene Diagnosis 08/10/2020 10:59:00 AM [facility] pancreatic mass, pancreatitis, chest rachele n pancreatic mass, pancreatitis, chest pain Diagnosis 02/07/2020 02:51:00 AM EDT [facility] [id number] Bunionette of unspecified foot Bunionette of unspecifi ed foot Diagnosis 01/27/2020 10:41:00 AM EDT [facility] [id number] Pain in right foot Pain in right foot Diagnosis 10:41:00 AM EDT [facility] I739 Peripheral vascular disease, unspecified Peripheral vascular disease, unspecified Diagnosis 08/31/2019 08:56:00 AM [facility] Surgeries/Procedures Procedure Description Date Indications Data Source(s) ECG Monitor/Recording W/Visual Superimposition Scanning 07/13/2020 12:00:00 AM EST [facility]) Doppler Echocardiography Color Flow Velocity Mapping 07/13/2020 12:00:00 AM EST [facility] ([facility]) Pare Hyperkeratotic Lesion, 2-4 05/11/2020 12:00:00 AM EDT [facility] ([facility]) Debridement Nails Any Method 6 Or More 05/11/2020 12:0 0:00 AM EDT [facility] ([facility]) MRI Abdomen without contrast 05/05/2020 10:18:00 AM ED T [facility] CT Abd/pel w/o contrast 02/07/2020 01:02:00 AM EDT [facility] CT Abd/pel w/o contrast 02/07/2020 01:02:00 AM EDT [facility] Electrocardiogram Interpretation & Report Only 020 12:00:00 AM EDT [facility] ([facility]) Plain chest X-ray (procedure) 02/06/2020 09:18:[address] [facility] Plain chest X-ray (procedure) 02/06/2020 09:18:[address] [facility] Xray Shoulder complete RT 02/02/2020 01:41:00 PM EDT [facility] Xray Shoulder complete RT 02/02/2020 01:41:00 PM EDT [facility] Xray Shoulder complete RT 02/02/2020 01:41:00 PM EDT [facility] Pare Hyperkeratotic Lesion, 2-4 01/27/2020 12:00:00 AM EDT [facility] ([facility]) Debridement Nails Any Method 6 Or More 01/27/2020 12:0 0:00 AM EDT [facility] ([facility]) Electrocardiogram Complete 09/18/2019 12:00:00 AM EST [facility] ([facility]) Echocardiography, Tranthoracic Real-Time Image Documentation 09/18/2019 12:00:00 AM EST [facility]) Pare Hyperkeratotic Lesion, 2-4 08/31/2019 12:00:00 AM EST [facility] ([facility]) Debridement Nails Any Method 6 Or More 08/31/2019 12:0 0:00 AM EST [facility] ([facility]) Results ID Date Data Source [id number] 07/13/2020 04:19:00 PM EST [facility]) Name Value Range Interpretation Code Description Data Yumiko rce(s) Supporting Document(s) Holter Monitor Application 24 hours Laboratory test result [facility] ([facility]) ID Date Data Source [id number] 07/11/2020 01:26:00 PM [facility] Method of Collection:: Voided Name Value Range Interpretation Code Description Data Yumiko rce(s) Supporting Document(s) Color of Urine [facility] Appearance of Urine CLEAR [facility] pH of Urine by Test strip 5.5 5-8 [facility] Specific gravity of Urine by Refractometry 1.009 1.005-1.030 [facility] Leukocyte esterase [Presence] in Urine by Test strip NEGAT LJ [facility] Nitrite [Presence] in Urine by Test strip NEGATIVE [facility] Protein [Presence] in Urine by Test strip NEGATIVE [facility] Glucose [Mass/volume] in Urine by Automated test strip NEGATIVE NEG ATIVE [facility] Ketones [Presence] in Urine by Test strip NEGATIVE [facility] Urobilinogen [Presence] in Urine 0.2-1 EU/dl [facility] Bilirubin.total [Presence] in Urine by Automated test strip NEGATIVE [facility] Erythrocytes [#/volume] in Urine by Test strip NEGATIVE NEGATIVE [facility] URINE MICROSCOPIC ADDED NO [facility] ID Date Data Source [id number] 07/11/2020 01:08:00 PM EST [facility] Method of Collection:: Voided Name Value Range Interpretation Code Description Data Yumiko rce(s) Supporting Document(s) Leukocytes [#/volume] in Blood by Automated count 7.4 10*3/uL 4.45-10 .71 N [facility] Erythrocytes [#/volume] in Blood by Automated count 4.07 10*6/uL 4.20-5.40 Below low normal [facility] Hemoglobin [Moles/volume] in Blood 12.8 g/dL 10.7-15.4 N [facility] Hematocrit [Volume Fraction] of Blood by Automated count 39.8 % 3 7-47 N [facility] Erythrocyte mean corpuscular volume [Ent itic volume] in Cord blood by Automated count 97.8 fL 80-96 Above high normal [facility] Erythrocyte mean corpuscular hemoglobin [Entitic mass] by Automated count 31.4 pg 27-31 Above high normal [facility] spital Erythrocyte mean corpuscular hemoglobin concentration [Mass/volume] in Cord blood 32.2 g/dL 33-37 Below low normal [facility] Erythrocyte distribution width [Entitic volume] by Automated count 14 % 11-15 N [facility] Platelets [#/volume] in Blood by Automated count 293 10*3/uL 130-472 N [facility] Platelet mean volume [Entitic volume] in Blood 11.7 fL 9.1-13.1 [facility] Neutrophils/100 leukocytes in Blood by Automated count 35.0 % 41-77 Below low normal [facility] Neutrophils [#/volume] in Blood by Automated count 2.6 U 1.7-7.6 N [facility] Lymphocytes/100 leukocytes in Blood by Automated count 46.1 % 14-46 Above high normal [facility] Lymphocytes [#/volume] in Blood by Automated count 3.4 U 0.6-4.6 N [facility] Monocytes/100 leukocytes in Blood by Automated count 10.3 % 4-12 N [facility] Monocytes [#/volume] in Blood by Automated count 0.8 U 0.2-1.2 N [facility] Eosinophils/100 leukocytes in Blood by Automated count 6.6 % 0-7 N [facility] Eosinophils [#/volume] in Blood by Automated count 0.5 U 0.0-0.5 N [facility] Basophils/100 leukocytes in Blood by Automated count 1.9 % 0.4-1.3 Above high normal [facility] Basophils [#/volume] in Blood by Automated count 0.1 U 0.0-0.2 N [facility] NUCLEATED RED BLOOD CELL 0 % [facility] NUCLEATED RED BLOOD CELL# 0 U [facility] Immature granulocytes [Presence] in Blood by Automated count 0-2 N [facility] Immature granulocytes [#/volume] in Blood by Automated count 0.0 U 0-0.1 N [facility] Manual Differential panel - Blood NO [facility] ID Date Data Source [id number] 07/11/2020 02:01:00 PM EST [facility] Method of Collection:: Voided Name Value Range Interpretation Code Description Data Yumiko rce(s) Supporting Document(s) Urea nitrogen [Mass/volume] in Serum or Plasma 58 mg/dL 9-23 Above high normal [facility] Sodium [Moles/volume] in Serum or Plasma 141 mmol/L 132-146 N [facility] Potassium [Moles/volume] in Serum or Plasma 5.1 mmol/L 3.5-5.5 N [facility] Chloride [Moles/volume] in Serum or Plasma 105 mmol/L 99-109 N [facility] Carbon dioxide, total [Moles/volume] in Serum or Plasma 30 mmol/L 20 -31 N [facility] Anion gap in Serum or Plasma 11 mmol/L 8-16 N [facility] Glucose [Mass/volume] in Serum or Plasma 96 mg/dL 74-106 N [facility] Creatinine 2.2 mg/dL 0.5-1.1 Above high normal [facility] Glomerular filtration rate/1.73 sq M.pre dicted [Volume Rate/Area] in Serum or Plasma 21 ml/min ABOVE 60 [facility] ital Calcium [Mass/volume] in Serum or Plasma 9.6 mg/dL 8.5-10.1 [facility] Albumin [Mass/volume] in Serum or Plasma by Bromocresol purple (BCP) dye binding method 3.8 g/dL 3.2-4.8 N [facility] ital Phosphate [Mass/volume] in Serum or Plasma 3.8 mg/dL 2.4-5.1 [facility] ID Date Data Source [id number] 07/12/2020 10:36:00 AM [facility] Method of Collection:: Voided Name Value Range Interpretation Code Description Data Yumiko rce(s) Supporting Document(s) Parathyrin.intact [Mass/volume] in Serum or Plasma 75 pg/mL 14-64 Above high normal [facility] Interpretive Guide Intact PTH Calcium -------Normal Parathyroid Normal NormalHypoparathyroidism Low or Low Normal LowHyperparathyroidism Primary Normal or High High Secondary High Normal or Low Tertiary High HighNon- Parathyroid Hypercalcemia Low or Low Normal HighTHIS TEST WAS PERFORMED AT:[employer] [id number] MERATI,MD ID Date Data Source [id number] 07/11/2020 02:01:00 PM [facility] Method of Collection:: Voided Name Value Range Interpretation Code Description Data Yumiko rce(s) Supporting Document(s) Urate [Mass/volume] in Serum or Plasma 3.7 mg/dL 3.3-8.8 [facility] ID Date Data Source [id number] 07/11/2020 10:56:00 AM [facility] Patient Name: TISHA SESAY DO B: 1935 Sex: F Pt Unit #: [id number] Location:[facility] Provider: Visit Date/Time: 07/11/20 Primary Insurance: MEDICARE [...] Screening Screening Have you traveled outside of [facility] or [facility] in the last 14 days.: No Has patient experienced coronavirus symptoms: No [facility] Medical History Asplenia Chronic low back pain [...] Acute Code(s): R00.2 - Palpitations SNOMED Code(s): 26343183 Category: Medical Plan - Nicholas Scanlon M.D.: stop the glipizide, return next week for recheck. Orders Other Medications: Discontinued: glipizide ER Discontinued Reason: Order 2.5 mg PO QDAY 14 tabs 0RF <Electronically signed by Nicholas Scanlon MD> 07/11/20 1134 Name Value Range Interpretation Code Description Data Yumiko rce(s) Supporting Document(s) ID Date Data Source [id number] 05/05/2020 11:02:00 AM EDT [facility] [address] [place] [address] [phone] NAME SEX PT STATUS ACCOUNT NUMBER TISHA SESAY REG REF [id number] ORDERING PHYSICIAN LOCATION MEDICAL RECORD NO. Oscar Rodriguez Jr MRI [id number] ATTENDING PHYSICIAN DATE OF DATE OF EXAM/TIME [...] rce(s) Supporting Document(s) ID Date Data Source [id number] 04/29/2020 10:28:00 AM EDT [facility] Name Value Range Interpretation Code Description Data Yumiko rce(s) Supporting Document(s) Urea nitrogen [Mass/volume] in Serum or Plasma 45 mg/dL 9-23 Above high normal [facility] Sodium [Moles/volume] in Serum or Plasma 141 mmol/L 132-146 [facility] Potassium [Moles/volume] in Serum or Plasma 4.6 mmol/L 3.5-5.5 [facility] Chloride [Moles/volume] in Serum or Plasma 106 mmol/L 99-109 N [facility] Carbon dioxide, total [Moles/volume] in Serum or Plasma 28 mmol/L 20 -31 N [facility] Anion gap in Serum or Plasma 12 mmol/L 8-16 N [facility] Glucose [Mass/volume] in Serum or Plasma 103 mg/dL 74-106 N [facility] Creatinine 2.1 mg/dL 0.5-1.1 Above high normal [facility] Glomerular filtration rate/1.73 sq M.pre dicted [Volume Rate/Area] in Serum or Plasma 22 ml/min ABOVE 60 [facility] ital Alanine aminotransferase [Enzymatic acti vity/volume] in Serum or Plasma by With P-5'-P 19 U/L 10-49 N [facility] ital Aspartate aminotransferase [Enzymatic ac tivity/volume] in Serum or Plasma by With P-5'-P 13 U/L 0-33 N [facility] pital Alkaline phosphatase [Enzymatic activity/volume] in Serum or Plasma 79 U/L 45-129 N [facility] Calcium [Mass/volume] in Serum or Plasma 9.6 mg/dL 8.5-10. 1 No range defined, or normal ranges don't apply [facility] Repeated by: China Monk 04/29/20 102 8.Result Confirmation: 9.4 mg/dL Bilirubin.total [Mass/volume] in Serum or Plasma 0.4 mg/dL 0.3-1.2 N [facility] Albumin [Mass/volume] in Serum or Plasma by Bromocresol purple (BCP) dye binding method 3.5 g/dL 3.2-4.8 N [facility] ital Protein [Mass/volume] in Serum or Plasma 6.9 g/dL 5.7-8.2 N [facility] ID Date Data Source [id number] 04/29/2020 10:28:00 AM EDT [facility] Name Value Range Interpretation Code Description Data Yumiko rce(s) Supporting Document(s) Lipase [Enzymatic activity/volume] in Serum or Plasma 178 U/L 73-3 93 N [facility] ID Date Data Source [id number] 04/26/2020 08:00:00 AM EDT [facility] Name Value Range Interpretation Code Description Data Yumiko rce(s) Supporting Document(s) Follow Up [facility] TIQDGa6nEkHFLzLfEZIxGweWXBwoNTqgLVYeD7K7NCmjXi7VADfglsGlXMEuBb2+NMVjSA7sdv9tYAWt gMy [file] dQZuyE22SR5MTBYSnBbkntyZpw0U+tank car loader/d+zRdbhJnl5smLbrONqhs746SXDxhTYssFLETDNMx7e8i9k [file] DlBcqHR9KAUIQbfzHm4184+2X59yvJxjc5rNhyyEKfU/c0eiWw4qAoxIwaKpmS5NJSLZq9DJORrr/Luis Alberto [file] Hall Clerk+iICleBwiIoJoaiPF46Gc7cZjk4eJ3XHBRaCVkRr [file] HYlC2hVcLNT3n8MugBsmirOrIBYWWQ4AwfCssWNC16NOJLnr4aRF64A3iWXo+SwPbHyvUhDddUjq/Da Silva fBYUuXL+Fja2PxpGBWO6WuZ5vpKgKNm+nnMaliMEEX4IobWVAiNJUtVWnQx4kjUdg70qlLHc/tiDsWaV Z08iTXC6MUA02GxL+GuT+jJ2O/ALHEf8EwwvC7MEUK EBMuLYfZk2pTl8Bajqn9qY4Pfhj1NxlFw+/1z1UQA9WJJM4bwFvy6+fixEpPEc3qSQrYw17GSL7PnE6Z aXvJxjUnb5KTJ6Dqlk7OhHcQbbUSQ8k55FnBXKK0633it2vl6EDyYB6Ffb2Ysl+piZPMIWvcLJF1MlB6 aRW7agfsjycCVJnB0i1jVlV35LJsXtQyypGVKXt1/9 nKB2uZc8LwGQjNofB35evMljxokm8ptZ3a9+oGAAPDSXJShwUKxQxXwvc42Rv4vd1JNQeDPDLzP+ 4iFKL+sAEKioQCmzOXpeu0sEE2hUT6lZ/x9jpjMmRR72wR/qe3K1b0NvzkRyaKJT8xbyxondzWRxKl+k a9AzonCOPj8ZrcZAEbAHcud3+zC5r3XK2vBAeQw1S8 q1IjNjhtFd4jkLlGxEtT8UdI8ykaFyH2Uqs4OkIASV2ziUz/In4Bs6Mv33Wbdci0Q3k6yyaTFk5D4gn6 x4YDrgb8fiwZiplz3Czc8LR973lpCyUupo+y47nruPEZ9ouI+WDpoW0m5Tihtf1fe0HCl+M1H+ki9GyT ytWZwIp6DuZObqTr85cMwM2Dd+ygGfu839+T85Lp+t c8K/HRfWtwIKuVgkHJecvVdcCpAhYpYfAyqc589VlblsMlBM5fTzBjlxfMfxJDGiuRXEajU+nDxqQA28 /kcXkFmc67ePWW9s+Ifgv/nt1UgSsXTJQtYA8swDF5KHdeUPuWSZNcfeymaOauoFy+W9WtpRzUM5/Refugio [file] XE36FQUX1z+FMv1dVwN/GMJlrUfJn6fLhk/KJW+Elena dyJ6ywOuIu9kB+XH2GEFzCCnLeP5wBVQC1i1ZvxIyns9eCljR3aQLE7nevQgMH257mNwC+g0NAlXegZ4 86OgnfXDSJS9Acm2qCh1vbcOWERdEUkYztMRMrE3/4U6IwS88ZT1YuapxBe9fSjuVNQn2wGZWtLuF/8a lhnX7K6iGgdDtQ5xmNN4277Cu8Sda9mI/mD8lTqbXU +zSZWJEw/cywbC4+QBuzvH1YE00xkll0F17H5JFbh2a5BExSwN43kXGnFvAsRKLRlCEyFzDmaIIaDw72 EcEVMExwu4OXGJpQfgTpSrEGUpWKIAtEsmZtcBGXN/felT8YFy4SOdVVigao3iQzh++IFrRJ3dWZR2Yd /YrBCzKj21MojkqlWzUWY0ELBhIFL0MbgdKYy9spNu 0PqVED5rS9tCP8jVF/BTYFfPw1a+basket hand weaver/P3SSB2rqZIguzujp4/ogw8L4KIYuwYOHg/yMCCuoqFY+XXDZ [file] xnYXVUmgVoMzhp7u2VLHblUOoytiixWOKKxjOMoD56nkvGo9814rQVx2nfk1GVEHIN94QWfMoxMu/tank car loader [file] [facility] Center[facility]+mIyOArxgc5V9l20GbSuTi2l3i6pQ/R8bF1R5SI+Xi1eG6dSZn/lgKyrX946ljQ9AUd5HnhXa [file] g4mHB3M1/KENNEL MANAGER DOG TRACK++pu2cO6i+yUjjcqYo6dkwbDqV+AyPH [file] Maria Teresa+xBt4n7gnJlHVh3qZI2E3B350sL2YmwBiHWKnM3vvvK/1iQCHSEAVt1LLmaTbAXmumTYN/B+awfl/ [file] 3Bnyk90pnFnXLr+Verónica+V1phQTUwfh7kjjVFEg2LRBl4NVIVhEoUmuZ1axs1Aee6nyab+wqNxb/uWg7XI [file] vp platforms+wuvbAtJQdXmdMKfFmWUGUd3vS4IkfqnU01I2fKC [file] 9CNbpU2l/hK+LJ/sugar coating hand+pX4+ZqONZf+fKD5/6WNLLO/ [file] 7ZVQLDZz7bTz97e/l+business practices officer+tePreF0MyIJTKto1qdq7EOKWh0zVoHM1HGJH79qDDOhvmehT27MiTRA5wee [file] 1mIUynQRplP4M3TGHkAVH/[place]/ZS6Zc4+w7HDieUCwFbsMg2zJN3UFRJHeSTTaxZH/ffrTxowV724VDS [file] UFx86ysNmApSOEMPehZI4uWIqVJNerSY5R2s39o+Coil Builder 6DBURXM0P/v+xm/D/1aoGgV9EsChHvNB2q4PonEZkcg1fgW0/XDCsg63qltw/DYtx/V/W3Dc0MH8gP+S 3PcDBtLsYTjcO+xF6uHaspQG1dynHueBuQ4slEbPZZyN0IKKgxMX8Ie9vlapzeIx/sG3h/hJpvTdWh5j 1tP3rV5QIp0/BbPzAo74W71T22gJrVr2fqLc1FZNvB X47SOTf8lSwdZ3X6TYFCm299/PAXO2R3mvSVVv23ssUXT29BPgABeQC3Y0G2y0iwWB4ZvzwdFYj1kBiH Ag/TEJWrVcy4V5NdNXtOkb4oZ5iwxF9V4Kk8CF7q2YIxI2mt+5N7EX+fOQpcX1AnRg5Hbb91Id+LOSts s6Cw/tq+1C//eR3ieDpjocsR7vD15C38w+k7vE74ui TPNf4Ft5em36S8UZ26RIhVsDAvn45P5qr0Epfbe1bQ99NEw08GZHDgJndgK1fW3/cwb2HfSiLCkOPEu2 QkCreqawO6KdY0xwSFjwBu6R4g8qaJX9H306Lgr0hvgHwU1m8KunfUp8XiD26BkZMNpj9ahc2pfN4evE S1cJgP7lAgBtEaABWqu9Mxu5kCN0fL4eJg02mqeaWo 8HhMK2NACKCFwwjDSnQuZHnJELkxaipmKgYmfHvTwe1vSPwIgUZxcAbErp5b+q6GHwGOCVsZmu1roZzk BBfuTSvtbCuOwBMwoqWJtmIlrobj92VU033VzFP91zf8wXHx9GhTIhlur4XDwmeP9s2suTrXUZ0RSop+ Tony+vVzZ7NESd3VjqXZyFK4aAHUyasZN7DB/vNawPjm [file] 3bk3NOmyotCcbKQlZA6DJsJoZI2ras0DScD0UWJ0dQNeLr6KMMKgAmHjGl7SVFTAV2X= ID Date Data Source [id number] 03/24/2020 10:34:20 PM EDT [facility] Name Value Range Interpretation Code Description Data Yumiko rce(s) Supporting Document(s) HEMOGLOBIN A1C @ 7.0 % (4.0-6.0) H [facility] Performed using Siemens [place] immunoassa y.Care must be taken when interpreting UtX4ikvwonrt in patients with a hemoglobin variantor decreased erythrocyte lifespan. Values 5.7 - 6.4% suggest prediabetes.Values >=6.5% are diagnostic for diabetes.REFERENCE: DIABETES CARE 2018: 41(S13-S27). EST AVERAGE GLUCOSE 154 mg/dL [facility] ID Date Data Source [id number] 03/24/2020 05:43:23 PM EDT [facility] [...] CORE MPV 11.5 fL (7.1-10.7) H [facility] NEUT % 30.6 % (35.0-75.0) L [facility] LYMPH % 48.0 % (16.0-52.0) [facility] MONO % 11.1 % (0.0-8.0) H [facility] EOS % 9.0 % (0.0-5.0) H [facility] BASO % 1.3 % (0.0-4.0) [facility] NEUT # 2.9 10*3/uL (1.8-7.7) [facility] LYMPH # 4.5 10*3/uL (1.2-4.8) [facility] MONO # 1.0 10*3/uL (0.0-0.8) H [facility] Eosinophils [#/volume] in Blood by Automated count 0.9 10*3/uL (0.0-0 .5) H [facility] BASO # 0.1 10*3/uL (0.0-0.2) [facility] ID Date Data Source [id number] 03/24/2020 06:10:32 PM EDT [facility] Name Value Range Interpretation Code Description Data Yumiko rce(s) Supporting Document(s) PTH, INTACT @ 164.7 pg/mL (18.5-88.0) H [facility] ID Date Data Source [id number] 03/24/2020 06:20:42 PM EDT [facility] Name Value Range Interpretation Code Description Data Yumiko rce(s) Supporting Document(s) COLOR [facility] APPEARANCE [facility] SPEC GRAV URINE 1.024 (1.003-1.030) [facility] PH URINE 5.0 (5.0-7.5) [facility] LEUK ESTERASE (NEG) [...] [facility] - CORE ID Date Data Source [id number] 03/24/2020 06:39:10 PM EDT [facility] - CORE Name Value Range Interpretation Code Description Data Yumiko rce(s) Supporting Document(s) URINE WBC (0-5) [facility] URINE RBC (0-2) [facility] - CORE EPITHELIAL CELLS 4+ [HPF] [facility] - [facility]ORE BACTERIA 2+ [HPF] [facility] - CORE HYALINE CASTS [facility] - CORE ID Date Data Source [id number] 03/24/2020 07:55:33 PM EDT [facility] Name Value Range Interpretation Code Description Data Yumiko rce(s) Supporting Document(s) MAGNESIUM 1.8 mg/dL (1.7-2.4) [facility] - C[facility] ID Date Data Source [id number] 03/24/2020 07:55:33 PM EDT [facility] Name Value Range Interpretation Code Description Data Yumiko rce(s) Supporting Document(s) SODIUM 141 mmol/L (136-145) [facility] POTASSIUM 4.6 mmol/L (3.6-5.2) [facility] - CORE CHLORIDE 105 mmol/L (100-108) [facility] - C[facility] CO2 27 mmol/L (22-31) [facility] - CORE ANION GAP 9 mmol/L (7-16) [facility] - CORE UREA NITROGEN 35 mg/dL (7-24) H [facility] - CORE CREATININE 1.81 mg/dL (0.60-1.00) H [facility] - [facility] BUN/CREAT RATIO 19.3 RATIO (10.0-20.0) [facility] - CORE GLUCOSE 186 mg/dL (70-99) H [facility] - CORE CALCIUM 9.3 mg/dL (8.4-10.2) [facility] CORE PHOSPHORUS 3.6 mg/dL (2.5-4.5) [facility] CORE ALBUMIN 3.4 g/dL (3.2-4.5) [facility] - C[facility] GFR 27 ml/min/1.73m2 (>59) L [facility] - C[facility] GFR ( AMER) 32 ml/min/1.73m2 (>59) L [facility] - CORE GFR INTERPRETATION [facility] - CORE --NORMAL KIDNEY FUNCTION OR MILD DISEASE - GFR >OR= 60CHRONIC KIDNEY DISEASE - GFR 15 - 59RENAL FAILURE - GFR <15 Est. GFR calculation based on the MDRDstudy equation, which assumes a steadystate for creatinine. Est. GFR should notbe used for medication dosing. ID Date Data Source [id number] 03/24/2020 07:55:33 PM EDT [facility] Name Value Range Interpretation Code Description Data Yumiko rce(s) Supporting Document(s) URIC ACID 2.5 mg/dL (2.6-6.0) L [facility] ID Date Data Source [id number] 02/18/2020 01:00:00 PM EDT [facility] Name Value Range Interpretation Code Description Data Yumiko rce(s) Supporting Document(s) Follow Up [facility] AGQHYr7zDtEWZrAlBRMsEnzGORgnAQajJKZjQ0O0UJwjLb5MXRgqixWqZSEzXj8+TFUsDZ4pid4oMERv y 6xXTGnQhqxF3TqESUip29WLXFhHKdTDaDdZxIcXiU3MUX2KfKbSPW9FtQiNuudJP5hYDU3LGQwIQjvEF CwRMRiFVAmTBDvXH6dJUltGMdvVb0TSX1rs0WfHWHiWGPuWkgLGPktAOjaKHIuIJJwXXHzO220zwTbPZ 1ZvQIsWHp3HKQjUwR3KBKtWxV1AURuFpOuQpXpTJUr T2Dmb057pfJegyP5PN9KK2EzIIX6RBl6I9caGpLnMZHrIBYsEQ5wIjL9CEQnTw6NrBqsIOBtTYDrUj4V iFm5SAX6WJIlHa7+Pj4+Ym7lmxCpAatTEZWcLA0rwr44JB2HwJFjBS4RAQbzS09lIFgdZv96HNhyUKXs MoAlULz4Zr8xEeEji1CoV7RzPSc6E1kHOlwaO7NcKK lyHJ9lMZM3ACMkRf4+Yi1tNCIiUB36JKCkBRLRH4SseyEoswPnQRv5JPZnSf1+Rx3ulbFbSwsSPSLfBC 2yfm31FQ0RXY3adRllHlE8AVOnC45piTHjA4iuHiNrV9HpvQfoENVoUU5hA4PoPOsiTBEkUT2vwrXcoY 1DxEt6GOIcMb7RaGQ2KYWqE35gUKUvZDRIOGCup9Pz RJ1Ae0vvbmDiQHAdAR8ROMBqM0DUL0FnM4inbImtFJAoQT2CYZwojSStFXv5FI7YvNHtOFQfZ74wyG6p WK65QZe+FfG8xhBhuA0BpYirk3PUAT171x7B7+GtKw0XpGfIFYZEJJwiLDHJ6N8SnTbCQKQWf8Dzv2fn 7gwafAYd/OS/5378pU1kzav6jn9kfvx19i8A97mz67 [file] [id number]/qk28PTUV4ooKAF3u+KENNEL MANAGER DOG TRACK/mhGPM6Rfhpk06d+zEIxQ4g5VAIDzrLB3Vfw47qlYo6FJy [file] ymv7qZdnyuk/loom fixer apprentice+FwuYejebw3BVXu2ofSazojNeCIuCtcta1mzAU0OiFUHqFrDyj5vp9lBkQp+sO+oj dowKJp6yVXce6qZAc8RJRlM6pv7BCRSqzOSR7Trh2K khrOdNDZMsqDuTOZ61HtIgTbmmo17TmfTIfgP6lPEb9lPEbW61yImKzJy4+Me0HqYQttnNvTegmHFxiF 7HOzfRPZVRuCIL/ZXKm4LSivEuzoCIRiex1WHj4FrFmK8zGegfiEebg18gQZlfzo23YIPlgVHO+Hiral+E [file] RQGlBjK3zjdHOhdXBC+Isacc+pqw/Axw2MimWJ62u3inXmncsGGGBh2lrQKqRqxP8gp1jZi14ORQrCkvJ2 tMrGXyLiY6znM++QT2Weau3tL3LbCigm0Z1OCvrIh+7TKWOV4eibm8tzjG6uSyv02XNibx4Mylx+XkYE Nt9n5wSkJ+LtDvEzNnwChB8sMLRZjn0IHYUsoNBqOL JpuP071O2jhXS90TrFSS+I11oSuQ2Tj4DbWJ3/5OCc96X9lG8NIN8eCHXU68uAkP5dRi/n84u6qHOmLV J8igZ7yYt8B7wrjN6O2e9BirVyY8uaq/LPQ/+J1gBUCLUs3Xn76p7NpruI+6Tf8OjlGQsDXkQez62uPu 4yZpEmC9x5N+uWslUfXJrvaifHP9Wr+EwAXGyCg5y9 rtWKvmvI2AYqvqHO9XajHoFq4GY/oFQoRf05gnmYlO0ypB7iE7Fu+HeoeJXitxE8yd2QftTXqRA1cvxc z+5kEzNLTIPoIYN9YfhdHZ2pPCUxP0YeS5+Khadijah/1gIdpnf6or5zLl7W6rluNbVXx9g4Ul6c81Whj0Rna IgTSj9j2juT4G7BB4VvMf5R918b8jJ+gM1FuvBWxns TW2F0VJDCowsWAckSHuCjfQD/ED+LEX587MstuU2ifsnValQph3BIUyOu5pkjNy3oYxNylmZLaJ/s2bo /m3X67f0IpBLFYp62cw9BJClti96c4Vc5S9JL89R5PjUV5KYz3virs77aoeZ1xQuzUqR6fcXJUqD6UyM JEcWThTvi+F0CJTjKVIXwDPcpl3XldkyL7+woMGk/G 6d5W9SCUD3OFAXJ4vBphlMIGF1XWCMbZM1PXq6vPTz7bziKPBUVDyFhguPWWvermO3fMv8pif/uPSRKU Yv+//zlPn/x3Of9k6BjwAiqanuzrc2Tt3IMDg38sXvZ5W6xJhGrumEPYRKd8yCrjfl98CT7CjvOowELY +0jzPyTJxrTHfH6siAhsBji2kISaG7gMcHuoQmRyrC 7YWNsxLm1wrQKfKIh8WdDxTv9i9N7ihnldPYvogcqsuPJDk1GYe5G1yrpv8QudgYRU+uuawAsBcd6XI5 7pIYtek9js5y3oA9yLnHlCByBDTzgQqzh067HSU92xVspl/a9TOm1oO0f4jSjS9miPtL0/1Li0Em0a19 G9OuDxQcltjSOgKw/ZjMQ4FtZBf3bKIFqGvE3aH/vp platforms [file] Sx60CsK/L8Twi3oFKQFXLYMqf9fZ2G4XyynqNTw+Coil Builder [file] q/nqq3E/vp platforms+tNJB6D7dJoFKQ8XfNgJXY3S1lfyDgTk [file] KENNEL MANAGER DOG TRACK+g1S/JCJ2nHwj8SkvfST0ZiM0xnRqQACbNGJ+PJ5 [file] business practices officer/3oiwA//t3AM3CWxwQ7ruARwbo63UBd4RRTIQiQS [file] 4H29GOeJZ1PEGqtdiMzr9Hoxc8zBXENHuM7xin0+2LRVxvlMKf9rGPwtaChBCMaSoUK1p/i6Lf95/LUIS M [file] 57veLcCEHpAKBLXkAGNmvl8T2vB4+8y7ICMID/+0a0C3lcSBwZCsMJWIqCF4TgUDdFi2mDYuoOmb/broadcast operations director [file] cr+ovyNGt+[facility]/HyQqGFnhWFw1+DdwczJli8e1ys7MHj3b+czsDGe682k/Dk4PDWcvo5+xch7dKgemQ3 [file] TING/fPnuIEOJ2cfwP3cgFvbWc2mUckWay0I3Cwm1vEv2DJ+XXB86WEjzJuCSee546inFjunTNZT1ogFk I+E1wwhZNBWsZYGD93gUJ6okeoR6PY870XokOfi3PpP99KPUK8Jv17jfdKgdfp6C0c9UQJW1p9j2r43F C1vuwJ8kpSOhNh704ftlmmPk9jNKYVGu25bWVzxi4W editor department/bciRE3aqBCfdexow3gUvqMp04y6exiaUJtvxrpQ0VwNqslLLKRxjGcbu5vmrMkUZs40+bnoE+BY/ V1+rjQbtD59x2DhAFJmPYWADfvU7eWGV5pyAHD6VWQJ2PeU0MB/Er+IlxRhAQPDyEj3fHihcpLunj+OE RM3e5+hWVWDAaPko/PjYwmRahdXik0+tmeZYym9ot5 j8CmZi6nWdcG0z+ADdoKWkWnDPIaBbxU2KddnhKLxNcnRVamOJZQqDi/y0gYKJkJNQeHBA8KndwibH6M IqSZWtwrG9nEcQ6HzFr+uRgLqiAwnP7+Q8xJyNDDtHH8ZW/AGam/gmE07sSEIM/cerRy9ZbasdLEEww3 QlGm7ujn/drGZa8pe5K2FNgszrg6a6MEVy5icrQdtA mhsHQJO0ZrnbNgzMtXYe1GqT7EN3/WV8J5rlcN/9wMg+FDblz1etwFMvURvRxKN+TWNTAimYE8mjPQTV RCfu8GJ0k1mxAL975gRqvBw+TaHnbyrQj7jI/SQq9c/CARDENAS+U1sxar09FAVw8WKc2l/FtLH9TyOxE9QVRl [file] HNubL6W6SROAusShxi+qCYS8W1PI51eRWyCEI2wnYBzHr/DIRECTOR GEOTHERMAL [file] ltBZNNN9qn5kidLA5CjLD3HKZF5lpaF8d4/GHoLw+4io/rf+81EfsTobSC6pXxAadxCMqCfeKxix/Mary Ann [file] VRuyjuDx2pvcy3X9eA/jO1vrbo9edoczwv19yKmP3O 2SXzD6kcg9QiuScKtvRMMp7TXhHb0E5MH5SwWTN/Gstwp73gtE4yNlOnQIp3kra1JG8bzjwIzTpTHGT/ x1narcD2Fr82FK31KKhI0n6AxfT4tt5qbEmYSXQWFk6enW73rVMNWu4hebmWQF37lQiQkCv0+wd5622F Iqxb8H0DWP/d7E9ZiFWgsqXUGOCrg8omcDlav+1IZP jBZt0JWxPTITx85lyMoV3uKXe660U0n0Tt42EOo/l5bttJO4ZcGhyEZHpCRAYPmRA5jOcdJ3l0QdSWE+ taTzWnC0LuDhj2e2C/fY90/cAWdCexRvAZgFEftwWcQVXBHVL1/ZIWc1gPW1Lz6ROEB5AxFLlhdsbzzc E9YgowCas9PsKFuJdRVi1+m7+nHr28wgiChvQA3JHX UlvhieBcJinLtHKnl2ez7D1MrEPKRAOOEtoOm+U3mg+UJ0MY/SwZMSayGkgGalGSz06WFmdQ/W4CkOnw lpXCFAYm8DeYzjfvFqLbE+oHjWdHhH7hBjweFxZG7BRVNZOr1i1elmmYgmTmD/aeESLtGYD/YEcps1zy qh/fzT2lNmixl4L0K+E221QIZA6ds/WSX1UIeFdzqX UFD9HYvvBQHajYG/PsHhys2sfrQpoKKUYeU1v3KDL0gDnjYMO8rWJCN3skBddye+1hAxBuzV3wTW3rTj mVa4F1XKAEHp2VWQvcfkf32vj1+9BLnIvEwCi1kmWEJJZHSqx5maCP1TMapQIKu3sk/mzRq3izZMaU/d JOSE CARLOS/RemfT6Ap30h7pd7QPI5ouM0tn8hj3mDQfUCzPV /M+RB8agkXIMmLNiJ05lMZmoDhTfViObnQyOeKEszTx3wQd6dzyF868HTzgpm5FEkCrDhPcsvjMrR4uG YrwFTus6H98FUasYxIHKA9GkCrjM0PMqgMwhvZW1uUIQ32ILKYSBXhTYdgBkVE/Lt0wKTdrOHVyE22TD xRt/Nw8xWGXUx03PrqKOzSMsxOHmSbA9CsK7hK17wK kIR3vpyss/bWP0nu0FbbomqKsOxZAodduKFjWAiCMaNyrmKBZ4HjM47sKv9C2/Tiffani//UHEeeCfbknCpy [file] 1zb54oH3/uoa9oNwqPcMsIekG+financial planning analyst++ItyXQhx4Zbw2yodIY+rmv5IH+o48ens7RgahjqojqyA0Y1MDi [file] Y5GoEZufFV1FKmgTaopgTrH16t+Pc4DZBft4dCRFaLG+FlEO6yE8X5kJpszg0YRE2kGeQH+cH36AN/business practices officer [file] vp platforms/rKhwpH/p9P8Ot+IhjmE9n67JAXzoAreUOvs3nEHgMQWsoQ6u7ebI1jcMrKWpfBxX/fW8RwLGmAob6 [file] e1rsqsTzcng51as8vO+o9UkVhqtzJjWHL7rwxyjyf6 7KKt905+d25F2lvfo9P+swzeb1drKKIq6xD9ZMEcu2X+qiwZt14r9Q/6faZuNEIlOjhiJDwsR0fNuvry IMa4VPF+UKdSZb+e5rWajP3wixWP+Lhk4DEyoQ5dGZw33EdldjTrA3+2fAXtDAu+Vhc6bp4swxwb72Ta TWrpL/O2WNWoQvFVER74qfuNlsvROy1KDEqls8BZfg cMygN849wcgAwXXdnLZdtD5tFDlkdQ5Fnlk0HfKBkYQ8QeRKq0NtIVHMsgxG9LJAw5qe7yOAF0+d4hP2 cPdfp1PA4q15+yisZd59hmJR2wzuwgV9JOR2oNCJVlnYGYU3FFA+c5hzouy8HKJTNi0mLWFy5g47SjGC eA1tCxZQC/BGemQ5MKrttJ5KpHG19xMEwr+2bBsxLP 9Wo9JlJgJlb4sR1rSxranWw9Is53TTDwnGkq4GZRXW7zQY7TqPgv8nrTJNJnf29miuoWYZkpGT1Z8UIV 8X0PvUsbEJnF99ZFbSSzbk03BNAcvjh+1qvdQU42p6NIomPY2QKoDewATsw8xTUdRF9grxwBByd4THkD /vyXmFszHKJN1xJyM3jLYL3x+xFLWc+8X0+JCUDj7V drZxTPjCqWpOdpOSg1nxa7drS20fBFyHXDs8yq3yqTb0LdUvBqpgCfnMmlPFT7G3OkPV18kpLf1nSgz+ n7X/yL/8IIFKE5HtB1E+DIRECTOR GEOTHERMAL OPERATIONS/v3TUlNV0Mdl/FfcDn0DPY603crEKZPWJEo5O7w4Mn+PktZ6/8sdB7erDI [file] hrmH3ePNbBj0xBKdw9YSvjfQ2t4oU8iIJIYV1pukq0yD2iZGgWTCkwx2Vp99acFR8QwzmHLw7+Hall Clerk/FVx [file] FIochpCcEtqSBZuoqALuyJlpVMBUDnAzIvX9KUgPWpCiRB6X ID Date Data Source [id number] 02/15/2020 01:41:01 PM EDT [facility] Name Value Range Interpretation Code Description Data Yumiko rce(s) Supporting Document(s) POC GLUCOSE 265 mg/dL (70-99) H [facility] NOTIFIED NURSEPERFORMED BY CLINICAL S TAFF ID Date Data Source [id number] 02/15/2020 11:26:41 AM EDT [facility] Name Value Range Interpretation Code Description Data Yumiko rce(s) Supporting Document(s) POC GLUCOSE 322 mg/dL (70-99) H [facility] NOTIFIED NURSEPERFORMED BY CLINICAL S TAFF ID Date Data Source [id number] 02/15/2020 07:25:11 AM EDT [facility] Name Value Range Interpretation Code Description Data Yumiko rce(s) Supporting Document(s) POC GLUCOSE 150 mg/dL (70-99) H [facility] NOTIFIED NURSEPERFORMED BY CLINICAL S TAFF ID Date Data Source [id number] 02/15/2020 08:56:22 AM EDT [facility] Name Value Range Interpretation Code Description Data Yumiko rce(s) Supporting Document(s) SODIUM 135 mmol/L (136-145) L [facility] POTASSIUM 4.2 mmol/L (3.6-5.2) [facility] CHLORIDE 101 mmol/L (100-108) [facility] CO2 26 mmol/L (22-31) [facility] ANION GAP 8 mmol/L (7-16) [facility] UREA NITROGEN 25 mg/dL (7-24) H [facility] CREATININE 1.51 mg/dL (0.60-1.00) H [facility] BUN/CREAT RATIO 16.6 RATIO (10.0-20.0) [facility] GLUCOSE 133 mg/dL (70-99) H [facility] CALCIUM 8.6 mg/dL (8.4-10.2) [facility] GFR 33 ml/min/1.73m2 (>59) L [facility] GFR ( AMER) 40 ml/min/1.73m2 (>59) L [facility] GFR INTERPRETATION [facility] --NORMAL KIDNEY FUNCTION OR MILD DISEASE - GFR >OR= 60CHRONIC KIDNEY DISEASE - GFR 15 - 59RENAL FAILURE - GFR <15 Est. GFR calculation based on the MDRDstudy equation, which assumes a steadystate for creatinine. Est. GFR should notbe used for medication dosing. ID Date Data Source [id number] 02/15/2020 03:10:09 AM EDT [facility] Name Value Range Interpretation Code Description Data Yumiko rce(s) Supporting Document(s) POC GLUCOSE 159 mg/dL (70-99) H [facility] NOTIFIED NURSEPERFORMED BY CLINICAL S TAFF ID Date Data Source [id number] 02/14/2020 09:11:38 PM EDT [facility] Name Value Range Interpretation Code Description Data Yumiko rce(s) Supporting Document(s) POC GLUCOSE 188 mg/dL (70-99) H [facility] NOTIFIED NURSEPERFORMED BY CLINICAL S TAFF ID Date Data Source [id number] 02/14/2020 04:55:56 PM EDT [facility] Name Value Range Interpretation Code Description Data Yumiko rce(s) Supporting Document(s) POC GLUCOSE 121 mg/dL (70-99) H [facility] NOTIFIED NURSEPERFORMED BY CLINICAL S TAFF ID Date Data Source [id number] 02/14/2020 12:48:01 PM EDT [facility] Name Value Range Interpretation Code Description Data Yumiko rce(s) Supporting Document(s) POC GLUCOSE 218 mg/dL (70-99) H [facility] NOTIFIED NURSEPERFORMED BY CLINICAL S TAFF ID Date Data Source [id number] 02/14/2020 12:02:59 PM EDT [facility] Name Value Range Interpretation Code Description Data Yumiko rce(s) Supporting Document(s) POC GLUCOSE 218 mg/dL (70-99) H [facility] PERFORMED BY CLINICAL STAFF ID Date Data Source [id number] 02/14/2020 08:54:27 AM EDT [facility] Name Value Range Interpretation Code Description Data Yumiko rce(s) Supporting Document(s) POC GLUCOSE 148 mg/dL (70-99) H [facility] NOTIFIED NURSEPERFORMED BY CLINICAL S TAFF ID Date Data Source [id number] 02/14/2020 06:47:45 AM EDT [facility] Name Value Range Interpretation Code Description Data Yumiko rce(s) Supporting Document(s) SODIUM 134 mmol/L (136-145) L [facility] POTASSIUM 3.8 mmol/L (3.6-5.2) [facility] CHLORIDE 98 mmol/L (100-108) L [facility] CO2 32 mmol/L (22-31) H [facility] ANION GAP 4 mmol/L (7-16) L [facility] UREA NITROGEN 26 mg/dL (7-24) H [facility] CREATININE 1.51 mg/dL (0.60-1.00) H [facility] BUN/CREAT RATIO 17.2 RATIO (10.0-20.0) [facility] GLUCOSE 133 mg/dL (70-99) H [facility] CALCIUM 8.3 mg/dL (8.4-10.2) L [facility] GFR 33 ml/min/1.73m2 (>59) L [facility] GFR ( AMER) 40 ml/min/1.73m2 (>59) L [facility] GFR INTERPRETATION [facility] --NORMAL KIDNEY FUNCTION OR MILD DISEASE - GFR >OR= 60CHRONIC KIDNEY DISEASE - GFR 15 - 59RENAL FAILURE - GFR <15 Est. GFR calculation based on the MDRDstudy equation, which assumes a steadystate for creatinine. Est. GFR should notbe used for medication dosing. ID Date Data Source [id number] 02/14/2020 03:15:32 AM EDT [facility] Name Value Range Interpretation Code Description Data Yumiko rce(s) Supporting Document(s) POC GLUCOSE 114 mg/dL (70-99) H [facility] NOTIFIED NURSEPERFORMED BY CLINICAL S TAFF ID Date Data Source [id number] 02/13/2020 10:24:23 PM EDT [facility] Name Value Range Interpretation Code Description Data Yumiko rce(s) Supporting Document(s) POC GLUCOSE 252 mg/dL (70-99) H [facility] NOTIFIED NURSEPERFORMED BY CLINICAL S TAFF ID Date Data Source [id number] 02/13/2020 06:59:51 PM EDT [facility] Name Value Range Interpretation Code Description Data Yumiko rce(s) Supporting Document(s) POC GLUCOSE 303 mg/dL (70-99) H [facility] NOTIFIED NURSEPERFORMED BY CLINICAL S TAFF ID Date Data Source [id number] 02/13/2020 04:32:58 PM EDT [facility] Name Value Range Interpretation Code Description Data Yumiko rce(s) Supporting Document(s) POC GLUCOSE 111 mg/dL (70-99) H [facility] NOTIFIED NURSEPERFORMED BY CLINICAL S TAFF ID Date Data Source [id number] 02/13/2020 04:03:54 PM EDT [facility] Name Value Range Interpretation Code Description Data Yumiko rce(s) Supporting Document(s) POC GLUCOSE 86 mg/dL (70-99) [facility] NOTIFIED NURSEPERFORMED BY CLINICAL S TAFF ID Date Data Source [id number] 02/13/2020 03:56:53 PM EDT [facility] Name Value Range Interpretation Code Description Data Yumiko rce(s) Supporting Document(s) POC GLUCOSE 50 mg/dL (70-99) L [facility] NOTIFIED NURSEPERFORMED BY CLINICAL S TAFF ID Date Data Source [id number] 02/13/2020 11:58:54 AM EDT [facility] Name Value Range Interpretation Code Description Data Yumiko rce(s) Supporting Document(s) POC GLUCOSE 229 mg/dL (70-99) H [facility] NOTIFIED NURSEPERFORMED BY CLINICAL S TAFF ID Date Data Source [id number] 02/13/2020 08:53:27 AM EDT [facility] Name Value Range Interpretation Code Description Data Yumiko rce(s) Supporting Document(s) POC GLUCOSE 155 mg/dL (70-99) H [facility] NOTIFIED NURSEPERFORMED BY CLINICAL S TAFF ID Date Data Source [id number] 02/13/2020 07:30:24 AM EDT [facility] Name Value Range Interpretation Code Description Data Yumiko rce(s) Supporting Document(s) LIPASE 412 U/L (65-230) H [facility] ID Date Data Source [id number] 02/13/2020 07:30:24 AM EDT [facility] Name Value Range Interpretation Code Description Data Yumiko rce(s) Supporting Document(s) SODIUM 134 mmol/L (136-145) L [facility] POTASSIUM 3.7 mmol/L (3.6-5.2) [facility] CHLORIDE 97 mmol/L (100-108) L [facility] CO2 31 mmol/L (22-31) [facility] ANION GAP 6 mmol/L (7-16) L [facility] UREA NITROGEN 24 mg/dL (7-24) [facility] CREATININE 1.32 mg/dL (0.60-1.00) H [facility] BUN/CREAT RATIO 18.2 RATIO (10.0-20.0) [facility] GLUCOSE 152 mg/dL (70-99) H [facility] CALCIUM 8.4 mg/dL (8.4-10.2) [facility] TOTAL PROTEIN 5.3 g/dL (6.4-8.2) L [facility] ALBUMIN 2.0 g/dL (3.2-4.5) L [facility] GLOBULIN 3.3 g/dL (2.7-4.3) [facility] ALB/GLOB RATIO 0.6 RATIO [facility] ALKALINE PHOSPHATASE 72 U/L (45-117) [facility] BILIRUBIN,TOTAL 0.5 mg/dL (0.0-1.0) [facility] PLEASE NOTE:Total bilirubin results may be falselyelevated in patients taking Eltrombopag. AST (SGOT) 18 U/L (11-39) [facility] ALT (SGPT) 22 U/L (12-78) [facility] GFR 38 ml/min/1.73m2 (>59) L [facility] GFR ( AMER) 46 ml/min/1.73m2 (>59) L [facility] GFR INTERPRETATION [facility] --NORMAL KIDNEY FUNCTION OR MILD DISEASE - GFR >OR= 60CHRONIC KIDNEY DISEASE - GFR 15 - 59RENAL FAILURE - GFR <15 Est. GFR calculation based on the MDRDstudy equation, which assumes a steadystate for creatinine. Est. GFR should notbe used for medication dosing. ID Date Data Source [id number] 02/13/2020 06:57:41 AM EDT [facility] Name Value Range Interpretation Code Description Data Yumiko rce(s) Supporting Document(s) WBC 13.5 10*3/uL (4.1-11.0) H [facility] RBC 3.91 10*6/uL (4.00-5.40) L [facility] HGB 12.2 g/dL (12.0-16.0) [facility] HCT 37.4 % (36.0-47.0) [facility] MCV 95.6 fL (80.0-95.0) [facility] MCH 31.2 pg (27.0-32.0) [facility] MCHC 32.6 g/dL (32.0-36.0) [facility] RDW 13.9 % (10.5-14.5) [facility] PLT 292 10*3/uL (150-450) [facility] MPV 11.3 fL (7.1-10.7) [facility] NEUT % 62.6 % (35.0-75.0) [facility] LYMPH % 21.7 % (16.0-52.0) [facility] MONO % 10.6 % (0.0-8.0) [facility] EOS % 4.1 % (0.0-5.0) [facility] BASO % 1.0 % (0.0-4.0) [facility] NEUT # 8.4 10*3/uL (1.8-7.7) [facility] LYMPH # 2.9 10*3/uL (1.2-4.8) [facility] MONO # 1.4 10*3/uL (0.0-0.8) H [facility] Eosinophils [#/volume] in Blood by Automated count 0.5 10*3/uL (0.0-0 .5) [facility] BASO # 0.1 10*3/uL (0.0-0.2) [facility] ID Date Data Source [id number] 02/13/2020 02:54:59 AM EDT [facility] Name Value Range Interpretation Code Description Data Yumiko rce(s) Supporting Document(s) POC GLUCOSE 152 mg/dL (70-99) H [facility] NOTIFIED NURSEPERFORMED BY CLINICAL S TAFF ID Date Data Source [id number] 02/12/2020 09:43:18 PM EDT [facility] Name Value Range Interpretation Code Description Data Yumiko rce(s) Supporting Document(s) POC GLUCOSE 276 mg/dL (70-99) H [facility] PERFORMED BY CLINICAL STAFF ID Date Data Source [id number] 02/14/2020 08:54:00 AM EDT [facility] [place], [place] [address]GKRRCYH NAME: CESAR SESAY OF : 4REPORT: DISCHARGE SUMMARYPATIENT NUMBER: [id number] STATUS: OF ADMISSION:DATE OF DISCHARGE:ROOM:INTERIM DISCHARGE SUMMARY1. Acute pancreatitis. The patient came reporting that she was diagnosed with pancreatic cancer in 08/2018 in [place] at [facility]. She decided against any biopsy or treatment. Upon admission, she had severe left upper quadrant epigastric abdominal pain, nausea and vomiting. Her lipase was elevated. Clearly, had acute pancreatitis on the CT scan that was done at [facility] and the MRCP that was done here. Her CA19-9 though is only 19 in the settings of acute pancreatitis. The MRCP done here and the CT scan that was done at [facility] did not show mass, but did [...] patient will go to her daughter's, [facility].DICTATED BY: HESHAM Coteictated: 02/12/2020 19:35DT: 02/12/2020 19:46Job #: [id number]: MD Lui Timmons MdNOTE: [facility] computer generated reports are notconfirmed or authenticated unless they are signed by the providerElectronically Authenticated and Edited by:GONSALO CALDERA MD On 02/14/2020 08:54 AM EDT Name Value Range Interpretation Code Description Data Yumiko rce(s) Supporting Document(s) ID Date Data Source [id number] 02/12/2020 06:01:28 PM EDT [facility] Name Value Range Interpretation Code Description Data Yumiko rce(s) Supporting Document(s) POC GLUCOSE 159 mg/dL (70-99) H [facility] PERFORMED BY CLINICAL STAFF ID Date Data Source [id number] 02/12/2020 12:19:50 PM EDT [facility] Name Value Range Interpretation Code Description Data Yumiko rce(s) Supporting Document(s) POC GLUCOSE 299 mg/dL (70-99) H [facility] NOTIFIED NURSEPERFORMED BY CLINICAL S TAFF ID Date Data Source [id number] 02/12/2020 09:19:00 AM EDT [facility] Name Value Range Interpretation Code Description Data Yumiko rce(s) Supporting Document(s) POC GLUCOSE 144 mg/dL (70-99) H [facility] NOTIFIED NURSEPERFORMED BY CLINICAL S TAFF ID Date Data Source [id number] 02/12/2020 08:08:53 AM EDT [facility] Name Value Range Interpretation Code Description Data Yumiko rce(s) Supporting Document(s) LIPASE 199 U/L (65-230) [facility] ID Date Data Source [id number] 02/12/2020 08:08:53 AM EDT [facility] Name Value Range Interpretation Code Description Data Yumiko rce(s) Supporting Document(s) SODIUM 136 mmol/L (136-145) [facility] POTASSIUM 4.1 mmol/L (3.6-5.2) [facility] CHLORIDE 98 mmol/L (100-108) L [facility] CO2 32 mmol/L (22-31) [facility] ANION GAP 6 mmol/L (7-16) L [facility] UREA NITROGEN 24 mg/dL (7-24) [facility] CREATININE 1.21 mg/dL (0.60-1.00) H [facility] BUN/CREAT RATIO 19.8 RATIO (10.0-20.0) [facility] GLUCOSE 124 mg/dL (70-99) H [facility] CALCIUM 8.7 mg/dL (8.4-10.2) [facility] TOTAL PROTEIN 5.5 g/dL (6.4-8.2) L [facility] ALBUMIN 2.1 g/dL (3.2-4.5) L [facility] GLOBULIN 3.4 g/dL (2.7-4.3) [facility] ALB/GLOB RATIO 0.6 RATIO [facility] ALKALINE PHOSPHATASE 72 U/L (45-117) [facility] BILIRUBIN,TOTAL 0.5 mg/dL (0.0-1.0) [facility] PLEASE NOTE:Total bilirubin results may be falselyelevated in patients taking Eltrombopag. AST (SGOT) 23 U/L (11-39) [facility] ALT (SGPT) 20 U/L (12-78) [facility] GFR 42 ml/min/1.73m2 (>59) L [facility] GFR ( AMER) 51 ml/min/1.73m2 (>59) L [facility] GFR INTERPRETATION [facility] --NORMAL KIDNEY FUNCTION OR MILD DISEASE - GFR >OR= 60CHRONIC KIDNEY DISEASE - GFR 15 - 59RENAL FAILURE - GFR <15 Est. GFR calculation based on the MDRDstudy equation, which assumes a steadystate for creatinine. Est. GFR should notbe used for medication dosing. ID Date Data Source [id number] 02/12/2020 07:24:45 AM EDT [facility] Name Value Range Interpretation Code Description Data Yumiko rce(s) Supporting Document(s) WBC 13.7 10*3/uL (4.1-11.0) H [facility] RBC 3.97 10*6/uL (4.00-5.40) L [facility] HGB 12.7 g/dL (12.0-16.0) [facility] HCT 38.3 % (36.0-47.0) [facility] MCV 96.5 fL (80.0-95.0) [facility] MCH 32.0 pg (27.0-32.0) [facility] MCHC 33.1 g/dL (32.0-36.0) [facility] RDW 13.9 % (10.5-14.5) [facility] PLT 272 10*3/uL (150-450) [facility] MPV 11.3 fL (7.1-10.7) [facility] NEUT % 74.1 % (35.0-75.0) [facility] LYMPH % 14.0 % (16.0-52.0) L [facility] MONO % 8.9 % (0.0-8.0) [facility] EOS % 2.4 % (0.0-5.0) [facility] BASO % 0.6 % (0.0-4.0) [facility] NEUT # 10.2 10*3/uL (1.8-7.7) [facility] LYMPH # 1.9 10*3/uL (1.2-4.8) [facility] MONO # 1.2 10*3/uL (0.0-0.8) H [facility] Eosinophils [#/volume] in Blood by Automated count 0.3 10*3/uL (0.0-0 .5) [facility] BASO # 0.1 10*3/uL (0.0-0.2) [facility] ID Date Data Source [id number] 02/12/2020 03:18:18 AM EDT [facility] Name Value Range Interpretation Code Description Data Yumiko rce(s) Supporting Document(s) POC GLUCOSE 140 mg/dL (70-99) H [facility] PERFORMED BY CLINICAL STAFF ID Date Data Source [id number] 02/11/2020 10:05:45 PM EDT [facility] Name Value Range Interpretation Code Description Data Yumiko rce(s) Supporting Document(s) POC GLUCOSE 211 mg/dL (70-99) H [facility] NOTIFIED NURSEPERFORMED BY CLINICAL S TAFF ID Date Data Source [id number] 02/12/2020 12:21:00 AM EDT [facility] DATE OF EXAM: 02/11/2020Abdomen 2V [...] No free air. Professional interpretation performed at [facility] .End of diagnostic report for accession: [id number] Interpreted: Chasidy Kelly MD Transcribed: 02/12/2020 12:19 AMSigned: 02/12/2020 12:21 AM Chasidy Kelly MD [facility] # [id number] BILL # [id number] Name Value Range Interpretation Code Description Data Yumiko rce(s) Supporting Document(s) ID Date Data Source [id number] 02/11/2020 05:07:13 PM EDT [facility] Name Value Range Interpretation Code Description Data Yumiko rce(s) Supporting Document(s) POC GLUCOSE 222 mg/dL (70-99) H [facility] NOTIFIED NURSEPERFORMED BY CLINICAL S TAFF ID Date Data Source [id number] 02/11/2020 12:32:35 PM EDT [facility] Name Value Range Interpretation Code Description Data Yumiok rce(s) Supporting Document(s) POC GLUCOSE 142 mg/dL (70-99) [facility] PERFORMED BY CLINICAL STAFF ID Date Data Source [id number] 02/11/2020 09:12:08 AM EDT [facility] Name Value Range Interpretation Code Description Data Yumiko rce(s) Supporting Document(s) POC GLUCOSE 78 mg/dL (70-99) [facility] NOTIFIED NURSEPERFORMED BY CLINICAL S TAFF ID Date Data Source [id number] 02/11/2020 07:31:12 AM EDT [facility] Name Value Range Interpretation Code Description Data Yumiko rce(s) Supporting Document(s) TRIGLYCERIDE 120 mg/dL (30-200) [facility] ID Date Data Source [id number] 02/11/2020 07:31:12 AM EDT [facility] Name Value Range Interpretation Code Description Data Yumiko rce(s) Supporting Document(s) LIPASE 262 U/L (65-230) [facility] ID Date Data Source [id number] 02/11/2020 07:31:12 AM EDT [facility] Name Value Range Interpretation Code Description Data Yumiko rce(s) Supporting Document(s) TROPONIN I 0.18 ng/mL (<0.05) [facility] Less than 0.05: Myocardial injury unlike lyGreater than or equal to 0.05: Highly suggestive of myocardial injuryCorrelation with rise and/or fall ofserial troponins, clinical symptomsand ECG changes is necessary. ID Date Data Source [id number] 02/11/2020 07:31:12 AM EDT [facility] Name Value Range Interpretation Code Description Data Yumiko rce(s) Supporting Document(s) SODIUM 137 mmol/L (136-145) [facility] POTASSIUM 2.9 mmol/L (3.6-5.2) LL [facility] RESULT(S) CALLED TO AND READ BACK BYJEN 4S ON 02/11/20 AT 0730 [place] [id number] CHLORIDE 97 mmol/L (100-108) L [facility] CO2 31 mmol/L (22-31) [facility] ANION GAP 9 mmol/L (7-16) [facility] UREA NITROGEN 33 mg/dL (7-24) [facility] CREATININE 1.35 mg/dL (0.60-1.00) [facility] BUN/CREAT RATIO 24.4 RATIO (10.0-20.0) [facility] GLUCOSE 82 mg/dL (70-99) [facility] CALCIUM 8.3 mg/dL (8.4-10.2) L [facility] TOTAL PROTEIN 5.4 g/dL (6.4-8.2) L [facility] ALBUMIN 2.2 g/dL (3.2-4.5) L [facility] GLOBULIN 3.2 g/dL (2.7-4.3) [facility] ALB/GLOB RATIO 0.7 RATIO [facility] ALKALINE PHOSPHATASE 69 U/L (45-117) [facility] BILIRUBIN,TOTAL 0.6 mg/dL (0.0-1.0) [facility] PLEASE NOTE:Total bilirubin results may be falselyelevated in patients taking Eltrombopag. AST (SGOT) 20 U/L (11-39) [facility] ALT (SGPT) 17 U/L (12-78) [facility] GFR 37 ml/min/1.73m2 (>59) L [facility] GFR ( AMER) 45 ml/min/1.73m2 (>59) L [facility] GFR INTERPRETATION [facility] --NORMAL KIDNEY FUNCTION OR MILD DISEASE - GFR >OR= 60CHRONIC KIDNEY DISEASE - GFR 15 - 59RENAL FAILURE - GFR <15 Est. GFR calculation based on the MDRDstudy equation, which assumes a steadystate for creatinine. Est. GFR should notbe used for medication dosing. ID Date Data Source [id number] 02/11/2020 06:56:07 AM EDT [facility] Name Value Range Interpretation Code Description Data Yumiko rce(s) Supporting Document(s) WBC 12.6 10*3/uL (4.1-11.0) [facility] RBC 4.17 10*6/uL (4.00-5.40) [facility] HGB 13.4 g/dL (12.0-16.0) [facility] HCT 39.6 % (36.0-47.0) [facility] MCV 95.1 fL (80.0-95.0) [facility] MCH 32.1 pg (27.0-32.0) [facility] MCHC 33.7 g/dL (32.0-36.0) [facility] RDW 13.5 % (10.5-14.5) [facility] PLT 318 10*3/uL (150-450) [facility] MPV 11.0 fL (7.1-10.7) [facility] NEUT % 70.6 % (35.0-75.0) [facility] LYMPH % 17.3 % (16.0-52.0) [facility] MONO % 9.9 % (0.0-8.0) [facility] EOS % 1.6 % (0.0-5.0) [facility] BASO % 0.6 % (0.0-4.0) [facility] NEUT # 8.9 10*3/uL (1.8-7.7) [facility] LYMPH # 2.2 10*3/uL (1.2-4.8) [facility] MONO # 1.2 10*3/uL (0.0-0.8) [facility] Eosinophils [#/volume] in Blood by Automated count 0.2 10*3/uL (0.0-0 .5) [facility] BASO # 0.1 10*3/uL (0.0-0.2) [facility] ID Date Data Source [id number] 02/10/2020 09:49:41 PM EDT [facility] Name Value Range Interpretation Code Description Data Yumiko rce(s) Supporting Document(s) POC GLUCOSE 99 mg/dL (70-99) [facility] NOTIFIED NURSEPERFORMED BY CLINICAL S TAFF ID Date Data Source [id number] 02/10/2020 05:51:44 PM EDT [facility] Name Value Range Interpretation Code Description Data Yumiko rce(s) Supporting Document(s) POC GLUCOSE 122 mg/dL (70-99) [facility] NOTIFIED NURSEPERFORMED BY CLINICAL S TAFF ID Date Data Source [id number] 02/10/2020 04:48:48 PM EDT [facility] Name Value Range Interpretation Code Description Data Yumiko rce(s) Supporting Document(s) POC GLUCOSE 147 mg/dL (70-99) [facility] NOTIFIED NURSEPERFORMED BY CLINICAL S TAFF ID Date Data Source [id number] 02/10/2020 11:50:02 AM EDT [facility] Name Value Range Interpretation Code Description Data Yumiko rce(s) Supporting Document(s) POC GLUCOSE 234 mg/dL (70-99) [facility] NOTIFIED NURSEPERFORMED BY CLINICAL S TAFF ID Date Data Source [id number] 02/10/2020 08:45:18 AM EDT [facility] Name Value Range Interpretation Code Description Data Yumiko rce(s) Supporting Document(s) POC GLUCOSE 136 mg/dL (70-99) [facility] NOTIFIED NURSEPERFORMED BY CLINICAL S TAFF ID Date Data Source [id number] 02/10/2020 07:53:26 AM EDT [facility] Name Value Range Interpretation Code Description Data Yumiko rce(s) Supporting Document(s) SODIUM 136 mmol/L (136-145) [facility] POTASSIUM 3.9 mmol/L (3.6-5.2) [facility] SLIGHT HEMOLYSIS CHLORIDE 99 mmol/L (100-108) L [facility] CO2 29 mmol/L (22-31) [facility] ANION GAP 8 mmol/L (7-16) [facility] UREA NITROGEN 34 mg/dL (7-24) [facility] CREATININE 1.47 mg/dL (0.60-1.00) [facility] BUN/CREAT RATIO 23.1 RATIO (10.0-20.0) [facility] GLUCOSE 145 mg/dL (70-99) [facility] CALCIUM 8.5 mg/dL (8.4-10.2) [facility] TOTAL PROTEIN 5.9 g/dL (6.4-8.2) L [facility] ALBUMIN 2.2 g/dL (3.2-4.5) L [facility] GLOBULIN 3.7 g/dL (2.7-4.3) [facility] ALB/GLOB RATIO 0.6 RATIO [facility] ALKALINE PHOSPHATASE 76 U/L (45-117) [facility] BILIRUBIN,TOTAL 0.7 mg/dL (0.0-1.0) [facility] PLEASE NOTE:Total bilirubin results may be falselyelevated in patients taking Eltrombopag. AST (SGOT) 38 U/L (11-39) [facility] ALT (SGPT) 23 U/L (12-78) [facility] GFR 34 ml/min/1.73m2 (>59) L [facility] GFR ( AMER) 41 ml/min/1.73m2 (>59) L [facility] GFR INTERPRETATION [facility] --NORMAL KIDNEY FUNCTION OR MILD DISEASE - GFR >OR= 60CHRONIC KIDNEY DISEASE - GFR 15 - 59RENAL FAILURE - GFR <15 Est. GFR calculation based on the MDRDstudy equation, which assumes a steadystate for creatinine. Est. GFR should notbe used for medication dosing. ID Date Data Source [id number] 02/10/2020 07:52:06 AM EDT [facility] Name Value Range Interpretation Code Description Data Yumiko rce(s) Supporting Document(s) LIPASE 124 U/L (65-230) [facility] ID Date Data Source [id number] 02/10/2020 07:27:47 AM EDT [facility] Name Value Range Interpretation Code Description Data Yumiko rce(s) Supporting Document(s) WBC 12.0 10*3/uL (4.1-11.0) [facility] RBC 4.32 10*6/uL (4.00-5.40) [facility] HGB 13.8 g/dL (12.0-16.0) [facility] HCT 41.5 % (36.0-47.0) [facility] MCV 96.0 fL (80.0-95.0) [facility] MCH 31.9 pg (27.0-32.0) [facility] MCHC 33.2 g/dL (32.0-36.0) [facility] RDW 14.3 % (10.5-14.5) [facility] PLT 261 10*3/uL (150-450) [facility] MPV 11.5 fL (7.1-10.7) [facility] NEUT % 81.3 % (35.0-75.0) [facility] DIFFERENTIAL CONFIRMED MANUALLY LYMPH % 10.2 % (16.0-52.0) L [facility] MONO % 7.5 % (0.0-8.0) [facility] EOS % 0.5 % (0.0-5.0) [facility] BASO % 0.5 % (0.0-4.0) [facility] NEUT # 9.8 10*3/uL (1.8-7.7) [facility] Corrected on 02/09 AT 0727: Previously r eported as 9.7 LYMPH # 1.2 10*3/uL (1.2-4.8) [facility] MONO # 0.9 10*3/uL (0.0-0.8) [facility] Eosinophils [#/volume] in Blood by Automated count 0.1 10*3/uL (0.0-0 .5) [facility] BASO # 0.1 10*3/uL (0.0-0.2) [facility] HJ BODIES 1+ [facility] LARGE PLT 1+ [facility] ID Date Data Source [id number] 02/10/2020 05:26:31 AM EDT [facility] Name Value Range Interpretation Code Description Data Yumiko rce(s) Supporting Document(s) POC GLUCOSE 162 mg/dL (70-99) [facility] NOTIFIED NURSEPERFORMED BY CLINICAL S TAFF ID Date Data Source [id number] 02/09/2020 09:53:01 PM EDT [facility] Name Value Range Interpretation Code Description Data Yumiko rce(s) Supporting Document(s) POC GLUCOSE 250 mg/dL (70-99) [facility] NOTIFIED NURSEPERFORMED BY CLINICAL S TAFF ID Date Data Source [id number] 02/09/2020 05:51:20 PM EDT [facility] Name Value Range Interpretation Code Description Data Yumiko rce(s) Supporting Document(s) POC GLUCOSE 355 mg/dL (70-99) [facility] PERFORMED BY CLINICAL STAFF ID Date Data Source [id number] 02/09/2020 12:00:57 PM EDT [facility] Name Value Range Interpretation Code Description Data Yumiko rce(s) Supporting Document(s) POC GLUCOSE 168 mg/dL (70-99) [facility] NOTIFIED NURSEPERFORMED BY CLINICAL S TAFF ID Date Data Source [id number] 02/09/2020 07:56:34 AM EDT [facility] Name Value Range Interpretation Code Description Data Yumiko rce(s) Supporting Document(s) POC GLUCOSE 172 mg/dL (70-99) [facility] NOTIFIED NURSEPERFORMED BY CLINICAL S TAFF ID Date Data Source [id number] 02/10/2020 06:09:44 PM EDT [facility] Name Value Range Interpretation Code Description Data Yumiko rce(s) Supporting Document(s) CANCER AG GI 19 9 19 [facility] Reference range: 0 to 37Unit: [...] or absence of malignant disease. Performed by [email or web address], [address] [place] [id number] [email or web address], Michael Yang MD, Lab. Director ID Date Data Source [id number] 02/09/2020 08:57:03 AM EDT [facility] Name Value Range Interpretation Code Description Data Yumiko rce(s) Supporting Document(s) WBC 17.9 10*3/uL (4.1-11.0) [facility] RBC 4.48 10*6/uL (4.00-5.40) [facility] HGB 14.4 g/dL (12.0-16.0) [facility] HCT 43.4 % (36.0-47.0) [facility] MCV 96.9 fL (80.0-95.0) [facility] MCH 32.1 pg (27.0-32.0) [facility] MCHC 33.1 g/dL (32.0-36.0) [facility] RDW 14.6 % (10.5-14.5) [facility] PLT 313 10*3/uL (150-450) [facility] PLATELET COUNT VERIFIED BY TECH MPV 11.4 fL (7.1-10.7) [facility] NEUT % 83.0 % (35.0-75.0) [facility] LYMPH % 8.0 % (16.0-52.0) L [facility] MONO % 8.0 % (0.0-8.0) [facility] BASO % 1.0 % (0.0-4.0) [facility] NEUT # 14.9 10*3/uL (1.8-7.7) [facility] LYMPH # 1.4 10*3/uL (1.2-4.8) [facility] MONO # 1.4 10*3/uL (0.0-0.8) [facility] BASO # 0.2 10*3/uL (0.0-0.2) [facility] POIK 2+ [facility] POLY 1+ [facility] TARGET 1+ [facility] OVALO 1+ [facility] ACANTHO 1+ [facility] DEVIKA 1+ [facility] LARGE PLT 1+ [facility] GIANT PLT 1+ [facility] DIFF COMMENT [facility] BODY ID Date Data Source [id number] 02/09/2020 08:19:38 AM EDT [facility] Name Value Range Interpretation Code Description Data Yumiko rce(s) Supporting Document(s) SODIUM 139 mmol/L (136-145) [facility] POTASSIUM 3.5 mmol/L (3.6-5.2) L [facility] CHLORIDE 99 mmol/L (100-108) L [facility] CO2 30 mmol/L (22-31) [facility] ANION GAP 10 mmol/L (7-16) [facility] UREA NITROGEN 48 mg/dL (7-24) [facility] CREATININE 1.70 mg/dL (0.60-1.00) H [facility] BUN/CREAT RATIO 28.2 RATIO (10.0-20.0) [facility] GLUCOSE 148 mg/dL (70-99) H [facility] CALCIUM 9.0 mg/dL (8.4-10.2) [facility] TOTAL PROTEIN 6.4 g/dL (6.4-8.2) [facility] ALBUMIN 2.6 g/dL (3.2-4.5) L [facility] GLOBULIN 3.8 g/dL (2.7-4.3) [facility] ALB/GLOB RATIO 0.7 RATIO [facility] ALKALINE PHOSPHATASE 80 U/L (45-117) [facility] BILIRUBIN,TOTAL 0.6 mg/dL (0.0-1.0) [facility] PLEASE NOTE:Total bilirubin results may be falselyelevated in patients taking Eltrombopag. AST (SGOT) 20 U/L (11-39) [facility] ALT (SGPT) 20 U/L (12-78) [facility] GFR 28 ml/min/1.73m2 (>59) L [facility] GFR ( AMER) 34 ml/min/1.73m2 (>59) L [facility] GFR INTERPRETATION [facility] --NORMAL KIDNEY FUNCTION OR MILD DISEASE - GFR >OR= 60CHRONIC KIDNEY DISEASE - GFR 15 - 59RENAL FAILURE - GFR <15 Est. GFR calculation based on the MDRDstudy equation, which assumes a steadystate for creatinine. Est. GFR should notbe used for medication dosing. ID Date Data Source [id number] 02/09/2020 08:19:38 AM EDT [facility] Name Value Range Interpretation Code Description Data Yumiko rce(s) Supporting Document(s) MAGNESIUM 2.2 mg/dL (1.7-2.4) [facility] ID Date Data Source [id number] 02/09/2020 08:19:38 AM EDT [facility] Name Value Range Interpretation Code Description Data Yumiko rce(s) Supporting Document(s) LIPASE 178 U/L (65-230) [facility] ID Date Data Source [id number] 02/09/2020 02:59:27 AM EDT [facility] Name Value Range Interpretation Code Description Data Yumiko rce(s) Supporting Document(s) POC GLUCOSE 130 mg/dL (70-99) [facility] NOTIFIED NURSEPERFORMED BY PAO S TAFF ID Date Data Source [id number] 02/08/2020 09:32:53 PM EDT [facility] Name Value Range Interpretation Code Description Data Yumiko rce(s) Supporting Document(s) POC GLUCOSE 143 mg/dL (70-99) [facility] NOTIFIED NURSEPERFORMED BY CLINICAL S TAFF ID Date Data Source [id number] 02/08/2020 05:42:59 PM EDT [facility] Name Value Range Interpretation Code Description Data Yumiko rce(s) Supporting Document(s) POC GLUCOSE 252 mg/dL (70-99) [facility] NOTIFIED NURSEPERFORMED BY CLINICAL S TAFF ID Date Data Source [id number] 02/08/2020 03:16:00 PM EDT [facility] DATE OF EXAM: 02/08/2020 MRI [...] follow-up is recommended. Professional interpretation performed at [facility] .End of diagnostic report for accession: [id number] Interpreted: Anirudh Martinezscribed: 02/08/2020 03:01 PMSigned: 02/08/2020 03:16 PM Anirudh Martinez DO [facility] # [id number] BILL # [id number] Name Value Range Interpretation Code Description Data Yumiko rce(s) Supporting Document(s) ID Date Data Source [id number] 02/08/2020 12:47:18 PM EDT [facility] Name Value Range Interpretation Code Description Data Yumiko rce(s) Supporting Document(s) POC GLUCOSE 194 mg/dL (70-99) [facility] PERFORMED BY CLINICAL STAFF ID Date Data Source [id number] 02/08/2020 08:51:04 AM EDT [facility] Name Value Range Interpretation Code Description Data Yumiko rce(s) Supporting Document(s) POC GLUCOSE 255 mg/dL (70-99) [facility] NOTIFIED NURSEPERFORMED BY CLINICAL S TAFF ID Date Data Source [id number] 02/08/2020 08:41:46 AM EDT [facility] Name Value Range Interpretation Code Description Data Yumiko rce(s) Supporting Document(s) HEMOGLOBIN A1C @ 7.2 % (4.0-6.0) [facility] Performed using [employer] [place] immuno[employer] y.Care must be taken when interpreting [id number] in patients with a hemoglobin variantor decreased erythrocyte lifespan. Values 5.7 - 6.4% suggest prediabetes.Values >=6.5% are diagnostic for diabetes.REFERENCE: DIABETES CARE 2018: 41(S13-S27).PERFORMED AT [address] [facility] [id number] EST [place] GLUCOSE 160 mg/dL [facility] ID Date Data Source [id number] 02/08/2020 07:24:29 AM EDT [facility] Name Value Range Interpretation Code Description Data Yumiko rce(s) Supporting Document(s) PHOSPHORUS 3.2 mg/dL (2.5-4.5) [facility] ID Date Data Source [id number] 02/08/2020 07:24:29 AM EDT [facility] Name Value Range Interpretation Code Description Data Yumiko rce(s) Supporting Document(s) LIPASE 1415 U/L (65-230) [facility] ID Date Data Source [id number] 02/08/2020 07:24:29 AM EDT [facility] Name Value Range Interpretation Code Description Data Yumiko rce(s) Supporting Document(s) SODIUM 140 mmol/L (136-145) [facility] POTASSIUM 3.2 mmol/L (3.6-5.2) L [facility] CHLORIDE 101 mmol/L (100-108) [facility] CO2 31 mmol/L (22-31) [facility] ANION GAP 8 mmol/L (7-16) [facility] UREA NITROGEN 68 mg/dL (7-24) [facility] CREATININE 2.09 mg/dL (0.60-1.00) [facility] BUN/CREAT RATIO 32.5 RATIO (10.0-20.0) [facility] GLUCOSE 219 mg/dL (70-99) H [facility] CALCIUM 8.3 mg/dL (8.4-10.2) L [facility] TOTAL PROTEIN 6.6 g/dL (6.4-8.2) [facility] ALBUMIN 2.9 g/dL (3.2-4.5) L [facility] GLOBULIN 3.7 g/dL (2.7-4.3) [facility] ALB/GLOB RATIO 0.8 RATIO [facility] ALKALINE PHOSPHATASE 72 U/L (45-117) [facility] BILIRUBIN,TOTAL 0.6 mg/dL (0.0-1.0) [facility] PLEASE NOTE:Total bilirubin results may be falselyelevated in patients taking Eltrombopag. AST (SGOT) 17 U/L (11-39) [facility] ALT (SGPT) 21 U/L (12-78) [facility] GFR 22 ml/min/1.73m2 (>59) L [facility] GFR ( AMER) 27 ml/min/1.73m2 (>59) L [facility] GFR INTERPRETATION [facility] --NORMAL KIDNEY FUNCTION OR MILD DISEASE - GFR >OR= 60CHRONIC KIDNEY DISEASE - GFR 15 - 59RENAL FAILURE - GFR <15 Est. GFR calculation based on the MDRDstudy equation, which assumes a steadystate for creatinine. Est. GFR should notbe used for medication dosing. ID Date Data Source [id number] 02/08/2020 07:24:29 AM EDT [facility] Name Value Range Interpretation Code Description Data Yumiko rce(s) Supporting Document(s) TROPONIN I 0.22 ng/mL (<0.05) [facility] Less than 0.05: Myocardial injury unlike lyGreater than or equal to 0.05: Highly suggestive of myocardial injuryCorrelation with rise and/or fall ofserial troponins, clinical symptomsand ECG changes is necessary. ID Date Data Source [id number] 02/08/2020 06:31:05 AM EDT [facility] Name Value Range Interpretation Code Description Data Yumiko rce(s) Supporting Document(s) WBC 18.2 10*3/uL (4.1-11.0) [facility] RBC 4.50 10*6/uL (4.00-5.40) [facility] HGB 14.5 g/dL (12.0-16.0) [facility] HCT 43.2 % (36.0-47.0) [facility] MCV 96.2 fL (80.0-95.0) [facility] MCH 32.2 pg (27.0-32.0) H [facility] MCHC 33.5 g/dL (32.0-36.0) [facility] RDW 14.4 % (10.5-14.5) [facility] PLT 311 10*3/uL (150-450) [facility] MPV 10.9 fL (7.1-10.7) [facility] ID Date Data Source [id number] 02/08/2020 01:37:23 AM EDT [facility] Name Value Range Interpretation Code Description Data Yumiko rce(s) Supporting Document(s) POC GLUCOSE 173 mg/dL (70-99) [facility] NOTIFIED NURSEPERFORMED BY CLINICAL S TAFF ID Date Data Source [id number] 02/07/2020 09:25:48 PM EDT [facility] Name Value Range Interpretation Code Description Data Yumiko rce(s) Supporting Document(s) POC GLUCOSE 275 mg/dL (70-99) [facility] NOTIFIED NURSEPERFORMED BY CLINICAL S TAFF ID Date Data Source [id number] 02/07/2020 06:46:38 PM EDT [facility] Name Value Range Interpretation Code Description Data Yumiko rce(s) Supporting Document(s) POC GLUCOSE 427 mg/dL (70-99) [facility] NOTIFIED NURSEPERFORMED BY CLINICAL S TAFF ID Date Data Source [id number] 02/07/2020 05:17:31 PM EDT [facility] Name Value Range Interpretation Code Description Data Yumiko rce(s) Supporting Document(s) POC GLUCOSE 480 mg/dL (70-99) [facility] PERFORMED BY CLINICAL STAFF ID Date Data Source [id number] 02/07/2020 05:29:42 PM EDT [facility] Name Value Range Interpretation Code Description Data Yumiko rce(s) Supporting Document(s) RANDOM URINE SODIUM 60 mmol/L [facility] ID Date Data Source [id number] 02/07/2020 05:26:32 PM EDT [facility] Name Value Range Interpretation Code Description Data Yumiko rce(s) Supporting Document(s) RANDOM URINE CREAT 27.10 mg/dL [facility] ID Date Data Source [id number] 02/07/2020 05:25:37 PM EDT [facility] Name Value Range Interpretation Code Description Data Yumiko rce(s) Supporting Document(s) COLOR [facility] APPEARANCE [facility] SPEC GRAV URINE 1.015 (1.003-1.030) [facility] PH URINE 6.0 (5.0-7.5) [facility] LEUK ESTERASE (NEG) [facility] NITRITE URINE (NEG) [facility] PROTEIN URINE 1+ (NEG) A [facility] GLUCOSE URINE 3+ (NEG) A [facility] KETONE URINE (NEG) [facility] [place] UROBILINOGEN 0.2 mg/dL (0-1.0) [facility] BILIRUBIN URINE (NEG) [facility] BLOOD/HGB URINE (NEG) [facility] URINE WBC (0-5) [facility] URINE RBC (0-2) [facility] EPITHELIAL CELLS 1+ [HPF] [facility] ID Date Data Source [id number] 02/07/2020 05:18:00 PM EDT [facility] [place] [id number] NAME: CESAR SESAY OF : 4REPORT: ADMISSION NOTEPATIENT NUMBER: [id number] STATUS: ERMEDICAL RECORD NUMBER: [id number] OF ADMISSION: 02/07/2020ROOM: 01CHIEF COMPLAINT: Nausea, vomiting, severe abdominal pain.HISTORY OF PRESENT ILLNESS: Patient is an 84 years old lady whowas diagnosed with pancreatic cancer 1 year ago. Around year 1999, patienthad a pancreatic tail lesion for which she had a partial pancreatectomy andalso splenectomy. She was told at that time she did not have cancer. Oneyear ago, when she went to [facility] for a transcutaneous aortic valvereplacement for severe [...] bad and that made her to go [facility] emergency room and from there, she was [...] had a transcutaneous aortic valve replacement at [facility] in 09/2018.ALLERGIES: Penicillin, sulfa, Cipro, and gabapentin.MEDICATIONS: [...] She lives alone. Her daughter lives in [place]. Shelives in [place], [place]. She quit smoking a long [...] ultrasound. On the CAT scan, she had [facility], she did not have any hydronephrosis. I will also check the urinalysis with microscopy and the fractional excretion of sodium. She definitely looks dry.3. Hypokalemia secondary to dehydration, nausea, vomiting, chlorthalidone and Lasix. We will gradually replace the potassium and recheck her electrolytes.4. History of coronary artery disease. She has a stent on LAD placed in 2018. Dr. Goldman is her kick plate installer. Her troponin is mildly elevated, can be [...] DNR/DNI and that has been discussed at [facility] and I also confirmed this with the patient. She is very high risk for DVT. She will be on subcu heparin for DVT prophylaxis. Her overall prognosis remains poor.DICTATED BY: HESHAM Coteictated: 02/07/2020 14:57DT: 02/07/2020 15:02Job #: [id number]: MD Howard NunezNOTE: [facility] computer generated reports are notconfirmed or authenticated unless they are signed by the providerElectronically Authenticated and Edited by:GONSALO CALDERA MD On 02/07/2020 05:18 PM EDT Name Value Range Interpretation Code Description Data Yumiko rce(s) Supporting Document(s) ID Date Data Source [id number] 02/07/2020 02:21:53 PM EDT [facility] Name Value Range Interpretation Code Description Data Yumiko rce(s) Supporting Document(s) POC GLUCOSE 469 mg/dL (70-99) [facility] NOTIFIED NURSEPERFORMED BY CLINICAL S TAFF ID Date Data Source [id number] 02/07/2020 01:57:14 PM EDT [facility] Name Value Range Interpretation Code Description Data Yumiko rce(s) Supporting Document(s) URINE WBC (0-5) [facility] URINE RBC (0-2) [facility] EPITHELIAL CELLS 1+ [HPF] [facility] BACTERIA 1+ [HPF] [facility] ID Date Data Source [id number] 02/07/2020 12:50:54 PM EDT [facility] Name Value Range Interpretation Code Description Data Yumiko rce(s) Supporting Document(s) COLOR [facility] PERFORMED AT [address] [facility] [place] [address] APPEARANCE [facility] SPEC GRAV URINE 1.014 (1.003-1.030) [facility] PH URINE 6.0 (5.0-7.5) [facility] LEUK ESTERASE (NEG) [facility] CRITERIA FOR CULTURE NOT MET.CULTURE CAN BE ADDED WITHIN 36 HOURS OFCOLLECTION. NITRITE URINE (NEG) [facility] PROTEIN URINE (NEG) A [facility] GLUCOSE URINE 3+ (NEG) A [facility] KETONE URINE (NEG) [facility] UROBILINOGEN 0.2 mg/dL (0-1.0) [facility] BILIRUBIN URINE (NEG) [facility] BLOOD/HGB URINE (NEG) A [facility] ID Date Data Source [id number] 02/07/2020 10:53:07 AM EDT [facility] Name Value Range Interpretation Code Description Data Yumiko rce(s) Supporting Document(s) SODIUM 134 mmol/L (136-145) L [facility] POTASSIUM 2.9 mmol/L (3.6-5.2) LL [facility] RESULT(S) CALLED TO AND READ BACK BYMAGE N IN ER AT 1051 ON 02/07/20.73677 CHLORIDE 96 mmol/L (100-108) L [facility] CO2 30 mmol/L (22-31) [facility] ANION GAP 8 mmol/L (7-16) [facility] UREA NITROGEN 87 mg/dL (7-24) HH [facility] RESULT(S) CALLED TO AND READ BACK BYMAGE N IN ER AT 1051 ON 02/07/20.16927 CREATININE 2.53 mg/dL (0.60-1.00) H [facility] BUN/CREAT RATIO 34.4 RATIO (10.0-20.0) H [facility] GLUCOSE 435 mg/dL (70-99) HH [facility] RESULT(S) CALLED TO AND READ BACK BYMAGE N IN ER AT 1051 ON 02/07/20.65495 CALCIUM 8.0 mg/dL (8.4-10.2) L [facility] GFR 18 ml/min/1.73m2 (>59) L [facility] GFR ( AMER) 22 ml/min/1.73m2 (>59) L [facility] GFR INTERPRETATION [facility] --NORMAL KIDNEY FUNCTION OR MILD DISEASE - GFR >OR= 60CHRONIC KIDNEY DISEASE - GFR 15 - 59RENAL FAILURE - GFR <15 Est. GFR calculation based on the MDRDstudy equation, which assumes a steadystate for creatinine. Est. GFR should notbe used for medication dosing. ID Date Data Source [id number] 02/07/2020 10:53:07 AM EDT [facility] Name Value Range Interpretation Code Description Data Yumiko rce(s) Supporting Document(s) TROPONIN I 0.10 ng/mL (<0.05) H [facility] Less than 0.05: Myocardial injury unlike lyGreater than or equal to 0.05: Highly suggestive of myocardial injuryCorrelation with rise and/or fall ofserial troponins, clinical symptomsand ECG changes is necessary. ID Date Data Source [id number] 02/07/2020 10:53:07 AM EDT [facility] Name Value Range Interpretation Code Description Data Yumiko rce(s) Supporting Document(s) LIPASE 8918 U/L (65-230) H [facility] ID Date Data Source [id number] 02/07/2020 10:53:07 AM EDT [facility] Name Value Range Interpretation Code Description Data Yumiko rce(s) Supporting Document(s) TOTAL PROTEIN 8.1 g/dL (6.4-8.2) [facility] ALBUMIN 3.4 g/dL (3.2-4.5) [facility] GLOBULIN 4.7 g/dL (2.7-4.3) H [facility] ALB/GLOB RATIO 0.7 RATIO [facility] BILIRUBIN,TOTAL 0.5 mg/dL (0.0-1.0) [facility] PLEASE NOTE:Total bilirubin results may be falselyelevated in patients taking Eltrombopag. BILIRUBIN,CONJUGATED 0.2 mg/dL (0.0-0.3) [facility] BILIRUBIN,UNCONJ. 0.3 mg/dL (0.0-0.7) [facility] ALKALINE PHOSPHATASE 71 U/L (45-117) [facility] AST (SGOT) 19 U/L (11-39) [facility] ALT (SGPT) 32 U/L (12-78) [facility] ID Date Data Source [id number] 02/07/2020 10:53:07 AM EDT [facility] Name Value Range Interpretation Code Description Data Yumiko rce(s) Supporting Document(s) MAGNESIUM 2.2 mg/dL (1.7-2.4) [facility] ID Date Data Source [id number] 02/07/2020 10:49:41 AM EDT [facility] Name Value Range Interpretation Code Description Data Yumiko rce(s) Supporting Document(s) PT 10.6 s (9.2-11.9) [facility] PERFORMED AT [address] [facility] [address] INR 1.01 [facility] SUGGESTED THERAPEUTIC RANGES USING INR F ORSTABILIZED ANTICOAGULATED PATIENTS:STANDARD DOSE THERAPY INR 2.0-3.0 DVT, PE, PREVENT DVT OR EMBOLISMHIGH DOSE THERAPY INR 2.5-3.5 PREVENT EMBOLISM FROM MECHANICAL HEART VALVE ID Date Data Source [id number] 02/07/2020 10:42:11 AM EDT [facility] Name Value Range Interpretation Code Description Data Yumiko rce(s) Supporting Document(s) WBC 14.6 10*3/uL (4.1-11.0) H [facility] RBC 4.24 10*6/uL (4.00-5.40) [facility] HGB 13.6 g/dL (12.0-16.0) [facility] HCT 40.5 % (36.0-47.0) [facility] MCV 95.4 fL (80.0-95.0) H [facility] MCH 32.0 pg (27.0-32.0) [facility] MCHC 33.5 g/dL (32.0-36.0) [facility] RDW 14.0 % (10.5-14.5) [facility] PLT 313 10*3/uL (150-450) [facility] MPV 11.1 fL (7.1-10.7) H [facility] NEUT % 85.1 % (35.0-75.0) H [facility] LYMPH % 8.6 % (16.0-52.0) L [facility] MONO % 5.9 % (0.0-8.0) [facility] EOS % 0.1 % (0.0-5.0) [facility] BASO % 0.3 % (0.0-4.0) [facility] NEUT # 12.4 10*3/uL (1.8-7.7) H [facility] LYMPH # 1.3 10*3/uL (1.2-4.8) [facility] MONO # 0.9 10*3/uL (0.0-0.8) H [facility] Eosinophils [#/volume] in Blood by Automated count 0.0 10*3/uL (0.0-0 .5) [facility] BASO # 0.0 10*3/uL (0.0-0.2) [facility] ID Date Data Source [id number] 02/07/2020 10:30:53 AM EDT [facility] Name Value Range Interpretation Code Description Data Yumiko rce(s) Supporting Document(s) SOURCE [facility] FIO2 [facility] PH 7.38 (7.33-7.43) [facility] PCO2 48 mm[Hg] (38-50) [facility] PO2 134 mm[Hg] (30-50) H [facility] O2 SAT 98.2 % (60-85) H [facility] GULSHAN BASE EXCESS 1.9 mmol/L (0.0-2.0) [facility] HCO3 27.7 mmol/L (23-27) H [facility] TOTAL CO2 29.1 mmol/L (24-28) H [facility] BODY TEMPERATURE 98.6 [degF] [facility] ID Date Data Source [id number] 02/07/2020 10:12:39 AM EDT [facility] Name Value Range Interpretation Code Description Data Yumiko rce(s) Supporting Document(s) MUSE EKG PDF encoded [facility] spital FJWOKi5pQfUUCzOpa7OjQzAcQBBsZP9yuqt2N7N0gQKcF3CmrJCnx4rvO1SgC0VnQNRzWEFFRT6CwDIj jb2 [file] s84nAqxiU68SY+AC6OUB7GR+muw142fTD373IX5i31 1zM6/OvTG6FHdhOyfla9C95px9ZwXfYBMr/v2mimlnF4TqCS+J59qxFES2S84o3af4Tqo9i6b9/jytv/ lh3ufbgNuCi0f2u6+uyi83idPcrKI0WAzkT/kP2pFniaaWeBE72Pr/hty331VoQ3U9a3J8R6UK6OtGeh X5u7A+L6xXq/vOyx69E89X1/kuB+2AR6uL76QuEqeC X6h1rQn3H4y/MNMCHPPX+/07vd+/0/v9O3N/MOd17g/etPVvFn6/jAfdGy3U4V1w0r+atv8cqbpqfm6L 72dk62AywxqvieyEV0+Og2wh35FuFgy11ywMuB3D/fpuZ/x2n0UyvlY122k/9rqV4+RGf0TVHz+9bnr+ /lKK6vc05guIfgJyK5RpPOssktB6cjulDIh/HDzbtf H73fm8+uLPV2q1d+Nuua9+tSwSf+2TXr9/5SBvLtj180eJgU8RzX0f5Hlwqz95bo487ZS2+tXIth/9Si xQJ18Ri/r26Fdq+fv3+b6L65s+8/gMFN65tNrNUhdk7oDr/i7cKxAi99w4A78S+4OG/UGDfmVPv3/t6f FsT+iC8nK5pZD+ciaBnN9ndcc6c30077glV4VnhKsl bOxh114qtXS/4/bLWX53bjG1WVRyd0pbN2sw2v+RvykU4DbYvH6gkS7C1Ih7SM/j68KPsi/amMjfgBvw HOiHG3bXQl/gAXwDb/ukYX/CtM7d3I965G+nVWKIofNU5ai6t4wf/sH+kOR5WxtB7Cwqxe/KMSNtrzPs A2h7jzLBs9g4Gq3vZ/8eqgAF6CN9NTejBgeRLackCO 3L6X8chFgpFm5H0w3i6j6Bpa0+Bs01fTi/j2z2+0yqB3dGn/unZihFH4LHPfUA1UorxH/gC7gDb/3KoF 3F4WeNfaBG61O7pTOb2xrm3RbP6ZelSG0tXo5yCf6aSs9nHt2yUg4gNj6dBk4hTfxTwlpo+1xYlR7ozA /NxM/6fNPAN/KuhDpNTy40PX/ABbgAT/evyxFeo0cz /UoSP+1vnNK96Qd7Ug99WMzn63w4wzY9Eocc1AcGmvfhyhxmeA/gA/zNgiurtH4uo0ithY+Ckom1JfKB 6JVk0DQaxlvsTffb6Nw47U3nWkv9N0ykIqk+U7/nndClsl2vUj970M6aTVHBngPI+AQ+cIagR308IbWf rlt/W2i9VN27hHzkgNx6mmFhV+o1uMtyORDNhEFV2n 58r1V4W+6qyM5Qr7sxKre8np89R6cvEThJh+A7z6IiSk/FLiUzf4nJ6dndn+xLC/De/712t7So/mrBfr Dko7spMa0GlyqlAmv8uiG01AC6noI+tWC/WrU/dNmbCc7qrT+dd9lK/arSA/l06b5y7miaZq3VTlxRHr EbcAO+gC/gDtyBB/BA/Tfq3/nIRLtr5krZ5Ledrm5p KsbugbR3Up//Lml7+5L+3l/S+0Zs0Ls9WZaH4+/9Jb2/oXKN73P8lywoohe1l/VWfocsJRi5JU/ABbh0 v8F+tVSBT+AEpMAf25QgtB2exJ9gsNL01NZh9HQ+cwMakumhV3pf77R8+7zZmr0+j1vb62gCxD1yENm/ MlHLg3PB+yW6ugEGkw9CPDkq6bbose+32xp93c21BM EJNk5b4yk1j/r7aFl/Yprz04IkTlnWt8r8m2UOX6+30gbcgC/gC7gDd+QwWTmYn656c85h8wpOPnqrhb /LhCDGL5ReQOny1vvpuIv/Raom05p491Y33iEklVC/mey++v27Vu+YlzV1kXXH8TJ5A+/37/TPV4x3ab LlvR+6Sr/K37R+taBfLehXq/SrTE/qX0651LY7tclO tL1cYE4nKfyl20gK4Q6oK93dsLEtK/x5iRJSzRXM+hwCXIDj+AQBf5FaeOHZ9l/9Fww8V2rp/Rt4/wbe m1emXDblSZhfUYlo50i4d/f379r9/ai1YMk9u+P9uxW/7/8Mgzt3s00R6kx7Pf6qwB5KQrC6f2M3E9e/ 4luxk96vYyr/4P2FzpvJarFkNR/77ui9SA/8x97GG4 pi2734T/K117kk/trr1pO/f+98GGa51d4Tlwr9Z7/1drTv9085Kwg1+nyuzdBf/arOK/nkO1Om8M/96v fSzt+94kh0pm70CxaI1+3IX/0z3ccQG/6dV/RXvypbor/32G0kAm5vwKGnvX0hY5dJ97Ree17FxvZgnI 6vH/3zSYTA6h547z8+Jaf//kqQkQ7Rp20InyYT+4PZ psUyL5l2/BFQ1kf1tT0sc/lTzZG9SRp+oI9+//qi1ozuKsKg+gMmsjCRDSk7zLbzwd88XjYb26YHbuEu XvgcJd91bwT+5Wm/qrQBN+ALeNvrXNpe5+CWQ2lG97AiBwzw2bwaH+EFxTvsWPRjSAuP2LQSJbJ0OIEQ HO3VPk/e0R046H999cey+4OO/UHH/lBu230s5U494m eVHsDxfLE/6LU/mLg+KOJQruemY5BymcTU5PQ/g5cyrx2H+bWyAU5Jt08H+oaXfpXp/u9nuS88r6g9A+ fswcfRKZRr78Gdv0/c+rcSha7pwYO+DruUfq0JapH+t1t/L7gF8t+oT38v+Ar95mfdK/4JoG335MmOVz 67Ra3R5lE3Ko/QV5/P8dX7+566ft20ptrch/TV9g1f vZ/iq+86qnb6fy++D+upX83y+DQjoP42h57z1/Q31b6o49Cu1k/7bmOWz9XuQ539t0avtr/IZyH/hfo4 eOkuyUL5Ft42/8J5n07IadA8E72QNAMWzPH2IHrISbRrfGQ7Fdwo0grf04q7oAw6IwD/7ZXEo9+Dab+6 3d661sEEgafyMXi3pnX409+o4sxwC4gNv/ru/X3f/T 0afE665ZfQ+4NJdgE5Tph54m3cnCobKO9yZY2039H1wi+L5wE+rBw9cim3iMXyy7tahR+St9jkFF998+ vzowJ1nfF41g4sf2P+C/t9qhBGy84/A/4ZAvcHA/pwkM6kWR+V4ijLWL5/H7g/GLg/GLg/GLg/GDh/Fa PPI8Xo+84x+ns/xgK+uBbkK339dpN+gfd+Skjv/0bq R4c62W2Oco4M1i+OkK0ORwzFGm0dtV3R8QfBUw1e2K9O8Y+Q8W4UpD0tNpHwJ+I7hJ8jWLAfeFL02zmA PF/m170z7ayVSJTM0y4A9nlS+4OB/Dorie/eRlwmVvOtzTDbl35U08wTxbgEhcYibxyjjX+4Mxe38/Zp83 qtpARC4xVzsHUezdHik6ReJ5j5N5hcZ+CWa0A3au81 /A/Dorie/mBMzF/CuxD2J3P4eVac/mDg/mAYnq+1/UnKb1xCrXFfmFskF22KZQ0zYXabDR/W54JWCbjDkp At3nixQckfV/7xGoz44A3E8uu9/lGs/k3OQNRydRJ+gC/gDtyBB/DWnyPPX+Larxzoxl7x1auDSwkZlg 7qfEdHnr+ScM41La0CKncGU+AT+ET+aZ+k8QcWBr58 v4/CMX9x/ioczzfPX+Uuhsok1Qeok8fpM4YlDp20X/YHI/D+zk6vSuX7nyb2l4WTT+XQsTXks44G6+si +v5ChKM+/v4V8Y1A2jf1LPg/xf8WPI2oR+V7A94bOB1x3qr6e5W1AzhcH869M755U093F514S270j8tj 3RjPG+F9QrrnAP2Dw/15P/09uJ8H+AA+hQj0mC45x/ vp platforms+0O74owGNG69L0vWnE58XN/f/Nq5P+iJ+nnmuo1TBk31fr18SBp/+xsn++fIrNuhi56g4g/aN9VTA9 9zhhtB2qt8UqiHewEzdU0Tt99J2rbddQ6e/p6qz3EDSX/676YH805+bIR02Wl/SqCn405ZwdA9jr3k7a frs/vtkecJM/9znnDlbwK/D+SzT/7Zxtdel+Nzv/rV KluE0a98Logi/erW/1Nz0h8rb/Yg50yOfChlc7sue1+LiNHUw6OsTlEWovY2noqJp7Hax/u62xmWsfjG WIi7o2dI4wNkpU2a7Z/c0vtlW/S5cH8pkUiZKy+2Yb/aqV/l+NS+/7u17/9uFeAK/SwtFODoU2S3Rf/K THh87W4XX6QabbD/tkoj6bZ/4caha3R4+m90O9jF+9 GwqM2P82tw/uJ8+30FscMfam7+1apm4Bc/7X1f/idt/ktxhoegX1VGrwrlzvdS+iAcY5uJ53W000tkGB 3Gg6lX9/1b6e7/1K+yb1O/ynYZnm/eZ4o1f5gG+yR50hYA6mWO/wizkeN7Gg9i5um0SdzXi62t57L05D rQsOFuH7ygj+pF7DbK40LteWMqpcobfGak7kfrYcsX b/ceJf3gqvm+VprNQuP63EQDpa/zk9v7+0oyxEa7/h0B0i5E9iQ2Ql/vhV3+ofRgvT0TkpvHI/rV9oV6 YxNH5vH56Tnu5fkyT/VeJf7wT6//bvi/2rg/uKP9m+3uonM1LVolJ6uS+/s7+d0ybo7peoEc7Lu0sp4l K3sR90582A9PDMK0tK/gbZ/cu/2S5C0DV0QH0OKYel /XPk+5m90d1AdKM+7q99350g/jR1bGyt6mj94njO3q803dssB+lA4z5x24q7205bsOP8/Oyp5y0j07KK [file] Rg== ID Date Data Source [id number] 02/07/2020 04:13:00 AM EDT [facility] Name Value Range Interpretation Code Description Data Yumiko rce(s) Supporting Document(s) Troponin I.cardiac [Mass/volume] in Serum or Plasma 0.056 ng/mL 0.00- 0.09 N [facility] Less than 0.09 NG/ML Negative0.10 - 0.77 NG/ML High Risk0.78 NG/ML or Greater PositiveThe WHO defined the cutoff (definition for diagnosis of AL)for this method as 0.78 ng/ml. ID Date Data Source [id number] 02/07/2020 03:01:48 AM EDT [facility] Name Value Range Interpretation Code Description Data Yumiko rce(s) Supporting Document(s) Progress Note [facility] SQGBJi0qNmTQCpGy48/RUMocYOEfd4DvRTypBDp3VEbmZQUyK0XhQGS0dL9zEHW7QSdFGaVcBmJhLfM5 lbm [file] NDM+TL8xUHb+Vj5Vw4ZysiR0mdOvNTi0QWCjEShmOASNCq6Y ID Date Data Source [id number] 02/07/2020 02:02:00 AM EDT [facility] [address] [id number] [phone] NAME SEX PT STATUS ACCOUNT NUMBER [facility] [id number] ORDERING PHYSICIAN LOCATION MEDICAL RECORD NO. Howardbari Robles MD ER [id number] ATTENDING PHYSICIAN DATE OF DATE OF EXAM/TIME Nicholas Scanlon MD 1935 02/07/20101 TYPE / EXAM CT Abd/pel w/o contrast REASON FOR EXAM chest + epigastric pain. PMH pancreatic cancer. TISHA SESAY [id number] 1935 ADDENDUM Clinical History/Indication for Exam: chest [...] rce(s) Supporting Document(s) ID Date Data Source [id number] 02/06/2020 10:54:00 PM EDT [facility] @02/06/20 2234: MANUAL DIFF added. RFLXG = DIFF. @02/06/202233: MANUAL DIFF added. RFLXG = DIFF. Name Value Range Interpretation Code Description Data Yumiko rce(s) Supporting Document(s) Leukocytes [#/volume] in Blood by Automated count 15.2 10*3/uL 4.45-10.71 Above high normal [facility] Erythrocytes [#/volume] in Blood by Automated count 4.36 10*6/uL 4.20 -5.40 [facility] Hemoglobin [Moles/volume] in Blood 13.9 g/dL 10.7-15.4 [facility] Hematocrit [Volume Fraction] of Blood by Automated count 42.9 % 3 7-47 [facility] Erythrocyte mean corpuscular volume [Ent itic volume] in Cord blood by Automated count 98.4 fL 80-96 Above high normal [facility] Erythrocyte mean corpuscular hemoglobin [Entitic mass] by Automated count 31.9 pg 27-31 Above high normal [facility] spital Erythrocyte mean corpuscular hemoglobin concentration [Mass/volume] in Cord blood 32.4 g/dL 33-37 Below low normal [facility] Erythrocyte distribution width [Entitic volume] by Automated count 14 % 11-15 N [facility] Platelets [#/volume] in Blood by Automated count 331 10*3/uL 130-472 [facility] Platelet mean volume [Entitic volume] in Blood 12.2 fL 9.1-13.1 [facility] Neutrophils/100 leukocytes in Blood by Automated count 79.1 % 41-77 Above high normal [facility] Neutrophils [#/volume] in Blood by Automated count 12.1 U 1.7-7.6 Above high normal [facility] Lymphocytes/100 leukocytes in Blood by Automated count 14.1 % 14- 46 N [facility] Lymphocytes [#/volume] in Blood by Automated count 2.1 U 0.6-4.6 N [facility] Monocytes/100 leukocytes in Blood by Automated count 6.0 % 4-12 N [facility] Monocytes [#/volume] in Blood by Automated count 0.9 U 0.2-1.2 N [facility] Eosinophils/100 leukocytes in Blood by Automated count 0.1 % 0-7 N [facility] Eosinophils [#/volume] in Blood by Automated count 0.0 U 0.0-0.5 N [facility] Basophils/100 leukocytes in Blood by Automated count 0.1 % 0.4-1.3 Below low normal [facility] Basophils [#/volume] in Blood by Automated count 0.0 U 0.0-0.2 N [facility] NUCLEATED RED BLOOD CELL 0 % [facility] NUCLEATED RED BLOOD CELL# 0 U [facility] Immature granulocytes [Presence] in Blood by Automated count 0-2 N [facility] Immature granulocytes [#/volume] in Blood by Automated count 0.1 U 0-0.1 N [facility] Manual Differential panel - Blood Manual Diff Added [facility] ID Date Data Source [id number] 02/06/2020 11:37:00 PM EDT [facility] @02/06/20 2234: MANUAL DIFF added. RFLXG = DIFF. @02/06/20 2234: MANUAL DIFF added. RFLXG = DIFF. Name Value Range Interpretation Code Description Data Yumiko rce(s) Supporting Document(s) Urea nitrogen [Mass/volume] in Serum or Plasma 108 mg/dL No range defined, or normal ranges don't apply [facility] @Review test & document. PREV RESULT ON 02/04 101Called to KI @ 8497 by Shannon Davila. Results read back. Sodium [Moles/volume] in Serum or Plasma 133 mmol/L 132-146 [facility] Potassium [Moles/volume] in Serum or Plasma 4.3 mmol/L 3.5-5.5 N [facility] Chloride [Moles/volume] in Serum or Plasma 96 mmol/L 99-109 [place] w low normal [facility] Carbon dioxide, total [Moles/volume] in Serum or Plasma 23 mmol/ L 20-31 No range defined, or normal ranges don't apply [facility] Anion gap in Serum or Plasma 18 mmol/L 8-16 Above high normal [facility] Glucose [Mass/volume] in Serum or Plasma 357 mg/dL 74-106 Above high normal [facility] Creatinine 2.9 mg/dL 0.5-1.1 Above high normal [facility] Glomerular filtration rate/1.73 sq M.pre dicted [Volume Rate/Area] in Serum or Plasma 15 ml/min ABOVE 60 [facility] ital Alanine aminotransferase [Enzymatic acti vity/volume] in Serum or Plasma by With P-5'-P 28 U/L 10-49 N [facility] ital Aspartate aminotransferase [Enzymatic ac tivity/volume] in Serum or Plasma by With P-5'-P 38 U/L 0-33 Above high normal [facility] Alkaline phosphatase [Enzymatic activity/volume] in Serum or Plasma 69 U/L 45-129 N [facility] Calcium [Mass/volume] in Serum or Plasma 8.1 mg/dL 8.5-10.1 DL [facility] Repeated by: Shannon Davila 02/06/202326.Re elyssat Confirmation: 8.1mg/dL Bilirubin.total [Mass/volume] in Serum or Plasma 0.4 mg/dL 0.3-1.2 N [facility] Albumin [Mass/volume] in Serum or Plasma by Bromocresol purple (BCP) dye binding method 3.3 g/dL 3.2-4.8 N [facility] ital Protein [Mass/volume] in Serum or Plasma 7.4 g/dL 5.7-8.2 N [facility] ID Date Data Source [id number] 02/06/2020 10:54:00 PM EDT [facility] @02/06/20 223: MANUAL DIFF added. RFLXG = DIFF. @02/06/202233: MANUAL DIFF added. RFLXG = DIFF. Name Value Range Interpretation Code Description Data Yumiko rce(s) Supporting Document(s) Cells counted [#] 100 [facility] Neutrophils [#/volume] in Blood by Manual count 80 % 41-77 Above high normal [facility] Band form neutrophils [#/volume] in Blood by Manual count 1 % 0-5 N [facility] Lymphocytes [#/volume] in Blood by Manual count 14 % 14-46 N [facility] Monocytes [#/volume] in Blood by Manual count 5 % 4-12 N [facility] Platelets [#/volume] in Blood by Estimate APPEARS NORMAL NORMAL [facility] Morphology [Interpretation] in Blood Narrative APPEARS NORMAL NORMAL [facility] ID Date Data Source [id number] 02/06/2020 11:37:00 PM EDT [facility] @02/06/20 2234: MANUAL DIFF added. RFLXG = DIFF. @02/06/202233: MANUAL DIFF added. RFLXG = DIFF. Name Value Range Interpretation Code Description Data Yumiko rce(s) Supporting Document(s) Amylase [Enzymatic activity/volume] in Serum or Plasma 2545 U/L 30-118 Above high normal [facility] @> linearity. Manually dilute and rerun. @Review and document.Result obtained by DILUTING X4 DilutionCalled to KI @ 2324 by Shannon Davila. Results read back. ID Date Data Source [id number] 02/06/2020 11:37:00 PM EDT [facility] @02/06/202233: MANUAL DIFF added. RFLXG = DIFF. @02/06/202233: MANUAL DIFF added. RFLXG = DIFF. Name Value Range Interpretation Code Description Data Yumiko rce(s) Supporting Document(s) Lipase [Enzymatic activity/volume] in Serum or Plasma Greater Th an 6000 73-393 Above high normal [facility] @Instrument will autodilute RAN DILUTE x8 STILL NO ENDPOINT@review test & document. (F5 - H,I,D,E) ID Date Data Source [id number] 02/06/2020 11:37:00 PM EDT [facility] @02/06/202233: MANUAL DIFF added. RFLXG = DIFF. @02/06/202233: MANUAL DIFF added. RFLXG = DIFF. Name Value Range Interpretation Code Description Data Yumiko rce(s) Supporting Document(s) Troponin I.cardiac [Mass/volume] in Serum or Plasma 0.046 ng/mL 0.00- 0.09 [facility] Less than 0.09 NG/ML Negative0.10 - 0.77 NG/ML High Risk0.78 NG/ML or Greater PositiveThe WHO defined the cutoff (definition for diagnosis of AL)for this method as 0.78 ng/ml. ID Date Data Source [id number] 02/06/2020 10:01:00 PM EDT [facility] [address] [place] [address] [phone] NAME SEX PT STATUS ACCOUNT NUMBER TISHA SESAY REG ER [id number] ORDERING PHYSICIAN LOCATION MEDICAL RECORD NO. Howard Robles MD ER [id number] ATTENDING PHYSICIAN DATE OF DATE OF EXAM/TIME [...] Signed by: Bernard Coleman M.D. Reported By Bernard Coleman MD on 02/06/202200 Signed By Bernard Coleman MD on 02/06/202200 Date Time CC: Nicholas Scanlon M.D.; Bernard Coleman MD Techn: EBEBR Trans Dt/Tm: Trans by: DT Prt Dt/Tm: [id number]: Total DLP = 0.00 mGy-cm Fluoroscopy Time (in secs): Name Value Range Interpretation Code Description Data Yumiko rce(s) Supporting Document(s) ID Date Data Source [id number] 02/06/2020 09:24:00 PM EDT [facility] ED Physician Documentation NAME: TISHA SESAY : 1935 AGE: 84 MR#: [id number] SERVICE DATE: 02/06/[address]: Howard Robles MD PRIMARY CARE DR: Nicholas Scanlon M.D. ROOM#: [facility] (Adult, General) General Chief Complaint: Cardiovascular [...] % Lymph % (Auto) 14.1 (14-46) % [place] % (Auto) 6.0 (4-12) % Eos % [...] EKG: Sinus rhythm. Cannot exclude old septal AL. Initial ED management consisted of gentle IV [...] request, I discussed with patient, son, and [id number] options, risk, benefits, and alternatives. Options include admission to [facility] for pain control and IV fluids. Options include transfer to higher level of care such as [facility] to consider additional diagnostic studies, palliative treatment for pancreatic cancer, palliative treatments not available @ [facility]. Going home from this ED visit is [...] inpatient bed available. 2:50 AM: I phoned [facility] and spoke with Monalisa who will get back to us. 3:44 AM: Recd phone call from Monalisa who put me in phone contact w Dr Haywood ([place] [facility] MD) who accepts transfer to [facility] in [place]. My transfer diagnosis: Chest pain. Pancreatic cancer. [...] 02/06/20 20:50 Discharge Detail Disposition: Transfer - [facility] Med Rec New Prescriptions: No [...] Name Value Range Interpretation Code Description Data [facility](s) Supporting Document(s) ID Date Data Source [id number] 02/05/2020 05:41:00 PM EDT [facility] @02/05/20 1749: UA W/ MICRO added. RFLXG = UMIC.Method of Collection:: Voided @02/05/20 1749: UA W/ MICRO added. RFLXG = UMIC.Method of Collection:: Voided Name Value Range Interpretation Code Description [facility] Document(s) Leukocytes [#/volume] in Blood by Automated count 9.4 10*3/uL 4.45-10 .71 [facility] Erythrocytes [#/volume] in Blood by Automated count 4.22 10*6/uL 4.20 -5.40 [facility] Hemoglobin [Moles/volume] in Blood 13.4 g/dL 10.7-15.4 [facility] Hematocrit [Volume Fraction] of Blood by Automated count 40.1 % 3 7-47 [facility] Erythrocyte mean corpuscular volume [Ent itic volume] in Cord blood by Automated count 95.0 fL 80-96 N [facility] ital Erythrocyte mean corpuscular hemoglobin [Entitic mass] by Automated count 31.8 pg 27-31 Above high normal [facility] spital Erythrocyte mean corpuscular hemoglobin concentration [Mass/volume] in Cord blood 33.4 g/dL 33-37 N [facility] ital Erythrocyte distribution width [Entitic volume] by Automated count 14 % 11-15 [facility] Platelets [#/volume] in Blood by Automated count 341 10*3/uL 130-472 [facility] Platelet mean volume [Entitic volume] in Blood 12.4 fL 9.1-13.1 [facility] Neutrophils/100 leukocytes in Blood by Automated count 57.8 % 41- 77 [facility] Neutrophils [#/volume] in Blood by Automated count 5.4 U 1.7-7.6 [facility] Lymphocytes/100 leukocytes in Blood by Automated count 29.0 % 14- 46 [facility] Lymphocytes [#/volume] in Blood by Automated count 2.7 U 0.6-4.6 [facility] Monocytes/100 leukocytes in Blood by Automated count 9.3 % 4-12 [facility] Monocytes [#/volume] in Blood by Automated count 0.9 U 0.2-1.2 [facility] Eosinophils/100 leukocytes in Blood by Automated count 2.7 % 0-7 [facility] Eosinophils [#/volume] in Blood by Automated count 0.3 U 0.0-0.5 [facility] Basophils/100 leukocytes in Blood by Automated count 0.9 % 0.4-1 .3 [facility] Basophils [#/volume] in Blood by Automated count 0.1 U 0.0-0.2 N [facility] NUCLEATED RED BLOOD CELL 0 % [facility] NUCLEATED RED BLOOD CELL# 0 U [facility] Immature granulocytes [Presence] in Blood by Automated count 0-2 N [facility] Immature granulocytes [#/volume] in Blood by Automated count 0.0 U 0-0.1 N [facility] Manual Differential panel - Blood NO [facility] ID Date Data Source [id number] 02/05/2020 06:02:00 PM EDT [facility] @02/05/20 1749: UA W/ MICRO added. RFLXG = UMIC.Method of Collection:: Voided @02/05/20 1749: UA W/ MICRO added. RFLXG = UMIC.Method of Collection:: Voided Name Value Range Interpretation Code Description Data Yumiko rce(s) Supporting Document(s) Urea nitrogen [Mass/volume] in Serum or Plasma 101 mg/dL 9 -23 No range defined, or normal ranges don't apply [facility] @A repeat was not needed due to historic al results.@Reviewtest & document. []Called to DR. RAMIREZ @ [phone] by Jazzy Lindsay. Results readback. Sodium [Moles/volume] in Serum or Plasma 139 mmol/L 132-146 N [facility] Potassium [Moles/volume] in Serum or Plasma 3.4 mmol/L 3.5-5.5 Below low normal [facility] Chloride [Moles/volume] in Serum or Plasma 94 mmol/L 99-109 Belo w low normal [facility] Carbon dioxide, total [Moles/volume] in Serum or Plasma 33 mmol/ L 20-31 Above high normal [facility] Anion gap in Serum or Plasma 15 mmol[facility]L 8-16 [facility] Glucose [Mass/volume] in Serum or Plasma 84 mg/dL 74-106 N [facility] Creatinine 2.9 mg/dL 0.5-1.1 Above high normal [facility] Glomerular filtration rate/1.73 sq M.pre dicted [Volume Rate/Area] in Serum or Plasma 15 ml/min ABOVE 60 [facility] ital Calcium [Mass/volume] in Serum or Plasma 9.5 mg/dL 8.5-10.1 N [facility] Albumin [Mass/volume] in Serum or Plasma by Bromocresol purple (BCP) dye binding method 3.8 g/dL 3.2-4.8 N [facility] ital Phosphate [Mass/volume] in Serum or Plasma 4.5 mg/dL 2.4-5.1 N [facility] ID Date Data Source [id number] 02/05/2020 06:12:00 PM EDT [facility] @02/05/20 1749: UA W/ MICRO added. RFLXG = UMIC.Method of Collection:: Voided @02/05/20 174: UA W/ MICRO added. RFLXG = UMIC.Method of Collection:: Voided Name Value Range Interpretation Code Description Data Yumiko rce(s) Supporting Document(s) Color of Urine [facility] Appearance of Urine CLEAR [facility] pH of Urine by Test strip 5.5 5-8 [facility] Specific gravity of Urine by Refractometry 1.009 1.005-1.030 [facility] Leukocyte esterase [Presence] in Urine by Test strip NEGATIVE Above high normal [facility] @DO MICRO!!!! Nitrite [Presence] in Urine by Test strip NEGATIVE [facility] Protein [Presence] in Urine by Test strip NEGATIVE [facility] Glucose [Mass/volume] in Urine by Automated test strip NEGATIVE NEG ATIVE [facility] Ketones [Presence] in Urine by Test strip NEGATIVE [facility] Urobilinogen [Presence] in Urine 0.2-1 EU/dl [facility] Bilirubin.total [Presence] in Urine by Automated test strip NEGATIVE [facility] Erythrocytes [#/volume] in Urine by Test strip NEGATIVE NEGATIVE [facility] URINE MICROSCOPIC ADDED Microscopic Added [facility] ID Date Data Source [id number] 02/05/2020 06:16:00 PM EDT [facility] @02/05/20 1749: UA W/ MICRO added. RFLXG = UMIC.Method of Collection:: Voided @02/05/20 174: UA W/ MICRO added. RFLXG = UMIC.Method of Collection:: Voided Name Value Range Interpretation Code Description Data Yumiko rce(s) Supporting Document(s) Hemoglobin A1c % 7.6 % 4.0-6.0 Above high normal [facility] The following ranges may be u sed for interpretation of results: HGBA1C degree of glucose control: Greater than 8%: Action Suggested * Less than 7%: Goal of Diabetic Therapy Less than 6%: NormalFactors such as duration of diabetes, adherence to therapyand the age of the patient should also be considered inassessing the degree of blood glucose control.* High risk of developing train caller complications such asretinopathy, nephropathy, neuropathy, cardiopathy, etc. Some danger of hypoglycemic reaction in Type I diabetics.Some glucose intolerant individuals and "Sub Clinical"diabetics may demonstrate HGBA1C levels in this area. Glucose mean value [Moles/volume] in Blood Estimated f rom glycated hemoglobin 171 mg/dL [facility] l An A1C of 7% - the goal of diabetic ther apy - is equivalentto an EAG of 154 mg/dl. ID Date Data Source [id number] 02/06/2020 02:08:00 PM EDT [facility] @02/05/20 174: UA W/ MICRO added. RFLXG = UMIC.Method of Collection:: Voided @02/05/201748: UA W/ MICRO added. RFLXG = UMIC.Method of Collection:: Voided Name Value Range Interpretation Code Description Data Yumiko rce(s) Supporting Document(s) Parathyrin.intact [Mass/volume] in Serum or Plasma 83 pg/mL 15-65 Above high normal [facility] Performed at: RN - [facility] [place] [id number] Director: Joan Bahena MD, Phone: [phone] ID Date Data Source [id number] 02/05/2020 06:02:00 PM EDT [facility] @02/05/20 1749: UA W/ MICRO added. RFLXG = UMIC.Method of Collection:: Voided @02/05/20 174: UA W/ MICRO added. RFLXG = UMIC.Method of Collection:: Voided Name Value Range Interpretation Code Description Data Yumiko rce(s) Supporting Document(s) Urate [Mass/volume] in Serum or Plasma 6.5 mg/dL 3.3-8.8 N [facility] ID Date Data Source [id number] 02/05/2020 06:12:00 PM EDT [facility] @02/05/20 1749: UA W/ MICRO added. RFLXG = UMIC.Method of Collection:: Voided @02/05/20 1749: UA W/ MICRO added. RFLXG = UMIC.Method of Collection:: Voided Name Value Range Interpretation Code Description Data Yumiko rce(s) Supporting Document(s) Leukocytes [#/volume] in Urine by Manual count 1-2 /hpf 0-5 [facility] Cells [Type] in Urine sediment by Light microscopy [facility] Bacteria [Presence] in Urine sediment by Light microscopy NEGATIVE Above high normal [facility] Fungi.yeastlike [Presence] in Urine sediment by Light microscopy [facility] ID Date Data Source [id number] 02/05/2020 06:02:00 PM EDT [facility] @02/05/20 1749: UA W/ MICRO added. RFLXG = UMIC.Method of Collection:: Voided @02/05/20 1749: UA W/ MICRO added. RFLXG = UMIC.Method of Collection:: Voided Name Value Range Interpretation Code Description Data [facility] rce(s) Supporting Document(s) Magnesium [Mass/volume] in Serum or Plasma 2.5 mg/dL 1.3-2.7 N [facility] ID Date Data Source [id number] 02/05/2020 10:59:00 AM EDT [facility] Patient Name: TISHA SESAY : 1935 Sex: F Pt Unit #: [id number] Location:[facility] Provider: Visit Date/Time: 02/05/20 Primary Insurance: MEDICARE [...] offer been met?: Not in age range [facility] Surgical History (Updated 06/08/19 @ 12:44 by [...] - Pain in unspecified shoulder SNOMED Code(s): 95146469 Category: Medical Plan - Nicholas Scanlon M.D.: [...] rce(s) Supporting Document(s) ID Date Data Source [id number] 02/02/2020 01:49:00 PM EDT [facility] [address] [place] [address] [phone] NAME SEX PT STATUS ACCOUNT NUMBER TISHA SESAY REG REF [id number] ORDERING PHYSICIAN LOCATION MEDICAL RECORD NO. Nicholas Scanlon M.D. RAD [id number] ATTENDING PHYSICIAN DATE OF DATE OF EXAM/TIME [...] Harvey MD on 02/02/201348 Signed By Chris Harvye MD on 02/02/20 1352 Date Time CC: Nicholas Scanlon M.D.; Chris Harvey MD Techn: BAKLE Trans Dt/Tm: Trans by: DT Prt Dt/Tm: [id number]: Total DLP = 0.00 mGy-cm Fluoroscopy Time (in secs): Name Value Range Interpretation Code Description Data Yumiko rce(s) Supporting Document(s) ID Date Data Source [id number] 02/02/2020 02:47:00 PM EDT [facility] Name Value Range Interpretation Code Description Data Yumiko rce(s) Supporting Document(s) Leukocytes [#/volume] in Blood by Automated count 9.2 10*3/uL 4.45-10 .71 N [facility] Erythrocytes [#/volume] in Blood by Automated count 4.28 10*6/uL 4.20 -5.40 N [facility] Hemoglobin [Moles/volume] in Blood 13.5 g/dL 10.7-15.4 N [facility] Hematocrit [Volume Fraction] of Blood by Automated count 40.8 % 3 7-47 N [facility] Erythrocyte mean corpuscular volume [Ent itic volume] in Cord blood by Automated count 95.3 fL 80-96 N [facility] ital Erythrocyte mean corpuscular hemoglobin [Entitic mass] by Automated count 31.5 pg 27-31 Above high normal [facility] spital Erythrocyte mean corpuscular hemoglobin concentration [Mass/volume] in Cord blood 33.1 g/dL 33-37 N [facility] ital Erythrocyte distribution width [Entitic volume] by Automated count 14 % 11-15 N [facility] Platelets [#/volume] in Blood by Automated count 354 10*3/uL 130-472 N [facility] Platelet mean volume [Entitic volume] in Blood 12.2 fL 9.1-13.1 N [facility] Neutrophils/100 leukocytes in Blood by Automated count 46.5 % 41- 77 N [facility] Neutrophils [#/volume] in Blood by Automated count 4.3 U 1.7-7.6 N [facility] Lymphocytes/100 leukocytes in Blood by Automated count 36.0 % 14- 46 N [facility] Lymphocytes [#/volume] in Blood by Automated count 3.3 U 0.6-4.6 N [facility] Monocytes/100 leukocytes in Blood by Automated count 10.9 % 4-12 N [facility] Monocytes [#/volume] in Blood by Automated count 1.0 U 0.2-1.2 N [facility] Eosinophils/100 leukocytes in Blood by Automated count 5.1 % 0-7 N [facility] Eosinophils [#/volume] in Blood by Automated count 0.5 U 0.0-0.5 N [facility] Basophils/100 leukocytes in Blood by Automated count 1.3 % 0.4-1 .3 N [facility] Basophils [#/volume] in Blood by Automated count 0.1 U 0.0-0.2 N [facility] NUCLEATED RED BLOOD CELL 0 % [facility] NUCLEATED RED BLOOD CELL# 0 U [facility] Immature granulocytes [Presence] in Blood by Automated count 0-2 N [facility] Immature granulocytes [#/volume] in Blood by Automated count 0.0 U 0-0.1 N [facility] Manual Differential panel - Blood NO [facility] ID Date Data Source [id number] 02/02/2020 03:20:00 PM EDT [facility] Name Value Range Interpretation Code Description Data Yumiko rce(s) Supporting Document(s) Hemoglobin A1c % 7.5 % 4.0-6.0 Above high normal [facility] The following ranges may be u sed for interpretation of results: HGBA1C degree of glucose control: Greater than 8%: Action Suggested * Less than 7%: Goal of Diabetic Therapy Less than 6%: NormalFactors such as duration of diabetes, adherence to therapyand the age of the patient should also be considered inassessing the degree of blood glucose control.* High risk of developing mcc complications such asretinopathy, nephropathy, neuropathy, cardiopathy, etc. Some danger of hypoglycemic reaction in Type I diabetics.Some glucose intolerant individuals and "Sub Clinical"diabetics may demonstrate HGBA1C levels in this area. Glucose mean value [Moles/volume] in Blood Estimated f rom glycated hemoglobin 169 mg/dL [facility] l An A1C of 7% - the goal of diabetic ther apy - is equivalentto an EAG of 154 mg/dl. ID Date Data Source [id number] 02/02/2020 03:23:00 PM EDT [facility] Name Value Range Interpretation Code Description Data Yumiko rce(s) Supporting Document(s) Urea nitrogen [Mass/volume] in Serum or Plasma 82 mg/dL 9 No range defined, or normal ranges don't apply [facility] @Review test & document. []Called to SHE GAGE P @ [phone] by Starr Villeda. Results read back.Repeated by: Starr Villeda 02/02/20 3087.Result Confirmation: 82 mg/dL Sodium [Moles/volume] in Serum or Plasma 137 mmol/L 132-146 N [facility] Potassium [Moles/volume] in Serum or Plasma 3.7 mmol/L 3.5-5.5 N [facility] Chloride [Moles/volume] in Serum or Plasma 95 mmol/L 99-109 [place]o w low normal [facility] Carbon dioxide, total [Moles/volume] in Serum or Plasma 34 mmol/ L 20-31 Above high normal [facility] Anion gap in Serum or Plasma 12 mmol/L 8-16 N L [facility] Glucose [Mass/volume] in Serum or Plasma 141 mg/dL 74-106 Above high normal [facility] Creatinine 2.7 mg/dL 0.5-1.1 Above high normal [facility] Glomerular filtration rate/1.73 sq M.pre dicted [Volume Rate/Area] in Serum or Plasma 17 ml/min ABOVE 60 [facility] Calcium [Mass/volume] in Serum or Plasma 8.9 mg/dL 8.5-10.1 N [facility] ID Date Data Source [id number] 02/02/2020 03:23:00 PM EDT [facility] Name Value Range Interpretation Code Description Data Yumiko rce(s) Supporting Document(s) Thyrotropin [Units/volume] in Serum or Plasma by Detec tion limit <= 0.005 mIU/L 3.38 u[iU]/mL 0.35-5.50 [facility] Date Data Source [id number] 01/11/2020 10:52:00 AM EDT [facility] Patient Name: TISHA SESAY : 1935 Sex: F Pt Unit #: [id number] Location:[facility] Provider: Visit Date/Time: 01/11/20 Primary Insurance: MEDICARE [facility] Secondary Insurance: [facility] Intake Vital Signs 01/11/20 10:59 BP 134/62 [...] Glimepiride 1mg and sitagliptin 50mg sent to [facility]. Lobster Catcher Required: No Accompanied by: self Allergies sulfamethoxazole [From Bactrim] Allergy (Severe, Verified 04/19/19 20:55) Anaphylaxis ciprofloxacin [From Cipro] Adverse Reaction (Intermediate, Verified 04/19/19 20:55) Diarrhea Penicillins Adverse Reaction (Intermediate, Unverified 10/12/19 15:30) PASSED OUT AND WENT BLIND HIV Testing Offer - ages 13-64 Requirement for HIV testing offer been met?: Not in age range [facility] Surgical History (Updated 06/08/19 @ 12:44 by [...] None Comment: with painful neuropathy SNOMED Code(s): 87967905 Category: Medical Plan - Nicholas Scanlon M.D.: [...] by Nicholas Scanlon MD> Date/Time Signed: 01/11/20 5350 Name Value Range Interpretation Code Description Data Yumiko rce(s) Supporting Document(s) ID Date Data Source [id number] 01/05/2020 09:33[facility] Value Range Interpretation Code Description Data Yumiko rce(s) Supporting Document(s) Alanine aminotransferase [Enzymatic acti vity/volume] in Serum or Plasma by With P-5'-P 29 U/L 10-49 N [facility] ital Aspartate aminotransferase [Enzymatic ac tivity/volume] in Serum or Plasma by With P-5'-P 16 U/L 0-33 N [facility] pital Alkaline phosphatase [Enzymatic activity/volume] in Serum or Plasma 78 U/L 45-129 N [facility] Bilirubin.total [Mass/volume] in Serum or Plasma 0.4 mg/dL 0.3-1.2 N [facility] Bilirubin.direct [Mass/volume] in Serum or Plasma 0.1 mg/dL 0.0-0.2 N [facility] Albumin [Mass/volume] in Serum or Plasma by Bromocresol purple (BCP) dye binding method 3.7 g/dL 3.2-4.8 N [facility] ital Protein [Mass/volume] in Serum or Plasma 7.3 g/dL 5.7-8.2 N [facility] ID Date Data Source [id number] 01/05/2020 09:33:00 AM [facility] Name Value Range Interpretation Code Description Data Yumiko rce(s) Supporting Document(s) Lactate dehydrogenase [Enzymatic activity/volume] in Serum o r Plasma 234 U/L 120-246 N [facility] ID Date Data Source [id number] 01/05/2020 09:33:00 AM [facility] Name Value Range Interpretation Code Description Data Yumiko rce(s) Supporting Document(s) Triglycerides 116 mg/dL 0-150 N [facility] Cholesterol 244 mg/dL 120-200 Above high normal [facility] HDL Cholesterol 66 mg/dL [facility] HDL Less than 40 mg/dL: Major risk for CHDHDL Greater than 59 mg/dL: Low risk for CHD LDL Cholesterol, Calc 155 mg/dL 0-100 Above high normal [facility] ID Date Data Source [id number] 01/05/2020 08:16:00 AM EDT [facility] Name Value Range Interpretation Code Description Data Yumiko rce(s) Supporting Document(s) Cholesterol [Mass/volume] in Serum or Plasma 244 mg/dL 120 -200 Above high normal [facility] PT HAS THE ORDER Triglyceride [Mass/volume] in Serum or Plasma 116 mg/dL 0- 150 Normal (applies to non-numeric results) [facility] ([facility]) PT HAS THE ORDER Cholesterol in LDL [Mass/volume] in Serum or Plasma by calcu lation 155 mg/dL 0-100 Above high normal [facility] PT HAS THE ORDER Cholesterol in HDL [Mass/volume] in Serum or Plasma 66 mg/dL [facility] PT HAS THE ORDER ID Date Data Source [id number] 01/05/2020 08:16:00 AM EDT [facility] ([facility]) Name Value Range Interpretation Code Description Data Yumiko rce(s) Supporting Document(s) Lactate dehydrogenase [Enzymatic activit y/volume] in Serum or Plasma by Lactate to pyruvate reaction 234 U/L 120-246 Normal (applies to non-numeric re sults) [facility] PT HAS THE ORDER ID Date Data Source [id number] 01/05/2020 08:16:00 AM EDT [facility] Name Value Range Interpretation Code Description Data Yumiko rce(s) Supporting Document(s) Aspartate aminotransferase [Enzymatic ac tivity/volume] in Serum or Plasma by With P-5'-P 16 U/L 0-33 Normal (applies to non-numeric results) [facility] ([facility]) PT HAS THE ORDER Alanine aminotransferase [Enzymatic acti vity/volume] in Serum or Plasma by With P-5'-P 29 U/L 10-49 Normal (applies to non-numeric results) [facility] PT HAS THE ORDER Alkaline phosphatase [Enzymatic activity/volume] in Serum or Plasma 78 U/L 45-129 Normal (applies to non-numeric results) [facility] PT HAS THE ORDER Bilirubin.direct [Mass/volume] in Serum or Plasma 0.1 mg/dL 0.0-0.2 Normal (applies to non-numeric results) [facility] ([facility]) PT HAS THE ORDER Albumin [Mass/volume] in Serum or Plasma by Bromocresol purple (BCP) dye binding method 3.7 g/dL 3.2-4.8 Normal (applies to non-numeric results) [facility]) PT HAS THE ORDER Bilirubin.total [Mass/volume] in Serum or Plasma 0.4 mg/dL 0.3-1.2 Normal (applies to non-numeric results) [facility] ([facility]) PT HAS THE ORDER Protein [Mass/volume] in Serum or Plasma 7.3 g/dL 5.7-8.2 Normal (applies to non-numeric results) [facility] ([facility]) PT HAS THE ORDER ID Date Data Source [id number] 11/02/2019 12:20:25 PM [facility], PCName: Ana SesayDOB: 4Provider: Chuy Martinez: 11/02/2019 Chief ComplaintChronic low back pain Chief Complaint 2NYSW VAS PAIN 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 - BILINGUAL RECEPTIONIST: The patient was counseled on the following: [...] rce(s) Supporting Document(s) ID Date Data Source [id number] 10/12/2019 03:09:00 PM EST [facility] Patient Name: TISHA SESAY : 1935 Sex: F Pt Unit #: [id number] Location:[facility] Provider: Visit Date/Time: 10/12/19 Primary Insurance: [facility]ICARE [facility] Secondary Insurance: [facility] ADDENDUM Office Procedure Documentation entered by Vicki Gonzalez 10/12/19 16:14: Results Urinalysis (DipStick) Urine Specific [place] 1.010 Last Edit by Vicki Gonzalez on 10/12/19 16:14 Urine PH 5 Last Edit by Vicki Gonzalez on 10/12/19 16:14 Urine Leukocytes TRACE Last Edit by Vicki Gonzalez on 10/12/19 16:14 Urine Nitrates NEGATIVE Last Edit by Vicki Gonzalez on 10/12/19 16:14 Urine Protein NEGATIVE Last Edit by Vicki Gonzalez on 10/12/19 16:14 Urine Ketones NEG [...] on Lantus , Febuxostat, Furosemide, and Ezetimibe Lobster Catcher Required: No Accompanied by: self Is patient [...] offer been met?: Not in age range [facility] Medical History Asplenia Chronic low back pain [...] in the past requiring treatment at the [facility]. Back Pain Associated symptoms: Denies abdominal pain, [...] M54.5 - Low back pain SNOMED Code(s): 413978708 Category: Medical Plan - Nicholas Scanlon M.D.: ua dip is negative. since the [...] rce(s) Supporting Document(s) ID Date Data Source [id number] 09/16/2019 04:09:11 PM EST [facility] PCName: Ana guajardo HawkB: [...] to Recorded Januvia 50 MG Oral Tablet;Therapy: (Recorded:[id number]) to Recorded Lantus SOLN;Therapy: (Recorded:[id number]) to Recorded Magnesium TABS;Therapy: (Recorded:[id number]) to Recorded Metoprolol Tartrate TABS;Therapy: (Recorded:[id number]) to Recorded Pantoprazole Sodium TBEC;Therapy: (Recorded:[id number]) to Recorded Potassium TBCR;Therapy: (Recorded:[id number]) to Recorded Sensipar 30 MG Oral Tablet;Therapy: (Recorded:[id number]) to Recorded Vitamin B Complex TABS;Therapy: (Recorded:96Xef5578) to Recorded Vitamin C TABS;Therapy: (Recorded:66Xzn5925) to Recorded Vitamin D CAPS;Therapy: (Recorded:[id number]) to Recorded Zetia 10 MG Oral Tablet;Therapy: (Recorded:[id number]) to Recorded Past Medical History History of [...] 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 - BILINGUAL RECEPTIONIST: The patient was counseled on the following: [...] in agreement with treatment plan. Vilma DisclaimerN[facility]WC [facility] Disclaimer: This document was dictated and electronically signed using [employer] software. A reasonable attempt at proof reading [...] AM EST Former smoker completed Former smoker [facility] Smoking 07/11/2020 11:28:00 AM EST Former smoker completed Former smoker [facility] Smoking 05/24/2020 12:00:00 AM EDT Patient is a former smoker completed Patient is a former smoker [facility] ([facility]) Smoking 05/11/2020 12:00:00 AM EDT Patient is a former smoker completed Patient is a former smoker [facility] ([facility]) Smoking 02/11/2020 01:20:00 PM EDT Former Smoker completed Former Smoker [facility] 02/06/2020 09:35:00 PM EDT No completed No [facility] 02/06/2020 09:35:00 PM EDT No completed No [facility] 02/06/2020 09:35:00 PM EDT No completed No [facility] 02/06/2020 09:35:00 PM EDT No completed No [facility] 02/06/2020 09:35:00 PM EDT Never smoker completed Never s [facility] Smoking 02/06/2020 09:35:00 PM EDT Never smoker completed Never s [facility] 02/02/2020 09:18:00 AM EDT 32 years ago completed 32 year s ago [facility] 02/02/2020 09:18:00 AM EDT No completed No [facility] 02/02/2020 09:18:00 AM EDT 32 years ago completed 32 year s ago [facility] 02/02/2020 09:18:00 AM EDT No completed No [facility] 02/02/2020 09:18:00 AM EDT 32 years ago completed 32 year s ago [facility] 02/02/2020 09:18:00 AM EDT No completed No [facility] 02/02/2020 09:18:00 AM EDT No completed No [facility] 02/02/2020 09:18:00 AM EDT No completed No [facility] 02/02/2020 09:18:00 AM EDT 32 years ago completed 32 year s ago [facility] 02/02/2020 09:18:00 AM EDT No completed No [facility] 02/02/2020 09:18:00 AM EDT No completed No [facility] 02/02/2020 09:18:00 AM EDT No completed No [facility] 01/11/2020 11:18:00 AM EDT 32 years ago completed 32 year s ago [facility] 01/11/2020 11:18:00 AM EDT No completed No [facility] 01/11/2020 11:18:00 AM EDT No completed No [facility] 01/11/2020 11:18:00 AM EDT No completed No [facility] Vital Signs ID Date Data Source UNK Name Value Range Interpretation Code Description Data Source(s) Oxygen saturation in Arterial blood by Pulse oximetry 96 % 96 % [facility] ([facility]) Room Air Heart rate 59 /min 59 /min [facility] ([facility]) Regular Diastolic blood pressure 66 mm[Hg] 66 mm[Hg] [facility] ([facility]) Right Arm, Sitting, Manual Systolic blood pressure 128 mm[Hg] 128 mm[Hg] [facility] Right Arm, Sitting, Manual Body mass index (BMI) [Ratio] 31.2 kg/m2 31.2 k g/m2 [facility] ([facility]) Body weight 176.00 [lb_av] 176.00 [lb_av] [facility] ([facility]) Body height 63 [in_i] 63 [in_i] [facility] ([facility]) 5'3" Body temperature 36.7 choco Normal (applies to non-numeric results) 36.7 choco [facility] Respiratory rate 18 min Normal (applies to non-numeric results) 18 min [facility] Heart rate 77 min Normal (applies to non-numeric resul ts) 77 min [facility] Diastolic blood pressure 80 mm[Hg] Normal (applies to non-numeric results) 80 mm[Hg] [facility] Systolic blood pressure 151 mm[Hg] Normal (applies t o non-numeric results) 151 mm[Hg] [facility] Deprecated Oxygen saturation in Capillary blood by Oximetry 97 % Normal (applies to non-numeric results) 97 % [facility] Body height 159.7152 cm Normal (applies to non-numeric res ults) 159.7152 cm [facility] Body weight Measured 167 [lb_av] Normal (applies to n on-numeric results) 167 [lb_av] [facility] Body mass index (BMI) [Ratio] 29.58 kg/m2 No rmal (applies to non-numeric results) 29.58 kg/m2 [facility] Heart rate 54 /min 54 /min [facility] ([facility]) Reg Diastolic blood pressure 70 mm[Hg] 70 mm[Hg] [facility] ([facility]) Systolic blood pressure 130 mm[Hg] 130 mm[Hg] [facility]) Body mass index (BMI) [Ratio] 32.2 kg/m2 32.2 k g/m2 [facility] ([facility]) Body weight 182.00 [lb_av] 182.00 [lb_av] [facility] ([facility]) Heart rate 54 /min 54 /min [facility] ([facility]) Reg Diastolic blood pressure 70 mm[Hg] 70 mm[Hg] [facility] ([facility]) Systolic blood pressure 130 mm[Hg] 130 mm[Hg] [facility]) Body mass index (BMI) [Ratio] 32.2 kg/m2 32.2 k g/m2 [facility] ([facility]) Body weight 182.00 [lb_av] 182.00 [lb_av] [facility] ([facility]) Body height 63 [in_i] 63 [in_i] [facility] ([facility]) 5'3"
[2020-10-24 14:40] LABS: INR 0.93; PARTIAL THROMBOPLASTIN TIME 27.8 SECONDS (24.2-38.5); PROTHROMBIN TIME 12.7 SECONDS (12.5-14.3)
[2020-10-24 15:05] LABS: ALBUMIN 3.8 GM/DL (3.2-5.2); ALT/SGPT 21 U/L (12-78); BILIRUBIN,DIRECT < 0.1 MG/DL (0.0-0.2); BILIRUBIN,TOTAL 0.4 MG/DL (0.2-1.0); BLOOD UREA NITROGEN 45 MG/DL (7-18); CALCIUM LEVEL 9.7 MG/DL (8.8-10.2); CARBON DIOXIDE LEVEL 25 MEQ/L (21-32); CHLORIDE LEVEL 104 MEQ/L (98-107); CK-MB VALUE MASS < 1.0 NG/ML (<3.6); CPK CREATINE PHOSPHOKINASE 92 U/L (26-192); FREE T4 1.26 NG/DL (0.76-1.46); GLOMERULAR FILTRATION RATE 26.6 (>32); GLUCOSE, FASTING 154 MG/DL (70-100); LIPASE 209 U/L (73-393); MB/CK RELATIVE INDEX 1.09 (< OR =4); POTASSIUM SERUM 5.2 MEQ/L (3.5-5.1); SODIUM LEVEL 136 MEQ/L (136-145); TOTAL PROTEIN 7.1 GM/DL (6.4-8.2); TROPONIN I 0.02 NG/ML (< 0.10)
[2020-10-24 15:36] LABS: RSV AMPLIFICATION NEGATIVE (NEGATIVE)
--- NOTE | 2020-10-24 16:11 | ECGEPIP ---
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
[2020-10-24] MEDS ORDERED: HEPARIN DRIP 25,000 UNITS in IV 1 EA IV SCH (17:08)
[2020-10-24] MEDS ORDERED: HEPARIN SOD (PORCINE) 5000UNITS/ML 1ML VIAL/SYRINGE IV ONE (17:15)
[2020-10-24] MEDS ORDERED: NITROGLYCERIN 2% OINT 1 GM *U/D* PKT TOP ONE (17:15)
[2020-10-24 17:24] VITALS: BP 204/88
[2020-10-24 18:41] VITALS: BP 127/58
== END 2020-10-24 18:43 | disposition short-term general hospital (02) ==
LOC: M ED 13:20
DX: I20.0 Unstable angina (principal); I51.7 Cardiomegaly; E11.9 Type 2 diabetes mellitus without complications; Z95.4 Presence of other heart-valve replacement; K21.9 Gastro-esophageal reflux disease without esophagitis; Z95.5 Presence of coronary angioplasty implant and graft; E78.5 Hyperlipidemia, unspecified; Z85.42 Personal history of malignant neoplasm of other parts of uterus; Z87.891 Personal history of nicotine dependence; Z88.0 Allergy status to penicillin; Z88.1 Allergy status to other antibiotic agents; Z79.82 Long term (current) use of aspirin; Z79.4 Long term (current) use of insulin; Z79.899 Other long term (current) drug therapy
CPT/HCPCS: 71045; 80048; 80076; 82550; 82553; 83690; 84439; 84443; 84484; 85025; 85610; 85730; 87631; 93005; 93041; 94760; 96374; 99285; J1644